=== PATIENT | female | born 1935 | race Caucasian/White ===

== ENCOUNTER → 2017-08-22 | Outpatient (CLI) | payer MEDICARE ==
--- NOTE | 2017-08-22 13:25 | BD ---
EXAMINATION TYPE: MG DEXA axial skeleton. DATE OF EXAM: 08/22/2017 COMPARISON: NONE CLINICAL HISTORY: 82-year-old female asymptomatic postmenopausal status Height: 4 FT 11 1/4 IN Weight: 109 FRAX RISK QUESTIONS: Alcohol (3 or more units per day): NO Family History (Parent hip fracture): NO Glucocorticoids (More than 3mos): NO (Ex: prednisone, prednisolone, methylprednisolone, dexamethasone, and hydrocortisone). History of Fracture in Adulthood: NO Secondary Osteoporosis: 1. Type 1 Diabetes: NO 2. Hyperthyroidism: NO 3. Menopause before 45: NO 4. Malnutrition: NO 5. Chronic liver disease: NO Rheumatoid Arthritis: NO Current Tobacco Use: YES RISK FACTORS HISTORY OF: Active: YES Postmenopausal woman: TOTAL HYST NOT SURE WHEN MEDICATIONS: Additional Medications: AMLODIPINE,ATENOLOL,ATORVASTATIN, PETOPROLOLOXYBUTYNIN Additional History: EXAM MEASUREMENTS: Bone mineral densitometry was performed using the [employer] System. Bone mineral density as measured about the Lumbar spine is: ----- L1-L4(G/cm2): 0.774 T Score Values are as follows: ----- L2: -3.2 ----- L3: -4.5 ----- L4: -3.6 ----- L1-L4: -3.4 BASELINE Bone mineral density about the R hip (g/cm2): 0.652 Bone mineral density about the L hip (g/cm2): 0.615 T Score values are as follows: -----R Neck: -2.8 -----L Neck: -3.0 -----R Total: -3.2 -----L Total: -3.2 BASELINE IMPRESSION: Osteoporosis (T Score less than -2.5) as noted by T Score values at the lumbar spine and both hips). There is increased fracture risk and therapy is usually indicated based on age. Re-Screen 1-2 years. NOTE: T-SCORE=SD OF THE YOUNG ADULT MEAN.
== END ==
LOC: RADBDWWP 08:28
PROVIDERS: ATTEND Family Medicine
DX: M81.0 Age-related osteoporosis without current pathological fracture (principal)
CPT/HCPCS: 77080

== ENCOUNTER → 2017-08-23 | Outpatient (CLI) | payer MEDICARE, BC ==
[2017-08-23 07:55] LABS: CH 26.5; CHCM 30.9; HCT 48.4 % (34.0-46.0); HGB 15.1 gm/dL (11.4-16.0); Hypochromasia Slight; MCHC 31.3 g/dL (31.0-37.0); MCV 86.3 fL (80.0-100.0); Mean Platelet Volume 7.9; RDW 14.3 % (11.5-15.5)
[2017-08-23 08:18] LABS: ALT 37 U/L (9-52); AST 30 U/L (14-36); Alkaline Phosphatase 108 U/L (38-126); Anion Gap 9 mmol/L; Blood Urea Nitrogen 23 mg/dL (7-17); Calcium 9.8 mg/dL (8.4-10.2); Carbon Dioxide 26 mmol/L (22-30); Chloride 107 mmol/L (98-107); Cholesterol 148 mg/dL (<200); Glucose 89 mg/dL (74-99); HDL Cholesterol 69 mg/dL (40-60); Non-African American GFR(MDRD) 56 (>60 ml/min/1.73 sqM); Potassium 4.4 mmol/L (3.5-5.1); Sodium 142 mmol/L (137-145); Total Bilirubin 0.2 mg/dL (0.2-1.3); Total Protein 7.2 g/dL (6.3-8.2)
== END | disposition home or self-care (01) ==
LOC: LABWHC1 07:09
PROVIDERS: ATTEND Family Medicine
DX: I25.10 Atherosclerotic heart disease of native coronary artery without angina pectoris (principal)
CPT/HCPCS: 36415; 80053; 80061; 85027

== ENCOUNTER 2023-07-19 12:22 | Inpatient (IN) | payer MEDICARE, BC ==
[2023-07-19] MEDS ORDERED: SODIUM CHLORIDE 0.9% 500 ML 500 ML IV STA (12:29)
[2023-07-19] MEDS ORDERED: IPRATROPIUM 0.5 MG/2.5 ML NEBU INHALATION STA (12:29)
[2023-07-19] MEDS ORDERED: ALBUTEROL NEBULIZED 2.5 MG/3 ML INHALATION STA (12:29)
[2023-07-19] MEDS ORDERED: methylPREDNISolone SOD SUCCI 125 MG/2 ML VIAL IV STA (12:29)
[2023-07-19] MEDS ORDERED: cefTRIAXone IN SWFI 1,000 MG/10 ML SYRINGE IVP STA ×2 (12:30→15:18)
--- NOTE | 2023-07-19 12:32 | ED ---
General Adult HPI - General Stated complaint: syncope Time Seen by Provider: 07/19/23 12:22 Source: patient, RN notes reviewed, old records reviewed - History of Present Illness Initial comments: This is an 87-year-old female with past medical history significant for COPD. Patient comes in today because she had 2 syncopal episodes this morning in the shower and hit her head. Patient also states that episode yesterday and hit her head. Patient is a poor historian and no family members with the patient. EMS stated she was 88% on room air and they put her on 3 L and gave her breathing treatment. Patient denies any chest pain or palpitations. Patient denies any recent sickness. Patient denies any fever chills or cough. Patient denies any abdominal pain patient denies nausea vomiting diarrhea. Patient denies any leg swelling or calf tenderness - Related Data Home Medications Medication Instructions Recorded Confirmed Aspirin EC [Ecotrin Low Dose] 81 mg PO DAILY 07/19/23 07/19/23 Atorvastatin Calcium [Lipitor] 80 mg PO HS 07/19/23 07/19/23 Cholecalciferol [Vitamin D3 (125 125 mcg PO HS 07/19/23 07/19/23 Mcg = 5000 Iu)] Donepezil HCl [Aricept] 10 mg PO BID 07/19/23 07/19/23 Memantine [Namenda] 10 mg PO BID 07/19/23 07/19/23 Metoprolol Succinate (ER) [Toprol 25 mg PO DAILY 07/19/23 07/19/23 Xl] Multivitamins, Thera [Multivitamin 1 tab PO DAILY 07/19/23 07/19/23 (formulary)] Turmeric Root Extract [Turmeric] 500 mg PO HS 07/19/23 07/19/23 amLODIPine [Norvasc] 5 mg PO HS 07/19/23 07/19/23 lisinopriL [Zestril] 10 mg PO DAILY 07/19/23 07/19/23 Allergies Allergy/AdvReac Type Severity Reaction Status Date / Time No Known Allergies Allergy Verified 07/19/23 13:13 Review of Systems ROS Statement: Those systems with pertinent positive or pertinent negative responses have been documented in the HPI. ROS Other: All systems not noted in ROS Statement are negative. General Exam - General Exam Comments Initial Comments: GENERAL: Patient is well-developed and well-nourished. Patient is nontoxic and well- hydrated and is in mild distress. ENT: Neck is soft and supple. No significant lymphadenopathy is noted. Oropharynx is clear. Moist mucous membranes. Neck has full range of motion without eliciting any pain. EYES: The sclera were anicteric and conjunctiva were pink and moist. Extraocular movements were intact and pupils were equal round and reactive to light. Eyelids were unremarkable. PULMONARY: Rhonchi with expiratory wheezing. CARDIOVASCULAR: There is a regular rate and rhythm without any murmurs gallops or rubs. ABDOMEN: Soft and nontender with normal bowel sounds. SKIN: Skin is clear with no lesions or rashes and otherwise unremarkable. NEUROLOGIC: Patient is alert and oriented x3. Cranial nerves II through XII are grossly intact. Motor and sensory are also intact. Normal speech, volume and content. Symmetrical smile. MUSCULOSKELETAL: Normal extremities with adequate strength and full range of motion. LYMPHATICS: No significant lymphadenopathy is noted PSYCHIATRIC: Normal psychiatric evaluation. Course Vital Signs 07/19/23 07/19/23 07/19/23 12:23 12:55 13:46 Temperature 98.3 F Pulse Rate 80 81 Pulse Rate [ Physical Therapy Instructor ] Respiratory 26 H 24 18 Rate Blood Pressure 166/83 Blood Pressure [Right Arm] O2 Sat by Pulse 96 Oximetry Fraction of Inspired Oxygen (FIO2) 07/19/23 07/19/23 07/19/23 13:56 14:47 15:32 Temperature Pulse Rate 88 141 H Pulse Rate [ 138 H Physical Therapy Instructor ] Respiratory 18 30 H 28 H Rate Blood Pressure 137/80 Blood Pressure 98/60 [Right Arm] O2 Sat by Pulse 86 L 79 L Oximetry Fraction of Inspired Oxygen (FIO2) 07/19/23 07/19/23 07/19/23 15:51 16:32 16:50 Temperature Pulse Rate 156 H 110 H Pulse Rate [ 103 H Physical Therapy Instructor ] Respiratory 22 23 Rate Blood Pressure 100/81 152/80 Blood Pressure 149/73 [Right Arm] O2 Sat by Pulse 92 L Oximetry Fraction of 100 Inspired Oxygen (FIO2) 07/19/23 07/19/23 17:22 17:52 Temperature 98.3 F Pulse Rate Pulse Rate [ 70 71 Physical Therapy Instructor ] Respiratory 23 21 Rate Blood Pressure Blood Pressure 160/79 169/79 [Right Arm] O2 Sat by Pulse 93 L 94 L Oximetry Fraction of Inspired Oxygen (FIO2) Medical Decision Making - Medical Decision Making EKG was interpreted by myself. EKG shows a sinus rhythm at 75 bpm IA interval 138 QRS is 154 QT interval is 424 QTC is 452. Patient has a left bundle branch block Patient's rhythm was so multiple EKGs were done Second EKG was interpreted by myself shows atrial fibrillation with rapid ventricular response at 196 bpm QRS is 250 QT interval 311 QTC is 410. EKG was interpreted by myself. EKG shows atrial for ablation 66 bpm QRS is 151 Q-T intervals 4:30 QTC is 444. EKG was interpreted by myself. EKG shows a atrial fibrillation at 137 bpm IA interval is 96 QRS is 162 QT interval 354 QTC is 425. Was pt. sent in by a medical professional or institution (, PA, PULL TAB DEALER, urgent care, hospital, or alf...) When possible be specific @ -No Did you speak to anyone other than the patient for history (EMS, parent, family, police, friend...)? What history was obtained from this source @ -No Did you review nursing and triage notes (agree or disagree)? Why? @ -I reviewed and agree with nursing and triage notes Were old charts reviewed (outside hosp., previous admission, EMS record, old EKG, old radiological studies, urgent care reports/EKG's, alf records)? Report findings @ -No old charts were reviewed Differential Diagnosis (chest pain, altered mental status, abdominal pain women, abdominal pain men, vaginal bleeding, weakness, fever, dyspnea, syncope, head ache, dizziness, GI bleed, back pain, seizure, CVA, palpatations, mental health, musculoskeletal)? @ -Differential Syncope: Valvular disease, hypertrophic cardiomyopathy, pulmonary embolism, tamponade, tachycardia, bradycardia, CA, hypovolemia, hemorrhage, dissection, anemia, in tracranial hemorrhage, seizure, hypoglycemia, carbon monoxide poisoning, this is not meant to be an all-inclusive list. EKG interpreted by me (3pts min.). @ -As above X-rays interpreted by me (1pt min.). @ -Chest x-ray showed no acute abnormality CT interpreted by me (1pt min.). @ -CT of the brain shows no acute abnormality. CT of the C-spine shows multiple lesions in the C-spine which could indicate meant metastatic disease U/S interpreted by me (1pt. min.). @ -None done What testing was considered but not performed or refused? (CT, X-rays, U/S, labs)? Why? @ -None What meds were considered but not given or refused? Why? @ -None Did you discuss the management of the patient with other professionals (professionals i.e. , PA, PULL TAB DEALER, lab, RT, psych nurse, social services manager, fiberglass laminator, teacher, affirmative action officer, transplant case manager)? Give summary @ -[facility] Was smoking cessation discussed for >3mins.? @ -No Was critical care preformed (if so, how long)? @ -Minutes Were there social determinants of health that impacted care today? How? (Homelessness, low income, unemployed, alcoholism, drug addiction, transportation, low edu. Level, literacy, decrease access to med. care, detention, rehab)? @ -No Was there de-escalation of care discussed even if they declined (Discuss DNR or withdrawal of care, Hospice)? DNR status @ -No What co-morbidities impacted this encounter? (DM, HTN, Smoking, COPD, CAD, Canc er, CVA, ARF, Chemo, Hep., AIDS, mental health diagnosis, sleep apnea, morbid obesity)? @ -None Was patient admitted / discharged? Hospital course, mention meds given and route, prescriptions, significant lab abnormalities, going to OR and other pertinent info. @ -Was given a Cardizem bolus 2 and then started on a Cardizem drip patient's heart rate did start to trend down and eventually went into a sinus rhythm. Patient was also started on heparin. Patient's x-ray showed a questionable pneumonia so patient was started on antibiotics. Patient will be admitted to [facility] physician's and I will consult cardiology Undiagnosed new problem with uncertain prognosis? @ -No Drug Therapy requiring intensive monitoring for toxicity (Heparin, Nitro, Insulin, Cardizem)? @ -No Were any procedures done? @ -No Diagnosis/symptom? @ -A. fib with rapid ventricular response Acute, or Chronic, or Acute on Chronic? @ -Acute Uncomplicated (without systemic symptoms) or Complicated (systemic symptoms)? @ -Complicated Side effects of treatment? @ -No Exacerbation, Progression, or Severe Exacerbation? @ -No Poses a threat to life or bodily function? How? (Chest pain, USA, CA, pneumonia, PE, COPD, DKA, ARF, appy, cholecystitis, CVA, Diverticulitis, Homicidal, Suicidal, threat to staff... and all critical care pts) @ -Yes this could lead to poor perfusion and end organ dysfunction Diagnosis/symptom? @ -Pneumonia Acute, or Chronic, or Acute on Chronic? @ -Acute Uncomplicated (without systemic symptoms) or Complicated (systemic symptoms)? @ -Complicated Side effects of treatment? @ -none Exacerbation, Progression, or Severe Exacerbation] @ -no Poses a threat to life or bodily function? @ -Yes this could lead to sepsis and end organ dysfunction Diagnosis/symptom? @ -Near syncope Acute, or Chronic, or Acute on Chronic? @ -Acute Uncomplicated (without systemic symptoms) or Complicated (systemic symptoms)? @ -Complicated Side effects of treatment? @ -none Exacerbation, Progression, or Severe Exacerbation] @ -no Poses a threat to life or bodily function? @ -no Diagnosis/symptom? @ -Multiple falls Acute, or Chronic, or Acute on Chronic? @ -Acute Uncomplicated (without systemic symptoms) or Complicated (systemic symptoms)? @ -Complicated Side effects of treatment? @ -none Exacerbation, Progression, or Severe Exacerbation] @ -no Poses a threat to life or bodily function? @ -no Diagnosis/symptom? @ -C-spine lesions Acute, or Chronic, or Acute on Chronic? @ -Acute on chronic Uncomplicated (without systemic symptoms) or Complicated (systemic symptoms)? @ -Complicated Side effects of treatment? @ -none Exacerbation, Progression, or Severe Exacerbation] @ -no Poses a threat to life or bodily function? @ -no - Lab Data Result diagrams: 07/19/23 12:48 07/19/23 17:10 Lab Results 07/19/23 07/19/23 07/19/23 Range/Units 12:48 12:48 15:46 WBC 6.6 (3.8-10.6) k/uL RBC 4.77 (3.80-5.40) m/uL Hgb 12.8 (11.4-16.0) gm/dL Hct 40.5 (34.0-46.0) % MCV 85.0 (80.0-100.0) fL MCH 26.9 (25.0-35.0) pg MCHC 31.7 (31.0-37.0) g/dL RDW 14.9 (11.5-15.5) % Plt Count 134 L (150-450) k/uL MPV 8.8 Neutrophils % 73 % Lymphocytes % 20 % Monocytes % 5 % Eosinophils % 1 % Basophils % 0 % Neutrophils # 4.9 (1.3-7.7) k/uL Lymphocytes # 1.3 (1.0-4.8) k/uL Monocytes # 0.3 (0-1.0) k/uL Eosinophils # 0.1 (0-0.7) k/uL Basophils # 0.0 (0-0.2) k/uL Hypochromasia Slight PT 10.9 (9.0-12.0) sec INR 1.0 (<1.2) APTT 23.0 (22.0-30.0) sec Sample Site r rad ABG pH 7.36 (7.35-7.45) ABG pCO2 37 (35-45) mmHg ABG pO2 47 L* (83-108) mmHg ABG HCO3 21 (21-25) mmol/L ABG Total CO2 22 (19-24) mmol/L ABG O2 Saturation 78.7 L (94-97) % ABG Base Excess -4.5 mmol/L Shiraz Test Yes FiO2 100 % Sodium (137-145) mmol/L Potassium (3.5-5.1) mmol/L Chloride (98-107) mmol/L Carbon Dioxide (22-30) mmol/L Anion Gap mmol/L BUN (7-17) mg/dL Creatinine (0.52-1.04) mg/dL Est GFR (CKD-EPI)AfAm (>60 ml/min/1.73 sqM) Est GFR (CKD-EPI)NonAf (>60 ml/min/1.73 sqM) Glucose (74-99) mg/dL Plasma Lactic Acid Melvin (0.7-2.0) mmol/L Calcium (8.4-10.2) mg/dL Magnesium (1.6-2.3) mg/dL Total Bilirubin (0.2-1.3) mg/dL AST (14-36) U/L ALT (4-34) U/L Alkaline Phosphatase (38-126) U/L Troponin I (0.000-0.034) ng/mL NT-Pro-B Natriuret Pep pg/mL Total Protein (6.3-8.2) g/dL Albumin (3.5-5.0) g/dL 07/19/23 07/19/23 07/19/23 Range/Units 16:06 17:10 17:10 WBC (3.8-10.6) k/uL RBC (3.80-5.40) m/uL Hgb (11.4-16.0) gm/dL Hct (34.0-46.0) % MCV (80.0-100.0) fL MCH (25.0-35.0) pg MCHC (31.0-37.0) g/dL RDW (11.5-15.5) % Plt Count (150-450) k/uL MPV Neutrophils % % Lymphocytes % % Monocytes % % Eosinophils % % Basophils % % Neutrophils # (1.3-7.7) k/uL Lymphocytes # (1.0-4.8) k/uL Monocytes # (0-1.0) k/uL Eosinophils # (0-0.7) k/uL Basophils # (0-0.2) k/uL Hypochromasia PT (9.0-12.0) sec INR (<1.2) APTT (22.0-30.0) sec Sample Site LBRAC ABG pH 7.36 (7.35-7.45) ABG pCO2 37 (35-45) mmHg ABG pO2 54 L* (83-108) mmHg ABG HCO3 21 (21-25) mmol/L ABG Total CO2 22 (19-24) mmol/L ABG O2 Saturation 85.0 L (94-97) % ABG Base Excess -4.7 mmol/L Shiraz Test Yes FiO2 100 % Sodium 144 (137-145) mmol/L Potassium 4.2 (3.5-5.1) mmol/L Chloride 112 H (98-107) mmol/L Carbon Dioxide 19 L (22-30) mmol/L Anion Gap 13 mmol/L BUN 45 H (7-17) mg/dL Creatinine 1.36 H (0.52-1.04) mg/dL Est GFR (CKD-EPI)AfAm 40 (>60 ml/min/1.73 sqM) Est GFR (CKD-EPI)NonAf 35 (>60 ml/min/1.73 sqM) Glucose 159 H (74-99) mg/dL Plasma Lactic Acid Melvin (0.7-2.0) mmol/L Calcium 9.8 (8.4-10.2) mg/dL Magnesium 1.8 (1.6-2.3) mg/dL Total Bilirubin 0.6 (0.2-1.3) mg/dL AST 67 H (14-36) U/L ALT 44 H (4-34) U/L Alkaline Phosphatase 103 (38-126) U/L Troponin I 0.048 H* (0.000-0.034) ng/mL NT-Pro-B Natriuret Pep 3760 pg/mL Total Protein 7.6 (6.3-8.2) g/dL Albumin 4.0 (3.5-5.0) g/dL 07/19/23 Range/Units 17:10 WBC (3.8-10.6) k/uL RBC (3.80-5.40) m/uL Hgb (11.4-16.0) gm/dL Hct (34.0-46.0) % MCV (80.0-100.0) fL MCH (25.0-35.0) pg MCHC (31.0-37.0) g/dL RDW (11.5-15.5) % Plt Count (150-450) k/uL MPV Neutrophils % % Lymphocytes % % Monocytes % % Eosinophils % % Basophils % % Neutrophils # (1.3-7.7) k/uL Lymphocytes # (1.0-4.8) k/uL Monocytes # (0-1.0) k/uL Eosinophils # (0-0.7) k/uL Basophils # (0-0.2) k/uL Hypochromasia PT (9.0-12.0) sec INR (<1.2) APTT (22.0-30.0) sec Sample Site ABG pH (7.35-7.45) ABG pCO2 (35-45) mmHg ABG pO2 (83-108) mmHg ABG HCO3 (21-25) mmol/L ABG Total CO2 (19-24) mmol/L ABG O2 Saturation (94-97) % ABG Base Excess mmol/L Shiraz Test FiO2 % Sodium (137-145) mmol/L Potassium (3.5-5.1) mmol/L Chloride (98-107) mmol/L Carbon Dioxide (22-30) mmol/L Anion Gap mmol/L BUN (7-17) mg/dL Creatinine (0.52-1.04) mg/dL Est GFR (CKD-EPI)AfAm (>60 ml/min/1.73 sqM) Est GFR (CKD-EPI)NonAf (>60 ml/min/1.73 sqM) Glucose (74-99) mg/dL Plasma Lactic Acid Melvin 1.3 (0.7-2.0) mmol/L Calcium (8.4-10.2) mg/dL Magnesium (1.6-2.3) mg/dL Total Bilirubin (0.2-1.3) mg/dL AST (14-36) U/L ALT (4-34) U/L Alkaline Phosphatase (38-126) U/L Troponin I (0.000-0.034) ng/mL NT-Pro-B Natriuret Pep pg/mL Total Protein (6.3-8.2) g/dL Albumin (3.5-5.0) g/dL Critical Care Time Critical Care Time: Yes Total Critical Care Time: 45 Disposition Clinical Impression: Atrial fibrillation with rapid ventricular response, Near syncope, Pneumonia, Multiple falls, Lesion of bone of cervical spine Disposition: ADMITTED IP TO THIS HOSP Referrals: Carloz Staples MD [Primary Care Provider] - 1-2 days Time of Disposition: 19:14
[2023-07-19 12:59] LABS: Basophils % (A) 0 %; Eosinophils # (A) 0.1 k/uL (0-0.7); Eosinophils % (A) 1 %; HCT 40.5 % (34.0-46.0); HGB 12.8 gm/dL (11.4-16.0); Hypochromasia Slight; Lymphocytes # (A) 1.3 k/uL (1.0-4.8); Lymphocytes % (A) 20 %; MCH 26.9 pg (25.0-35.0); MCHC 31.7 g/dL (31.0-37.0); Mean Platelet Volume 8.8; Monocytes # (A) 0.3 k/uL (0-1.0); Monocytes % (A) 5 %; Neutrophils # (A) 4.9 k/uL (1.3-7.7); Neutrophils % (A) 73 %; Platelet Count 134 k/uL (150-450); RBC 4.77 m/uL (3.80-5.40); RDW 14.9 % (11.5-15.5); WBC 6.6 k/uL (3.8-10.6)
[2023-07-19 13:22] LABS: Prothrombin Time 10.9 sec (9.0-12.0)
--- NOTE | 2023-07-19 13:46 | CT ---
EXAMINATION TYPE: CT brain rob wo con DATE OF EXAM: 07/19/2023 COMPARISON: None HISTORY: Fall, syncope, bruising Rt side of head. CT DLP: 1326 mGycm, Automated exposure control for dose reduction was used. CONTRAST: Patient injected with mL of . CT of the brain is performed utilizing 3 mm thick sections through the posterior fossa and 3 mm thick sections through the remaining calvarium. Study is performed within 24 hours of arrival to the hospital. No abnormal hyperdensity is present to suggest an acute intracranial hemorrhage. No mass lesion is evident. No acute infarcts are evident. Patchy periventricular white matter hypodensity is present, likely on the basis of chronic white matter ischemic changes. Ventricles and sulci are somewhat prominent for the patient age. Paranasal sinuses and mastoid air cells within the [id number] are clear. IMPRESSIONS: 1. No acute intracranial process. Follow-up MRI can be performed as clinically indicated CT cervical spine. COMPARISON: None CT of the cervical spine is performed in the axial plane at 2 mm thick sections. Reconstructed image s in the coronal, and sagittal plane are reviewed on the computer. No acute fractures are evident. There may be some diffuse lytic areas through the cervical spine. Cor relate with patient history for possible metastasis. Vertebral body alignment is normal. Disc heights are preserved. Vertebral body heights are preserved. No spinal canal stenosis is evident. No neural foraminal stenosis is evident. IMPRESSION: 1. Some diffuse pole lysis within the cervical spine may be present. Consider metastatic disease. 2. No acute osseous abnormality.
--- NOTE | 2023-07-19 14:33 | XR ---
EXAMINATION TYPE: XR chest 2V DATE OF EXAM: 07/19/2023 COMPARISON: 09/02/2012 HISTORY: 87-year-old female shortness of breath, difficulty breathing TECHNIQUE: AP and lateral views FINDINGS: Heart is mildly moderately enlarged. Atherosclerotic arch calcifications. Surgical clips right hilum. There is a focal nodular opacity in the left midlung. Mild interstitial prominence without pleural e ffusion. IMPRESSION: 1. Aquy-rg-[id number] cardiomegaly. 2. Interstitial prominence which in part may be chronic. Correlate to exclude bronchitis, asthma, or mild pulmonary vascular congestion. 3. Focal opacity left midlung could represent an underlying pulmonary nodule or early pneumonia. Foll ow-up after treatment to exclude a suspicious pulmonary nodule/neoplasm.
[2023-07-19] MEDS ORDERED: DEXTROSE 5% IN WATER 100 ML with AMIODARONE 150 MG IV ONE (14:46)
[2023-07-19] MEDS ORDERED: AMIODARONE 360 MG in DEXTROSE 5% IN WATER 200 ML IV ONE ×2 (14:46)
[2023-07-19] MEDS ORDERED: DILTIAZEM DRIP BOLUS FROM BAG 1 MG SOLN IV ONE (14:48)
[2023-07-19] MEDS ORDERED: DILTIAZEM 125 MG in SODIUM CHLORIDE 0.9% 100 ML IV SCH (15:00)
[2023-07-19] MEDS ORDERED: DILTIAZEM 5 MG/ML 5 ML VIAL IVP STA (15:25)
[2023-07-19 15:50] LABS: ABG Base Excess -4.5 mmol/L; ABG HCO3 21 mmol/L (21-25); ABG PCO2 37 mmHg (35-45); ABG PH 7.36 (7.35-7.45); ABG TCO2 22 mmol/L (19-24); Allen Test Performed? Yes
[2023-07-19 15:51] LABS: ABG PO2 47 mmHg (83-108)
[2023-07-19 15:52] LABS: ABG Oxygen Saturation 78.7 % (94-97)
[2023-07-19 16:10] LABS: ABG Base Excess -4.7 mmol/L; ABG HCO3 21 mmol/L (21-25); ABG PCO2 37 mmHg (35-45); ABG PH 7.36 (7.35-7.45); ABG TCO2 22 mmol/L (19-24); Allen Test Performed? Yes
[2023-07-19 16:14] LABS: ABG PO2 54 mmHg (83-108)
[2023-07-19 17:48] LABS: ALT 44 U/L (4-34); AST 67 U/L (14-36); African American GFR (CKD) 40 (>60 ml/min/1.73 sqM); Alkaline Phosphatase 103 U/L (38-126); Anion Gap 13 mmol/L; Blood Urea Nitrogen 45 mg/dL (7-17); Calcium 9.8 mg/dL (8.4-10.2); Carbon Dioxide 19 mmol/L (22-30); Chloride 112 mmol/L (98-107); Glucose 159 mg/dL (74-99); Magnesium 1.8 mg/dL (1.6-2.3); Non-African American GFR(CKD) 35 (>60 ml/min/1.73 sqM); Potassium 4.2 mmol/L (3.5-5.1); Sodium 144 mmol/L (137-145); Total Bilirubin 0.6 mg/dL (0.2-1.3); Total Protein 7.6 g/dL (6.3-8.2)
[2023-07-19 17:55] LABS: NT-Pro-B-Type Natriuretic Pept 3760 pg/mL
[2023-07-19] MEDS ORDERED: HEPARIN SODIUM 1,000 UN/ML (10ML VL) IV ONE (19:05)
[2023-07-19] MEDS ORDERED: SODIUM CHLORIDE 0.9% 1,000 ML IV ONE (19:14)
[2023-07-19] MEDS ORDERED: AZITHROMYCIN 500 MG in SODIUM CHLORIDE 0.9% 250 ML IVPB STA (19:16)
[2023-07-19] MEDS: HEPARIN SOD,PORK IN 0.45% NACL 25,000 UNIT in 0.45% NACL 1 250ML.BAG IV SCH (19:31)
[2023-07-19] MEDS ORDERED: AMIODARONE 450 MG in DEXTROSE 5% IN WATER 250 ML IV SCH ×2 (21:00)
[2023-07-20] MEDS ORDERED: DILTIAZEM DRIP BOLUS FROM BAG 1 MG SOLN IV ONE (02:10)
[2023-07-20] MEDS ORDERED: DILTIAZEM 125 MG in SODIUM CHLORIDE 0.9% 100 ML IV SCH (02:15)
--- NOTE | 2023-07-20 02:20 | P.HPIM ---
History of Present Illness H&P Date: 07/19/23 Chief Complaint: syncope 87-year-old female with COPD She is coming in for recurrent syncopal episodes. Patient has dementia unable to provide any meaningful history which was obtained by reviewing medical records and discussing the case with the ED doctor. No family members available at this time Like she had the a syncopal episode this morning while in the shower she hit her head. She lives with her son and his family EMS was notified, found the patient to be slightly hypoxic with oxygen saturation 88%. No report of chest pain or shortness of breath no report of fevers or chills no report of any history of blood clots No other history is available at this time Patient has converted to sinus rhythm while in the ED on Cardizem drip review of systems Patient is unreliable however she denies any symptoms when I ask her more she says I don't know on exam Constitutional: No acute distress, conversant, cooperative Eyes: Anicteric sclerae, moist conjunctiva, Pupils equal round reactive to light ENMT: NC/there is a bruise over the right forehead Oropharynx clear, no erythema, or exudates Neck: Supple, no masses, or JVD No carotid bruits No thyromegaly Lungs: Clear to auscultation Clear to percussion Normal respiratory effort, no accessory muscle use Cardiovascular: Heart regular in rate and rhythm, No murmurs, gallops, or rubs No peripheral edema Abdominal: Soft Nontender, no guarding, rebound or rigidity Abdomen moving with respiration Normoactive bowel sounds Epigastric abdominal hernia skin : Multiple bruises and ecchymosis Extremities: No digital cyanosis No clubbing Pedal pulses intact and symmetrical Radial pulses intact and symmetrical No calf tenderness Psychiatric: Alert and oriented to person, place Neuro moving all 4 extremities purposefully Past Medical History Past Medical History: Coronary Artery Disease (CAD), COPD, Dementia, Hypertension, Myocardial Infarction (MD) Additional Past Medical History / Comment(s): heart murmur Last Myocardial Infarction Date:: unknown History of Any Multi-Drug Resistant Organisms: None Reported Past Surgical History: Orthopedic Surgery Additional Past Surgical History / Comment(s): shoulder Past Anesthesia/Blood Transfusion Reactions: No Reported Reaction Past Psychological History: No Psychological Hx Reported Smoking Status: Former smoker Past Alcohol Use History: None Reported Past Drug Use History: None Reported Medications and Allergies Home Medications Medication Instructions Recorded Confirmed Type Aspirin EC [Ecotrin Low Dose] 81 mg PO DAILY 07/19/23 07/19/23 History Atorvastatin Calcium [Lipitor] 80 mg PO HS 07/19/23 07/19/23 History Cholecalciferol [Vitamin D3 (125 125 mcg PO HS 07/19/23 07/19/23 History Mcg = 5000 Iu)] Donepezil HCl [Aricept] 10 mg PO BID 07/19/23 07/19/23 History Memantine [Namenda] 10 mg PO BID 07/19/23 07/19/23 History Metoprolol Succinate (ER) [Toprol 25 mg PO DAILY 07/19/23 07/19/23 History Xl] Multivitamins, Thera [Multivitamin 1 tab PO DAILY 07/19/23 07/19/23 History (formulary)] Turmeric Root Extract [Turmeric] 500 mg PO HS 07/19/23 07/19/23 History amLODIPine [Norvasc] 5 mg PO HS 07/19/23 07/19/23 History lisinopriL [Zestril] 10 mg PO DAILY 07/19/23 07/19/23 History Allergies Allergy/AdvReac Type Severity Reaction Status Date / Time No Known Allergies Allergy Verified 07/19/23 13:13 Physical Exam Vitals: Vital Signs Temp Pulse Pulse Resp BP BP Pulse Ox 07/20/23 00:09 98.8 F 75 12 155/80 98 07/19/23 23:18 07/19/23 21:59 69 16 07/19/23 21:14 98.2 F 69 18 159/65 96 07/19/23 20:23 76 16 149/82 94 L 07/19/23 20:15 07/19/23 19:38 69 22 157/93 94 L 07/19/23 17:52 71 21 169/79 94 L 07/19/23 17:22 98.3 F 70 23 160/79 93 L 07/19/23 16:50 110 H 103 H 23 152/80 149/73 92 L 07/19/23 16:32 07/19/23 15:51 156 H 22 100/81 07/19/23 15:32 138 H 28 H 98/60 79 L 07/19/23 14:47 141 H 30 H 137/80 86 L 07/19/23 13:56 88 18 07/19/23 13:46 81 18 07/19/23 12:55 24 07/19/23 12:23 98.3 F 80 26 H 166/83 96 FiO2 07/20/23 00:09 07/19/23 23:18 100 07/19/23 21:59 07/19/23 21:14 07/19/23 20:23 07/19/23 20:15 100 07/19/23 19:38 07/19/23 17:52 07/19/23 17:22 07/19/23 16:50 07/19/23 16:32 100 07/19/23 15:51 07/19/23 15:32 07/19/23 14:47 07/19/23 13:56 07/19/23 13:46 07/19/23 12:55 07/19/23 12:23 Intake and Output 07/19/23 07/19/23 07/20/23 14:59 22:59 06:59 Intake Total 26 14.292 Balance 26 14.292 Intake: Intake, IV Titration 26 14.292 Amount Diltiazem 125 mg In 26 14.292 Sodium Chloride 0.9% 100 ml @ 5 MG/HR 5 mls/hr IV .Q24H [facility] Rx#:[id number] Other: Voiding Method Diaper Weight 65.771 kg 65.771 kg Results CBC & Chem 7: 07/19/23 12:48 07/19/23 17:10 Labs: Abnormal Lab Results - Last 24 Hours (Table) 07/19/23 07/19/23 07/19/23 Range/Units 12:48 15:46 16:06 Plt Count 134 L (150-450) k/uL ABG pO2 47 L* 54 L* (83-108) mmHg ABG O2 Saturation 78.7 L 85.0 L (94-97) % Chloride (98-107) mmol/L Carbon Dioxide (22-30) mmol/L BUN (7-17) mg/dL Creatinine (0.52-1.04) mg/dL Glucose (74-99) mg/dL AST (14-36) U/L ALT (4-34) U/L Troponin I (0.000-0.034) ng/mL 07/19/23 07/19/23 Range/Units 17:10 17:10 Plt Count (150-450) k/uL ABG pO2 (83-108) mmHg ABG O2 Saturation (94-97) % Chloride 112 H (98-107) mmol/L Carbon Dioxide 19 L (22-30) mmol/L BUN 45 H (7-17) mg/dL Creatinine 1.36 H (0.52-1.04) mg/dL Glucose 159 H (74-99) mg/dL AST 67 H (14-36) U/L ALT 44 H (4-34) U/L Troponin I 0.048 H* (0.000-0.034) ng/mL Thrombosis Risk Factor Assmnt - Choose All That Apply Any of the Below Risk Factors Present?: No Each Risk Factor Represents 3 Points: Age 75 years or older Other congenital or acquired thrombophilia - If yes, enter type in comment: No Thrombosis Risk Factor Assessment Total Risk Factor Score: 3 Thrombosis Risk Factor Assessment Level: Moderate Risk Assessment and Plan Assessment: 87-year-old female with dementia and hypertension coming in for syncopal episodes, discussed the case with the ED doctor and accepted the admission for A. fib with RVR for cardiology evaluation with anticipated length of stay more than 2 midnights Recurrent syncopal episodes A. fib with RVR Recurrent falls and head injury CT of the head and neck shows no acute pathology and the brain, cervical spine showed some chronic lesions Patient converted to normal sinus rhythm while on Cardizem drip however after discontinuing the trip she went back into A. 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 fib with RVR continue to trend troponins Acute hypoxic respiratory failure Suspected pneumonia Chest x-ray showed left mid lung focal opacity Patient initiated on azithromycin and Rocephin in the ED Continue azithromycin 500 mg by mouth daily Continue Rocephin 2 g IV piggyback daily Tylenol when necessary for fever Supplemental oxygen as needed Dementia Continue home medications Acute kidney injury Avoid nephrotoxic meds Hold lisinopril Gentle IV fluid hydration normal saline 75 mL per hour Monitor urine output Blood work showing white count 6.6 BUN 45 creatinine 1.36 Sodium 144 potassium 4.2 CODE STATUS no code DVT prophylaxis currently on heparin drip for A. fib with RVR
[2023-07-20] MEDS: DONEPEZIL 10 MG TAB PO SCH ×2 (08:42→20:13)
[2023-07-20] MEDS: MEMANTINE 10 MG TAB PO SCH ×2 (08:42→20:13)
[2023-07-20] MEDS: ASPIRIN 81 MG PO SCH (08:42)
[2023-07-20] MEDS: METOPROLOL SUCCINATE (ER) 25 MG TAB.ER.24H PO SCH (08:42)
[2023-07-20] MEDS ORDERED: lisinopriL 10 MG TAB PO SCH (09:00)
[2023-07-20] MEDS: AZITHROMYCIN 500 MG in SODIUM CHLORIDE 0.9% 250 ML IVPB SCH (10:00)
[2023-07-20] MEDS ORDERED: IPRATROPIUM-ALBUTEROL 3 ML NEB INHALATION PRN (12:13)
--- NOTE | 2023-07-20 12:13 | P.CNPUL ---
History of Present Illness Consult date: 07/20/23 Requesting physician: Carloz Staples Reason for consult: dyspnea, COPD, hypoxemia, abnormal CXR/CT Chief complaint: Weakness, falls, hypoxemia. History of present illness: Pulmonary consult dated 07/20/2023. 77-year-old female who was initially seen in the emergency department. We saw her, and room 369, July 20. She was seen in the ER, on July 19. She apparently came into the ER, having had some syncopal episodes, in the shower, where she hit her head. Apparently, there is no family members, with her, and she was a poor historian. When she was brought in by EMS, her saturations were 88% on room air. They gave her nasal O2, at 3 L, and breathing treatments. Currently, the patient is on BiPAP, with settings of 10/5, and 100%. Her saturations are 99%. She's receiving IV heparin, and a Cardizem drip at 5 mg an hour. She's also getting saline at 15 mL an hour. Based on her home medications, she has a history of hyperlipidemia, vitamin D deficiency, dementia, and hypertension. White count is 6.6, hemoglobin 12.8, hematocrit 40.5, and platelet count 134,000. She had blood gases in the emergency department, showing a pO2 of 47, pCO2 of 37, and pH is 7.36. A repeat blood gas was similar, with a pO2 of 54, pCO2 37, and pH is 7.36. Sodium was 144, potassium 4.2, chlorides 112, CO2 19, BUN 45, and creatinine 1.36. AST was 67. ALT was 44, and troponin was 0.048. N-terminal proBNP was elevated at 3760. Chest x-ray shows moderate cardiomegaly, and mild pulmonary vascular congestion, consistent with the elevated BNP. In addition, there is a focal area of scar and/or nodule, in the left midlung. Review of Systems REVIEW OF SYSTEMS: CONSTITUTIONAL: Weakness. NEUROLOGIC: Syncope. HEENT: [ Negative.] CARDIAC: Syncope. PULMONARY: Hypoxemia. GI: [Negative.] : [Negative.] RHEUMATOLOGIC: [ Negative.] IMMUNOLOGIC: [ Negative.] ENDOCRINE: [Negative. ] DERMATOLOGIC: [Negative.] Past Medical History Past Medical History: Coronary Artery Disease (CAD), COPD, Dementia, Hypert ension, Myocardial Infarction (PR) Additional Past Medical History / Comment(s): heart murmur Last Myocardial Infarction Date:: unknown History of Any Multi-Drug Resistant Organisms: None Reported Past Surgical History: Orthopedic Surgery Additional Past Surgical History / Comment(s): shoulder Past Anesthesia/Blood Transfusion Reactions: No Reported Reaction Past Psychological History: No Psychological Hx Reported Smoking Status: Former smoker Past Alcohol Use History: None Reported Past Drug Use History: None Reported Medications and Allergies Home Medications Medication Instructions Recorded Confirmed Type Aspirin EC [Ecotrin Low Dose] 81 mg PO DAILY 07/19/23 07/19/23 History Atorvastatin Calcium [Lipitor] 80 mg PO HS 07/19/23 07/19/23 History Cholecalciferol [Vitamin D3 (125 125 mcg PO HS 07/19/23 07/19/23 History Mcg = 5000 Iu)] Donepezil HCl [Aricept] 10 mg PO BID 07/19/23 07/19/23 History Memantine [Namenda] 10 mg PO BID 07/19/23 07/19/23 History Metoprolol Succinate (ER) [Toprol 25 mg PO DAILY 07/19/23 07/19/23 History Xl] Multivitamins, Thera [Multivitamin 1 tab PO DAILY 07/19/23 07/19/23 History (formulary)] Turmeric Root Extract [Turmeric] 500 mg PO HS 07/19/23 07/19/23 History amLODIPine [Norvasc] 5 mg PO HS 07/19/23 07/19/23 History lisinopriL [Zestril] 10 mg PO DAILY 07/19/23 07/19/23 History Allergies Allergy/AdvReac Type Severity Reaction Status Date / Time No Known Allergies Allergy Verified 07/19/23 13:13 Physical Exam Osteopathic Statement: *. No significant issues noted on an osteopathic structural exam other than those noted in the History and Physical/Consult. Vitals: Vital Signs Temp Pulse Pulse Pulse Resp BP BP 07/20/23 11:48 07/20/23 11:32 97.7 F 50 L 18 126/60 07/20/23 09:11 07/20/23 09:07 07/20/23 09:06 07/20/23 08:00 97.7 F 108 H 106 H 18 119/79 07/20/23 04:17 07/20/23 03:39 108 H 12 128/68 07/20/23 02:00 110 H 16 07/20/23 00:09 98.8 F 75 12 155/80 07/19/23 23:18 07/19/23 21:59 69 16 07/19/23 21:14 98.2 F 69 18 159/65 07/19/23 20:23 76 16 149/82 07/19/23 20:15 07/19/23 19:38 69 22 157/93 07/19/23 17:52 71 21 169/79 07/19/23 17:22 98.3 F 70 23 160/79 07/19/23 16:50 110 H 103 H 23 152/80 149/73 07/19/23 16:32 07/19/23 15:51 156 H 22 100/81 07/19/23 15:32 138 H 28 H 98/60 07/19/23 14:47 141 H 30 H 137/80 07/19/23 13:56 88 18 07/19/23 13:46 81 18 07/19/23 12:55 24 07/19/23 12:23 98.3 F 80 26 H 166/83 Pulse Ox FiO2 07/20/23 11:48 80 07/20/23 11:32 94 L 100 07/20/23 09:11 100 07/20/23 09:07 100 07/20/23 09:06 100 07/20/23 08:00 97 100 07/20/23 04:17 100 07/20/23 03:39 100 07/20/23 02:00 07/20/23 00:09 98 07/19/23 23:18 100 07/19/23 21:59 07/19/23 21:14 96 07/19/23 20:23 94 L 07/19/23 20:15 100 07/19/23 19:38 94 L 07/19/23 17:52 94 L 07/19/23 17:22 93 L 07/19/23 16:50 92 L 07/19/23 16:32 100 07/19/23 15:51 07/19/23 15:32 79 L 07/19/23 14:47 86 L 07/19/23 13:56 07/19/23 13:46 07/19/23 12:55 07/19/23 12:23 96 Intake and Output 07/19/23 07/20/23 07/20/23 22:59 06:59 14:59 Intake Total 26 70.990 1580 Balance 26 70.990 1580 Intake: Intake, IV Titration 26 70.990 900 Amount Azithromycin 500 mg In 250 Sodium Chloride 0.9% 250 ml @ 250 mls/hr IVPB DAILY [facility] Rx#:[id number] Diltiazem 125 mg In 26 14.292 Sodium Chloride 0.9% 100 ml @ 5 MG/HR 5 mls/hr IV .Q24H [facility] Rx#:[id number] Heparin Sod,Pork in 0.45% 56.698 NaCl 25,000 unit In 0.45 % NaCl 1 250ml.bag @ 12 UNITS/KG/HR 7.893 mls/hr IV .Q24H [facility] Rx#: [id number] Sodium Chloride 0.9% 1, 600 000 ml @ 75 mls/hr IV . [id number] [facility] Rx#:[id number] cefTRIAXone 2 gm In 50 Sodium Chloride 0.9% 50 ml @ 100 mls/hr IVPB Q24HR [facility] Rx#:[id number] Oral 680 Other: Voiding Method Diaper External Catheter External Catheter # Bowel Movements 1 Weight 65.771 kg No acute distress, lethargic, currently with BiPAP mask in place. HEENT examination is grossly unremarkable. Neck supple. Full range of motion. No adenopathy thyromegaly or neck vein distention. Cardiovascular examination reveals an irregular rhythm and rate. S1-S2 normal. No S3 or S4. Heart sounds are distant. Heart rate about 80 bpm. No discernible murmur noted. Lungs reveal minimal bibasilar crackles. No wheezes or rhonchi. Breath sounds are equal bilaterally. Saturations are 94%. Abdomen soft bowel sounds are heard. No masses or tenderness. Extremities are intact. No cyanosis clubbing or edema. Skin is without rash or lesion. Neurologic examination is brief but nonfocal. Results - Laboratory Findings CBC and BMP: 07/19/23 12:48 07/19/23 17:10 ABG ABG pH 7.36 (7.35-7.45) 07/19/23 16:06 ABG pCO2 37 mmHg (35-45) 07/19/23 16:06 ABG pO2 54 mmHg (83-108) L* 07/19/23 16:06 ABG O2 Saturation 85.0 % (94-97) L 07/19/23 16:06 PT/INR, D-dimer PT 10.9 sec (9.0-12.0) 07/19/23 12:48 INR 1.0 (<1.2) 07/19/23 12:48 Abnormal lab findings: Abnormal Labs 07/19/23 07/19/23 07/19/23 12:48 15:46 16:06 Plt Count 134 L APTT ABG pO2 47 L* 54 L* ABG O2 Saturation 78.7 L 85.0 L Chloride Carbon Dioxide BUN Creatinine Glucose AST ALT Troponin I 07/19/23 07/19/23 07/20/23 17:10 17:10 01:38 Plt Count APTT >200.0 H* ABG pO2 ABG O2 Saturation Chloride 112 H Carbon Dioxide 19 L BUN 45 H Creatinine 1.36 H Glucose 159 H AST 67 H ALT 44 H Troponin I 0.048 H* - Diagnostic Findings Chest x-ray: image reviewed Assessment and Plan Assessment: Acute hypoxemic respiratory failure, likely multifactorial, in part related to COPD exacerbation, mild fluid overload/CHF, and atrial fibrillation. History of suspected COPD from previous tobacco use. Mild thrombocytopenia. Chronic kidney disease. History of hyperlipidemia. History of hypertension. History of dementia. History of vitamin D deficiency. Plan: Plan dated 07/20/2023. The patient should be placed on albuterol sulfate and ipratropium bromide, 4 times a day and when necessary. In addition, the patient should receive Pulmicort, 1 mg, and formoterol, 20 g, twice a day. In addition, I would put the patient on a smaller dose of Solu-Medrol, 40 mg, every 8 hours. We will check a pro-calcitonin level. If normal, antibiotics can be discontinued. The patient should receive Lasix, for mild fluid overload. He is currently on Cardizem, for her atrial fibrillation, along with IV heparin. The patient is a DO NOT RESUSCITATE patient. Treatment should be more conservative. Time with Patient: Greater than 30
[2023-07-20 12:22] LABS: Partial Thromboplastin Time 148.8 sec (22.0-30.0)
--- NOTE | 2023-07-20 12:48 | P.CRDCN ---
History of Present Illness History of present illness: HISTORY OF PRESENTING ILLNESS Patient is a pleasant 87-year-old female with history of dementia, reported CAD, COPD, hypertension. She cannot provide any medical history and does not believe she has any medical problems. Apparently per chart, patient does have a history of COPD and patient had 2 syncopal episodes that occurred in the shower this morning. Patient was found by EMS hypoxic at 88% and was given breathing treatments. She has been noted to have intermittent A. fib with RVR with heart rates anywhere from the 160s up to 190s as well as sinus bradycardia heart rates in the 40s while on Cardizem. She does have significant 4/6 systolic murmur and no prior workup in the hospital. Currently is on BiPAP and has been unable to wean to nasal cannula. She denies any chest pain or pressure. Chest x-ray shows left mid lung scarring and mild pulmonary vascular congestion. CT brain does not show any acute process. REVIEW OF SYSTEMS At the time of my exam: CONSTITUTIONAL: Denies fever or chills. CARDIOVASCULAR: Denies chest pain, +chronic shortness of breath, no orthopnea, PND or palpitations. RESPIRATORY: Denies cough. GASTROINTESTINAL: Denies abdominal pain, diarrhea, constipation, nausea or vomiting. MUSCULOSKELETAL: Denies myalgias. NEUROLOGIC: Denies numbness, tingling or weakness. ENDOCRINE: Denies fatigue, weight change, polydipsia or polyurina. GENITOURINARY: Denies burning, hematuria or urgency with micturation. HEMATOLOGIC: Denies history of anemia or bleeding. PHYSICAL EXAMINATION Vital signs reviewed. CONSTITUTIONAL: No apparent distress, frail. HEENT: Head is normocephalic. Pupils are equal, round. Sclerae anicteric. Mucous membranes of the mouth are moist. No JVD. No carotid bruit. CHEST EXAMINATION: Lungs are clear to auscultation. No chest wall tenderness is noted on palpation or with deep breathing. HEART EXAMINATION: Regular rate and rhythm. S1 normal, no S2 heard. +4/6 systolic murmur, gallops or rub. ABDOMEN: Soft, nontender. Positive bowel sounds. EXTREMITIES: 2+ peripheral pulses, no lower extremity edema and no calf t enderness. NEUROLOGIC EXAMINATION: Patient is awake, alert poor historian ASSESSMENT 1. Syncope, may be related to tachybradycardia syndrome, sick sinus syndrome or aortic stenosis 2. Murmur consistent with aortic stenosis 3. Hypertension 4. Paroxysmal atrial fibrillation with RVR 5. Acute on chronic respiratory failure in part related to COPD as well as heart failure 6. Acute on chronic heart failure presumed diastolic 7. Questionable history of CAD 8. Dementia PLAN Patient poor historian and most of history is supplied by chart. Patient did however have syncopal episode with intermittent tachycardia with heart rates in the 160s to 180s, Toprol at home. She however has been having bradycardia sinus rhythm with heart rates in the 40s. Check 2-D echo to evaluate her aortic sten osis and for any structural heart disease. IV heparin for atrial fibrillation. Further recommendations to follow. Past Medical History Past Medical History: Coronary Artery Disease (CAD), COPD, Dementia, Hypertension, Myocardial Infarction (VT) Additional Past Medical History / Comment(s): heart murmur Last Myocardial Infarction Date:: unknown History of Any Multi-Drug Resistant Organisms: None Reported Past Surgical History: Orthopedic Surgery Additional Past Surgical History / Comment(s): shoulder Past Anesthesia/Blood Transfusion Reactions: No Reported Reaction Past Psychological History: No Psychological Hx Reported Smoking Status: Former smoker Past Alcohol Use History: None Reported Past Drug Use History: None Reported Medications and Allergies Home Medications Medication Instructions Recorded Confirmed Type Aspirin EC [Ecotrin Low Dose] 81 mg PO DAILY 07/19/23 07/19/23 History Atorvastatin Calcium [Lipitor] 80 mg PO HS 07/19/23 07/19/23 History Cholecalciferol [Vitamin D3 (125 125 mcg PO HS 07/19/23 07/19/23 History Mcg = 5000 Iu)] Donepezil HCl [Aricept] 10 mg PO BID 07/19/23 07/19/23 History Memantine [Namenda] 10 mg PO BID 07/19/23 07/19/23 History Metoprolol Succinate (ER) [Toprol 25 mg PO DAILY 07/19/23 07/19/23 History Xl] Multivitamins, Thera [Multivitamin 1 tab PO DAILY 07/19/23 07/19/23 History (formulary)] Turmeric Root Extract [Turmeric] 500 mg PO HS 07/19/23 07/19/23 History amLODIPine [Norvasc] 5 mg PO HS 07/19/23 07/19/23 History lisinopriL [Zestril] 10 mg PO DAILY 07/19/23 07/19/23 History Allergies Allergy/AdvReac Type Severity Reaction Status Date / Time No Known Allergies Allergy Verified 07/19/23 13:13 Physical Exam Vitals: Vital Signs Temp Pulse Pulse Pulse Resp BP BP 07/20/23 11:48 07/20/23 11:32 97.7 F 50 L 18 126/60 07/20/23 09:11 07/20/23 09:07 07/20/23 09:06 07/20/23 08:00 97.7 F 108 H 106 H 18 119/79 07/20/23 04:17 07/20/23 03:39 108 H 12 128/68 07/20/23 02:00 110 H 16 07/20/23 00:09 98.8 F 75 12 155/80 07/19/23 23:18 07/19/23 21:59 69 16 07/19/23 21:14 98.2 F 69 18 159/65 07/19/23 20:23 76 16 149/82 07/19/23 20:15 07/19/23 19:38 69 22 157/93 07/19/23 17:52 71 21 169/79 07/19/23 17:22 98.3 F 70 23 160/79 07/19/23 16:50 110 H 103 H 23 152/80 149/73 07/19/23 16:32 07/19/23 15:51 156 H 22 100/81 07/19/23 15:32 138 H 28 H 98/60 07/19/23 14:47 141 H 30 H 137/80 07/19/23 13:56 88 18 07/19/23 13:46 81 18 07/19/23 12:55 24 Pulse Ox FiO2 07/20/23 11:48 80 07/20/23 11:32 94 L 100 07/20/23 09:11 100 07/20/23 09:07 100 07/20/23 09:06 100 07/20/23 08:00 97 100 07/20/23 04:17 100 07/20/23 03:39 100 07/20/23 02:00 07/20/23 00:09 98 07/19/23 23:18 100 07/19/23 21:59 07/19/23 21:14 96 07/19/23 20:23 94 L 07/19/23 20:15 100 07/19/23 19:38 94 L 07/19/23 17:52 94 L 07/19/23 17:22 93 L 07/19/23 16:50 92 L 07/19/23 16:32 100 07/19/23 15:51 07/19/23 15:32 79 L 07/19/23 14:47 86 L 07/19/23 13:56 07/19/23 13:46 07/19/23 12:55 Intake and Output 07/19/23 07/20/23 07/20/23 22:59 06:59 14:59 Intake Total 26 70.990 1631.101 Balance 26 70.990 1631.101 Intake: Intake, IV Titration 26 70.990 951.101 Amount Azithromycin 500 mg In 250 Sodium Chloride 0.9% 250 ml @ 250 mls/hr IVPB DAILY [facility] Rx#:[id number] Diltiazem 125 mg In 26 14.292 Sodium Chloride 0.9% 100 ml @ 5 MG/HR 5 mls/hr IV .Q24H [facility] Rx#:[id number] Heparin Sod,Pork in 0.45% 56.698 51.101 NaCl 25,000 unit In 0.45 % NaCl 1 250ml.bag @ 12 UNITS/KG/HR 7.893 mls/hr IV .Q24H [facility] Rx#: [id number] Sodium Chloride 0.9% 1, 600 000 ml @ 75 mls/hr IV . [id number] [facility] Rx#:[id number] cefTRIAXone 2 gm In 50 Sodium Chloride 0.9% 50 ml @ 100 mls/hr IVPB Q24HR [facility] Rx#:[id number] Oral 680 Other: Voiding Method Diaper External Catheter External Catheter # Bowel Movements 1 Weight 65.771 kg Results 07/19/23 12:48 07/19/23 17:10 Cardiac Enzymes 07/19/23 07/19/23 Range/Units 17:10 17:10 AST 67 H (14-36) U/L Troponin I 0.048 H* (0.000-0.034) ng/mL Coagulation 07/19/23 07/20/23 07/20/23 Range/Units 12:48 01:38 11:19 PT 10.9 (9.0-12.0) sec APTT 23.0 >200.0 H* 148.8 H* (22.0-30.0) sec CBC 07/19/23 Range/Units 12:48 WBC 6.6 (3.8-10.6) k/uL RBC 4.77 (3.80-5.40) m/uL Hgb 12.8 (11.4-16.0) gm/dL Hct 40.5 (34.0-46.0) % Plt Count 134 L (150-450) k/uL Comprehensive Metabolic Panel 07/19/23 Range/Units 17:10 Sodium 144 (137-145) mmol/L Potassium 4.2 (3.5-5.1) mmol/L Chloride 112 H (98-107) mmol/L Carbon Dioxide 19 L (22-30) mmol/L BUN 45 H (7-17) mg/dL Creatinine 1.36 H (0.52-1.04) mg/dL Glucose 159 H (74-99) mg/dL Calcium 9.8 (8.4-10.2) mg/dL AST 67 H (14-36) U/L ALT 44 H (4-34) U/L Alkaline Phosphatase 103 (38-126) U/L Total Protein 7.6 (6.3-8.2) g/dL Albumin 4.0 (3.5-5.0) g/dL Current Medications Generic Name Dose Route Start Last Admin Trade Name Freq PRN Reason Stop Dose Admin Albuterol/Ipratropium 3 ml 07/20/23 16:00 Ipratropium-Albuterol 3 Ml Neb INHALATION RT-QID [facility] Albuterol/Ipratropium 3 ml 07/20/23 12:13 Ipratropium-Albuterol 3 Ml Neb INHALATION RT-Q2H PRN Shortness Of Breath Or Wheezing Aspirin 81 mg 07/20/23 09:00 07/20/23 08:42 Aspirin 81 Mg PO 81 mg DAILY [facility] Administration Atorvastatin Calcium 80 mg 07/20/23 21:00 Atorvastatin 80 Mg Tab PO HS [facility] Budesonide 1 mg 07/20/23 20:00 Budesonide 1 Mg/2 Ml Nebu INHALATION RT-BID [facility] Donepezil HCl 10 mg 07/20/23 09:00 07/20/23 08:42 Donepezil 10 Mg Tab PO 10 mg BID [facility] Administration Formoterol Fumarate 20 mcg 07/20/23 20:00 Formoterol Fumarate 20 Mcg/2 Ml Nebu INHALATION RT-BID [facility] Furosemide 40 mg 07/20/23 12:45 Furosemide 10 Mg/Ml 4 Ml Vial IV DAILY [facility] Heparin Sodium/Sodium Chloride 250 mls @ 7.893 mls/hr 07/19/23 19:15 07/20/23 12:24 25,000 unit/ Sodium Chloride IV 0 units/kg/hr .Q24H [facility] 0 mls/hr Titration Protocol 12 UNITS/KG/HR Ceftriaxone Sodium 2 gm/ 50 mls @ 100 mls/hr 07/20/23 09:00 07/20/23 08:42 Sodium Chloride IVPB 100 mls/hr Q24HR [facility] Administration Protocol Azithromycin 500 mg/ Sodium 250 mls @ 250 mls/hr 07/20/23 09:00 07/20/23 10:00 Chloride IVPB 07/22/23 09:59 250 mls/hr DAILY [facility] Administration Protocol Diltiazem HCl 125 mg/ Sodium 125 mls @ 0 mls/hr 07/20/23 02:15 Chloride IV .Q0M [facility] Protocol Per Protocol Memantine 10 mg 07/20/23 09:00 07/20/23 08:42 Memantine 10 Mg Tab PO 10 mg BID [facility] Administration Methylprednisolone Sodium Succinate 40 mg 07/20/23 16:00 Methylprednisolone Sod Succi 40 Mg/Ml 1 Ml Vial IV Q8HR [facility] Metoprolol Succinate 25 mg 07/20/23 09:00 07/20/23 08:42 Metoprolol Succinate (Er) 25 Mg Tab.Er.24h PO 25 mg DAILY [facility] Administration Intake and Output 07/19/23 07/20/23 07/20/23 22:59 06:59 14:59 Intake Total 26 70.990 1631.101 Balance 26 70.990 1631.101 Intake: Intake, IV Titration 26 70.990 951.101 Amount Azithromycin 500 mg In 250 Sodium Chloride 0.9% 250 ml @ 250 mls/hr IVPB DAILY [facility] Rx#:[id number] Diltiazem 125 mg In 26 14.292 Sodium Chloride 0.9% 100 ml @ 5 MG/HR 5 mls/hr IV .Q24H [facility] Rx#:[id number] Heparin Sod,Pork in 0.45% 56.698 51.101 NaCl 25,000 unit In 0.45 % NaCl 1 250ml.bag @ 12 UNITS/KG/HR 7.893 mls/hr IV .Q24H [facility] Rx#: [id number] Sodium Chloride 0.9% 1, 600 000 ml @ 75 mls/hr IV . [id number] [facility] Rx#:[id number] cefTRIAXone 2 gm In 50 Sodium Chloride 0.9% 50 ml @ 100 mls/hr IVPB Q24HR [facility] Rx#:[id number] Oral 680 Other: Voiding Method Diaper External Catheter External Catheter # Bowel Movements 1 Weight 65.771 kg 07/19/23 12:48 07/19/23 17:10
--- NOTE | 2023-07-20 14:01 | P.PN ---
Subjective Progress Note Date: 07/20/23 Hospital Course: 87-year-old female with history of dementia, hypertension, dyslipidemia, COPD presenting with recurrent syncopal episodes. Patient has also been hypoxic while in the ED. On initial presentation, temperature was 98.3, pulse 80, respiratory rate 26, blood pressure 166/83, saturating at 96% on [address] shows no acute process, cervical spine CT shows some diffuse pollicis within cervical spine, possible metastatic disease. Initial EKG showed sinus rhythm with left bundle branch block. Patient subsequently did go into atrial fibrillation with RVR. Initial labs showed WBC of 6.6, hemoglobin 12.8, platelet 134, sodium 144, bicarb 19, creatinine 1.36, troponin 0.048, proBNP 3700, pH 7.36, pO2 47. Chest x-ray showed interstitial prominence with left midlung opacity. Patient subsequently became more hypoxic and required BiPAP. Cardiology and pulmonology consulted. Currently on Cardizem drip and heparin drip, on ceftriaxone and azithromycin, IV steroids and bronchodilators. Admitted for acute hypoxic respiratory failure, likely multifactorial, atrial fibrillation, COPD exacerbation, possible overload. Subjective: Patient seen and examined at bedside. No acute events overnight. Currently on BiPAP Pertinent positives and negatives as discussed above, a complete review of systems was performed and all other systems are negative. Vitals Signs Reviewed. General: nontoxic, no distress, appears at stated age Derm: warm, dry Head: atraumatic, normocephalic, symmetric Eyes: EOMI, no lid lag, anicteric sclera Mouth: no lip lesion, mucus membranes moist Cardiovascular: S1S2 irregular, no murmur Lungs: Bilateral rhonchi , no accessory muscle use, on BiPAP Abdominal: soft, nontender to palpation, no guarding, no appreciable organomegaly Ext: no gross muscle atrophy, no edema, no contractures Neuro: CN II-XI grossly intact, no focal neuro deficits Psych: Alert, oriented 2, appropriate affect Data Reviewed Today: Pertinent Labs: APTT 148.8, d-dimer 2.68 Imaging: EKG and apparently interpreted from this morning, shows atrial fibril lation with RVR, left bundle branch block Assessment and Plan: Patient is critically ill, prognosis guarded Active: Acute hypoxic respiratory failure COPD exacerbation community-acquired pneumonia Recurrent syncopal episodes, possibly sick sinus syndrome versus valvular disease Paroxysmal Atrial fibrillation with RVR Type 2 NSTEMI High anion Gap metabolic acidosis Suspected Nonoliguric, Acute kidney injury Mild thrombocytopenia -Still requiring BiPAP, his elevated d-dimer, CTA pending -Respiratory viral panel pending -Blood cultures pending, sputum cultures ordered -Pulmonology note reviewed, continue IV steroids, bronchodilators, may benefit from IV Lasix -Cardiology note reviewed,, echocardiogram pending, continue IV heparin, remains on Cardizem drip -Also on oral metoprolol, home medication -Lasix 40 mg IV daily -Continue IV ceftriaxone and azithromycin -Continue aspirin and statin -Repeat CBC and BMP tomorrow Chronic: Dementia Dyslipidemia Hypertension DVT ppx: heparin gtt Code status: DNR/DNI Anticipated discharge place: pending clinical course Anticipated discharge time: Pending clinical course Objective - Vital Signs Vital signs: Vital Signs Temp 97.7 F 07/20/23 11:32 Pulse 50 L 07/20/23 11:32 Resp 18 07/20/23 11:32 BP 126/60 07/20/23 11:32 Pulse Ox 94 L 07/20/23 11:32 FiO2 80 07/20/23 11:48 Intake & Output 07/19/23 07/20/23 07/20/23 18:59 06:59 18:59 Intake Total 96.990 1631.101 Balance 96.990 1631.101 Weight 65.771 kg 65.771 kg Intake: Intake, IV Titration 96.990 951.101 Amount Azithromycin 500 mg In 250 Sodium Chloride 0.9% 250 ml @ 250 mls/hr IVPB DAILY [facility] Rx#:[id number] Diltiazem 125 mg In 40.292 Sodium Chloride 0.9% 100 ml @ 5 MG/HR 5 mls/hr IV .Q24H [facility] Rx#:[id number] Heparin Sod,Pork in 0.45% 56.698 51.101 NaCl 25,000 unit In 0.45 % NaCl 1 250ml.bag @ 12 UNITS/KG/HR 7.893 mls/hr IV .Q24H [facility] Rx#: [id number] Sodium Chloride 0.9% 1, 600 000 ml @ 75 mls/hr IV . [id number] [facility] Rx#:[id number] cefTRIAXone 2 gm In 50 Sodium Chloride 0.9% 50 ml @ 100 mls/hr IVPB Q24HR [facility] Rx#:[id number] Oral 680 Other: Voiding Method External Catheter External Catheter # Bowel Movements 1 - Labs CBC & Chem 7: 07/19/23 12:48 07/19/23 17:10 Labs: Abnormal Lab Results - Last 24 Hours (Table) 07/19/23 07/19/23 07/19/23 Range/Units 15:46 16:06 17:10 APTT (22.0-30.0) sec D-Dimer (<0.60) mg/L FEU ABG pO2 47 L* 54 L* (83-108) mmHg ABG O2 Saturation 78.7 L 85.0 L (94-97) % Chloride (98-107) mmol/L Carbon Dioxide (22-30) mmol/L BUN (7-17) mg/dL Creatinine (0.52-1.04) mg/dL Glucose (74-99) mg/dL AST (14-36) U/L ALT (4-34) U/L Troponin I 0.048 H* (0.000-0.034) ng/mL 07/19/23 07/20/23 07/20/23 Range/Units 17:10 01:38 11:19 APTT >200.0 H* 148.8 H* (22.0-30.0) sec D-Dimer 2.68 H (<0.60) mg/L FEU ABG pO2 (83-108) mmHg ABG O2 Saturation (94-97) % Chloride 112 H (98-107) mmol/L Carbon Dioxide 19 L (22-30) mmol/L BUN 45 H (7-17) mg/dL Creatinine 1.36 H (0.52-1.04) mg/dL Glucose 159 H (74-99) mg/dL AST 67 H (14-36) U/L ALT 44 H (4-34) U/L Troponin I (0.000-0.034) ng/mL
[2023-07-20] MEDS: FUROSEMIDE 10 MG/ML 4 ML VIAL IV SCH (14:04)
[2023-07-20] MEDS: IPRATROPIUM-ALBUTEROL 3 ML NEB INHALATION SCH ×2 (15:26→21:37)
--- NOTE | 2023-07-20 15:29 | CT ---
Age indeterminate but probably chronic. EXAMINATION TYPE: CT chest angio for PE DATE OF EXAM: 07/20/2023 COMPARISON: Radiograph 07/19/2023 HISTORY: 87-year-old female shortness of breath, hypoxia, R/O PE. TECHNIQUE: Contiguous axial scanning of the chest performed with IV Contrast, patient injected with 8 0 ml mL of Isovue 370. Coronal/sagittal MIP reconstructions performed. CT DLP: 214.1 mGycm Automated exposure control for dose reduction was used. FINDINGS: Heart mildly enlarged without pericardial effusion. No flattening of the interventricular septum. Sma ll amount of reflux of contrast into the hepatic veins. Dense mitral annular calcifications noted. Mo derate aortic valvular calcifications. Moderate atherosclerotic calcifications aortic arch with possible moderate to severe narrowing at the origin of the arch vessels. 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 Ectatic upper descendi ng thoracic aorta at 3.4 cm. Mild aneurysm mid and lower descending thoracic aorta 3.2 cm. There is a lipoma the left infraspinatus muscle measuring up to 9.5 cm. No suspicious internal soft t issue nodularity is identified. Clinical follow-up/surveillance is advised. Enlarged right and left main pulmonary arteries up to 2.9 cm. There is limitation due to breathing mo tion artifact but no definite pulmonary embolus seen. Scattered nonenlarged mediastinal lymph nodes measuring up to 1 cm. Right hilar node measuring 1 cm a s well. There is abnormal endobronchial opacification throughout the left lower lobe with extensive volume lo ss and consolidation. Abnormal left perihilar left mid lung nodularity measuring up to 2.8 cm along with multifocal patchy groundglass changes throughout the left upper lobe. There is background mild to moderate emphysema. 4 mm pulmonary nodule periphery of the right midlung . 6 month follow-up to reassess. No pleural effusion. Visualized upper abdomen shows possible right-sided hydronephrosis versus extrarenal pelvis. 2.5 cm c yst lateral left kidney. Cholelithiasis with partially visualized stones measuring up to at least 1.5 cm. Abdominal aortic graft noted. Spleen shows some artifact along the peripheral margin. Bones: Osteopenia. Inferior endplate deformity T6, favored chronic. IMPRESSION: 0. NO DEFINITE PULMONARY EMBOLUS. 1. 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 2. EXTENSIVE ENDOBRONCHIAL OPACIFICATION THROUGHOUT THE LEFT LOWER LOBE. THIS COULD REPRESENT NEOPLAS M OR EXTENSIVE ASPIRATION. THERE IS PROMINENT VOLUME LOSS AND AIRSPACE DISEASE THROUGHOUT THE LEFT LO WER LOBE SUGGESTING POST OBSTRUCTIVE VS ASPIRATION PNEUMONITIS. 3. LEFT PERIHILAR AND LEFT MID LUNG NODULARITY MEASURING UP TO 2.8 CM. UNCLEAR IF THIS REPRESENTS A N EOPLASTIC ETIOLOGY OR ATYPICAL INFECTIONS INCLUDING THE POSSIBILITY OF ABPA WITH A FINGER IN GLOVE PA TTERN. RECOMMEND ENDOBRONCHIAL EVALUATION. 4. ADDITIONAL PATCHY GROUNDGLASS CHANGES THROUGHOUT THE LEFT UPPER LOBE. CONSIDER PNEUMONIA. 5. MILD CARDIOMEGALY. EXTENSIVE ATHEROSCLEROTIC CALCIFICATIONS. ABERRANT RIGHT SUBCLAVIAN ARTERY. POS SIBLE MODERATE TO SEVERE STENOSIS AT THE ARCH VESSEL ORIGINS. 6. POSSIBLE HYDRONEPHROSIS RIGHT KIDNEY PARTIALLY VISUALIZED. WE NOTE THAT A RENAL ULTRASOUND HAS BEE N ORDERED. ATTENTION ON THAT EXAM.
--- NOTE | 2023-07-20 16:12 | US ---
EXAMINATION TYPE: US renals and bladder DATE OF EXAM: 07/20/2023 COMPARISON: NONE CLINICAL INDICATION: Female, 87 years old with history of jesus; jesus EXAM MEASUREMENTS: Right Kidney: 7.0 x 5.2 x 5.1 cm Left Kidney: not seen Right Kidney: small in size, multiple cysts, largest = 1.9 x 1.6 x 1.7cm Left Kidney: peristalsing bowel obscures view Bladder: wnl Increased renal cortex echogenicity noted. Urinary bladder is grossly unremarkable. IMPRESSION: 1. No evidence for obstructive uropathy. 2. Increase echotexture to the renal cortices correlate for medical renal disease. 3. Right simple appearing renal cysts.
[2023-07-20] MEDS: methylPREDNISolone SOD SUCCI 40 MG/ML 1 ML VIAL IV SCH (16:42)
--- NOTE | 2023-07-20 18:08 | CA ---
Transthoracic Echo Report Name: Gela Roach Age: 87 Gender: F : 1935 Exam Date: 07/20/2023 10:59 Exam Location: [facility] Ht (in): 63 Wt (lb): 145 Ordering Physician: Pola Stallings MD Attending/Referring Phys: [place] Leadperson Yee Pradhan RDCS Procedure CPT: Indications: Hypoxia Cardiac Hx: Technical Quality: Fair Contrast 1: Total Dose (mL): Contrast 2: Total Dose (mL): MEASUREMENTS (Male / Female) Normal Values 2D ECHO LV Diastolic Diameter PLAX 4.7 cm 4.2 - 5.9 / 3.9 - 5.3 cm LV Systolic Diameter PLAX 3.6 cm IVS Diastolic Thickness 1.1 cm 0.6 - 1.0 / 0.6 - 0.9 cm LVPW Diastolic Thickness 1.2 cm 0.6 - 1.0 / 0.6 - 0.9 cm LV Relative Wall Thickness 0.5 RV Internal Dim ED PLAX 3.7 cm LVOT Diameter 1.7 cm LA Volume 58.0 cm??? 18 - 58 / 22 - 52 cm??? M-MODE Aortic Root Diameter MM 2.8 cm LA Systolic Diameter MM 3.8 cm LA Ao Ratio MM 1.3 AV Cusp Separation MM 0.8 cm DOPPLER AV Peak Velocity 192.9 cm/s AV Peak Gradient 14.9 mmHg AV Mean Velocity 148.8 cm/s AV Mean Gradient 10.0 mmHg AV Velocity Time Integral 36.2 cm LVOT Peak Velocity 77.3 cm/s LVOT Peak Gradient 2.4 mmHg LVOT Velocity Time Integral 13.1 cm LVOT Stroke Volume 29.0 cm??? LVOT Stroke Volume Index 17.2 ml/m??? LVOT Cardiac Index 1481.3 cm???/min???m??? AV Area Cont Eq vti 0.8 cm??? AV Area Cont Eq pk 0.9 cm??? MV Peak Velocity 156.6 cm/s MV Peak Gradient 9.8 mmHg MV Mean Velocity 69.6 cm/s MV Mean Gradient 2.6 mmHg MV Velocity Time Integral 29.7 cm MV Area PHT 4.4 cm??? Mitral E Point Velocity 131.9 cm/s Mitral A Point Velocity 0.3 cm/s Mitral E to A Ratio 476.0 MV Deceleration Time 171.6 ms TR Peak Velocity 285.8 cm/s TR Peak Gradient 32.7 mmHg Right Ventricular Systolic Press 43.1 mmHg FINDINGS Left Ventricle Moderately increased left ventricular wall thickness. Left ventricular cavity size normal. Reduced global left ventricular systolic function. Left ventricular ejection fraction is estimated at 35-40 %. Hypokinetic inferoseptal and inferior wall Right Ventricle Moderate right ventricular dilatation. Mild pulmonary hypertension. Right Atrium Normal right atrial size. Left Atrium Mildly increased left atrial volume. Aneurysmal interatrial septum with suspicion of PFO Mitral Valve Mitral valve thickened. Severe mitral annular calcification. Moderate mitral regurgitation. Aortic Valve Diffuse thickening of the aortic valve cusps with reduced excursion. Tricuspid Valve Structurally normal tricuspid valve. Moderate tricuspid regurgitation. Pulmonic Valve Trace pulmonic regurgitation. Pericardium No pericardial effusion. Aorta Normal size aortic root and proximal ascending aorta. CONCLUSIONS Reduced global left ventricular systolic function. Left ventricular ejection fraction is estimated at 35-40 %. Moderately increased left ventricular wall thickness. Hypokinetic inferoseptal and inferior wall. Moderate right ventricular dilatation. Aneurysmal interatrial septum with suspicion of PFO. Moderate mitral regurgitation. Moderate tricuspid regurgitation. Previewed by: Dr Maurice Carey (Electronically Signed) Final Date: 20 July 2023 18:07
[2023-07-20] MEDS: HEPARIN SOD,PORK IN 0.45% NACL 25,000 UNIT in 0.45% NACL 1 250ML.BAG IV SCH (20:10)
[2023-07-20] MEDS: ATORVASTATIN 80 MG TAB PO SCH (20:13)
[2023-07-20] MEDS ORDERED: amLODIPine 5 MG TAB PO SCH (21:00)
[2023-07-20] MEDS: BUDESONIDE 1 MG/2 ML NEBU INHALATION SCH (21:37)
[2023-07-20] MEDS: FORMOTEROL FUMARATE 20 MCG/2 ML NEBU INHALATION SCH (21:37)
[2023-07-21] MEDS: methylPREDNISolone SOD SUCCI 40 MG/ML 1 ML VIAL IV SCH ×3 (00:34→17:11)
[2023-07-21 04:48] LABS: Basophils % (A) 0 %; Eosinophils % (A) 0 %; HGB 11.2 gm/dL (11.4-16.0); Lymphocytes # (A) 0.6 k/uL (1.0-4.8); Lymphocytes % (A) 7 %; MCH 26.4 pg (25.0-35.0); MCHC 31.1 g/dL (31.0-37.0); Mean Platelet Volume 8.7; Monocytes # (A) 0.1 k/uL (0-1.0); Monocytes % (A) 2 %; Neutrophils # (A) 8.3 k/uL (1.3-7.7); Neutrophils % (A) 90 %; Platelet Count 153 k/uL (150-450); RBC 4.24 m/uL (3.80-5.40); RDW 14.6 % (11.5-15.5); WBC 9.2 k/uL (3.8-10.6)
[2023-07-21 04:58] LABS: African American GFR (CKD) 51 (>60 ml/min/1.73 sqM); Anion Gap 10 mmol/L; Blood Urea Nitrogen 40 mg/dL (7-17); Calcium 8.9 mg/dL (8.4-10.2); Carbon Dioxide 21 mmol/L (22-30); Chloride 104 mmol/L (98-107); Glucose 138 mg/dL (74-99); Non-African American GFR(CKD) 44 (>60 ml/min/1.73 sqM); Potassium 4.2 mmol/L (3.5-5.1); Sodium 135 mmol/L (137-145)
[2023-07-21] MEDS: MEMANTINE 10 MG TAB PO SCH ×2 (08:47→20:36)
[2023-07-21] MEDS: METOPROLOL SUCCINATE (ER) 25 MG TAB.ER.24H PO SCH (08:47)
[2023-07-21] MEDS: ASPIRIN 81 MG PO SCH (08:47)
[2023-07-21] MEDS: FUROSEMIDE 10 MG/ML 4 ML VIAL IV SCH (08:47)
[2023-07-21] MEDS: DONEPEZIL 10 MG TAB PO SCH ×2 (08:47→20:36)
[2023-07-21] MEDS: IPRATROPIUM-ALBUTEROL 3 ML NEB INHALATION SCH ×4 (09:06→20:45)
[2023-07-21] MEDS: FORMOTEROL FUMARATE 20 MCG/2 ML NEBU INHALATION SCH ×2 (09:06→20:45)
[2023-07-21] MEDS: BUDESONIDE 1 MG/2 ML NEBU INHALATION SCH ×2 (09:06→20:45)
[2023-07-21] MEDS: AZITHROMYCIN 500 MG in SODIUM CHLORIDE 0.9% 250 ML IVPB SCH (10:04)
--- NOTE | 2023-07-21 11:36 | P.PN ---
Subjective Progress Note Date: 07/21/23 Principal diagnosis: Shortness of breath. Pulmonary consult dated 07/20/2023. 77-year-old female who was initially seen in the emergency department. We saw her, and room 369, July 20. She was seen in the ER, on July 19. She apparently came into the ER, having had some syncopal episodes, in the shower, where she hit her head. Apparently, there is no family members, with her, and she was a poor historian. When she was brought in by EMS, her saturations were 88% on room air. They gave her nasal O2, at 3 L, and breathing treatments. Currently, the patient is on BiPAP, with settings of 10/5, and 100%. Her saturations are 99%. She's receiving IV heparin, and a Cardizem drip at 5 mg an hour. She's also getting saline at 15 mL an hour. Based on her home med ications, she has a history of hyperlipidemia, vitamin D deficiency, dementia, and hypertension. White count is 6.6, hemoglobin 12.8, hematocrit 40.5, and platelet count 134,000. She had blood gases in the emergency department, showing a pO2 of 47, pCO2 of 37, and pH is 7.36. A repeat blood gas was similar, with a pO2 of 54, pCO2 37, and pH is 7.36. Sodium was 144, potassium 4.2, chlorides 112, CO2 19, BUN 45, and creatinine 1.36. AST was 67. ALT was 44, and troponin was 0.048. N-terminal proBNP was elevated at 3760. Chest x- ray shows moderate cardiomegaly, and mild pulmonary vascular congestion, consistent with the elevated BNP. In addition, there is a focal area of scar and/or nodule, in the left midlung. Progress note dated 07/21/2023. The patient is seen in room 369. She continues on BiPAP, with settings of 10/5 and 80%. I've asked the respiratory therapist, to convert her to nasal cannula, even if it's high flow. She is receiving Cardizem drip at 2.5 mg an hour, and IV heparin via protocol. Clinically, the patient feels like she is better. She gives a thumbs up when asked. White count 9.2, hemoglobin 11.2, hematocrit 36, and platelet count 153,000. Sodium 135, potassium 4.2, chlorides 104, CO2 21, anion gap 10, BUN 40, creatinine 1.13. Blood cultures are negative. A CT angiogram was ordered by the hospitalist service, and showed no evidence of pulmonary changes of COPD and pulmonary arterial hypertension, and possible pneumonitis, in the left lower lobe, and left upper lobe. The patient is on azithromycin, and Rocephin at the current time. And also receiving Solu-Medrol 40 mg every 8 hours. Objective - Vital Signs Vital signs: Vital Signs Temp 97.8 F 07/21/23 04:00 Pulse 58 L 07/21/23 09:29 Resp 20 07/21/23 08:00 BP 139/65 07/21/23 08:00 Pulse Ox 96 07/21/23 08:00 FiO2 80 07/21/23 08:00 Intake & Output 07/20/23 07/21/23 07/21/23 18:59 06:59 18:59 Intake Total 1631.101 42.222 240 Output Total 600 200 Balance 1631.101 -557.778 40 Weight 49 kg Intake: Intake, IV Titration 951.101 42.222 Amount Azithromycin 500 mg In 250 Sodium Chloride 0.9% 250 ml @ 250 mls/hr IVPB DAILY [facility] Rx#:[id number] Heparin Sod,Pork in 0.45% 51.101 42.222 NaCl 25,000 unit In 0.45 % NaCl 1 250ml.bag @ 12 UNITS/KG/HR 7.893 mls/hr IV .Q24H [facility] Rx#: [id number] Sodium Chloride 0.9% 1, 600 000 ml @ 75 mls/hr IV . [id number] ONE Rx#:[id number] cefTRIAXone 2 gm In 50 Sodium Chloride 0.9% 50 ml @ 100 mls/hr IVPB Q24HR [facility] Rx#:[id number] Oral 680 240 Output: Urine 600 200 Other: Voiding Method External Catheter External Catheter - Exam No acute distress, lethargic, currently with BiPAP mask in place. HEENT examination is grossly unremarkable. Neck supple. Full range of motion. No adenopathy thyromegaly or neck vein distention. Cardiovascular examination reveals an irregular rhythm and rate. S1-S2 normal. No S3 or S4. Heart sounds are distant. Heart rate about 58 bpm. No discernible murmur noted. Lungs reveal minimal bibasilar crackles. No wheezes or rhonchi. Breath sounds are equal bilaterally. Saturations are 96 %. Abdomen soft bowel sounds are heard. No masses or tenderness. Extremities are intact. No cyanosis clubbing or edema. Skin is without rash or lesion. Neurologic examination is brief but nonfocal. - Labs CBC & Chem 7: 07/21/23 04:33 07/21/23 04:33 Labs: Abnormal Lab Results - Last 24 Hours (Table) 07/20/23 07/20/23 07/20/23 Range/Units 11:19 11:19 15:25 Hgb (11.4-16.0) gm/dL Neutrophils # (1.3-7.7) k/uL Lymphocytes # (1.0-4.8) k/uL APTT 148.8 H* (22.0-30.0) sec D-Dimer 2.68 H (<0.60) mg/L FEU Sodium (137-145) mmol/L Carbon Dioxide (22-30) mmol/L BUN (7-17) mg/dL Creatinine (0.52-1.04) mg/dL Glucose (74-99) mg/dL Procalcitonin 0.16 H (0.02-0.09) ng/mL Stool Occult Blood Positive H (Negative) 07/20/23 07/21/23 07/21/23 Range/Units 19:40 04:33 04:33 Hgb 11.2 L (11.4-16.0) gm/dL Neutrophils # 8.3 H (1.3-7.7) k/uL Lymphocytes # 0.6 L (1.0-4.8) k/uL APTT 96.9 H (22.0-30.0) sec D-Dimer (<0.60) mg/L FEU Sodium 135 L (137-145) mmol/L Carbon Dioxide 21 L (22-30) mmol/L BUN 40 H (7-17) mg/dL Creatinine 1.13 H (0.52-1.04) mg/dL Glucose 138 H (74-99) mg/dL Procalcitonin (0.02-0.09) ng/mL Stool Occult Blood (Negative) 07/21/23 Range/Units 04:33 Hgb (11.4-16.0) gm/dL Neutrophils # (1.3-7.7) k/uL Lymphocytes # (1.0-4.8) k/uL APTT 36.9 H (22.0-30.0) sec D-Dimer (<0.60) mg/L FEU Sodium (137-145) mmol/L Carbon Dioxide (22-30) mmol/L BUN (7-17) mg/dL Creatinine (0.52-1.04) mg/dL Glucose (74-99) mg/dL Procalcitonin (0.02-0.09) ng/mL Stool Occult Blood (Negative) Microbiology - Last 24 Hours (Table) 07/19/23 12:55 Blood Culture - Preliminary Blood 07/19/23 12:40 Blood Culture - Preliminary Blood Assessment and Plan Assessment: Acute hypoxemic respiratory failure, likely multifactorial, in part related to COPD exacerbation, pneumonia/pneumonitis, mild fluid overload/CHF, and atrial fibrillation. History of suspected COPD from previous tobacco use. Mild thrombocytopenia. Chronic kidney disease. History of hyperlipidemia. History of hypertension. History of dementia. History of vitamin D deficiency. Plan: Plan dated 07/20/2023. The patient should be placed on albuterol sulfate and ipratropium bromide, 4 times a day and when necessary. In addition, the patient should receive Pulmicort, 1 mg, and formoterol, 20 g, twice a day. In addition, I would put the patient on a smaller dose of Solu-Medrol, 40 mg, every 8 hours. We will check a pro-calcitonin level. If normal, antibiotics can be discontinued. The patient should receive Lasix, for mild fluid overload. He is currently on Cardizem, for her atrial fibrillation, along with IV heparin. The patient is a DO NOT RESUSCITATE patient. Treatment should be more conservative. Plan dated 07/21/2023. The patient seemed significantly 69. She continues on BiPAP. CAT scan reveals no evidence of pulmonary embolism. There may be some changes of pneu monitis/pneumonia, noted, and for that reason, the patient continues on breathing treatments, steroids, and antibiotics. In addition, the patient continues on Cardizem, and IV heparin, per cardiology. Clinically, the patient appears to be a bit better. We will attempt to get her off the BiPAP, and on high flow nasal cannula. The patient is a DO NOT RESUSCITATE patient. Prognosis is certainly guarded. We will continue to follow the patient, and make recommendations along the way. Time with Patient: Less than 30
--- NOTE | 2023-07-21 12:48 | P.PN ---
Subjective Progress Note Date: 07/21/23 Hospital Course: 87-year-old female with history of dementia, hypertension, dyslipidemia, COPD presenting with recurrent syncopal episodes. Patient has also been hypoxic while in the ED. On initial presentation, temperature was 98.3, pulse 80, respiratory rate 26, blood pressure 166/83, saturating at 96% on [address] shows no acute process, cervical spine CT shows some diffuse pollicis within cervical spine, possible metastatic disease. Initial EKG showed sinus rhythm with left bundle branch block. Patient subsequently did go into atrial fibrillation with RVR. Initial labs showed WBC of 6.6, hemoglobin 12.8, platelet 134, sodium 144, bicarb 19, creatinine 1.36, troponin 0.048, proBNP 3700, pH 7.36, pO2 47. Chest x-ray showed interstitial prominence with left midlung opacity. Patient subsequently became more hypoxic and required BiPAP. Cardiology and pulmonology consulted. Currently on Cardizem drip and heparin drip, on ceftriaxone and azithromycin, IV steroids and bronchodilators. Admitted for acute hypoxic respiratory failure, likely multifactorial, atrial fibrillation, COPD exacerbation, possible overload. Subjective: Patient seen and examined at bedside. No acute events overnight. Remains on BiPAP. Claims that her respiratory function is improving Pertinent positives and negatives as discussed above, a complete review of systems was performed and all other systems are negative. Vitals Signs Reviewed. General: nontoxic, no distress, appears at stated age Derm: warm, dry Head: atraumatic, normocephalic, symmetric Eyes: EOMI, no lid lag, anicteric sclera Mouth: no lip lesion, mucus membranes moist Cardiovascular: S1S2 irregular, no murmur Lungs: Bilateral rhonchi , no accessory muscle use, on BiPAP Abdominal: soft, nontender to palpation, no guarding, no appreciable organomegaly Ext: no gross muscle atrophy, no edema, no contractures Neuro: CN II-XI grossly intact, no focal neuro deficits Psych: Alert, oriented 2, appropriate affect Data Reviewed Today: Pertinent Labs: WBC 9.2, hemoglobin 11.2, sodium 135, creatinine 1.13, pro- calcitonin 0.16 Imaging: CT negative for PE, does have left perihilar and left midlung nodul arity concerning for neoplastic or atypical infection, extensive endobronchial opacification throughout the left lower lung, possible neoplasm versus extensive aspiration, patchy groundglass opacities in left upper lobe, possible moderate to severe stenosis at the arch vessel origin. Assessment and Plan: Patient is critically ill, prognosis guarded Active: Acute hypoxic respiratory failure COPD exacerbation community-acquired pneumonia versus aspiration pneumonia Recurrent syncopal episodes, possibly sick sinus syndrome versus valvular disease Paroxysmal Atrial fibrillation with RVR, now rate controlled Type 2 NSTEMI High anion Gap metabolic acidosis, improving Suspected Nonoliguric, Acute kidney injury, improving Mild thrombocytopenia -Pulmonology note reviewed, continue bronchodilators, IV steroids, IV antibiotics, wean off of BiPAP to possibly high flow nasal cannula -Respiratory viral panel pending -Blood cultures no growth to date, sputum cultures pending -Cardiology following, continue IV heparin, remains on Cardizem drip -Echocardiogram shows LVEF 35-40%, reduced global left ventricular systolic function, does have regional wall motion abnormalities, there is a concern for PFO -Also on oral metoprolol, home medication -Lasix 40 mg IV daily -Continue IV ceftriaxone and azithromycin -Continue aspirin and statin -Repeat CBC and BMP tomorrow Chronic: Dementia Dyslipidemia Hypertension DVT ppx: heparin gtt Code status: DNR/DNI Anticipated discharge place: pending clinical course Anticipated discharge time: Pending clinical course Objective - Vital Signs Vital signs: Vital Signs Temp 97.6 F 07/21/23 11:41 Pulse 50 L 07/21/23 11:41 Resp 20 07/21/23 11:41 BP 151/67 07/21/23 11:41 Pulse Ox 90 L 07/21/23 11:41 FiO2 80 07/21/23 11:41 Intake & Output 07/20/23 07/21/23 07/21/23 18:59 06:59 18:59 Intake Total 1631.101 42.222 240 Output Total 600 200 Balance 1631.101 -557.778 40 Weight 49 kg Intake: Intake, IV Titration 951.101 42.222 Amount Azithromycin 500 mg In 250 Sodium Chloride 0.9% 250 ml @ 250 mls/hr IVPB DAILY [facility] Rx#:[id number] Heparin Sod,Pork in 0.45% 51.101 42.222 NaCl 25,000 unit In 0.45 % NaCl 1 250ml.bag @ 12 UNITS/KG/HR 7.893 mls/hr IV .Q24H [facility] Rx#: [id number] Sodium Chloride 0.9% 1, 600 000 ml @ 75 mls/hr IV . [id number] ONE Rx#:[id number] cefTRIAXone 2 gm In 50 Sodium Chloride 0.9% 50 ml @ 100 mls/hr IVPB Q24HR [facility] Rx#:[id number] Oral 680 240 Output: Urine 600 200 Other: Voiding Method External Catheter External Catheter - Labs CBC & Chem 7: 07/21/23 04:33 07/21/23 04:33 Labs: Abnormal Lab Results - Last 24 Hours (Table) 07/20/23 07/20/23 07/20/23 Range/Units 11:19 15:25 19:40 Hgb (11.4-16.0) gm/dL Neutrophils # (1.3-7.7) k/uL Lymphocytes # (1.0-4.8) k/uL APTT 96.9 H (22.0-30.0) sec Sodium (137-145) mmol/L Carbon Dioxide (22-30) mmol/L BUN (7-17) mg/dL Creatinine (0.52-1.04) mg/dL Glucose (74-99) mg/dL Procalcitonin 0.16 H (0.02-0.09) ng/mL Stool Occult Blood Positive H (Negative) 07/21/23 07/21/23 07/21/23 Range/Units 04:33 04:33 04:33 Hgb 11.2 L (11.4-16.0) gm/dL Neutrophils # 8.3 H (1.3-7.7) k/uL Lymphocytes # 0.6 L (1.0-4.8) k/uL APTT 36.9 H (22.0-30.0) sec Sodium 135 L (137-145) mmol/L Carbon Dioxide 21 L (22-30) mmol/L BUN 40 H (7-17) mg/dL Creatinine 1.13 H (0.52-1.04) mg/dL Glucose 138 H (74-99) mg/dL Procalcitonin (0.02-0.09) ng/mL Stool Occult Blood (Negative) Microbiology - Last 24 Hours (Table) 07/19/23 12:55 Blood Culture - Preliminary Blood 07/19/23 12:40 Blood Culture - Preliminary Blood
[2023-07-21] MEDS: HEPARIN SODIUM 1,000 UN/ML (10ML VL) IV PRN (14:08)
--- NOTE | 2023-07-21 17:13 | P.PN ---
Subjective HISTORY OF PRESENTING ILLNESS Patient is a pleasant 87-year-old female with history of dementia, reported CAD, COPD, hypertension. She cannot provide any medical history and does not believe she has any medical problems. Apparently per chart, patient does have a history of COPD and patient had 2 syncopal episodes that occurred in the shower this morning. Patient was found by EMS hypoxic at 88% and was given breathing treatments. She has been noted to have intermittent A. fib with RVR with heart rates anywhere from the 160s up to 190s as well as sinus bradycardia heart rates in the 40s while on Cardizem. She does have significant 4/6 systolic murmur and no prior workup in the hospital. Currently is on BiPAP and has been unable to wean to nasal cannula. She denies any chest pain or pressure. Chest x-ray shows left mid lung scarring and mild pulmonary vascular congestion. CT brain does not show any acute process. 07/21 Patient seen and examined. Patient still somewhat confused and on BiPAP. Denies any pain however. She has been receiving IV Lasix 40 mg daily. Creatinine remained stable mildly improved to 1.1. Echo performed with EF 35- 40% with mention of only decreased excursion of aortic valve however clinically concern of severe aortic stenosis. Possible low flow low gradient. PHYSICAL EXAMINATION Vital signs reviewed. CONSTITUTIONAL: No apparent distress, frail. HEENT: Head is normocephalic. Pupils are equal, round. Sclerae anicteric. Mucous membranes of the mouth are moist. No JVD. No carotid bruit. CHEST EXAMINATION: Lungs are clear to auscultation. No chest wall tenderness is noted on palpation or with deep breathing. HEART EXAMINATION: Regular rate and rhythm. S1 normal, no S2 heard. +4/6 syst olic murmur, gallops or rub. ABDOMEN: Soft, nontender. Positive bowel sounds. EXTREMITIES: 2+ peripheral pulses, no lower extremity edema and no calf tenderness. NEUROLOGIC EXAMINATION: Patient is awake, alert poor historian ASSESSMENT 1. Syncope, may be related to tachybradycardia syndrome, sick sinus syndrome or aortic stenosis 2. Aortic stenosis, no significant gradients per echo however concern of severe aortic stenosis with no S2 clinically. Possible low flow low gradient 3. Hypertension 4. Paroxysmal atrial fibrillation with RVR 5. Acute on chronic respiratory failure in part related to COPD as well as heart failure 6. Acute on chronic systolic heart failure presumed diastolic 7. Questionable history of CAD 8. Dementia 9. CONRADO 10. CT chest finidings concerning for infiltrate vs rule out cancer 11. Cardiomyopathy EF 35-40% with inferior hypokinesis PLAN Continue with Toprol and Cardizem drip as needed however concern of possible tachybradycardia syndrome. Additional concern of possible low flow low gradient severe aortic stenosis clinically. Majority of symptoms appear related to pulmonary source with infiltrate on CAT scan. Echo showing decreased EF and continue with diuretics. Monitor creatinine closely. Prognosis guarded. Objective - Vital Signs Vital signs: Vital Signs Temp 97.6 F 07/21/23 11:41 Pulse 52 L 07/21/23 16:27 Resp 20 07/21/23 11:41 BP 151/67 07/21/23 11:41 Pulse Ox 90 L 07/21/23 11:41 FiO2 80 07/21/23 16:17 Intake & Output 07/20/23 07/21/23 07/21/23 18:59 06:59 18:59 Intake Total 1631.101 42.222 269.108 Output Total 600 200 Balance 1631.101 -557.778 69.108 Weight 49 kg Intake: Intake, IV Titration 951.101 42.222 29.108 Amount Azithromycin 500 mg In 250 Sodium Chloride 0.9% 250 ml @ 250 mls/hr IVPB DAILY [facility] Rx#:[id number] Heparin Sod,Pork in 0.45% 51.101 42.222 29.108 NaCl 25,000 unit In 0.45 % NaCl 1 250ml.bag @ 12 UNITS/KG/HR 7.893 mls/hr IV .Q24H [facility] Rx#: [id number] Sodium Chloride 0.9% 1, 600 000 ml @ 75 mls/hr IV . [id number] [facility] Rx#:[id number] cefTRIAXone 2 gm In 50 Sodium Chloride 0.9% 50 ml @ 100 mls/hr IVPB Q24HR [facility] Rx#:[id number] Oral 680 240 Output: Urine 600 200 Other: Voiding Method External Catheter External Catheter - Labs CBC & Chem 7: 07/21/23 04:33 07/21/23 04:33 Labs: Abnormal Lab Results - Last 24 Hours (Table) 07/20/23 07/20/23 07/20/23 Range/Units 11:19 15:25 19:40 Hgb (11.4-16.0) gm/dL Neutrophils # (1.3-7.7) k/uL Lymphocytes # (1.0-4.8) k/uL APTT 96.9 H (22.0-30.0) sec Sodium (137-145) mmol/L Carbon Dioxide (22-30) mmol/L BUN (7-17) mg/dL Creatinine (0.52-1.04) mg/dL Glucose (74-99) mg/dL Procalcitonin 0.16 H (0.02-0.09) ng/mL Stool Occult Blood Positive H (Negative) 07/21/23 07/21/23 07/21/23 Range/Units 04:33 04:33 04:33 Hgb 11.2 L (11.4-16.0) gm/dL Neutrophils # 8.3 H (1.3-7.7) k/uL Lymphocytes # 0.6 L (1.0-4.8) k/uL APTT 36.9 H (22.0-30.0) sec Sodium 135 L (137-145) mmol/L Carbon Dioxide 21 L (22-30) mmol/L BUN 40 H (7-17) mg/dL Creatinine 1.13 H (0.52-1.04) mg/dL Glucose 138 H (74-99) mg/dL Procalcitonin (0.02-0.09) ng/mL Stool Occult Blood (Negative) 07/21/23 Range/Units 12:13 Hgb (11.4-16.0) gm/dL Neutrophils # (1.3-7.7) k/uL Lymphocytes # (1.0-4.8) k/uL APTT 38.9 H (22.0-30.0) sec Sodium (137-145) mmol/L Carbon Dioxide (22-30) mmol/L BUN (7-17) mg/dL Creatinine (0.52-1.04) mg/dL Glucose (74-99) mg/dL Procalcitonin (0.02-0.09) ng/mL Stool Occult Blood (Negative) Microbiology - Last 24 Hours (Table) 07/19/23 12:55 Blood Culture - Preliminary Blood 07/19/23 12:40 Blood Culture - Preliminary Blood
[2023-07-21] MEDS: ATORVASTATIN 80 MG TAB PO SCH (20:36)
[2023-07-21] MEDS: HEPARIN SOD,PORK IN 0.45% NACL 25,000 UNIT in 0.45% NACL 1 250ML.BAG IV SCH (20:40)
[2023-07-22] MEDS: methylPREDNISolone SOD SUCCI 40 MG/ML 1 ML VIAL IV SCH ×3 (00:07→17:00)
[2023-07-22] MEDS ORDERED: FLUTICASONE 220 MCG INHALER INHALATION SCH (08:00)
[2023-07-22] MEDS: DONEPEZIL 10 MG TAB PO SCH ×2 (08:44→20:00)
[2023-07-22] MEDS: ASPIRIN 81 MG PO SCH (08:44)
[2023-07-22] MEDS: METOPROLOL SUCCINATE (ER) 25 MG TAB.ER.24H PO SCH (08:44)
[2023-07-22] MEDS: MEMANTINE 10 MG TAB PO SCH ×2 (08:44→20:00)
[2023-07-22] MEDS: FUROSEMIDE 10 MG/ML 4 ML VIAL IV SCH (08:45)
[2023-07-22] MEDS: ALBUTEROL HFA INHALER INHALATION SCH ×4 (09:34→21:21)
[2023-07-22] MEDS: FORMOTEROL FUMARATE 20 MCG/2 ML NEBU INHALATION SCH (09:34)
[2023-07-22] MEDS: AZITHROMYCIN 500 MG in SODIUM CHLORIDE 0.9% 250 ML IVPB SCH (09:45)
[2023-07-22] MEDS ORDERED: Salmeterol 50 mcg INHALER INHALATION SCH (10:00)
--- NOTE | 2023-07-22 11:21 | P.PN ---
Subjective Progress Note Date: 07/22/23 Principal diagnosis: Shortness of breath. Pulmonary consult dated 07/20/2023. 77-year-old female who was initially seen in the emergency department. We saw her, and room 369, July 20. She was seen in the ER, on July 19. She apparently came into the ER, having had some syncopal episodes, in the shower, where she hit her head. Apparently, there is no family members, with her, and she was a poor historian. When she was brought in by EMS, her saturations were 88% on room air. They gave her nasal O2, at 3 L, and breathing treatments. Currently, the patient is on BiPAP, with settings of 10/5, and 100%. Her saturations are 99%. She's receiving IV heparin, and a Cardizem drip at 5 mg an hour. She's also getting saline at 15 mL an hour. Based on her home med ications, she has a history of hyperlipidemia, vitamin D deficiency, dementia, and hypertension. White count is 6.6, hemoglobin 12.8, hematocrit 40.5, and platelet count 134,000. She had blood gases in the emergency department, showing a pO2 of 47, pCO2 of 37, and pH is 7.36. A repeat blood gas was similar, with a pO2 of 54, pCO2 37, and pH is 7.36. Sodium was 144, potassium 4.2, chlorides 112, CO2 19, BUN 45, and creatinine 1.36. AST was 67. ALT was 44, and troponin was 0.048. N-terminal proBNP was elevated at 3760. Chest x- ray shows moderate cardiomegaly, and mild pulmonary vascular congestion, consistent with the elevated BNP. In addition, there is a focal area of scar and/or nodule, in the left midlung. Progress note dated 07/21/2023. The patient is seen in room 369. She continues on BiPAP, with settings of 10/5 and 80%. I've asked the respiratory therapist, to convert her to nasal cannula, even if it's high flow. She is receiving Cardizem drip at 2.5 mg an hour, and IV heparin via protocol. Clinically, the patient feels like she is better. She gives a thumbs up when asked. White count 9.2, hemoglobin 11.2, hematocrit 36, and platelet count 153,000. Sodium 135, potassium 4.2, chlorides 104, CO2 21, anion gap 10, BUN 40, creatinine 1.13. Blood cultures are negative. A CT angiogram was ordered by the hospitalist service, and showed no evidence of pulmonary changes of COPD and pulmonary arterial hypertension, and possible pneumonitis, in the left lower lobe, and left upper lobe. The patient is on azithromycin, and Rocephin at the current time. And also receiving Solu-Medrol 40 mg every 8 hours. Progress note dated July 2023. 87-year-old female seen today in room 369. The patient is currently on 10 L high flow oxygen, and alternating, with BiPAP, with settings of 10/5, and 80%. The patient's is also getting saline at 15 mL an hour. Unfortunately, the patient did test positive for coronavirus. No new labs today as yet, other than the positive test for coronavirus. The patient is currently in albuterol inhaler, and also on Symbicort, 160/4.5, 2 puffs twice a day. Also, the patient's on Solu-Medrol, 40 mg every 8 hours, and Rocephin. Objective - Vital Signs Vital signs: Vital Signs Temp 97.6 F 07/22/23 08:00 Pulse 62 07/22/23 08:00 Resp 20 07/22/23 08:42 BP 197/81 07/22/23 08:00 Pulse Ox 93 L 07/22/23 08:42 FiO2 80 07/22/23 09:47 Intake & Output 07/21/23 07/22/23 07/22/23 18:59 06:59 18:59 Intake Total 886.388 30.463 240 Output Total 200 600 Balance 686.388 30.463 -360 Weight 47.5 kg Intake: IV 47.28 Heparin Sod,Pork in 0.45% 47.28 NaCl 25,000 unit In 0.45 % NaCl 1 250ml.bag @ 12 UNITS/KG/HR 7.893 mls/hr IV .Q24H [facility] Rx#: [id number] Intake, IV Titration 359.108 30.463 Amount Azithromycin 500 mg In 250 Sodium Chloride 0.9% 250 ml @ 250 mls/hr IVPB DAILY [facility] Rx#:[id number] Diltiazem 125 mg In 30 Sodium Chloride 0.9% 100 ml @ Per Protocol IV .Q0M [facility] Rx#:[id number] Heparin Sod,Pork in 0.45% 29.108 30.463 NaCl 25,000 unit In 0.45 % NaCl 1 250ml.bag @ 12 UNITS/KG/HR 7.893 mls/hr IV .Q24H [facility] Rx#: [id number] cefTRIAXone 2 gm In 50 Sodium Chloride 0.9% 50 ml @ 100 mls/hr IVPB Q24HR [facility] Rx#:[id number] Oral 480 240 Output: Urine 200 600 Other: Voiding Method External Catheter External Catheter # Bowel Movements 1 1 - Exam No acute distress, lethargic, currently with high flow nasal cannula in place. HEENT examination is grossly unremarkable. Neck supple. Full range of motion. No adenopathy thyromegaly or neck vein distention. Cardiovascular examination reveals an irregular rhythm and rate. S1-S2 normal. No S3 or S4. Heart sounds are distant. Heart rate about 62 bpm. No discernible murmur noted. Lungs reveal minimal bibasilar crackles. Scattered rhonchi are noted. No wheezes. Breath sounds are equal bilaterally. Saturations are 94 %. Abdomen soft bowel sounds are heard. No masses or tenderness. Extremities are intact. No cyanosis clubbing or edema. Skin is without rash or lesion. Neurologic examination is brief but nonfocal. - Labs CBC & Chem 7: 07/21/23 04:33 07/21/23 04:33 Labs: Abnormal Lab Results - Last 24 Hours (Table) 07/21/23 07/21/23 07/22/23 Range/Units 12:13 21:44 03:00 APTT 38.9 H 56.6 H (22.0-30.0) sec SARS-CoV-2 (PCR) Detected A (Not Detectd) Microbiology - Last 24 Hours (Table) 07/19/23 12:55 Blood Culture - Preliminary Blood 07/19/23 12:40 Blood Culture - Preliminary Blood Assessment and Plan Assessment: Acute hypoxemic respiratory failure, likely multifactorial, in part related to COPD exacerbation, mild fluid overload/CHF, coronavirus associated pneumonia and atrial fibrillation. Patient tested positive for coronavirus infection, 07/22/2023. History of suspected COPD from previous tobacco use. Mild thrombocytopenia. Chronic kidney disease. History of hyperlipidemia. History of hypertension. History of dementia. History of vitamin D deficiency. Plan: Plan dated 07/20/2023. The patient should be placed on albuterol sulfate and ipratropium bromide, 4 times a day and when necessary. In addition, the patient should receive Pulmicort, 1 mg, and formoterol, 20 g, twice a day. In addition, I would put the patient on a smaller dose of Solu-Medrol, 40 mg, every 8 hours. We will check a pro-calcitonin level. If normal, antibiotics can be discontinued. The patient should receive Lasix, for mild fluid overload. He is currently on Cardizem, for her atrial fibrillation, along with IV heparin. The patient is a DO NOT RESUSCITATE patient. Treatment should be more conservative. Plan dated 07/21/2023. The patient seemed significantly 69. She continues on BiPAP. CAT scan reveals no evidence of pulmonary embolism. There may be some changes of pneumonitis/pneumonia, noted, and for that reason, the patient continues on breathing treatments, steroids, and antibiotics. In addition, the patient continues on Cardizem, and IV heparin, per cardiology. Clinically, the patient appears to be a bit better. We will attempt to get her off the BiPAP, and on high flow nasal cannula. The patient is a DO NOT RESUSCITATE patient. Prognosis is certainly guarded. We will continue to follow the patient, and ruben amaya recommendations along the way. Plan dated 07/22/2023. The patient is seen today in room 369. The patient is alternating between high flow nasal cannula at 10 L, and BiPAP. The patient did test positive for coronavirus infection. She may have coronavirus associated pneumonia. The patient is a DO NOT RESUSCITATE patient. Breathing treatments were converted to inhalers. The patient continues on Solu-Medrol. Additional recommendations and suggestions are forthcoming. Prognosis is certainly guarded. We will continue to follow make recommendations along the way. The patient also continues on saline at 15 mL an hour. Time with Patient: Less than 30
--- NOTE | 2023-07-22 11:43 | P.PN ---
Subjective HISTORY OF PRESENTING ILLNESS Patient is a pleasant 87-year-old female with history of dementia, reported CAD, COPD, hypertension. She cannot provide any medical history and does not believe she has any medical problems. Apparently per chart, patient does have a history of COPD and patient had 2 syncopal episodes that occurred in the shower this morning. Patient was found by EMS hypoxic at 88% and was given breathing treatments. She has been noted to have intermittent A. fib with RVR with heart rates anywhere from the 160s up to 190s as well as sinus bradycardia heart rates in the 40s while on Cardizem. She does have significant 4/6 systolic murmur and no prior workup in the hospital. Currently is on BiPAP and has been unable to wean to nasal cannula. She denies any chest pain or pressure. Chest x-ray shows left mid lung scarring and mild pulmonary vascular congestion. CT brain does not show any acute process. 07/21 Patient seen and examined. Patient still somewhat confused and on BiPAP. Denies any pain however. She has been receiving IV Lasix 40 mg daily. Creatinine remained stable mildly improved to 1.1. Echo performed with EF 35- 40% with mention of only decreased excursion of aortic valve however clinically concern of severe aortic stenosis. Possible low flow low gradient. 07/22 Patient seen and examined. Patient was found to be positive for Covid. Admits she feels somewhat better. Mainly on the BiPAP and able to be weaned for approximately an hour to nasal cannula or high flow however we will need to go back on after about an hour. Denies any chest pain or pressure. PHYSICAL EXAMINATION Vital signs reviewed. CONSTITUTIONAL: No apparent distress, frail. HEENT: Head is normocephalic. Pupils are equal, round. Sclerae anicteric. Mucous membranes of the mouth are moist. No JVD. No carotid bruit. CHEST EXAMINATION: Lungs are clear to auscultation. No chest wall tenderness is noted on palpation or with deep breathing. HEART EXAMINATION: Regular rate and rhythm. S1 normal, no S2 heard. +4/6 systolic murmur, gallops or rub. ABDOMEN: Soft, nontender. Positive bowel sounds. EXTREMITIES: 2+ peripheral pulses, no lower extremity edema and no calf tenderness. NEUROLOGIC EXAMINATION: Patient is awake, alert poor historian ASSESSMENT 1. Syncope, may be related to tachybradycardia syndrome, sick sinus syndrome or aortic stenosis 2. Aortic stenosis, no significant gradients per echo however concern of severe aortic stenosis with no S2 clinically. Possible low flow low gradient 3. Hypertension 4. Paroxysmal atrial fibrillation with RVR 5. Acute on chronic respiratory failure related to COVID, COPD as well as heart failure 6. Acute on chronic systolic heart failure presumed diastolic 7. Questionable history of CAD 8. Dementia 9. CONRADO 10. CT chest finidings concerning for infiltrate vs rule out cancer 11. Cardiomyopathy EF 35-40% with inferior hypokinesis 12. COVID 19 infection PLAN Continue with Toprol and Cardizem drip as needed however concern of possible tachybradycardia syndrome with additional bradycardia. Additional concern of possible low flow low gradient severe aortic stenosis clinically with no S2 on exam. Majority of symptoms appear related to pulmonary source, exacerbated by COVID. Echo showing decreased EF and continue with Lasix 40mg IV daily. Monitor creatinine closely. Prognosis guarded. Objective - Vital Signs Vital signs: Vital Signs Temp 97.6 F 07/22/23 08:00 Pulse 62 07/22/23 08:00 Resp 20 07/22/23 08:42 BP 197/81 07/22/23 08:00 Pulse Ox 93 L 07/22/23 08:42 FiO2 80 07/22/23 09:47 Intake & Output 07/21/23 07/22/23 07/22/23 18:59 06:59 18:59 Intake Total 886.388 30.463 240 Output Total 200 600 Balance 686.388 30.463 -360 Weight 47.5 kg Intake: IV 47.28 Heparin Sod,Pork in 0.45% 47.28 NaCl 25,000 unit In 0.45 % NaCl 1 250ml.bag @ 12 UNITS/KG/HR 7.893 mls/hr IV .Q24H [facility] Rx#: [id number] Intake, IV Titration 359.108 30.463 Amount Azithromycin 500 mg In 250 Sodium Chloride 0.9% 250 ml @ 250 mls/hr IVPB DAILY [facility] Rx#:[id number] Diltiazem 125 mg In 30 Sodium Chloride 0.9% 100 ml @ Per Protocol IV .Q0M [facility] Rx#:[id number] Heparin Sod,Pork in 0.45% 29.108 30.463 NaCl 25,000 unit In 0.45 % NaCl 1 250ml.bag @ 12 UNITS/KG/HR 7.893 mls/hr IV .Q24H [facility] Rx#: [id number] cefTRIAXone 2 gm In 50 Sodium Chloride 0.9% 50 ml @ 100 mls/hr IVPB Q24HR [facility] Rx#:[id number] Oral 480 240 Output: Urine 200 600 Other: Voiding Method External Catheter External Catheter # Bowel Movements 1 1 - Labs CBC & Chem 7: 07/21/23 04:33 07/21/23 04:33 Labs: Abnormal Lab Results - Last 24 Hours (Table) 07/21/23 07/21/23 07/22/23 Range/Units 12:13 21:44 03:00 APTT 38.9 H 56.6 H (22.0-30.0) sec SARS-CoV-2 (PCR) Detected A (Not Detectd) Microbiology - Last 24 Hours (Table) 07/19/23 12:55 Blood Culture - Preliminary Blood 07/19/23 12:40 Blood Culture - Preliminary Blood
--- NOTE | 2023-07-22 12:31 | P.PN ---
Subjective Progress Note Date: 07/22/23 Hospital Course: 87-year-old female with history of dementia, hypertension, dyslipidemia, COPD presenting with recurrent syncopal episodes. Patient has also been hypoxic while in the ED. On initial presentation, temperature was 98.3, pulse 80, respiratory rate 26, blood pressure 166/83, saturating at 96% on [address] shows no acute process, cervical spine CT shows some diffuse pollicis within cervical spine, possible metastatic disease. Initial EKG showed sinus rhythm with left bundle branch block. Patient subsequently did go into atrial fibrillation with RVR. Initial labs showed WBC of 6.6, hemoglobin 12.8, platelet 134, sodium 144, bicarb 19, creatinine 1.36, troponin 0.048, proBNP 3700, pH 7.36, pO2 47. Chest x-ray showed interstitial prominence with left midlung opacity. Patient subsequently became more hypoxic and required BiPAP. Cardiology and pulmonology consulted. Currently on Cardizem drip and heparin drip, on ceftriaxone and azithromycin, IV steroids and bronchodilators. Admitted for acute hypoxic respiratory failure, likely multifactorial, atrial fibrillation, COPD exacerbation, possible overload. Patient found to be COVID- [address] negative for PE, does have left perihilar and left midlung nodularity concerning for neoplastic or atypical infection, extensive endobronchial opacification throughout the left lower lung, possible neoplasm versus extensive aspiration, patchy groundglass opacities in left upper lobe, possible moderate to severe stenosis at the arch vessel origin. Echocardiogram shows LVEF 35-40%, reduced global left ventricular systolic function, does have regional wall motion abnormalities, there is a concern for PFO. Subjective: Patient seen and examined at bedside. No acute events overnight. Remains on BiPAP. Pertinent positives and negatives as discussed above, a complete review of systems was performed and all other systems are negative. Vitals Signs Reviewed. General: nontoxic, no distress, appears at stated age Derm: warm, dry Head: atraumatic, normocephalic, symmetric Eyes: EOMI, no lid lag, anicteric sclera Mouth: no lip lesion, mucus membranes moist Cardiovascular: S1S2 irregular, no murmur Lungs: Bilateral rhonchi , no accessory muscle use, on BiPAP Abdominal: soft, nontender to palpation, no guarding, no appreciable organomegaly Ext: no gross muscle atrophy, no edema, no contractures Neuro: CN II-XI grossly intact, no focal neuro deficits Psych: Alert, oriented 2, appropriate affect Data Reviewed Today: Pertinent Labs: WBC 9.2, hemoglobin 11.2, creatinine 1.13, COVID-19 positive Imaging: Assessment and Plan: Patient is critically ill, prognosis guarded Active: Acute COVID-19 syndrome Acute hypoxic respiratory failure COPD exacerbation Suspected superimposed bacterial pneumonia Recurrent syncopal episodes, possibly sick sinus syndrome versus valvular disease Paroxysmal Atrial fibrillation with RVR, now rate controlled Type 2 NSTEMI High anion Gap metabolic acidosis, improving Suspected Nonoliguric, Acute kidney injury, improving Mild thrombocytopenia -Discussed plan of care with pulmonology, continue Solu-Medrol, IV ceftriaxone, and supportive care with BiPAP -Blood cultures no growth to date, sputum cultures pending -Discussed plan of care with cardiology, patient will likely need further workup however due to her critical illness secondary to COVID-19 infection, continue supportive care with heparin drip and Cardizem drip if tachycardic -Also on oral metoprolol, home medication -Lasix 40 mg IV daily -Continue aspirin and statin -Repeat CBC and BMP tomorrow Chronic: Dementia Dyslipidemia Hypertension DVT ppx: heparin gtt Code status: DNR/DNI Anticipated discharge place: pending clinical course Anticipated discharge time: Pending clinical course Objective - Vital Signs Vital signs: Vital Signs Temp 97.9 F 07/22/23 11:46 Pulse 103 H 07/22/23 11:46 Resp 27 H 07/22/23 11:46 BP 145/68 07/22/23 11:46 Pulse Ox 99 07/22/23 11:46 FiO2 80 07/22/23 11:46 Intake & Output 07/21/23 07/22/23 07/22/23 18:59 06:59 18:59 Intake Total 886.388 30.463 240 Output Total 200 600 Balance 686.388 30.463 -360 Weight 47.5 kg Intake: IV 47.28 Heparin Sod,Pork in 0.45% 47.28 NaCl 25,000 unit In 0.45 % NaCl 1 250ml.bag @ 12 UNITS/KG/HR 7.893 mls/hr IV .Q24H [facility] Rx#: [id number] Intake, IV Titration 359.108 30.463 Amount Azithromycin 500 mg In 250 Sodium Chloride 0.9% 250 ml @ 250 mls/hr IVPB DAILY [facility] Rx#:[id number] Diltiazem 125 mg In 30 Sodium Chloride 0.9% 100 ml @ Per Protocol IV .Q0M [facility] Rx#:[id number] Heparin Sod,Pork in 0.45% 29.108 30.463 NaCl 25,000 unit In 0.45 % NaCl 1 250ml.bag @ 12 UNITS/KG/HR 7.893 mls/hr IV .Q24H [facility] Rx#: [id number] cefTRIAXone 2 gm In 50 Sodium Chloride 0.9% 50 ml @ 100 mls/hr IVPB Q24HR [facility] Rx#:[id number] Oral 480 240 Output: Urine 200 600 Other: Voiding Method External Catheter External Catheter # Bowel Movements 1 1 - Labs CBC & Chem 7: 07/21/23 04:33 07/21/23 04:33 Labs: Abnormal Lab Results - Last 24 Hours (Table) 07/21/23 07/21/23 07/22/23 Range/Units 12:13 21:44 03:00 APTT 38.9 H 56.6 H (22.0-30.0) sec SARS-CoV-2 (PCR) Detected A (Not Detectd) Microbiology - Last 24 Hours (Table) 07/19/23 12:55 Blood Culture - Preliminary Blood 07/19/23 12:40 Blood Culture - Preliminary Blood
[2023-07-22 13:06] LABS: African American GFR (CKD) 53 (>60 ml/min/1.73 sqM); Anion Gap 11 mmol/L; Blood Urea Nitrogen 38 mg/dL (7-17); Calcium 9.1 mg/dL (8.4-10.2); Carbon Dioxide 21 mmol/L (22-30); Chloride 101 mmol/L (98-107); Glucose 197 mg/dL (74-99); Non-African American GFR(CKD) 46 (>60 ml/min/1.73 sqM); Potassium 3.1 mmol/L (3.5-5.1); Sodium 133 mmol/L (137-145)
[2023-07-22] MEDS: HEPARIN SODIUM 1,000 UN/ML (10ML VL) IV PRN (13:26)
[2023-07-22] MEDS: POTASSIUM CHLORIDE ER 20 MEQ TAB.ER PO SCH ×2 (17:00→18:32)
[2023-07-22] MEDS: ATORVASTATIN 80 MG TAB PO SCH (20:00)
[2023-07-22] MEDS: SYMBICORT 160-4.5 MCG INHALER INHALATION SCH (21:21)
[2023-07-23] MEDS: methylPREDNISolone SOD SUCCI 40 MG/ML 1 ML VIAL IV SCH ×4 (00:20→23:19)
[2023-07-23] MEDS: HEPARIN SOD,PORK IN 0.45% NACL 25,000 UNIT in 0.45% NACL 1 250ML.BAG IV SCH (06:09)
[2023-07-23] MEDS: SYMBICORT 160-4.5 MCG INHALER INHALATION SCH ×2 (08:18→21:24)
[2023-07-23] MEDS: ALBUTEROL HFA INHALER INHALATION SCH ×4 (08:18→21:23)
[2023-07-23 08:37] LABS: Basophils % (A) 0 %; Eosinophils % (A) 0 %; HCT 37.1 % (34.0-46.0); HGB 11.6 gm/dL (11.4-16.0); Hypochromasia Slight; Lymphocytes # (A) 0.5 k/uL (1.0-4.8); Lymphocytes % (A) 3 %; MCH 26.6 pg (25.0-35.0); MCHC 31.3 g/dL (31.0-37.0); MCV 84.8 fL (80.0-100.0); Monocytes # (A) 0.5 k/uL (0-1.0); Monocytes % (A) 3 %; Neutrophils # (A) 16.9 k/uL (1.3-7.7); Neutrophils % (A) 94 %; Platelet Count 284 k/uL (150-450); RBC 4.37 m/uL (3.80-5.40); RDW 14.6 % (11.5-15.5); WBC 17.9 k/uL (3.8-10.6)
[2023-07-23] MEDS: MEMANTINE 10 MG TAB PO SCH ×2 (08:41→20:28)
[2023-07-23] MEDS: DONEPEZIL 10 MG TAB PO SCH ×2 (08:41→20:28)
[2023-07-23] MEDS: METOPROLOL SUCCINATE (ER) 25 MG TAB.ER.24H PO SCH (08:42)
[2023-07-23] MEDS: FUROSEMIDE 10 MG/ML 4 ML VIAL IV SCH (08:42)
[2023-07-23] MEDS: ASPIRIN 81 MG PO SCH (08:42)
[2023-07-23 08:58] LABS: African American GFR (CKD) 51 (>60 ml/min/1.73 sqM); Anion Gap 10 mmol/L; Blood Urea Nitrogen 31 mg/dL (7-17); Calcium 9.5 mg/dL (8.4-10.2); Carbon Dioxide 21 mmol/L (22-30); Chloride 106 mmol/L (98-107); Glucose 203 mg/dL (74-99); Non-African American GFR(CKD) 44 (>60 ml/min/1.73 sqM); Potassium 4.1 mmol/L (3.5-5.1); Sodium 137 mmol/L (137-145)
[2023-07-23] MEDS: APIXABAN 2.5 MG TABLET PO SCH ×2 (12:22→20:28)
--- NOTE | 2023-07-23 13:29 | P.PN ---
Subjective Progress Note Date: 07/23/23 77-year-old female who was initially seen in the emergency department. We saw her, and room 369, July 20. She was seen in the ER, on July 19. She apparently came into the ER, having had some syncopal episodes, in the shower, where she hit her head. Apparently, there is no family members, with her, and she was a poor historian. When she was brought in by EMS, her saturations were 88% on room air. They gave her nasal O2, at 3 L, and breathing treatments. Currently, the patient is on BiPAP, with settings of 10/5, and 100%. Her saturations are 99%. She's receiving IV heparin, and a Cardizem drip at 5 mg an hour. She's also getting saline at 15 mL an hour. Based on her home medicati ons, she has a history of hyperlipidemia, vitamin D deficiency, dementia, and hypertension. White count is 6.6, hemoglobin 12.8, hematocrit 40.5, and platelet count 134,000. She had blood gases in the emergency department, showing a pO2 of 47, pCO2 of 37, and pH is 7.36. A repeat blood gas was si milar, with a pO2 of 54, pCO2 37, and pH is 7.36. Sodium was 144, potassium 4.2, chlorides 112, CO2 19, BUN 45, and creatinine 1.36. AST was 67. ALT was 44, and troponin was 0.048. N-terminal proBNP was elevated at 3760. Chest x- ray shows moderate cardiomegaly, and mild pulmonary vascular congestion, consistent with the elevated BNP. In addition, there is a focal area of scar and/or nodule, in the left midlung. Progress note dated 07/21/2023. The patient is seen in room 369. She continues on BiPAP, with settings of 10/5 and 80%. I've asked the respiratory therapist, to convert her to nasal cannula, even if it's high flow. She is receiving Cardizem drip at 2.5 mg an hour, and IV heparin via protocol. Clinically, the patient feels like she is better. She gives a thumbs up when asked. White count 9.2, hemoglobin 11.2, hematocrit 36, and platelet count 153,000. Sodium 135, potassium 4.2, chlorides 104, CO2 21, anion gap 10, BUN 40, creatinine 1.13. Blood cultures are negative. A CT angiogram was ordered by the hospitalist service, and showed no evidence of pulmonary changes of COPD and pulmonary arterial hypertension, and possible pneumonitis, in the left lower lobe, and left upper lobe. The patient is on azithromycin, and Rocephin at the current time. And also receiving Solu-Medrol 40 mg every 8 hours. Progress note dated July 2023. 87-year-old female seen today in room 369. The patient is currently on 10 L high flow oxygen, and alternating, with BiPAP, with settings of 10/5, and 80%. The patient's is also getting saline at 15 mL an hour. Unfortunately, the patient did test positive for coronavirus. No new labs today as yet, other than the positive test for coronavirus. The patient is currently in albuterol inhaler, and also on Symbicort, 160/4.5, 2 puffs twice a day. Also, the patient's on Solu-Medrol, 40 mg every 8 hours, and Rocephin. On today's evaluation of 07/23/2023, the patient is being seen for a follow-up. The patient was taken off the BiPAP and the patient is currently on high flow oxygen 10 L/m nasal cannula with a pulse ox of 93%. The patient is a 77-year-old female who was hospitalized for shortness of breath and hypoxic respiratory failure. During the course of this hospitalization, the patient was diagnosed having Covid 19 infection on 07/22/2023. The patient however has significant abnormalities and the CAT scan of the chest which is showing left hilar lymphadenopathy, obstruction of the left lower lobe bronchus and the patient possibly has either a mass or a mucous plug occluding the left lower lobe bronchus. I do favor malignancy. There is also mild to moderate back on emphysema in addition to left lower lobe atelectasis. As mentioned, there is left perihilar and left midlung nodularity measuring up to 2.8 cm in size which could be potentially malignancy. She does have also some myocardial megaly. Meanwhile, the patient remains on Ventolin HFA [id number], IV Rocephin, and IV Solu-Medrol 40 mg every 6 hours. The blood culture has been negative. The rest of the blood work from today shows an obese count of 17.9, hemoglobin is at 11.6 and a platelet count is at 284. BUN is at 31 with a creatinine of 1.1 and his sodium level is at 137. She did have a component of acute kidney injury which is improved at this point in time. Objective - Vital Signs Vital signs: Vital Signs Temp 97.1 F L 07/23/23 07:57 Pulse 130 H 07/23/23 07:57 Resp 16 07/23/23 08:30 BP 139/86 07/23/23 07:57 Pulse Ox 91 L 07/23/23 08:18 FiO2 80 07/22/23 12:44 Intake & Output 07/22/23 07/23/23 07/23/23 18:59 06:59 18:59 Intake Total 676.81 42.124 177.32 Output Total 1300 900 Balance -623.19 -857.876 177.32 Intake: Intake, IV Titration 76.81 42.124 57.32 Amount Heparin Sod,Pork in 0.45% 76.81 42.124 57.32 NaCl 25,000 unit In 0.45 % NaCl 1 250ml.bag @ 12 UNITS/KG/HR 7.893 mls/hr IV .Q24H [facility] Rx#: [id number] Oral 600 120 Output: Urine 1300 900 Other: Voiding Method External Catheter External Catheter - Exam No acute distress, lethargic, currently with high flow nasal cannula in place. The patient is currently on 10 L of oxygen by nasal cannula HEENT examination is grossly unremarkable. Neck supple. Full range of motion. No adenopathy thyromegaly or neck vein d istention. Cardiovascular examination reveals an irregular rhythm and rate. S1-S2 normal. No S3 or S4. Heart sounds are distant. No discernible murmur noted. Lungs reveal minimal bibasilar crackles. Scattered rhonchi are noted. No wheezes. Breath sounds are equal bilaterally. Abdomen soft bowel sounds are heard. No masses or tenderness. Extremities are intact. No cyanosis clubbing or edema. Skin is without rash or lesion. Neurologic examination is brief but nonfocal. - Labs CBC & Chem 7: 07/23/23 08:03 07/23/23 08:03 Labs: Abnormal Lab Results - Last 24 Hours (Table) 07/22/23 07/22/23 07/22/23 Range/Units 12:04 12:04 19:15 WBC (3.8-10.6) k/uL Neutrophils # (1.3-7.7) k/uL Lymphocytes # (1.0-4.8) k/uL APTT 41.5 H 71.1 H (22.0-30.0) sec Sodium 133 L (137-145) mmol/L Potassium 3.1 L (3.5-5.1) mmol/L Carbon Dioxide 21 L (22-30) mmol/L BUN 38 H (7-17) mg/dL Creatinine 1.08 H (0.52-1.04) mg/dL Glucose 197 H (74-99) mg/dL 07/23/23 07/23/23 07/23/23 Range/Units 08:03 08:03 08:03 WBC 17.9 H (3.8-10.6) k/uL Neutrophils # 16.9 H (1.3-7.7) k/uL Lymphocytes # 0.5 L (1.0-4.8) k/uL APTT 49.6 H (22.0-30.0) sec Sodium (137-145) mmol/L Potassium (3.5-5.1) mmol/L Carbon Dioxide 21 L (22-30) mmol/L BUN 31 H (7-17) mg/dL Creatinine 1.13 H (0.52-1.04) mg/dL Glucose 203 H (74-99) mg/dL Microbiology - Last 24 Hours (Table) 07/19/23 12:55 Blood Culture - Preliminary Blood 07/19/23 12:40 Blood Culture - Preliminary Blood Assessment and Plan Plan: Acute hypoxemic respiratory failure, likely multifactorial, in part related to COPD exacerbation, left lower lobe pneumonia/atelectasis, complete opacification left lower lobe bronchus, and Covid 19 infection with areas of groundglass changes bilaterally. The patient is currently on 10 L of oxygen by nasal cannula. Bilateral pulmonary infiltrates with areas of groundglass changes, could be related to Covid 19 infection. In addition, there is a left perihilar nodularity measuring up to 2.8 cm which obviously raises the concern for malignancy. Left lower lobe atelectasis, with a suspicious opacity in left lower lobe bronchus and lymphadenopathy. I reviewed the CAT scan of the chest and there is extensive and the bronchial opacification of the left lower lobe bronchus which could be either a neoplasm or aspiration. There is however volume loss in the left lung base along with left basilar atelectasis. Patient tested positive for coronavirus infection, 07/22/2023. COPD/. History of smoking History of hyperlipidemia. History of hypertension. History of dementia. History of vitamin D deficiency. CHF with normal LV systolic dysfunction with an ejection fraction of 35-40% and moderate mitral regurgitation Atrial fibrillation with RVR, current rhythm is sinus and the patient is an anticoagulation. Questionable tachybradycardia syndrome/sick sinus syndrome along with paroxysmal A. fib Plan: Continue current treatment and attempt to wean down FiO2 as tolerated to maintain a pulse ox above 90% IV the patient will need bronchoscopy and evaluation of the left lower lobe bronchus. Based on age and underlying possible Covid 19 condition, and based on her high oxygen requirements, I think is reasonable to wait another 24-48 hours hoping for some partial recovery Continue antibiotic coverage Continue steroids Aggressive pulmonary toileting and deep breathing and provide the patient incentive spirometer Monitor the white count Continue anticoagulation We'll continue to follow make further recommendations based on her progress. DNR/DNI CODE STATUS, we'll continue to follow.
--- NOTE | 2023-07-23 14:01 | P.PN ---
Subjective Progress Note Date: 07/23/23 Hospital Course: 87-year-old female with history of dementia, hypertension, dyslipidemia, COPD presenting with recurrent syncopal episodes. Patient has also been hypoxic while in the ED. On initial presentation, temperature was 98.3, pulse 80, respiratory rate 26, blood pressure 166/83, saturating at 96% on [address] shows no acute process, cervical spine CT shows some diffuse pollicis within cervical spine, possible metastatic disease. Initial EKG showed sinus rhythm with left bundle branch block. Patient subsequently did go into atrial fibrillation with RVR. Initial labs showed WBC of 6.6, hemoglobin 12.8, platelet 134, sodium 144, bicarb 19, creatinine 1.36, troponin 0.048, proBNP 3700, pH 7.36, pO2 47. Chest x-ray showed interstitial prominence with left midlung opacity. Patient subsequently became more hypoxic and required BiPAP. Cardiology and pulmonology consulted. Currently on Cardizem drip and heparin drip, on ceftriaxone and azithromycin, IV steroids and bronchodilators. Admitted for acute hypoxic respiratory failure, likely multifactorial, atrial fibrillation, COPD exacerbation, possible overload. Patient found to be COVID- [address] negative for PE, does have left perihilar and left midlung nodularity concerning for neoplastic or atypical infection, extensive endobronchial opacification throughout the left lower lung, possible neoplasm versus extensive aspiration, patchy groundglass opacities in left upper lobe, possible moderate to severe stenosis at the arch vessel origin. Echocardiogram shows LVEF 35-40%, reduced global left ventricular systolic function, does have regional wall motion abnormalities, there is a concern for PFO. Respiratory function slowly improving Subjective: Patient seen and examined at bedside. No acute events overnight. Currently on nasal cannula Pertinent positives and negatives as discussed above, a complete review of systems was performed and all other systems are negative. Vitals Signs Reviewed. General: nontoxic, no distress, appears at stated age Derm: warm, dry Head: atraumatic, normocephalic, symmetric Eyes: EOMI, no lid lag, anicteric sclera Mouth: no lip lesion, mucus membranes moist Cardiovascular: S1S2 irregular, no murmur Lungs: Bilateral rhonchi , no accessory muscle use, on nasal cannula Abdominal: soft, nontender to palpation, no guarding, no appreciable organomeg therese Ext: no gross muscle atrophy, no edema, no contractures Neuro: CN II-XI grossly intact, no focal neuro deficits Psych: Alert, oriented 2, appropriate affect Data Reviewed Today: Pertinent Labs: WBC 17.9, bicarb 21, BUN 31, creatinine 1.18 Imaging: No new imaging Assessment and Plan: Patient is critically ill, prognosis guarded Active: Acute COVID-19 syndrome Acute hypoxic respiratory failure COPD exacerbation Suspected superimposed bacterial pneumonia Recurrent syncopal episodes, possibly sick sinus syndrome versus valvular disease Paroxysmal Atrial fibrillation with RVR, now rate controlled Type 2 NSTEMI High anion Gap metabolic acidosis, improving Suspected Nonoliguric, Acute kidney injury, improving Mild thrombocytopenia, resolved Leukocytosis, steroid-induced -Discussed plan of care with pulmonology, continue Solu-Medrol, IV ceftriaxone, and supportive care, may need bronchoscopy to evaluate left lower lobe bronchus, possible malignancy -Blood cultures no growth to date, sputum cultures pending -Cardiology following, patient started on oral Eliquis, and oral Lasix -Also on oral metoprolol, home medication -Continue aspirin and statin -Repeat CBC and BMP tomorrow Chronic: Dementia Dyslipidemia Hypertension DVT ppx: Eliquis Code status: DNR/DNI Anticipated discharge place: pending clinical course Anticipated discharge time: Pending clinical course Objective - Vital Signs Vital signs: Vital Signs Temp 97.7 F 07/23/23 12:15 Pulse 104 H 07/23/23 12:15 Resp 18 07/23/23 12:15 BP 155/82 07/23/23 12:15 Pulse Ox 93 L 07/23/23 12:15 FiO2 80 07/22/23 12:44 Intake & Output 07/22/23 07/23/23 07/23/23 18:59 06:59 18:59 Intake Total 676.81 42.124 177.32 Output Total 1300 900 Balance -623.19 -857.876 177.32 Intake: Intake, IV Titration 76.81 42.124 57.32 Amount Heparin Sod,Pork in 0.45% 76.81 42.124 57.32 NaCl 25,000 unit In 0.45 % NaCl 1 250ml.bag @ 12 UNITS/KG/HR 7.893 mls/hr IV .Q24H [facility] Rx#: [id number] Oral 600 120 Output: Urine 1300 900 Other: Voiding Method External Catheter External Catheter - Labs CBC & Chem 7: 09/11/23 08:03 07/23/23 08:03 Labs: Abnormal Lab Results - Last 24 Hours (Table) 07/22/23 07/23/23 07/23/23 Range/Units 19:15 08:03 08:03 WBC 17.9 H (3.8-10.6) k/uL Neutrophils # 16.9 H (1.3-7.7) k/uL Lymphocytes # 0.5 L (1.0-4.8) k/uL APTT 71.1 H (22.0-30.0) sec Carbon Dioxide 21 L (22-30) mmol/L BUN 31 H (7-17) mg/dL Creatinine 1.13 H (0.52-1.04) mg/dL Glucose 203 H (74-99) mg/dL 07/23/23 Range/Units 08:03 WBC (3.8-10.6) k/uL Neutrophils # (1.3-7.7) k/uL Lymphocytes # (1.0-4.8) k/uL APTT 49.6 H (22.0-30.0) sec Carbon Dioxide (22-30) mmol/L BUN (7-17) mg/dL Creatinine (0.52-1.04) mg/dL Glucose (74-99) mg/dL Microbiology - Last 24 Hours (Table) 07/19/23 12:55 Blood Culture - Preliminary Blood 07/19/23 12:40 Blood Culture - Preliminary Blood
[2023-07-23] MEDS: FUROSEMIDE 40 MG TAB PO SCH (16:13)
[2023-07-23] MEDS: ATORVASTATIN 80 MG TAB PO SCH (20:28)
[2023-07-23 20:40] LABS: Glucose,Whole Blood 256 mg/dL (70-110)
--- NOTE | 2023-07-24 06:02 | PN ---
PROGRESS NOTE This lady is now in sinus rhythm. I reviewed on her rhythm strip she goes in and out of atrial fibrillation and has some tachy-saravanan type phenomenon. However, her rate is in the 60s. She is in sinus. I am going to start her on Eliquis 2.5 mg b.i.d., and continue Lasix which will now be oral instead of IV and it will be 40 mg b.i.d. I discussed my thoughts in detail with the patient. She also has a COVID infection, but we will continue the above plan and see how she does. Physical exam, there were no other new significant findings. MMODL / IJN: [id number] /
[2023-07-24 06:08] LABS: Glucose,Whole Blood 170 mg/dL (70-110)
[2023-07-24 07:48] LABS: Basophils % (A) 0 %; Eosinophils # (A) 0.1 k/uL (0-0.7); Eosinophils % (A) 1 %; HCT 35.3 % (34.0-46.0); HGB 11.4 gm/dL (11.4-16.0); Lymphocytes # (A) 0.6 k/uL (1.0-4.8); Lymphocytes % (A) 4 %; MCH 26.7 pg (25.0-35.0); MCHC 32.3 g/dL (31.0-37.0); MCV 82.6 fL (80.0-100.0); Mean Platelet Volume 8.5; Monocytes # (A) 0.3 k/uL (0-1.0); Monocytes % (A) 3 %; Neutrophils # (A) 12.3 k/uL (1.3-7.7); Neutrophils % (A) 92 %; Platelet Count 248 k/uL (150-450); RBC 4.27 m/uL (3.80-5.40); RDW 14.7 % (11.5-15.5); WBC 13.4 k/uL (3.8-10.6)
[2023-07-24] MEDS: MEMANTINE 10 MG TAB PO SCH ×2 (08:05→21:14)
[2023-07-24] MEDS: methylPREDNISolone SOD SUCCI 40 MG/ML 1 ML VIAL IV SCH ×2 (08:05→15:44)
[2023-07-24] MEDS: FUROSEMIDE 40 MG TAB PO SCH ×2 (08:05→15:44)
[2023-07-24] MEDS: METOPROLOL SUCCINATE (ER) 25 MG TAB.ER.24H PO SCH (08:05)
[2023-07-24] MEDS: ASPIRIN 81 MG PO SCH (08:05)
[2023-07-24] MEDS: DONEPEZIL 10 MG TAB PO SCH ×2 (08:05→21:14)
[2023-07-24] MEDS: APIXABAN 2.5 MG TABLET PO SCH ×2 (08:05→21:14)
[2023-07-24 08:15] LABS: African American GFR (CKD) 53 (>60 ml/min/1.73 sqM); Anion Gap 10 mmol/L; Blood Urea Nitrogen 39 mg/dL (7-17); Calcium 9.5 mg/dL (8.4-10.2); Carbon Dioxide 24 mmol/L (22-30); Chloride 104 mmol/L (98-107); Glucose 158 mg/dL (74-99); Non-African American GFR(CKD) 46 (>60 ml/min/1.73 sqM); Potassium 3.8 mmol/L (3.5-5.1); Sodium 138 mmol/L (137-145)
[2023-07-24] MEDS: ALBUTEROL HFA INHALER INHALATION SCH ×4 (09:24→21:48)
[2023-07-24] MEDS: SYMBICORT 160-4.5 MCG INHALER INHALATION SCH ×2 (09:24→21:48)
--- NOTE | 2023-07-24 11:04 | P.PN ---
Subjective Progress Note Date: 07/24/23 Hospital Course: 87-year-old female with history of dementia, hypertension, dyslipidemia, COPD presenting with recurrent syncopal episodes. Patient has also been hypoxic while in the ED. On initial presentation, temperature was 98.3, pulse 80, respiratory rate 26, blood pressure 166/83, saturating at 96% on [address] shows no acute process, cervical spine CT shows some diffuse pollicis within cervical spine, possible metastatic disease. Initial EKG showed sinus rhythm with left bundle branch block. Patient subsequently did go into atrial fibrillation with RVR. Initial labs showed WBC of 6.6, hemoglobin 12.8, platelet 134, sodium 144, bicarb 19, creatinine 1.36, troponin 0.048, proBNP 3700, pH 7.36, pO2 47. Chest x-ray showed interstitial prominence with left midlung opacity. Patient subsequently became more hypoxic and required BiPAP. Cardiology and pulmonology consulted. Currently on Cardizem drip and heparin drip, on ceftriaxone and azithromycin, IV steroids and bronchodilators. Admitted for acute hypoxic respiratory failure, likely multifactorial, atrial fibrillation, COPD exacerbation, possible overload. Patient found to be COVID- [address] negative for PE, does have left perihilar and left midlung nodularity concerning for neoplastic or atypical infection, extensive endobronchial opacification throughout the left lower lung, possible neoplasm versus extensive aspiration, patchy groundglass opacities in left upper lobe, possible moderate to severe stenosis at the arch vessel origin. Echocardiogram shows LVEF 35-40%, reduced global left ventricular systolic function, does have regional wall motion abnormalities, there is a concern for PFO. Respiratory function slowly improving. Subjective: Patient seen and examined at bedside. No acute events overnight. Currently on nasal cannula. Pertinent positives and negatives as discussed above, a complete review of systems was performed and all other systems are negative. Vitals Signs Reviewed. General: nontoxic, no distress, appears at stated age Derm: warm, dry Head: atraumatic, normocephalic, symmetric Eyes: EOMI, no lid lag, anicteric sclera Mouth: no lip lesion, mucus membranes moist Cardiovascular: S1S2 irregular, tachycardic, no murmur Lungs: Bilateral rhonchi , no accessory muscle use, on nasal cannula Abdominal: soft, nontender to palpation, no guarding, no appreciable o rganomegaly Ext: no gross muscle atrophy, no edema, no contractures Neuro: CN II-XI grossly intact, no focal neuro deficits Psych: Alert, oriented 2, appropriate affect Data Reviewed Today: Pertinent Labs: WBC 13.4, creatinine 1.09, blood sugars range between 158-170 Imaging: No new imaging Assessment and Plan: Patient is critically ill, prognosis guarded Active: Acute COVID-19 pneumonia Acute hypoxic respiratory failure COPD exacerbation Suspected superimposed bacterial pneumonia Recurrent syncopal episodes, possibly sick sinus syndrome versus valvular disease Paroxysmal Atrial fibrillation with RVR Type 2 NSTEMI High anion Gap metabolic acidosis, improving Suspected Nonoliguric, Acute kidney injury, improving Mild thrombocytopenia, resolved Leukocytosis, steroid-induced -Pulmonology following, continue Solu-Medrol, IV ceftriaxone, and supportive care, may need bronchoscopy to evaluate left lower lobe bronchus, possible malignancy -Blood cultures no growth to date, sputum cultures pending -Cardiology following, patient on oral Eliquis, and oral Lasix -Metoprolol increased, patient was started on amiodarone -Continue aspirin and statin -Repeat CBC and BMP tomorrow Chronic: Dementia Dyslipidemia Hypertension DVT ppx: Eliquis Code status: DNR/DNI Anticipated discharge place: Will likely need rehab Anticipated discharge time: Pending clinical course Objective - Vital Signs Vital signs: Vital Signs Temp 97.4 F L 07/24/23 08:00 Pulse 117 H 07/24/23 08:00 Resp 20 07/24/23 08:00 BP 138/98 07/24/23 08:00 Pulse Ox 94 L 07/24/23 08:00 FiO2 80 07/22/23 12:44 Intake & Output 07/23/23 07/24/23 07/24/23 18:59 06:59 18:59 Intake Total 177.32 110 Output Total 1200 Balance 177.32 -1200 110 Weight 47.5 kg Intake: Intake, IV Titration 57.32 Amount Heparin Sod,Pork in 0.45% 57.32 NaCl 25,000 unit In 0.45 % NaCl 1 250ml.bag @ 12 UNITS/KG/HR 7.893 mls/hr IV .Q24H [facility] Rx#: [id number] Oral 120 110 Output: Urine 1200 Other: Voiding Method External Catheter External Catheter External Catheter # Voids 1 # Bowel Movements 1 - Labs CBC & Chem 7: 07/24/23 07:27 07/24/23 07:27 Labs: Abnormal Lab Results - Last 24 Hours (Table) 07/23/23 07/24/23 07/24/23 Range/Units 20:39 06:06 07:27 WBC 13.4 H (3.8-10.6) k/uL Neutrophils # 12.3 H (1.3-7.7) k/uL Lymphocytes # 0.6 L (1.0-4.8) k/uL BUN (7-17) mg/dL Creatinine (0.52-1.04) mg/dL Glucose (74-99) mg/dL POC Glucose (mg/dL) 256 H 170 H (70-110) mg/dL 07/24/23 Range/Units 07:27 WBC (3.8-10.6) k/uL Neutrophils # (1.3-7.7) k/uL Lymphocytes # (1.0-4.8) k/uL BUN 39 H (7-17) mg/dL Creatinine 1.09 H (0.52-1.04) mg/dL Glucose 158 H (74-99) mg/dL POC Glucose (mg/dL) (70-110) mg/dL
[2023-07-24 11:25] LABS: Glucose,Whole Blood 172 mg/dL (70-110)
--- NOTE | 2023-07-24 11:42 | P.PN ---
Subjective Progress Note Date: 07/24/23 77-year-old female who was initially seen in the emergency department. We saw her, and room 369, July 20. She was seen in the ER, on July 19. She apparently came into the ER, having had some syncopal episodes, in the shower, where she hit her head. Apparently, there is no family members, with her, and she was a poor historian. When she was brought in by EMS, her saturations were 88% on room air. They gave her nasal O2, at 3 L, and breathing treatments. Currently, the patient is on BiPAP, with settings of 10/5, and 100%. Her saturations are 99%. She's receiving IV heparin, and a Cardizem drip at 5 mg an hour. She's also getting saline at 15 mL an hour. Based on her home medicati ons, she has a history of hyperlipidemia, vitamin D deficiency, dementia, and hypertension. White count is 6.6, hemoglobin 12.8, hematocrit 40.5, and platelet count 134,000. She had blood gases in the emergency department, showing a pO2 of 47, pCO2 of 37, and pH is 7.36. A repeat blood gas was si milar, with a pO2 of 54, pCO2 37, and pH is 7.36. Sodium was 144, potassium 4.2, chlorides 112, CO2 19, BUN 45, and creatinine 1.36. AST was 67. ALT was 44, and troponin was 0.048. N-terminal proBNP was elevated at 3760. Chest x- ray shows moderate cardiomegaly, and mild pulmonary vascular congestion, consistent with the elevated BNP. In addition, there is a focal area of scar and/or nodule, in the left midlung. Progress note dated 07/21/2023. The patient is seen in room 369. She continues on BiPAP, with settings of 10/5 and 80%. I've asked the respiratory therapist, to convert her to nasal cannula, even if it's high flow. She is receiving Cardizem drip at 2.5 mg an hour, and IV heparin via protocol. Clinically, the patient feels like she is better. She gives a thumbs up when asked. White count 9.2, hemoglobin 11.2, hematocrit 36, and platelet count 153,000. Sodium 135, potassium 4.2, chlorides 104, CO2 21, anion gap 10, BUN 40, creatinine 1.13. Blood cultures are negative. A CT angiogram was ordered by the hospitalist service, and showed no evidence of pulmonary changes of COPD and pulmonary arterial hypertension, and possible pneumonitis, in the left lower lobe, and left upper lobe. The patient is on azithromycin, and Rocephin at the current time. And also receiving Solu-Medrol 40 mg every 8 hours. Progress note dated July 2023. 87-year-old female seen today in room 369. The patient is currently on 10 L high flow oxygen, and alternating, with BiPAP, with settings of 10/5, and 80%. The patient's is also getting saline at 15 mL an hour. Unfortunately, the patient did test positive for coronavirus. No new labs today as yet, other than the positive test for coronavirus. The patient is currently in albuterol inhaler, and also on Symbicort, 160/4.5, 2 puffs twice a day. Also, the patient's on Solu-Medrol, 40 mg every 8 hours, and Rocephin. On today's evaluation of 07/23/2023, the patient is being seen for a follow-up. The patient was taken off the BiPAP and the patient is currently on high flow oxygen 10 L/m nasal cannula with a pulse ox of 93%. The patient is a 77-year-old female who was hospitalized for shortness of breath and hypoxic respiratory failure. During the course of this hospitalization, the patient was diagnosed having Covid 19 infection on 07/22/2023. The patient however has significant abnormalities and the CAT scan of the chest which is showing left hilar lymphadenopathy, obstruction of the left lower lobe bronchus and the patient possibly has either a mass or a mucous plug occluding the left lower lobe bronchus. I do favor malignancy. There is also mild to moderate back on emphysema in addition to left lower lobe atelectasis. As mentioned, there is left perihilar and left midlung nodularity measuring up to 2.8 cm in size which could be potentially malignancy. She does have also some myocardial megaly. Meanwhile, the patient remains on Ventolin HFA [id number], IV Rocephin, and IV Solu-Medrol 40 mg every 6 hours. The blood culture has been negative. The rest of the blood work from today shows an obese count of 17.9, hemoglobin is at 11.6 and a platelet count is at 284. BUN is at 31 with a creatinine of 1.1 and his sodium level is at 137. She did have a component of acute kidney injury which is improved at this point in time. On 07/24/2023 the patient is awake and alert and she is communicating. She is currently on 6 L of oxygen by nasal cannula and there has been ongoing slow improvement in the patient's oxygenation. She has some limited congestive cough. No significant sputum production. No fever. No chills. As discussed earlier, the CAT scan of the chest that was done during this current hospitalization showed left hilar lymphadenopathy, obstruction of the left lower lobe bronchus and possibility of malignancy is obviously entertained. There is another opacity in the left perihilar area in addition. White cell count of 15.4, hemoglobin 11.4, platelet count is 248, BUN is at 39 with a creatinine of 1.09 and a sodium level is at 138. Blood sugars at 172. The patient is on anticoagulations with Eliquis 2.5 mg twice a day. The patient IV Rocephin. The patient is on Lasix 40 mg by mouth twice a day. The patient remains on IV Solu- Medrol 40 mg every 8 hours. Objective - Vital Signs Vital signs: Vital Signs Temp 97.4 F L 07/24/23 08:00 Pulse 117 H 07/24/23 08:00 Resp 20 07/24/23 08:00 BP 138/98 07/24/23 08:00 Pulse Ox 94 L 07/24/23 08:00 FiO2 80 07/22/23 12:44 Intake & Output 07/23/23 07/24/23 07/24/23 18:59 06:59 18:59 Intake Total 177.32 110 Output Total 1200 Balance 177.32 -1200 110 Weight 47.5 kg Intake: Intake, IV Titration 57.32 Amount Heparin Sod,Pork in 0.45% 57.32 NaCl 25,000 unit In 0.45 % NaCl 1 250ml.bag @ 12 UNITS/KG/HR 7.893 mls/hr IV .Q24H [facility] Rx#: [id number] Oral 120 110 Output: Urine 1200 Other: Voiding Method External Catheter External Catheter External Catheter # Voids 1 # Bowel Movements 1 - Exam No acute distress, lethargic, currently with high flow nasal cannula in place. The patient is currently on 6 L of oxygen by nasal cannula HEENT examination is grossly unremarkable. Neck supple. Full range of motion. No adenopathy thyromegaly or neck vein distention. Cardiovascular examination reveals an irregular rhythm and rate. S1-S2 normal. No S3 or S4. Heart sounds are distant. No discernible murmur noted. Lungs reveal minimal bibasilar crackles. Scattered rhonchi are noted. No wheezes. Breath sounds are equal bilaterally. Abdomen soft bowel sounds are heard. No masses or tenderness. Extremities are intact. No cyanosis clubbing or edema. Skin is without rash or lesion. Neurologic examination is brief but nonfocal. - Labs CBC & Chem 7: 07/24/23 07:27 07/24/23 07:27 Labs: Abnormal Lab Results - Last 24 Hours (Table) 07/23/23 07/24/23 07/24/23 Range/Units 20:39 06:06 07:27 WBC 13.4 H (3.8-10.6) k/uL Neutrophils # 12.3 H (1.3-7.7) k/uL Lymphocytes # 0.6 L (1.0-4.8) k/uL BUN (7-17) mg/dL Creatinine (0.52-1.04) mg/dL Glucose (74-99) mg/dL POC Glucose (mg/dL) 256 H 170 H (70-110) mg/dL 07/24/23 Range/Units 07:27 WBC (3.8-10.6) k/uL Neutrophils # (1.3-7.7) k/uL Lymphocytes # (1.0-4.8) k/uL BUN 39 H (7-17) mg/dL Creatinine 1.09 H (0.52-1.04) mg/dL Glucose 158 H (74-99) mg/dL POC Glucose (mg/dL) (70-110) mg/dL Assessment and Plan Plan: Acute hypoxemic respiratory failure, likely multifactorial, in part related to COPD exacerbation, left lower lobe pneumonia/atelectasis, complete opacificatio n left lower lobe bronchus, and Covid 19 infection with areas of groundglass changes bilaterally. The patient has shown improvement in oxygenation and the patient is currently down to 6 L of O2 nasal cannula Bilateral pulmonary infiltrates with areas of groundglass changes, could be related to Covid 19 infection. In addition, there is a left perihilar nodularity measuring up to 2.8 cm which obviously raises the concern for malignancy. Left lower lobe atelectasis, with a suspicious opacity in left lower lobe bronchus and lymphadenopathy. I reviewed the CAT scan of the chest and there is extensive and the bronchial opacification of the left lower lobe bronchus which could be either a neoplasm or aspiration. There is however volume loss in the left lung base along with left basilar atelectasis. Patient tested positive for coronavirus infection, 07/22/2023. COPD/. History of smoking History of hyperlipidemia. History of hypertension. History of dementia. History of vitamin D deficiency. CHF with normal LV systolic dysfunction with an ejection fraction of 35-40% and moderate mitral regurgitation Atrial fibrillation with RVR, current rhythm is sinus and the patient is an a nticoagulation. Questionable tachybradycardia syndrome/sick sinus syndrome along with paroxysmal A. fib Plan: Continue current treatment and attempt to wean down FiO2 as tolerated to m aintain a pulse ox above 90%, currently on 6 L of O2 nasal cannula IV the patient will need bronchoscopy and evaluation of the left lower lobe bronchus. Based on age and underlying possible Covid 19 condition, and based on her high oxygen requirements, I think is reasonable to wait another 24-48 hours hoping for some partial recovery Continue antibiotic coverage, the patient is on IV Rocephin Continue steroids, the patient on IV Solu-Medrol Aggressive pulmonary toileting and deep breathing and provide the patient incentive spirometer Monitor the white count Continue anticoagulation and the patient is currently on Eliquis We'll continue to follow make further recommendations based on her progress. DNR/DNI CODE STATUS, we'll continue to follow.
--- NOTE | 2023-07-24 12:11 | P.PN ---
Subjective Progress Note Date: 07/24/23 History of present illness: This is an 87-year-old female that we are following for atrial fibrillation was some tachybradycardia-type phenomenon. Yesterday she was in a sinus rhythm in the 60s and she was started on eliquis 2.5 mg twice daily and IV Lasix was changed to oral at 40 mg twice daily. This morning she is found to be in atrial fibrillation which started last evening. She remains in isolation for Covid infection. Physical examination deferred due to Covid infection. Echocardiogram revealed EF 35-40%, moderate right ventricular dilation, aneurysmal interatrial septum was suspicion of PFO, moderate mitral regurgitation, moderate tricuspid regurgitation Assessment: New onset paroxysmal atrial fibrillation Covid infection COPD exacerbation Plan: Start patient on amiodarone 200 mg twice daily and change Toprol-XL to metoprolol tartrate 50 mg twice daily Continue patient on eliquis 2.5 mg twice daily, oral Lasix and Lipitor Further recommendations to follow based upon clinical course Thank you kindly for this consultation. Nurse practitioner note has been reviewed, I agree with documented findings and plan of care. Patient was seen and examined. Objective - Vital Signs Vital signs: Vital Signs Temp 97.4 F L 07/24/23 08:00 Pulse 117 H 07/24/23 08:00 Resp 20 07/24/23 08:00 BP 138/98 07/24/23 08:00 Pulse Ox 94 L 07/24/23 08:00 FiO2 80 07/22/23 12:44 Intake & Output 07/23/23 07/24/23 07/24/23 18:59 06:59 18:59 Intake Total 177.32 110 Output Total 1200 Balance 177.32 -1200 110 Weight 47.5 kg Intake: Intake, IV Titration 57.32 Amount Heparin Sod,Pork in 0.45% 57.32 NaCl 25,000 unit In 0.45 % NaCl 1 250ml.bag @ 12 UNITS/KG/HR 7.893 mls/hr IV .Q24H [facility] Rx#: [id number] Oral 120 110 Output: Urine 1200 Other: Voiding Method External Catheter External Catheter External Catheter # Voids 1 # Bowel Movements 1 - Labs CBC & Chem 7: 07/24/23 07:27 07/24/23 07:27 Labs: Abnormal Lab Results - Last 24 Hours (Table) 07/23/23 07/24/23 07/24/23 Range/Units 20:39 06:06 07:27 WBC 13.4 H (3.8-10.6) k/uL Neutrophils # 12.3 H (1.3-7.7) k/uL Lymphocytes # 0.6 L (1.0-4.8) k/uL BUN (7-17) mg/dL Creatinine (0.52-1.04) mg/dL Glucose (74-99) mg/dL POC Glucose (mg/dL) 256 H 170 H (70-110) mg/dL 07/24/23 Range/Units 07:27 WBC (3.8-10.6) k/uL Neutrophils # (1.3-7.7) k/uL Lymphocytes # (1.0-4.8) k/uL BUN 39 H (7-17) mg/dL Creatinine 1.09 H (0.52-1.04) mg/dL Glucose 158 H (74-99) mg/dL POC Glucose (mg/dL) (70-110) mg/dL
[2023-07-24] MEDS ORDERED: DEXTROSE 50% SYRINGE 50 ML IVP PRN ×2 (12:18)
[2023-07-24] MEDS: METOPROLOL TARTRATE 50 MG TAB PO SCH ×2 (12:29→21:14)
[2023-07-24] MEDS: AMIODARONE 200 MG TAB PO SCH ×2 (12:30→21:14)
[2023-07-24] MEDS: INSULIN ASPART (NovoLOG) 100 UNIT/ML VIAL SQ SCH ×3 (12:30→21:14)
[2023-07-24 16:28] LABS: Glucose,Whole Blood 211 mg/dL (70-110)
[2023-07-24 20:08] LABS: Glucose,Whole Blood 178 mg/dL (70-110)
[2023-07-24] MEDS: ATORVASTATIN 80 MG TAB PO SCH (21:14)
[2023-07-25] MEDS: methylPREDNISolone SOD SUCCI 40 MG/ML 1 ML VIAL IV SCH ×3 (00:28→15:47)
[2023-07-25] MEDS: guaiFENesin 600 MG TABLET.ER PO PRN (05:08)
[2023-07-25 06:13] LABS: Glucose,Whole Blood 249 mg/dL (70-110)
[2023-07-25] MEDS: INSULIN ASPART (NovoLOG) 100 UNIT/ML VIAL SQ SCH ×4 (06:17→21:30)
[2023-07-25] MEDS: METOPROLOL TARTRATE 50 MG TAB PO SCH ×2 (07:43→21:30)
[2023-07-25] MEDS: APIXABAN 2.5 MG TABLET PO SCH ×2 (07:43→21:30)
[2023-07-25] MEDS: AMIODARONE 200 MG TAB PO SCH ×2 (07:43→21:30)
[2023-07-25] MEDS: FUROSEMIDE 40 MG TAB PO SCH ×2 (07:43→15:47)
[2023-07-25] MEDS: MEMANTINE 10 MG TAB PO SCH ×2 (07:43→21:30)
[2023-07-25] MEDS: DONEPEZIL 10 MG TAB PO SCH ×2 (07:43→21:30)
[2023-07-25] MEDS: ALBUTEROL HFA INHALER INHALATION SCH ×4 (08:33→20:31)
[2023-07-25] MEDS: SYMBICORT 160-4.5 MCG INHALER INHALATION SCH ×2 (08:33→20:31)
[2023-07-25 09:33] LABS: African American GFR (CKD) 53 (>60 ml/min/1.73 sqM); Anion Gap 13 mmol/L; Blood Urea Nitrogen 48 mg/dL (7-17); Calcium 9.3 mg/dL (8.4-10.2); Carbon Dioxide 24 mmol/L (22-30); Chloride 97 mmol/L (98-107); Glucose 207 mg/dL (74-99); Non-African American GFR(CKD) 46 (>60 ml/min/1.73 sqM); Potassium 3.5 mmol/L (3.5-5.1); Sodium 134 mmol/L (137-145)
[2023-07-25 09:37] LABS: Basophils % (A) 0 %; Eosinophils % (A) 0 %; HGB 12.2 gm/dL (11.4-16.0); Hypochromasia Slight; Lymphocytes # (A) 0.8 k/uL (1.0-4.8); Lymphocytes % (A) 4 %; MCH 27.1 pg (25.0-35.0); MCHC 32.1 g/dL (31.0-37.0); MCV 84.5 fL (80.0-100.0); Mean Platelet Volume 10.1; Monocytes # (A) 0.7 k/uL (0-1.0); Monocytes % (A) 4 %; Neutrophils # (A) 18.1 k/uL (1.3-7.7); Neutrophils % (A) 92 %; Platelet Count 277 k/uL (150-450); RDW 14.6 % (11.5-15.5); WBC 19.7 k/uL (3.8-10.6)
--- NOTE | 2023-07-25 11:18 | P.PN ---
Subjective Progress Note Date: 07/25/23 Hospital Course: 87-year-old female with history of dementia, hypertension, dyslipidemia, COPD presenting with recurrent syncopal episodes. Patient has also been hypoxic while in the ED. On initial presentation, temperature was 98.3, pulse 80, respiratory rate 26, blood pressure 166/83, saturating at 96% on [address] shows no acute process, cervical spine CT shows some diffuse pollicis within cervical spine, possible metastatic disease. Initial EKG showed sinus rhythm with left bundle branch block. Patient subsequently did go into atrial fibrillation with RVR. Initial labs showed WBC of 6.6, hemoglobin 12.8, platelet 134, sodium 144, bicarb 19, creatinine 1.36, troponin 0.048, proBNP 3700, pH 7.36, pO2 47. Chest x-ray showed interstitial prominence with left midlung opacity. Patient subsequently became more hypoxic and required BiPAP. Cardiology and pulmonology consulted. Currently on Cardizem drip and heparin drip, on ceftriaxone and azithromycin, IV steroids and bronchodilators. Admitted for acute hypoxic respiratory failure, likely multifactorial, atrial fibrillation, COPD exacerbation, possible overload. Patient found to be COVID- [address] negative for PE, does have left perihilar and left midlung nodularity concerning for neoplastic or atypical infection, extensive endobronchial opacification throughout the left lower lung, possible neoplasm versus extensive aspiration, patchy groundglass opacities in left upper lobe, possible moderate to severe stenosis at the arch vessel origin. Echocardiogram shows LVEF 35-40%, reduced global left ventricular systolic function, does have regional wall motion abnormalities, there is a concern for PFO. Respiratory function slowly improving. Subjective: Patient seen and examined at bedside. No acute events overnight. Currently on nasal cannula. Pertinent positives and negatives as discussed above, a complete review of systems was performed and all other systems are negative. Vitals Signs Reviewed. General: nontoxic, no distress, appears at stated age Derm: warm, dry Head: atraumatic, normocephalic, symmetric Eyes: EOMI, no lid lag, anicteric sclera Mouth: no lip lesion, mucus membranes moist Cardiovascular: S1S2 irregular, tachycardic, no murmur Lungs: Bilateral rhonchi , no accessory muscle use, on nasal cannula Abdominal: soft, nontender to palpation, no guarding, no appreciable o rganomegaly Ext: no gross muscle atrophy, no edema, no contractures Neuro: CN II-XI grossly intact, no focal neuro deficits Psych: Alert, oriented 2, appropriate affect Data Reviewed Today: Pertinent Labs: WBC 19.7, sodium 134, creatinine 1.08, blood sugar ranged between 178-49 Imaging: No new imaging Assessment and Plan: Patient is critically ill, prognosis guarded Active: Acute COVID-19 pneumonia Acute hypoxic respiratory failure COPD exacerbation Suspected superimposed bacterial pneumonia Recurrent syncopal episodes, possibly sick sinus syndrome versus valvular disease Paroxysmal Atrial fibrillation with RVR, rate controlled Type 2 NSTEMI High anion Gap metabolic acidosis, improving Suspected Nonoliguric, Acute kidney injury, improving Mild thrombocytopenia, resolved Leukocytosis, steroid-induced Hyperglycemia, steroid-induced -Pulmonology following, continue Solu-Medrol, IV ceftriaxone, and supportive care, may need bronchoscopy to evaluate left lower lobe bronchus, possible malignancy -Blood cultures no growth to date, sputum cultures now completed -Cardiology following, patient on oral Eliquis, and oral Lasix -Metoprolol increased, patient was started on amiodarone yesterday -Continue aspirin and statin -Repeat CBC and BMP tomorrow -Sliding scale insulin -Still requiring prolonged oxygen, currently on 6 L Chronic: Dementia Dyslipidemia Hypertension DVT ppx: Eliquis Code status: DNR/DNI Anticipated discharge place: Will likely need rehab Anticipated discharge time: Pending clinical course Objective - Vital Signs Vital signs: Vital Signs Temp 97.6 F 07/25/23 07:36 Pulse 86 07/25/23 07:37 Resp 20 07/25/23 07:37 BP 137/79 07/25/23 07:36 Pulse Ox 95 07/25/23 07:36 FiO2 80 07/22/23 12:44 Intake & Output 07/24/23 07/25/23 07/25/23 18:59 06:59 18:59 Intake Total 330 118 Output Total 500 325 Balance -170 -325 118 Weight 47.5 kg Intake: Oral 330 118 Output: Urine 500 325 Other: Voiding Method External Catheter External Catheter External Catheter # Bowel Movements 1 1 - Labs CBC & Chem 7: 07/25/23 08:11 07/25/23 08:11 Labs: Abnormal Lab Results - Last 24 Hours (Table) 07/24/23 07/24/23 07/24/23 Range/Units 11:23 16:25 20:05 WBC (3.8-10.6) k/uL Neutrophils # (1.3-7.7) k/uL Lymphocytes # (1.0-4.8) k/uL Sodium (137-145) mmol/L Chloride (98-107) mmol/L BUN (7-17) mg/dL Creatinine (0.52-1.04) mg/dL Glucose (74-99) mg/dL POC Glucose (mg/dL) 172 H 211 H 178 H (70-110) mg/dL 07/25/23 07/25/23 07/25/23 Range/Units 06:11 08:11 08:11 WBC 19.7 H (3.8-10.6) k/uL Neutrophils # 18.1 H (1.3-7.7) k/uL Lymphocytes # 0.8 L (1.0-4.8) k/uL Sodium 134 L (137-145) mmol/L Chloride 97 L (98-107) mmol/L BUN 48 H (7-17) mg/dL Creatinine 1.08 H (0.52-1.04) mg/dL Glucose 207 H (74-99) mg/dL POC Glucose (mg/dL) 249 H (70-110) mg/dL Microbiology - Last 24 Hours (Table) 07/19/23 12:55 Blood Culture - Final Blood 07/19/23 12:40 Blood Culture - Final Blood
[2023-07-25 11:49] LABS: Glucose,Whole Blood 334 mg/dL (70-110)
--- NOTE | 2023-07-25 12:13 | P.PN ---
Subjective Progress Note Date: 07/25/23 History of present illness: This is an 87-year-old female that we are following for atrial fibrillation was some tachybradycardia-type phenomenon. Yesterday she was in a sinus rhythm in the 60s and she was started on eliquis 2.5 mg twice daily and IV Lasix was changed to oral at 40 mg twice daily. This morning she is found to be in atrial fibrillation which started last evening. She remains in isolation for Covid infection. Physical examination deferred due to Covid infection. 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 Patient remains in atrial fibrillation but heart rate is controlled in the 70s. She remains on 6 L high flow nasal cannula with pulse ox 95%. Blood pressure 137/79. No repeat blood work available at the time of this dictation. Assessment: New onset paroxysmal atrial fibrillation Covid infection COPD exacerbation Plan: Continue patient on amiodarone 200 mg twice daily and metoprolol tartrate 50 mg twice daily Continue patient on eliquis 2.5 mg twice daily, oral Lasix and Lipitor Patient is cleared for discharge from cardiology, no further work up is necessary at this time. At time of discharge, patient may follow-up with Dr. Leung in 2 weeks. Nurse practitioner note has been reviewed, I agree with documented findings and plan of care. Patient was seen and examined. Objective - Vital Signs Vital signs: Vital Signs Temp 97.6 F 07/25/23 07:36 Pulse 86 07/25/23 07:37 Resp 20 07/25/23 07:37 BP 137/79 07/25/23 07:36 Pulse Ox 95 07/25/23 07:36 FiO2 80 07/22/23 12:44 Intake & Output 07/24/23 07/25/23 07/25/23 18:59 06:59 18:59 Intake Total 330 118 Output Total 500 325 Balance -170 -325 118 Weight 47.5 kg Intake: Oral 330 118 Output: Urine 500 325 Other: Voiding Method External Catheter External Catheter External Catheter # Bowel Movements 1 1 - Labs CBC & Chem 7: 07/25/23 08:11 07/25/23 08:11 Labs: Abnormal Lab Results - Last 24 Hours (Table) 07/24/23 07/24/23 07/24/23 Range/Units 11: 16:25 20:05 POC Glucose (mg/dL) 172 H 211 H 178 H (70-110) mg/dL 07/25/23 Range/Units 06:11 POC Glucose (mg/dL) 249 H (70-110) mg/dL Microbiology - Last 24 Hours (Table) 07/19/23 12:55 Blood Culture - Final Blood 07/19/23 12:40 Blood Culture - Final Blood
--- NOTE | 2023-07-25 12:27 | P.PN ---
Subjective Progress Note Date: 07/25/23 77-year-old female who was initially seen in the emergency department. We saw her, and room 369, July 20. She was seen in the ER, on July 19. She apparently came into the ER, having had some syncopal episodes, in the shower, where she hit her head. Apparently, there is no family members, with her, and she was a poor historian. When she was brought in by EMS, her saturations were 88% on room air. They gave her nasal O2, at 3 L, and breathing treatments. Currently, the patient is on BiPAP, with settings of 10/5, and 100%. Her saturations are 99%. She's receiving IV heparin, and a Cardizem drip at 5 mg an hour. She's also getting saline at 15 mL an hour. Based on her home medicati ons, she has a history of hyperlipidemia, vitamin D deficiency, dementia, and hypertension. White count is 6.6, hemoglobin 12.8, hematocrit 40.5, and platelet count 134,000. She had blood gases in the emergency department, showing a pO2 of 47, pCO2 of 37, and pH is 7.36. A repeat blood gas was si milar, with a pO2 of 54, pCO2 37, and pH is 7.36. Sodium was 144, potassium 4.2, chlorides 112, CO2 19, BUN 45, and creatinine 1.36. AST was 67. ALT was 44, and troponin was 0.048. N-terminal proBNP was elevated at 3760. Chest x- ray shows moderate cardiomegaly, and mild pulmonary vascular congestion, consistent with the elevated BNP. In addition, there is a focal area of scar and/or nodule, in the left midlung. Progress note dated 07/21/2023. The patient is seen in room 369. She continues on BiPAP, with settings of 10/5 and 80%. I've asked the respiratory therapist, to convert her to nasal cannula, even if it's high flow. She is receiving Cardizem drip at 2.5 mg an hour, and IV heparin via protocol. Clinically, the patient feels like she is better. She gives a thumbs up when asked. White count 9.2, hemoglobin 11.2, hematocrit 36, and platelet count 153,000. Sodium 135, potassium 4.2, chlorides 104, CO2 21, anion gap 10, BUN 40, creatinine 1.13. Blood cultures are negative. A CT angiogram was ordered by the hospitalist service, and showed no evidence of pulmonary changes of COPD and pulmonary arterial hypertension, and possible pneumonitis, in the left lower lobe, and left upper lobe. The patient is on azithromycin, and Rocephin at the current time. And also receiving Solu-Medrol 40 mg every 8 hours. Progress note dated July 2023. 87-year-old female seen today in room 369. The patient is currently on 10 L high flow oxygen, and alternating, with BiPAP, with settings of 10/5, and 80%. The patient's is also getting saline at 15 mL an hour. Unfortunately, the patient did test positive for coronavirus. No new labs today as yet, other than the positive test for coronavirus. The patient is currently in albuterol inhaler, and also on Symbicort, 160/4.5, 2 puffs twice a day. Also, the patient's on Solu-Medrol, 40 mg every 8 hours, and Rocephin. On today's evaluation of 07/23/2023, the patient is being seen for a follow-up. The patient was taken off the BiPAP and the patient is currently on high flow oxygen 10 L/m nasal cannula with a pulse ox of 93%. The patient is a 77-year-old female who was hospitalized for shortness of breath and hypoxic respiratory failure. During the course of this hospitalization, the patient was diagnosed having Covid 19 infection on 07/22/2023. The patient however has significant abnormalities and the CAT scan of the chest which is showing left hilar lymphadenopathy, obstruction of the left lower lobe bronchus and the patient possibly has either a mass or a mucous plug occluding the left lower lobe bronchus. I do favor malignancy. There is also mild to moderate back on emphysema in addition to left lower lobe atelectasis. As mentioned, there is left perihilar and left midlung nodularity measuring up to 2.8 cm in size which could be potentially malignancy. She does have also some myocardial megaly. Meanwhile, the patient remains on Ventolin HFA [id number], IV Rocephin, and IV Solu-Medrol 40 mg every 6 hours. The blood culture has been negative. The rest of the blood work from today shows an obese count of 17.9, hemoglobin is at 11.6 and a platelet count is at 284. BUN is at 31 with a creatinine of 1.1 and his sodium level is at 137. She did have a component of acute kidney injury which is improved at this point in time. On 07/24/2023 the patient is awake and alert and she is communicating. She is currently on 6 L of oxygen by nasal cannula and there has been ongoing slow improvement in the patient's oxygenation. She has some limited congestive cough. No significant sputum production. No fever. No chills. As discussed earlier, the CAT scan of the chest that was done during this current hospitalization showed left hilar lymphadenopathy, obstruction of the left lower lobe bronchus and possibility of malignancy is obviously entertained. There is another opacity in the left perihilar area in addition. White cell count of 15.4, hemoglobin 11.4, platelet count is 248, BUN is at 39 with a creatinine of 1.09 and a sodium level is at 138. Blood sugars at 172. The patient is on anticoagulations with Eliquis 2.5 mg twice a day. The patient IV Rocephin. The patient is on Lasix 40 mg by mouth twice a day. The patient remains on IV Solu- Medrol 40 mg every 8 hours. On 07/25/2023, the patient remains on 6 L with a pulse ox of 96%. No new complaints. As mentioned earlier, the patient has positive Covid 19 infection. At the same time, the patient has left lower lobe atelectasis and possibility of a malignancy in the left hilar area an obstructive lesion in the left lower lobe bronchus. Based on age and comorbidities, bronchoscopy was not done. She remains on IV Rocephin. She is resting comfortably in bed. She remains on IV Solu-Medrol. Labs from today showing a white cell count 19.7, hemoglobin is 12.2, BUN is 48 with a creatinine of 1.08 and a sodium level is at 134. Objective - Vital Signs Vital signs: Vital Signs Temp 97.6 F 07/25/23 07:36 Pulse 86 07/25/23 07:37 Resp 20 07/25/23 07:37 BP 137/79 07/25/23 07:36 Pulse Ox 95 07/25/23 07:36 FiO2 80 07/22/23 12:44 Intake & Output 07/24/23 07/25/23 07/25/23 18:59 06:59 18:59 Intake Total 330 118 Output Total 500 325 Balance -170 -325 118 Weight 47.5 kg Intake: Oral 330 118 Output: Urine 500 325 Other: Voiding Method External Catheter External Catheter External Catheter # Bowel Movements 1 1 - Exam No acute distress, awake and alert and communicating, currently with high flow nasal cannula in place. The patient is currently on 6 L of oxygen by nasal cannula HEENT examination is grossly unremarkable. Neck supple. Full range of motion. No adenopathy thyromegaly or neck vein distention. Cardiovascular examination reveals an irregular rhythm and rate. S1-S2 normal. No S3 or S4. Heart sounds are distant. No discernible murmur noted. Lungs reveal minimal bibasilar crackles. Scattered rhonchi are noted. No wheezes. Breath sounds are equal bilaterally. Abdomen soft bowel sounds are heard. No masses or tenderness. Extremities are intact. No cyanosis clubbing or edema. Skin is without rash or lesion. Neurologic examination is brief but nonfocal. - Labs CBC & Chem 7: 07/25/23 08:11 07/25/23 08:11 Labs: Abnormal Lab Results - Last 24 Hours (Table) 07/24/23 07/24/23 07/24/23 Range/Units 11: 16:25 20:05 WBC (3.8-10.6) k/uL Neutrophils # (1.3-7.7) k/uL Lymphocytes # (1.0-4.8) k/uL Sodium (137-145) mmol/L Chloride (98-107) mmol/L BUN (7-17) mg/dL Creatinine (0.52-1.04) mg/dL Glucose (74-99) mg/dL POC Glucose (mg/dL) 172 H 211 H 178 H (70-110) mg/dL 07/25/23 07/25/23 07/25/23 Range/Units 06:11 08:11 08:11 WBC 19.7 H (3.8-10.6) k/uL Neutrophils # 18.1 H (1.3-7.7) k/uL Lymphocytes # 0.8 L (1.0-4.8) k/uL Sodium 134 L (137-145) mmol/L Chloride 97 L (98-107) mmol/L BUN 48 H (7-17) mg/dL Creatinine 1.08 H (0.52-1.04) mg/dL Glucose 207 H (74-99) mg/dL POC Glucose (mg/dL) 249 H (70-110) mg/dL Microbiology - Last 24 Hours (Table) 07/19/23 12:55 Blood Culture - Final Blood 07/19/23 12:40 Blood Culture - Final Blood Assessment and Plan Plan: Acute hypoxemic respiratory failure, likely multifactorial, in part related to COPD exacerbation, left lower lobe pneumonia/atelectasis, complete opacification left lower lobe bronchus, and Covid 19 infection with areas of groundglass changes bilaterally. The patient has shown improvement in oxygenation and the patient is currently down to 6 L of O2 nasal cannula. We should be able to gradually wean down FiO2 as the patient has adequate oxygenation on 6 L O2 nasal cannula. Bilateral pulmonary infiltrates with areas of groundglass changes, could be related to Covid 19 infection. In addition, there is a left perihilar nodularity measuring up to 2.8 cm which obviously raises the concern for kristofer gnancy. Left lower lobe atelectasis, with a suspicious opacity in left lower lobe bronchus and lymphadenopathy. I reviewed the CAT scan of the chest and there is extensive and the bronchial opacification of the left lower lobe bronchus which could be either a neoplasm or aspiration. There is however volume loss in the left lung base along with left basilar atelectasis. Patient tested positive for coronavirus infection, 07/22/2023. COPD/. History of smoking History of hyperlipidemia. History of hypertension. History of dementia. History of vitamin D deficiency. CHF with normal LV systolic dysfunction with an ejection fraction of 35-40% and moderate mitral regurgitation Atrial fibrillation with RVR, current rhythm is sinus and the patient is an anticoagulation. Questionable tachybradycardia syndrome/sick sinus syndrome along with paroxysmal A. fib Plan: Continue current treatment and attempt to wean down FiO2 as tolerated to maintain a pulse ox above 90%, currently on 6 L of O2 nasal cannula Ideally the patient will need bronchoscopy and evaluation of the left lower lobe bronchus. Based on age and underlying possible Covid 19 condition, and based on her high oxygen requirements, May consider bronchoscopy at the later stage if no improvement in oxygenation. I think should be potentially weaned off as the patient is actually taking well on 6 L Continue antibiotic coverage, the patient is on IV Rocephin Continue steroids, the patient on IV Solu-Medrol Aggressive pulmonary toileting and deep breathing and provide the patient incentive spirometer Monitor the white count Continue anticoagulation and the patient is currently on Eliquis We'll continue to follow make further recommendations based on her progress. DNR/DNI CODE STATUS, we'll continue to follow.
[2023-07-25 16:36] LABS: Glucose,Whole Blood 180 mg/dL (70-110)
[2023-07-25 20:19] LABS: Glucose,Whole Blood 176 mg/dL (70-110)
[2023-07-25] MEDS: ATORVASTATIN 80 MG TAB PO SCH (21:30)
[2023-07-26] MEDS: methylPREDNISolone SOD SUCCI 40 MG/ML 1 ML VIAL IV SCH ×4 (01:11→23:41)
[2023-07-26 06:07] LABS: Glucose,Whole Blood 161 mg/dL (70-110)
[2023-07-26] MEDS: INSULIN ASPART (NovoLOG) 100 UNIT/ML VIAL SQ SCH ×4 (06:28→20:37)
[2023-07-26] MEDS: AMIODARONE 200 MG TAB PO SCH ×2 (08:16→20:37)
[2023-07-26] MEDS: FUROSEMIDE 40 MG TAB PO SCH ×2 (08:17→16:00)
[2023-07-26] MEDS: METOPROLOL TARTRATE 50 MG TAB PO SCH ×2 (08:17→20:37)
[2023-07-26] MEDS: DONEPEZIL 10 MG TAB PO SCH ×2 (08:17→20:37)
[2023-07-26] MEDS: APIXABAN 2.5 MG TABLET PO SCH ×2 (08:17→20:37)
[2023-07-26] MEDS: MEMANTINE 10 MG TAB PO SCH ×2 (08:17→20:37)
[2023-07-26] MEDS: SYMBICORT 160-4.5 MCG INHALER INHALATION SCH ×2 (08:32→21:07)
[2023-07-26] MEDS: ALBUTEROL HFA INHALER INHALATION SCH ×4 (08:32→21:07)
[2023-07-26 11:41] LABS: Glucose,Whole Blood 146 mg/dL (70-110)
--- NOTE | 2023-07-26 12:17 | P.PN ---
Subjective Progress Note Date: 07/26/23 77-year-old female who was initially seen in the emergency department. We saw her, and room 369, July 20. She was seen in the ER, on July 19. She apparently came into the ER, having had some syncopal episodes, in the shower, where she hit her head. Apparently, there is no family members, with her, and she was a poor historian. When she was brought in by EMS, her saturations were 88% on room air. They gave her nasal O2, at 3 L, and breathing treatments. Currently, the patient is on BiPAP, with settings of 10/5, and 100%. Her saturations are 99%. She's receiving IV heparin, and a Cardizem drip at 5 mg an hour. She's also getting saline at 15 mL an hour. Based on her home medicati ons, she has a history of hyperlipidemia, vitamin D deficiency, dementia, and hypertension. White count is 6.6, hemoglobin 12.8, hematocrit 40.5, and platelet count 134,000. She had blood gases in the emergency department, showing a pO2 of 47, pCO2 of 37, and pH is 7.36. A repeat blood gas was si milar, with a pO2 of 54, pCO2 37, and pH is 7.36. Sodium was 144, potassium 4.2, chlorides 112, CO2 19, BUN 45, and creatinine 1.36. AST was 67. ALT was 44, and troponin was 0.048. N-terminal proBNP was elevated at 3760. Chest x- ray shows moderate cardiomegaly, and mild pulmonary vascular congestion, consistent with the elevated BNP. In addition, there is a focal area of scar and/or nodule, in the left midlung. Progress note dated 07/21/2023. The patient is seen in room 369. She continues on BiPAP, with settings of 10/5 and 80%. I've asked the respiratory therapist, to convert her to nasal cannula, even if it's high flow. She is receiving Cardizem drip at 2.5 mg an hour, and IV heparin via protocol. Clinically, the patient feels like she is better. She gives a thumbs up when asked. White count 9.2, hemoglobin 11.2, hematocrit 36, and platelet count 153,000. Sodium 135, potassium 4.2, chlorides 104, CO2 21, anion gap 10, BUN 40, creatinine 1.13. Blood cultures are negative. A CT angiogram was ordered by the hospitalist service, and showed no evidence of pulmonary changes of COPD and pulmonary arterial hypertension, and possible pneumonitis, in the left lower lobe, and left upper lobe. The patient is on azithromycin, and Rocephin at the current time. And also receiving Solu-Medrol 40 mg every 8 hours. Progress note dated July 2023. 87-year-old female seen today in room 369. The patient is currently on 10 L high flow oxygen, and alternating, with BiPAP, with settings of 10/5, and 80%. The patient's is also getting saline at 15 mL an hour. Unfortunately, the patient did test positive for coronavirus. No new labs today as yet, other than the positive test for coronavirus. The patient is currently in albuterol inhaler, and also on Symbicort, 160/4.5, 2 puffs twice a day. Also, the patient's on Solu-Medrol, 40 mg every 8 hours, and Rocephin. On today's evaluation of 07/23/2023, the patient is being seen for a follow-up. The patient was taken off the BiPAP and the patient is currently on high flow oxygen 10 L/m nasal cannula with a pulse ox of 93%. The patient is a 77-year-old female who was hospitalized for shortness of breath and hypoxic respiratory failure. During the course of this hospitalization, the patient was diagnosed having Covid 19 infection on 07/22/2023. The patient however has significant abnormalities and the CAT scan of the chest which is showing left hilar lymphadenopathy, obstruction of the left lower lobe bronchus and the patient possibly has either a mass or a mucous plug occluding the left lower lobe bronchus. I do favor malignancy. There is also mild to moderate back on emphysema in addition to left lower lobe atelectasis. As mentioned, there is left perihilar and left midlung nodularity measuring up to 2.8 cm in size which could be potentially malignancy. She does have also some myocardial megaly. Meanwhile, the patient remains on Ventolin HFA [id number], IV Rocephin, and IV Solu-Medrol 40 mg every 6 hours. The blood culture has been negative. The rest of the blood work from today shows an obese count of 17.9, hemoglobin is at 11.6 and a platelet count is at 284. BUN is at 31 with a creatinine of 1.1 and his sodium level is at 137. She did have a component of acute kidney injury which is improved at this point in time. On 07/24/2023 the patient is awake and alert and she is communicating. She is currently on 6 L of oxygen by nasal cannula and there has been ongoing slow improvement in the patient's oxygenation. She has some limited congestive cough. No significant sputum production. No fever. No chills. As discussed earlier, the CAT scan of the chest that was done during this current hospitalization showed left hilar lymphadenopathy, obstruction of the left lower lobe bronchus and possibility of malignancy is obviously entertained. There is another opacity in the left perihilar area in addition. White cell count of 15.4, hemoglobin 11.4, platelet count is 248, BUN is at 39 with a creatinine of 1.09 and a sodium level is at 138. Blood sugars at 172. The patient is on anticoagulations with Eliquis 2.5 mg twice a day. The patient IV Rocephin. The patient is on Lasix 40 mg by mouth twice a day. The patient remains on IV Solu- Medrol 40 mg every 8 hours. On 07/25/2023, the patient remains on 6 L with a pulse ox of 96%. No new complaints. As mentioned earlier, the patient has positive Covid 19 infection. At the same time, the patient has left lower lobe atelectasis and possibility of a malignancy in the left hilar area an obstructive lesion in the left lower lobe bronchus. Based on age and comorbidities, bronchoscopy was not done. She remains on IV Rocephin. She is resting comfortably in bed. She remains on IV Solu-Medrol. Labs from today showing a white cell count 19.7, hemoglobin is 12.2, BUN is 48 with a creatinine of 1.08 and a sodium level is at 134. On 07/26/2023, the patient has been weaned down to 5 L of oxygen by nasal cannula pH is resting comfortably in bed. No new complaints. No shortness of breath or chest pain at rest. She remains on IV Rocephin. She remains on Symbicort as maintenance and albuterol HFA [id number]. She remains on IV Solu-Medrol. She remains on oral Lasix 40 mg twice a day and anticoagulation with Eliquis 2.5 mg twice a day. No significant interval change in her overall condition. Objective - Vital Signs Vital signs: Vital Signs Temp 97.8 F 07/26/23 08:20 Pulse 92 07/26/23 08:20 Resp 21 07/26/23 08:32 BP 138/81 07/26/23 08:20 Pulse Ox 95 07/26/23 08:32 FiO2 80 07/22/23 12:44 Intake & Output 07/25/23 07/26/23 07/26/23 18:59 06:59 18:59 Intake Total 698 240 Output Total 350 Balance 348 240 Intake: Oral 698 240 Output: Urine 350 Other: Voiding Method External Catheter Incontinent # Voids 1 1 # Bowel Movements 1 1 - Exam No acute distress, awake and alert and communicating, currently with high flow nasal cannula in place. The patient is currently on 6 L of oxygen by nasal cannula HEENT examination is grossly unremarkable. Neck supple. Full range of motion. No adenopathy thyromegaly or neck vein distention. Cardiovascular examination reveals an irregular rhythm and rate. S1-S2 normal. No S3 or S4. Heart sounds are distant. No discernible murmur noted. Lungs reveal minimal bibasilar crackles. Scattered rhonchi are noted. No wheezes. Breath sounds are equal bilaterally. Abdomen soft bowel sounds are heard. No masses or tenderness. Extremities are intact. No cyanosis clubbing or edema. Skin is without rash or lesion. Neurologic examination is brief but nonfocal. - Labs CBC & Chem 7: 07/25/23 08:11 07/25/23 08:11 Labs: Abnormal Lab Results - Last 24 Hours (Table) 07/25/23 07/25/23 07/25/23 Range/Units 08:11 11:46 16:35 WBC 19.7 H (3.8-10.6) k/uL Neutrophils # 18.1 H (1.3-7.7) k/uL Lymphocytes # 0.8 L (1.0-4.8) k/uL POC Glucose (mg/dL) 334 H 180 H (70-110) mg/dL 07/25/23 07/26/23 Range/Units 20:17 06:06 WBC (3.8-10.6) k/uL Neutrophils # (1.3-7.7) k/uL Lymphocytes # (1.0-4.8) k/uL POC Glucose (mg/dL) 176 H 161 H (70-110) mg/dL Assessment and Plan Plan: Acute hypoxemic respiratory failure, likely multifactorial, in part related to C OPD exacerbation, left lower lobe pneumonia/atelectasis, complete opacification left lower lobe bronchus, and Covid 19 infection with areas of groundglass changes bilaterally. The patient has shown improvement in oxygenation and the patient is currently down to 5 L of O2 nasal cannula. We should be able to gradually wean down FiO2 as the patient has adequate oxygenation on 5 L O2 nasal cannula. Bilateral pulmonary infiltrates with areas of groundglass changes, could be related to Covid 19 infection. In addition, there is a left perihilar nodularity measuring up to 2.8 cm which obviously raises the concern for malignancy. Left lower lobe atelectasis, with a suspicious opacity in left lower lobe bronchus and lymphadenopathy. I reviewed the CAT scan of the chest and there is extensive and the bronchial opacification of the left lower lobe bronchus which could be either a neoplasm or aspiration. There is however volume loss in the left lung base along with left basilar atelectasis. Patient tested positive for coronavirus infection, 07/22/2023. COPD/. History of smoking History of hyperlipidemia. History of hypertension. History of dementia. History of vitamin D deficiency. CHF with normal LV systolic dysfunction with an ejection fraction of 35-40% and moderate mitral regurgitation Atrial fibrillation with RVR, current rhythm is sinus and the patient is an anticoagulation. Questionable tachybradycardia syndrome/sick sinus syndrome along with paroxysmal A. fib Plan: The patient has been weaned down to 5 L We'll attempt to wean down FiO2 further down to 4 L if possible as well as a saturation remains above 90% Obtain a follow-up chest x-ray tomorrow Otherwise she will be Unchanged Ideally the patient will need bronchoscopy and evaluation of the left lower lobe bronchus. Based on age and underlying possible Covid 19 condition, and based on her high oxygen requirements, May consider bronchoscopy at the later stage if no improvement in oxygenation. I think should be potentially weaned off as the patient is actually taking well on 6 L Continue antibiotic coverage, the patient is on IV Rocephin Continue steroids, the patient on IV Solu-Medrol Aggressive pulmonary toileting and deep breathing and provide the patient incentive spirometer Monitor the white count Continue anticoagulation and the patient is currently on Eliquis We'll continue to follow make further recommendations based on her progress. DNR/DNI CODE STATUS, we'll continue to follow.
--- NOTE | 2023-07-26 13:18 | P.PN ---
Subjective Progress Note Date: 07/26/23 Hospital Course: 87-year-old female with history of dementia, hypertension, dyslipidemia, COPD presenting with recurrent syncopal episodes. Patient has also been hypoxic while in the ED. On initial presentation, temperature was 98.3, pulse 80, respiratory rate 26, blood pressure 166/83, saturating at 96% on [address] shows no acute process, cervical spine CT shows some diffuse pollicis within cervical spine, possible metastatic disease. Initial EKG showed sinus rhythm with left bundle branch block. Patient subsequently did go into atrial fibrillation with RVR. Initial labs showed WBC of 6.6, hemoglobin 12.8, platelet 134, sodium 144, bicarb 19, creatinine 1.36, troponin 0.048, proBNP 3700, pH 7.36, pO2 47. Chest x-ray showed interstitial prominence with left midlung opacity. Patient subsequently became more hypoxic and required BiPAP. Cardiology and pulmonology consulted. Currently on Cardizem drip and heparin drip, on ceftriaxone and azithromycin, IV steroids and bronchodilators. Admitted for acute hypoxic respiratory failure, likely multifactorial, atrial fibrillation, COPD exacerbation, possible overload. Patient found to be COVID- [address] negative for PE, does have left perihilar and left midlung nodularity concerning for neoplastic or atypical infection, extensive endobronchial opacification throughout the left lower lung, possible neoplasm versus extensive aspiration, patchy groundglass opacities in left upper lobe, possible moderate to severe stenosis at the arch vessel origin. Echocardiogram shows LVEF 35-40%, reduced global left ventricular systolic function, does have regional wall motion abnormalities, there is a concern for PFO. Respiratory function slowly improving. Subjective: Patient seen and examined at bedside. No acute events overnight. Currently on nasal cannula. Pertinent positives and negatives as discussed above, a complete review of systems was performed and all other systems are negative. Vitals Signs Reviewed. General: nontoxic, no distress, appears at stated age Derm: warm, dry Head: atraumatic, normocephalic, symmetric Eyes: EOMI, no lid lag, anicteric sclera Mouth: no lip lesion, mucus membranes moist Cardiovascular: S1S2 irregular, tachycardic, no murmur Lungs: Bilateral rhonchi , no accessory muscle use, on nasal cannula Abdominal: soft, nontender to palpation, no guarding, no appreciable organomegaly Ext: no gross muscle atrophy, no edema, no contractures Neuro: CN II-XI grossly intact, no focal neuro deficits Psych: Alert, oriented 2, appropriate affect Data Reviewed Today: Pertinent Labs: Blood sugars range between 146-176 Imaging: No new imaging Assessment and Plan: Active: Acute COVID-19 pneumonia Acute hypoxic respiratory failure COPD exacerbation Suspected superimposed bacterial pneumonia Recurrent syncopal episodes, possibly sick sinus syndrome versus valvular disease Paroxysmal Atrial fibrillation with RVR, rate controlled Type 2 NSTEMI High anion Gap metabolic acidosis, improving Suspected Nonoliguric, Acute kidney injury, improving Mild thrombocytopenia, resolved Leukocytosis, steroid-induced Hyperglycemia, steroid-induced -Pulmonology following, continue Solu-Medrol, IV ceftriaxone, and supportive care, may need bronchoscopy to evaluate left lower lobe bronchus if no improvement, possible malignancy -Repeat chest x-ray tomorrow -Blood cultures no growth to date, sputum cultures not completed -Cardiology following, patient on oral Eliquis, and oral Lasix 40 mg twice a day -On metoprolol and amiodarone -Continue aspirin and statin -Repeat CBC and BMP tomorrow -Sliding scale insulin -Still requiring prolonged oxygen, currently on 5 L -Discharge planning in the meantime Chronic: Dementia Dyslipidemia Hypertension DVT ppx: Eliquis Code status: DNR/DNI Anticipated discharge place: Will likely need rehab Anticipated discharge time: Pending clinical course Objective - Vital Signs Vital signs: Vital Signs Temp 97.8 F 07/26/23 08:20 Pulse 81 07/26/23 11:38 Resp 18 07/26/23 11:38 BP 127/79 07/26/23 11:38 Pulse Ox 95 07/26/23 11:38 FiO2 80 07/22/23 12:44 Intake & Output 07/25/23 07/26/23 07/26/23 18:59 06:59 18:59 Intake Total 698 590 Output Total 350 Balance 348 590 Intake: Oral 698 590 Output: Urine 350 Other: Voiding Method External Catheter Incontinent # Voids 1 1 # Bowel Movements 1 1 - Labs CBC & Chem 7: 07/25/23 08:11 07/25/23 08:11 Labs: Abnormal Lab Results - Last 24 Hours (Table) 07/25/23 07/25/23 07/26/23 Range/Units 16:35 20:17 06:06 POC Glucose (mg/dL) 180 H 176 H 161 H (70-110) mg/dL 07/26/23 Range/Units 11:39 POC Glucose (mg/dL) 146 H (70-110) mg/dL
[2023-07-26 16:18] LABS: Glucose,Whole Blood 237 mg/dL (70-110)
[2023-07-26 19:57] LABS: Glucose,Whole Blood 159 mg/dL (70-110)
[2023-07-26] MEDS: ATORVASTATIN 80 MG TAB PO SCH (20:37)
[2023-07-27 05:56] LABS: Glucose,Whole Blood 190 mg/dL (70-110)
[2023-07-27] MEDS: INSULIN ASPART (NovoLOG) 100 UNIT/ML VIAL SQ SCH ×4 (06:20→21:32)
--- NOTE | 2023-07-27 07:30 | XR ---
EXAMINATION TYPE: XR chest 1V DATE OF EXAM: 07/27/2023 HISTORY: Shortness of breath. COMPARISON: 07/19/2023 TECHNIQUE: Single view of the chest is submitted. FINDINGS: Demonstrated are scattered senescent parenchymal change. Development of diffuse infiltrate throughout the left lung which may reflect pneumonia or aspiration pneumonia. The right lung appears relatively clear. Skin fold is noted. The heart is stable. Hilar and mediastinal structures are within normal limits. Degenerative changes are seen of the dorsal spine. IMPRESSION: 1. Development of diffuse infiltrate throughout the left lung which may reflect pneumonia or aspirat ion pneumonia.
[2023-07-27 07:37] LABS: Basophils % (A) 0 %; Eosinophils % (A) 0 %; HGB 11.1 gm/dL (11.4-16.0); Hypochromasia Slight; Lymphocytes # (A) 0.5 k/uL (1.0-4.8); Lymphocytes % (A) 2 %; MCH 26.7 pg (25.0-35.0); MCHC 31.7 g/dL (31.0-37.0); MCV 84.4 fL (80.0-100.0); Mean Platelet Volume 9.2; Monocytes # (A) 0.6 k/uL (0-1.0); Monocytes % (A) 3 %; Neutrophils # (A) 18.8 k/uL (1.3-7.7); Neutrophils % (A) 94 %; Platelet Count 245 k/uL (150-450); RBC 4.15 m/uL (3.80-5.40); RDW 14.9 % (11.5-15.5)
[2023-07-27 07:59] LABS: African American GFR (CKD) 37 (>60 ml/min/1.73 sqM); Anion Gap 8 mmol/L; Blood Urea Nitrogen 64 mg/dL (7-17); Calcium 8.9 mg/dL (8.4-10.2); Carbon Dioxide 29 mmol/L (22-30); Chloride 96 mmol/L (98-107); Glucose 258 mg/dL (74-99); Non-African American GFR(CKD) 32 (>60 ml/min/1.73 sqM); Potassium 3.7 mmol/L (3.5-5.1); Sodium 133 mmol/L (137-145)
[2023-07-27] MEDS: APIXABAN 2.5 MG TABLET PO SCH ×2 (08:21→21:32)
[2023-07-27] MEDS: AMIODARONE 200 MG TAB PO SCH ×2 (08:21→21:32)
[2023-07-27] MEDS: METOPROLOL TARTRATE 50 MG TAB PO SCH ×2 (08:21→21:32)
[2023-07-27] MEDS: DONEPEZIL 10 MG TAB PO SCH ×2 (08:21→21:31)
[2023-07-27] MEDS: FUROSEMIDE 40 MG TAB PO SCH ×2 (08:21→15:39)
[2023-07-27] MEDS: methylPREDNISolone SOD SUCCI 40 MG/ML 1 ML VIAL IV SCH ×2 (08:21→15:39)
[2023-07-27] MEDS: MEMANTINE 10 MG TAB PO SCH ×2 (08:21→21:31)
[2023-07-27] MEDS: SYMBICORT 160-4.5 MCG INHALER INHALATION SCH ×2 (08:25→21:08)
[2023-07-27] MEDS: ALBUTEROL HFA INHALER INHALATION SCH ×4 (08:25→21:08)
--- NOTE | 2023-07-27 10:23 | P.PN ---
Subjective Progress Note Date: 07/27/23 Hospital Course: 87-year-old female with history of dementia, hypertension, dyslipidemia, COPD presenting with recurrent syncopal episodes. Patient has also been hypoxic while in the ED. On initial presentation, temperature was 98.3, pulse 80, respiratory rate 26, blood pressure 166/83, saturating at 96% on [address] shows no acute process, cervical spine CT shows some diffuse pollicis within cervical spine, possible metastatic disease. Initial EKG showed sinus rhythm with left bundle branch block. Patient subsequently did go into atrial fibrillation with RVR. Initial labs showed WBC of 6.6, hemoglobin 12.8, platelet 134, sodium 144, bicarb 19, creatinine 1.36, troponin 0.048, proBNP 3700, pH 7.36, pO2 47. Chest x-ray showed interstitial prominence with left midlung opacity. Patient subsequently became more hypoxic and required BiPAP. Cardiology and pulmonology consulted. Currently on Cardizem drip and heparin drip, on ceftriaxone and azithromycin, IV steroids and bronchodilators. Admitted for acute hypoxic respiratory failure, likely multifactorial, atrial fibrillation, COPD exacerbation, possible overload. Patient found to be COVID- [address] negative for PE, does have left perihilar and left midlung nodularity concerning for neoplastic or atypical infection, extensive endobronchial opacification throughout the left lower lung, possible neoplasm versus extensive aspiration, patchy groundglass opacities in left upper lobe, possible moderate to severe stenosis at the arch vessel origin. Echocardiogram shows LVEF 35-40%, reduced global left ventricular systolic function, does have regional wall motion abnormalities, there is a concern for PFO. Respiratory function slowly improving. Subjective: Patient seen and examined at bedside. No acute events overnight. Currently on nasal cannula. Pertinent positives and negatives as discussed above, a complete review of systems was performed and all other systems are negative. Vitals Signs Reviewed. General: nontoxic, no distress, appears at stated age Derm: warm, dry Head: atraumatic, normocephalic, symmetric Eyes: EOMI, no lid lag, anicteric sclera Mouth: no lip lesion, mucus membranes moist Cardiovascular: S1S2 irregular, tachycardic, no murmur Lungs: Bilateral rhonchi , no accessory muscle use, on nasal cannula Abdominal: soft, nontender to palpation, no guarding, no appreciable o rganomegaly Ext: no gross muscle atrophy, no edema, no contractures Neuro: CN II-XI grossly intact, no focal neuro deficits Psych: Alert, oriented 2, appropriate affect Data Reviewed Today: Pertinent Labs: WBC 20, hemoglobin 11.1, sodium 133, creatinine 1.47, blood sugars range between 146-190 Imaging: Chest x-ray independently interpreted, worsening opacity on the left side Assessment and Plan: Active: Acute COVID-19 pneumonia Acute hypoxic respiratory failure COPD exacerbation Suspected superimposed bacterial pneumonia Recurrent syncopal episodes, possibly sick sinus syndrome versus valvular disease Paroxysmal Atrial fibrillation with RVR, rate controlled Type 2 NSTEMI High anion Gap metabolic acidosis, improving Acute kidney injury Mild normocytic anemia, likely secondary to acute illness Mild thrombocytopenia, resolved Leukocytosis, steroid-induced Hyperglycemia, steroid-induced -Pulmonology following, continue Solu-Medrol and supportive care, may need bronchoscopy to evaluate left lower lobe bronchus if no improvement, possible malignancy -Antibiotics broadened to IV Zosyn -Blood cultures no growth to date, sputum cultures not completed -Cardiology following, patient on oral Eliquis, and oral Lasix 40 mg twice a day -May need to cut down on Lasix renal function continues to worsen -On metoprolol and amiodarone -Continue aspirin and statin -Repeat CBC and BMP tomorrow -Sliding scale insulin -Still requiring prolonged oxygen, currently on 4 L -Attempted to speak with [id number], no response Chronic: Dementia Dyslipidemia Hypertension DVT ppx: Eliquis Code status: DNR/DNI Anticipated discharge place: Will likely need rehab Anticipated discharge time: Pending clinical course Objective - Vital Signs Vital signs: Vital Signs Temp 97.7 F 07/27/23 08:19 Pulse 84 07/27/23 08:19 Resp 18 07/27/23 08:19 BP 144/88 07/27/23 08:19 Pulse Ox 94 L 07/27/23 08:26 FiO2 80 07/22/23 12:44 Intake & Output 07/26/23 07/27/23 07/27/23 18:59 06:59 18:59 Intake Total 700 40 250 Balance 700 40 250 Intake: IV 40 10 Invasive Line 1 10 Invasive Line 3 20 Invasive Line 4 10 10 Oral 700 240 Other: Voiding Method Diaper Diaper External Catheter External Catheter # Voids 1 3 # Bowel Movements 1 - Labs CBC & Chem 7: 07/27/23 07:03 07/27/23 07:03 Labs: Abnormal Lab Results - Last 24 Hours (Table) 07/26/23 07/26/23 07/26/23 Range/Units 11:39 16:14 19:56 WBC (3.8-10.6) k/uL Hgb (11.4-16.0) gm/dL Neutrophils # (1.3-7.7) k/uL Lymphocytes # (1.0-4.8) k/uL Sodium (137-145) mmol/L Chloride (98-107) mmol/L BUN (7-17) mg/dL Creatinine (0.52-1.04) mg/dL Glucose (74-99) mg/dL POC Glucose (mg/dL) 146 H 237 H 159 H (70-110) mg/dL 07/27/23 07/27/23 07/27/23 Range/Units 05:55 07:03 07:03 WBC 20.0 H (3.8-10.6) k/uL Hgb 11.1 L (11.4-16.0) gm/dL Neutrophils # 18.8 H (1.3-7.7) k/uL Lymphocytes # 0.5 L (1.0-4.8) k/uL Sodium 133 L (137-145) mmol/L Chloride 96 L (98-107) mmol/L BUN 64 H (7-17) mg/dL Creatinine 1.47 H (0.52-1.04) mg/dL Glucose 258 H (74-99) mg/dL POC Glucose (mg/dL) 190 H (70-110) mg/dL
[2023-07-27] MEDS: PIPERACILLIN-TAZOBACTAM 3.375 GM in SODIUM CHLORIDE 0.9% 100 ML IVPB SCH ×2 (10:59→15:40)
[2023-07-27 11:40] LABS: Glucose,Whole Blood 270 mg/dL (70-110)
--- NOTE | 2023-07-27 12:38 | P.PN ---
Subjective Progress Note Date: 07/27/23 77-year-old female who was initially seen in the emergency department. We saw her, and room 369, July 20. She was seen in the ER, on July 19. She apparently came into the ER, having had some syncopal episodes, in the shower, where she hit her head. Apparently, there is no family members, with her, and she was a poor historian. When she was brought in by EMS, her saturations were 88% on room air. They gave her nasal O2, at 3 L, and breathing treatments. Currently, the patient is on BiPAP, with settings of 10/5, and 100%. Her saturations are 99%. She's receiving IV heparin, and a Cardizem drip at 5 mg an hour. She's also getting saline at 15 mL an hour. Based on her home medicati ons, she has a history of hyperlipidemia, vitamin D deficiency, dementia, and hypertension. White count is 6.6, hemoglobin 12.8, hematocrit 40.5, and platelet count 134,000. She had blood gases in the emergency department, showing a pO2 of 47, pCO2 of 37, and pH is 7.36. A repeat blood gas was si milar, with a pO2 of 54, pCO2 37, and pH is 7.36. Sodium was 144, potassium 4.2, chlorides 112, CO2 19, BUN 45, and creatinine 1.36. AST was 67. ALT was 44, and troponin was 0.048. N-terminal proBNP was elevated at 3760. Chest x- ray shows moderate cardiomegaly, and mild pulmonary vascular congestion, consistent with the elevated BNP. In addition, there is a focal area of scar and/or nodule, in the left midlung. Progress note dated 07/21/2023. The patient is seen in room 369. She continues on BiPAP, with settings of 10/5 and 80%. I've asked the respiratory therapist, to convert her to nasal cannula, even if it's high flow. She is receiving Cardizem drip at 2.5 mg an hour, and IV heparin via protocol. Clinically, the patient feels like she is better. She gives a thumbs up when asked. White count 9.2, hemoglobin 11.2, hematocrit 36, and platelet count 153,000. Sodium 135, potassium 4.2, chlorides 104, CO2 21, anion gap 10, BUN 40, creatinine 1.13. Blood cultures are negative. A CT angiogram was ordered by the hospitalist service, and showed no evidence of pulmonary changes of COPD and pulmonary arterial hypertension, and possible pneumonitis, in the left lower lobe, and left upper lobe. The patient is on azithromycin, and Rocephin at the current time. And also receiving Solu-Medrol 40 mg every 8 hours. Progress note dated July 2023. 87-year-old female seen today in room 369. The patient is currently on 10 L high flow oxygen, and alternating, with BiPAP, with settings of 10/5, and 80%. The patient's is also getting saline at 15 mL an hour. Unfortunately, the patient did test positive for coronavirus. No new labs today as yet, other than the positive test for coronavirus. The patient is currently in albuterol inhaler, and also on Symbicort, 160/4.5, 2 puffs twice a day. Also, the patient's on Solu-Medrol, 40 mg every 8 hours, and Rocephin. On today's evaluation of 07/23/2023, the patient is being seen for a follow-up. The patient was taken off the BiPAP and the patient is currently on high flow oxygen 10 L/m nasal cannula with a pulse ox of 93%. The patient is a 77-year-old female who was hospitalized for shortness of breath and hypoxic respiratory failure. During the course of this hospitalization, the patient was diagnosed having Covid 19 infection on 07/22/2023. The patient however has significant abnormalities and the CAT scan of the chest which is showing left hilar lymphadenopathy, obstruction of the left lower lobe bronchus and the patient possibly has either a mass or a mucous plug occluding the left lower lobe bronchus. I do favor malignancy. There is also mild to moderate back on emphysema in addition to left lower lobe atelectasis. As mentioned, there is left perihilar and left midlung nodularity measuring up to 2.8 cm in size which could be potentially malignancy. She does have also some myocardial megaly. Meanwhile, the patient remains on Ventolin HFA [id number], IV Rocephin, and IV Solu-Medrol 40 mg every 6 hours. The blood culture has been negative. The rest of the blood work from today shows an obese count of 17.9, hemoglobin is at 11.6 and a platelet count is at 284. BUN is at 31 with a creatinine of 1.1 and his sodium level is at 137. She did have a component of acute kidney injury which is improved at this point in time. On 07/24/2023 the patient is awake and alert and she is communicating. She is currently on 6 L of oxygen by nasal cannula and there has been ongoing slow improvement in the patient's oxygenation. She has some limited congestive cough. No significant sputum production. No fever. No chills. As discussed earlier, the CAT scan of the chest that was done during this current hospitalization showed left hilar lymphadenopathy, obstruction of the left lower lobe bronchus and possibility of malignancy is obviously entertained. There is another opacity in the left perihilar area in addition. White cell count of 15.4, hemoglobin 11.4, platelet count is 248, BUN is at 39 with a creatinine of 1.09 and a sodium level is at 138. Blood sugars at 172. The patient is on anticoagulations with Eliquis 2.5 mg twice a day. The patient IV Rocephin. The patient is on Lasix 40 mg by mouth twice a day. The patient remains on IV Solu- Medrol 40 mg every 8 hours. On 07/25/2023, the patient remains on 6 L with a pulse ox of 96%. No new complaints. As mentioned earlier, the patient has positive Covid 19 infection. At the same time, the patient has left lower lobe atelectasis and possibility of a malignancy in the left hilar area an obstructive lesion in the left lower lobe bronchus. Based on age and comorbidities, bronchoscopy was not done. She remains on IV Rocephin. She is resting comfortably in bed. She remains on IV Solu-Medrol. Labs from today showing a white cell count 19.7, hemoglobin is 12.2, BUN is 48 with a creatinine of 1.08 and a sodium level is at 134. On 07/26/2023, the patient has been weaned down to 5 L of oxygen by nasal cannula pH is resting comfortably in bed. No new complaints. No shortness of breath or chest pain at rest. She remains on IV Rocephin. She remains on Symbicort as maintenance and albuterol HFA [id number]. She remains on IV Solu-Medrol. She remains on oral Lasix 40 mg twice a day and anticoagulation with Eliquis 2.5 mg twice a day. No significant interval change in her overall condition. On today's evaluation of 07/27/2023, the patient is cough and copious amounts of thick purulent sputum. Despite this, and oxygen is improved and she is currently down to 4 L of oxygen by nasal cannula. A repeat chest x-ray was done and shows an area of consolidation of the left upper lobe which is a new finding compared to the earlier chest x-ray and CAT scan of the chest. As such, it seems that the patient's pneumonias progress. Based on all this, I started the patient on IV Zosyn. The patient remains on IV Solu-Medrol and bronchodilators. He is awake and alert and communicating at this point in time. The white cell count today's of 20 with a hemoglobin 11.1 and a BUN 64 with a creatinine of 1.47 and a sodium level is at 133. She continues to have persistent leukocytos is. She is afebrile for now. We'll attempt to collect another sputum sample for Gram stain and culture. Objective - Vital Signs Vital signs: Vital Signs Temp 97.7 F 07/27/23 08:19 Pulse 84 07/27/23 08:19 Resp 18 07/27/23 08:19 BP 144/88 07/27/23 08:19 Pulse Ox 94 L 07/27/23 08:26 FiO2 80 07/22/23 12:44 Intake & Output 07/26/23 07/27/23 07/27/23 18:59 06:59 18:59 Intake Total 700 40 250 Balance 700 40 250 Intake: IV 40 10 Invasive Line 1 10 Invasive Line 3 20 Invasive Line 4 10 10 Oral 700 240 Other: Voiding Method Diaper Diaper External Catheter External Catheter # Voids 1 3 # Bowel Movements 1 - Exam No acute distress, awake and alert and communicating, currently with high flow nasal cannula in place. The patient is currently on 4 L of oxygen by nasal cannula HEENT examination is grossly unremarkable. Neck supple. Full range of motion. No adenopathy thyromegaly or neck vein distention. Cardiovascular examination reveals an irregular rhythm and rate. S1-S2 normal. No S3 or S4. Heart sounds are distant. No discernible murmur noted. Lungs reveal minimal bibasilar crackles. Scattered rhonchi are noted. No wheezes. Breath sounds are equal bilaterally. Abdomen soft bowel sounds are heard. No masses or tenderness. Extremities are intact. No cyanosis clubbing or edema. Skin is without rash or lesion. Neurologic examination is brief but nonfocal. - Labs CBC & Chem 7: 07/27/23 07:03 07/27/23 07:03 Labs: Abnormal Lab Results - Last 24 Hours (Table) 07/26/23 07/26/23 07/26/23 Range/Units 11:39 16:14 19:56 WBC (3.8-10.6) k/uL Hgb (11.4-16.0) gm/dL Neutrophils # (1.3-7.7) k/uL Lymphocytes # (1.0-4.8) k/uL Sodium (137-145) mmol/L Chloride (98-107) mmol/L BUN (7-17) mg/dL Creatinine (0.52-1.04) mg/dL Glucose (74-99) mg/dL POC Glucose (mg/dL) 146 H 237 H 159 H (70-110) mg/dL 07/27/23 07/27/23 07/27/23 Range/Units 05:55 07:03 07:03 WBC 20.0 H (3.8-10.6) k/uL Hgb 11.1 L (11.4-16.0) gm/dL Neutrophils # 18.8 H (1.3-7.7) k/uL Lymphocytes # 0.5 L (1.0-4.8) k/uL Sodium 133 L (137-145) mmol/L Chloride 96 L (98-107) mmol/L BUN 64 H (7-17) mg/dL Creatinine 1.47 H (0.52-1.04) mg/dL Glucose 258 H (74-99) mg/dL POC Glucose (mg/dL) 190 H (70-110) mg/dL Assessment and Plan Plan: Acute hypoxemic respiratory failure, likely multifactorial, in part related to COPD exacerbation, left lower lobe pneumonia/atelectasis, complete opacification left lower lobe bronchus, and Covid 19 infection with areas of groundglass changes bilaterally. The patient has shown improvement in oxygenation and the patient is currently down to 4 L of O2 nasal cannula. Repeat chest x-ray today shows worsening consolidation of the left upper lobe suggestive of pneumonia progression Bilateral pulmonary infiltrates with areas of groundglass changes, could be related to Covid 19 infection. In addition, there is a left perihilar nodularity measuring up to 2.8 cm which obviously raises the concern for malignancy. Left lower lobe atelectasis, with a suspicious opacity in left lower lobe br onchus and lymphadenopathy. I reviewed the CAT scan of the chest and there is extensive and the bronchial opacification of the left lower lobe bronchus which could be either a neoplasm or aspiration. There is however volume loss in the left lung base along with left basilar atelectasis. Left upper lobe consolidation suggestive of pneumonia progression Persistent leukocytosis Patient tested positive for coronavirus infection, 07/22/2023. COPD/. History of smoking History of hyperlipidemia. History of hypertension. History of dementia. History of vitamin D deficiency. CHF with normal LV systolic dysfunction with an ejection fraction of 35-40% and moderate mitral regurgitation Atrial fibrillation with RVR, current rhythm is sinus and the patient is an anticoagulation. Questionable tachybradycardia syndrome/sick sinus syndrome along with paroxysmal A. fib Plan: The patient has been weaned down to 4 L. Despite some improvement in oxygenation, the x-ray findings are worse and the patient has developed worsening consolidation of left upper lobe. We saw the patient IV Silvian Obtain a follow-up chest x-ray tomorrow Ideally the patient will need bronchoscopy and evaluation of the left lower lobe bronchus. Based on age and underlying possible Covid 19 condition, and based on her high oxygen requirements, May consider bronchoscopy at the later stage if no improvement in oxygenation. Continue IV Solu-Medrol Aggressive pulmonary toileting and deep breathing and provide the patient incentive spirometer Monitor the white count Continue anticoagulation and the patient is currently on Eliquis We'll continue to follow make further recommendations based on her progress. I'm going to recheck to the family and discussed with them the findings. DNR/DNI CODE STATUS, we'll continue to follow.
[2023-07-27 16:22] LABS: Glucose,Whole Blood 262 mg/dL (70-110)
[2023-07-27 20:17] LABS: Glucose,Whole Blood 189 mg/dL (70-110)
[2023-07-27] MEDS: ATORVASTATIN 80 MG TAB PO SCH (21:31)
[2023-07-28] MEDS: methylPREDNISolone SOD SUCCI 40 MG/ML 1 ML VIAL IV SCH ×4 (00:26→23:55)
[2023-07-28] MEDS: PIPERACILLIN-TAZOBACTAM 3.375 GM in SODIUM CHLORIDE 0.9% 100 ML IVPB SCH ×3 (00:27→20:31)
[2023-07-28 06:20] LABS: Glucose,Whole Blood 181 mg/dL (70-110)
[2023-07-28] MEDS: INSULIN ASPART (NovoLOG) 100 UNIT/ML VIAL SQ SCH ×4 (07:03→20:32)
[2023-07-28] MEDS: SYMBICORT 160-4.5 MCG INHALER INHALATION SCH ×2 (07:34→21:30)
[2023-07-28] MEDS: ALBUTEROL HFA INHALER INHALATION SCH ×4 (07:34→21:30)
[2023-07-28 08:09] LABS: Basophils % (A) 0 %; Eosinophils % (A) 0 %; HCT 36.3 % (34.0-46.0); HGB 11.8 gm/dL (11.4-16.0); Lymphocytes # (A) 0.6 k/uL (1.0-4.8); Lymphocytes % (A) 3 %; MCH 27.1 pg (25.0-35.0); MCHC 32.4 g/dL (31.0-37.0); MCV 83.7 fL (80.0-100.0); Mean Platelet Volume 8.5; Monocytes # (A) 0.5 k/uL (0-1.0); Monocytes % (A) 3 %; Neutrophils # (A) 18.1 k/uL (1.3-7.7); Neutrophils % (A) 94 %; Platelet Count 258 k/uL (150-450); RBC 4.34 m/uL (3.80-5.40); WBC 19.4 k/uL (3.8-10.6)
--- NOTE | 2023-07-28 08:18 | XR ---
EXAMINATION TYPE: XR chest 1V DATE OF EXAM: 07/28/2023 HISTORY: Shortness of breath. COMPARISON: 07/27/2023 TECHNIQUE: Single view of the chest is submitted. FINDINGS: Demonstrated are scattered senescent parenchymal change. Persistent but improving left perihilar and left upper lobe pneumonia. Reticulonodular prominence see n bilaterally persists. More focal component right lower lobe. The heart is stable. Hilar and mediastinal structures are within normal limits. Degenerative changes are seen of the dorsal spine. IMPRESSION: 1. Persistent but improving left perihilar and left upper lobe pneumonia. Reticulonodular prominence seen bilaterally persists. More focal component right lower lobe.
[2023-07-28 08:22] LABS: African American GFR (CKD) 34 (>60 ml/min/1.73 sqM); Anion Gap 6 mmol/L; Blood Urea Nitrogen 63 mg/dL (7-17); Calcium 9.1 mg/dL (8.4-10.2); Carbon Dioxide 34 mmol/L (22-30); Chloride 96 mmol/L (98-107); Glucose 139 mg/dL (74-99); Non-African American GFR(CKD) 30 (>60 ml/min/1.73 sqM); Potassium 4.2 mmol/L (3.5-5.1); Sodium 136 mmol/L (137-145)
[2023-07-28] MEDS: AMIODARONE 200 MG TAB PO SCH ×2 (09:42→20:31)
[2023-07-28] MEDS: METOPROLOL TARTRATE 50 MG TAB PO SCH ×2 (09:42→20:31)
[2023-07-28] MEDS: APIXABAN 2.5 MG TABLET PO SCH ×2 (09:42→20:31)
[2023-07-28] MEDS: MEMANTINE 10 MG TAB PO SCH (09:42)
[2023-07-28] MEDS: DONEPEZIL 10 MG TAB PO SCH ×2 (09:42→20:34)
[2023-07-28] MEDS: FUROSEMIDE 40 MG TAB PO SCH (09:42)
[2023-07-28 11:59] LABS: Glucose,Whole Blood 351 mg/dL (70-110)
--- NOTE | 2023-07-28 12:20 | P.PN ---
Subjective Progress Note Date: 07/28/23 77-year-old female who was initially seen in the emergency department. We saw her, and room 369, July 20. She was seen in the ER, on July 19. She apparently came into the ER, having had some syncopal episodes, in the shower, where she hit her head. Apparently, there is no family members, with her, and she was a poor historian. When she was brought in by EMS, her saturations were 88% on room air. They gave her nasal O2, at 3 L, and breathing treatments. Currently, the patient is on BiPAP, with settings of 10/5, and 100%. Her saturations are 99%. She's receiving IV heparin, and a Cardizem drip at 5 mg an hour. She's also getting saline at 15 mL an hour. Based on her home medicati ons, she has a history of hyperlipidemia, vitamin D deficiency, dementia, and hypertension. White count is 6.6, hemoglobin 12.8, hematocrit 40.5, and platelet count 134,000. She had blood gases in the emergency department, showing a pO2 of 47, pCO2 of 37, and pH is 7.36. A repeat blood gas was si milar, with a pO2 of 54, pCO2 37, and pH is 7.36. Sodium was 144, potassium 4.2, chlorides 112, CO2 19, BUN 45, and creatinine 1.36. AST was 67. ALT was 44, and troponin was 0.048. N-terminal proBNP was elevated at 3760. Chest x- ray shows moderate cardiomegaly, and mild pulmonary vascular congestion, consistent with the elevated BNP. In addition, there is a focal area of scar and/or nodule, in the left midlung. Progress note dated 07/21/2023. The patient is seen in room 369. She continues on BiPAP, with settings of 10/5 and 80%. I've asked the respiratory therapist, to convert her to nasal cannula, even if it's high flow. She is receiving Cardizem drip at 2.5 mg an hour, and IV heparin via protocol. Clinically, the patient feels like she is better. She gives a thumbs up when asked. White count 9.2, hemoglobin 11.2, hematocrit 36, and platelet count 153,000. Sodium 135, potassium 4.2, chlorides 104, CO2 21, anion gap 10, BUN 40, creatinine 1.13. Blood cultures are negative. A CT angiogram was ordered by the hospitalist service, and showed no evidence of pulmonary changes of COPD and pulmonary arterial hypertension, and possible pneumonitis, in the left lower lobe, and left upper lobe. The patient is on azithromycin, and Rocephin at the current time. And also receiving Solu-Medrol 40 mg every 8 hours. Progress note dated July 2023. 87-year-old female seen today in room 369. The patient is currently on 10 L high flow oxygen, and alternating, with BiPAP, with settings of 10/5, and 80%. The patient's is also getting saline at 15 mL an hour. Unfortunately, the patient did test positive for coronavirus. No new labs today as yet, other than the positive test for coronavirus. The patient is currently in albuterol inhaler, and also on Symbicort, 160/4.5, 2 puffs twice a day. Also, the patient's on Solu-Medrol, 40 mg every 8 hours, and Rocephin. On today's evaluation of 07/23/2023, the patient is being seen for a follow-up. The patient was taken off the BiPAP and the patient is currently on high flow oxygen 10 L/m nasal cannula with a pulse ox of 93%. The patient is a 77-year-old female who was hospitalized for shortness of breath and hypoxic respiratory failure. During the course of this hospitalization, the patient was diagnosed having Covid 19 infection on 07/22/2023. The patient however has significant abnormalities and the CAT scan of the chest which is showing left hilar lymphadenopathy, obstruction of the left lower lobe bronchus and the patient possibly has either a mass or a mucous plug occluding the left lower lobe bronchus. I do favor malignancy. There is also mild to moderate back on emphysema in addition to left lower lobe atelectasis. As mentioned, there is left perihilar and left midlung nodularity measuring up to 2.8 cm in size which could be potentially malignancy. She does have also some myocardial megaly. Meanwhile, the patient remains on Ventolin HFA [id number], IV Rocephin, and IV Solu-Medrol 40 mg every 6 hours. The blood culture has been negative. The rest of the blood work from today shows an obese count of 17.9, hemoglobin is at 11.6 and a platelet count is at 284. BUN is at 31 with a creatinine of 1.1 and his sodium level is at 137. She did have a component of acute kidney injury which is improved at this point in time. On 07/24/2023 the patient is awake and alert and she is communicating. She is currently on 6 L of oxygen by nasal cannula and there has been ongoing slow improvement in the patient's oxygenation. She has some limited congestive cough. No significant sputum production. No fever. No chills. As discussed earlier, the CAT scan of the chest that was done during this current hospitalization showed left hilar lymphadenopathy, obstruction of the left lower lobe bronchus and possibility of malignancy is obviously entertained. There is another opacity in the left perihilar area in addition. White cell count of 15.4, hemoglobin 11.4, platelet count is 248, BUN is at 39 with a creatinine of 1.09 and a sodium level is at 138. Blood sugars at 172. The patient is on anticoagulations with Eliquis 2.5 mg twice a day. The patient IV Rocephin. The patient is on Lasix 40 mg by mouth twice a day. The patient remains on IV Solu- Medrol 40 mg every 8 hours. On 07/25/2023, the patient remains on 6 L with a pulse ox of 96%. No new complaints. As mentioned earlier, the patient has positive Covid 19 infection. At the same time, the patient has left lower lobe atelectasis and possibility of a malignancy in the left hilar area an obstructive lesion in the left lower lobe bronchus. Based on age and comorbidities, bronchoscopy was not done. She remains on IV Rocephin. She is resting comfortably in bed. She remains on IV Solu-Medrol. Labs from today showing a white cell count 19.7, hemoglobin is 12.2, BUN is 48 with a creatinine of 1.08 and a sodium level is at 134. On 07/26/2023, the patient has been weaned down to 5 L of oxygen by nasal cannula pH is resting comfortably in bed. No new complaints. No shortness of breath or chest pain at rest. She remains on IV Rocephin. She remains on Symbicort as maintenance and albuterol HFA [id number]. She remains on IV Solu-Medrol. She remains on oral Lasix 40 mg twice a day and anticoagulation with Eliquis 2.5 mg twice a day. No significant interval change in her overall condition. On today's evaluation of 07/27/2023, the patient is cough and copious amounts of thick purulent sputum. Despite this, and oxygen is improved and she is currently down to 4 L of oxygen by nasal cannula. A repeat chest x-ray was done and shows an area of consolidation of the left upper lobe which is a new finding compared to the earlier chest x-ray and CAT scan of the chest. As such, it seems that the patient's pneumonias progress. Based on all this, I started the patient on IV Zosyn. The patient remains on IV Solu-Medrol and bronchodilators. He is awake and alert and communicating at this point in time. The white cell count today's of 20 with a hemoglobin 11.1 and a BUN 64 with a creatinine of 1.47 and a sodium level is at 133. She continues to have persistent leukocytos is. She is afebrile for now. We'll attempt to collect another sputum sample for Gram stain and culture. On 07/28/2023, the patient is sitting up on a chair and she is calm and comfortable. No significant complaints. Cough is present and the patient is bringing significant amount of sputum. She remains on 4 L. A repeat chest x- ray was done and shows improvement in the left upper lobe consolidation. Her breathing is nonlabored. Her renal function is being monitored. Creatinine 1.5 with a BUN of 63. The white suppositive elevated at 19.4, hemoglobin is 11.8. No other significant complaints. She is profoundly aggressive pulmonary toileting. Objective - Vital Signs Vital signs: Vital Signs Temp 98 F 07/28/23 08:00 Pulse 71 07/28/23 08:00 Resp 22 07/28/23 08:00 BP 123/72 07/28/23 08:00 Pulse Ox 95 07/28/23 08:00 FiO2 80 07/22/23 12:44 Intake & Output 07/27/23 07/28/23 07/28/23 18:59 06:59 18:59 Intake Total 740 640 120 Output Total 400 Balance 340 640 120 Intake: IV 20 Invasive Line 4 20 Intake, IV Titration 100 Amount Piperacillin-Tazobactam 3 100 .375 gm In Sodium Chloride 0.9% 100 ml @ 25 mls/hr IVPB Q8HR [facility] Rx# :[id number] Oral 720 540 120 Output: Urine 400 Other: Voiding Method Diaper Diaper Diaper # Voids 1 # Bowel Movements 1 1 - Exam No acute distress, awake and alert and communicating, currently with high flow nasal cannula in place. The patient is currently on 4 L of oxygen by nasal cannula HEENT examination is grossly unremarkable. Neck supple. Full range of motion. No adenopathy thyromegaly or neck vein distention. Cardiovascular examination reveals an irregular rhythm and rate. S1-S2 normal. No S3 or S4. Heart sounds are distant. No discernible murmur noted. Lungs reveal minimal bibasilar crackles. Scattered rhonchi are noted. No wheezes. Breath sounds are equal bilaterally. Abdomen soft bowel sounds are heard. No masses or tenderness. Extremities are intact. No cyanosis clubbing or edema. Skin is without rash or lesion. Neurologic examination is brief but nonfocal. - Labs CBC & Chem 7: 07/28/23 07:39 07/28/23 07:39 Labs: Abnormal Lab Results - Last 24 Hours (Table) 07/27/23 07/27/23 07/28/23 Range/Units 16:21 20:15 06:19 WBC (3.8-10.6) k/uL Neutrophils # (1.3-7.7) k/uL Lymphocytes # (1.0-4.8) k/uL Sodium (137-145) mmol/L Chloride (98-107) mmol/L Carbon Dioxide (22-30) mmol/L BUN (7-17) mg/dL Creatinine (0.52-1.04) mg/dL Glucose (74-99) mg/dL POC Glucose (mg/dL) 262 H 189 H 181 H (70-110) mg/dL 07/28/23 07/28/23 07/28/23 Range/Units 07:39 07:39 11:55 WBC 19.4 H (3.8-10.6) k/uL Neutrophils # 18.1 H (1.3-7.7) k/uL Lymphocytes # 0.6 L (1.0-4.8) k/uL Sodium 136 L (137-145) mmol/L Chloride 96 L (98-107) mmol/L Carbon Dioxide 34 H (22-30) mmol/L BUN 63 H (7-17) mg/dL Creatinine 1.56 H (0.52-1.04) mg/dL Glucose 139 H (74-99) mg/dL POC Glucose (mg/dL) 351 H (70-110) mg/dL Assessment and Plan Plan: Acute hypoxemic respiratory failure, likely multifactorial, in part related to COPD exacerbation, left lower lobe pneumonia/atelectasis, complete opacification left lower lobe bronchus, and Covid 19 infection with areas of groundglass changes bilaterally. The patient has shown improvement in oxygenation and the patient is currently down to 4 L of O2 nasal cannula. Rep eat chest x-ray today shows worsening consolidation of the left upper lobe suggestive of pneumonia progression, and is based on the chest x-ray that was done on 07/27/2023. The patient was started on antibiotics with IV Zosyn. There is improvement today's chest x-ray from 07/28/2023. Awaiting sputum samples. Bilateral pulmonary infiltrates with areas of groundglass changes, could be related to Covid 19 infection. In addition, there is a left perihilar nodularity measuring up to 2.8 cm which obviously raises the concern for malignancy. Left lower lobe atelectasis, with a suspicious opacity in left lower lobe bronchus and lymphadenopathy. I reviewed the CAT scan of the chest and there is extensive and the bronchial opacification of the left lower lobe bronchus which could be either a neoplasm or aspiration. There is however volume loss in the left lung base along with left basilar atelectasis. Left upper lobe consolidation suggestive of pneumonia progression Persistent leukocytosis Patient tested positive for coronavirus infection, 07/22/2023. COPD/. History of smoking History of hyperlipidemia. History of hypertension. History of dementia. History of vitamin D deficiency. CHF with normal LV systolic dysfunction with an ejection fraction of 35-40% and moderate mitral regurgitation Atrial fibrillation with RVR, current rhythm is sinus and the patient is an anticoagulation. Questionable tachybradycardia syndrome/sick sinus syndrome along with paroxysmal A. fib Plan: The patient has been weaned down to 4 L. Despite some improvement in oxygenat ion, the x-ray findings are worse and the patient has developed worsening consolidation of left upper lobe. Continue IV Zosyn and a chest x-ray is improving Ideally the patient will need bronchoscopy and evaluation of the left lower lobe bronchus. Based on age and underlying possible Covid 19 condition, and based on her high oxygen requirements, May consider bronchoscopy at the later stage if no improvement in oxygenation. Continue IV Solu-Medrol Aggressive pulmonary toileting and deep breathing and provide the patient incentive spirometer Monitor the white count Continue anticoagulation and the patient is currently on Eliquis We'll continue to follow make further recommendations based on her progress. I'm going to recheck to the family and discussed with them the findings. DNR/DNI CODE STATUS, we'll continue to follow.
--- NOTE | 2023-07-28 16:05 | P.PN ---
Subjective Progress Note Date: 07/28/23 Hospital course: Patient is a very pleasant 87-year-old female with history of dementia, hypertension, dyslipidemia, COPD presenting with recurrent syncopal episodes. She presented to the emergency department on 07/19/23 with a chief complaint of syncopal episode and shortness of breath. On initial presentation, temperature was 98.3, pulse 80, respiratory rate 26, blood pressure 166/83, saturating at 96% on [address] shows no acute process, cervical spine CT shows some diffuse pole lysis within cervical spine, possible metastatic disease. Initial EKG showed sinus rhythm with left bundle branch block at 75 bpm. Patient subsequently did go into atrial fibrillation with RVR. Initial labs showed WBC of 6.6, hemoglobin 12.8, platelet 134, sodium 144, bicarb 19, creatinine 1.36, troponin 0.048, proBNP 3700, pH 7.36, pO2 47. Chest x-ray showed interstitial prominence with left midlung opacity. Patient subsequently became more hypoxic and required BiPAP. She was adminitted under our services for hypoxic respiratory failure, new onset atrial fibrillation with RVR, COPD with acute exacerbation, and concerns for fluid volume overload. Consults were placed to pulmonology and cardiology. Patient found to be COVID-[address] negative for PE, does have left perihilar and left midlung nodularity concerning for neoplastic or atypical infection, extensive endobronchial opacification throughout the left lower lung, possible neoplasm versus extensive aspiration, p atchy groundglass opacities in left upper lobe, possible moderate to severe stenosis at the arch vessel origin. Echocardiogram completed showing a reduced EF of 35-40% with hypokinetic inferioseptal and inferior wall with moderate right ventricular dilation and aneurysmal interatrial septum with suspicion of PFO and moderate mitral and tricuspid regurgitation.. Physical exam: Patient seen and fully evaluated at bedside this morning. Patient sitting up in chair she is on 4 L O2 via nasal cannula with SpO2 of 94%. Patient with productive cough and bringing up sharp colored sputum production. She continues to have noted conversational dyspnea at approximately 4 words. She denies having any pain or complaints at this time. Vitals Signs Reviewed. General: non toxic, no distress, appears at stated age Derm: warm, dry Head: atraumatic, normocephalic, symmetric Eyes: EOMI, no lid lag, anicteric sclera Mouth: no lip lesion, mucus membranes moist Cardiovascular: S1S2 reg, systolic murmur, positive posterior tibial pulse bilateral, Lungs: Lungs coarse rhonchi with bilateral expiratory wheezes on 4 L O2 via nasal cannula. No accessory muscle usage. Patient does have conversational dys pnea noted after approximately 4 words.. Abdominal: soft, nontender to palpation, no guarding, no appreciable organomegaly Ext: no gross muscle atrophy, no edema, no contractures Neuro: CN II-XI grossly intact, no focal neuro deficits Psych: Alert, oriented x2-3, appropriate and pleasant affect Assessment and Plan: Acute COVID-19 pneumonia Acute hypoxic respiratory failure COPD exacerbation Suspected superimposed bacterial pneumonia Recurrent syncopal episodes, possibly sick sinus syndrome versus valvular disease Paroxysmal Atrial fibrillation with RVR, rate controlled Type 2 NSTEMI High anion Gap metabolic acidosis, improving Acute kidney injury Mild normocytic anemia, likely secondary to acute illness Mild thrombocytopenia, resolved Leukocytosis, steroid-induced Hyperglycemia, steroid-induced Chronic systolic heart failure with reduced EF of 35-40% -Pulmonology following, continue Solu-Medrol and supportive care, may need bronchoscopy to evaluate left lower lobe bronchus if no improvement, possible malignancy -Antibiotics broadened to IV Zosyn 3.375 g every 12 hours -Blood cultures no growth to date, sputum cultures not completed -Cardiology following, reviewed documentation on chart -Lasix was discontinued secondary to worsening renal function -Continue amiodarone 200 mg twice daily, Eliquis 2.5 mg twice daily, and metoprolol 50 mg twice daily. -Repeat CBC and BMP tomorrow -Continue glycemic protocol with NovoLog Sliding scale insulin -Still requiring prolonged oxygen, currently on 4 L with SpO2 of 94% -Order placed for flutter valve, to assist with removal of excess sputum/mucus production. Dementia Dyslipidemia Hypertension -Patient to continue daily medication regimen with atorvastatin 80 mg nightly Aricept 10 mg twice daily, and Namenda 5 mg twice daily Data reviewed: Morning labs reviewed. CBC showing persistent leukocytosis with WBC count of 19.4 and neutrophils of 18.1. BMP showing hypercarbia with bicarb of 34. Imaging reviewed: -Repeat x-ray completed this morning and radiology report reviewed stating persistent but improving left perihilar and left upper lobe pneumonia with persistent reticulonodular prominence seen bilaterally DVT ppx: Eliquis Code status: DNR/DNI Anticipated discharge place: Will likely need rehab Anticipated discharge time: Pending clinical course Patient was seen independently by Nurse Pracitioner. This document was prepared using [employer] dictation software. Please allow for errors in [employer], while rare they do occur. Objective - Vital Signs Vital signs: Vital Signs Temp 98.1 F 07/28/23 04:00 Pulse 78 07/28/23 04:00 Resp 22 07/28/23 04:00 BP 153/84 07/28/23 04:00 Pulse Ox 94 L 07/28/23 07:36 FiO2 80 07/22/23 12:44 Intake & Output 07/27/23 07/28/23 07/28/23 18:59 06:59 18:59 Intake Total 740 640 Output Total 400 Balance 340 640 Intake: IV 20 Invasive Line 4 20 Intake, IV Titration 100 Amount Piperacillin-Tazobactam 3 100 .375 gm In Sodium Chloride 0.9% 100 ml @ 25 mls/hr IVPB Q8HR [facility] Rx# :[id number] Oral 720 540 Output: Urine 400 Other: Voiding Method Diaper Diaper # Bowel Movements 1 - Labs CBC & Chem 7: 07/28/23 07:39 07/28/23 07:39 Labs: Abnormal Lab Results - Last 24 Hours (Table) 07/27/23 07/27/23 07/27/23 Range/Units 11:39 16:21 20:15 WBC (3.8-10.6) k/uL Neutrophils # (1.3-7.7) k/uL Lymphocytes # (1.0-4.8) k/uL Sodium (137-145) mmol/L Chloride (98-107) mmol/L Carbon Dioxide (22-30) mmol/L BUN (7-17) mg/dL Creatinine (0.52-1.04) mg/dL Glucose (74-99) mg/dL POC Glucose (mg/dL) 270 H 262 H 189 H (70-110) mg/dL 07/28/23 07/28/23 07/28/23 Range/Units 06:19 07:39 07:39 WBC 19.4 H (3.8-10.6) k/uL Neutrophils # 18.1 H (1.3-7.7) k/uL Lymphocytes # 0.6 L (1.0-4.8) k/uL Sodium 136 L (137-145) mmol/L Chloride 96 L (98-107) mmol/L Carbon Dioxide 34 H (22-30) mmol/L BUN 63 H (7-17) mg/dL Creatinine 1.56 H (0.52-1.04) mg/dL Glucose 139 H (74-99) mg/dL POC Glucose (mg/dL) 181 H (70-110) mg/dL
[2023-07-28 16:52] LABS: Glucose,Whole Blood 211 mg/dL (70-110)
[2023-07-28 20:26] LABS: Glucose,Whole Blood 126 mg/dL (70-110)
[2023-07-28] MEDS: ATORVASTATIN 80 MG TAB PO SCH (20:31)
[2023-07-28] MEDS: MEMANTINE 5 MG TAB PO SCH (20:31)
[2023-07-29] MEDS: guaiFENesin 600 MG TABLET.ER PO PRN ×2 (05:08→20:13)
[2023-07-29] MEDS: ALBUTEROL HFA INHALER INHALATION PRN (05:37)
[2023-07-29 06:11] LABS: Glucose,Whole Blood 180 mg/dL (70-110)
[2023-07-29] MEDS: INSULIN ASPART (NovoLOG) 100 UNIT/ML VIAL SQ SCH ×4 (06:21→20:13)
[2023-07-29] MEDS: ALBUTEROL HFA INHALER INHALATION SCH ×4 (08:13→21:25)
[2023-07-29] MEDS: SYMBICORT 160-4.5 MCG INHALER INHALATION SCH ×2 (08:14→21:25)
[2023-07-29] MEDS: PIPERACILLIN-TAZOBACTAM 3.375 GM in SODIUM CHLORIDE 0.9% 100 ML IVPB SCH ×2 (08:17→20:12)
[2023-07-29] MEDS: DONEPEZIL 10 MG TAB PO SCH ×2 (08:18→20:13)
[2023-07-29] MEDS: methylPREDNISolone SOD SUCCI 40 MG/ML 1 ML VIAL IV SCH ×3 (08:18→23:50)
[2023-07-29] MEDS: MEMANTINE 5 MG TAB PO SCH ×2 (08:18→20:13)
[2023-07-29] MEDS: APIXABAN 2.5 MG TABLET PO SCH ×2 (08:18→20:12)
[2023-07-29] MEDS: AMIODARONE 200 MG TAB PO SCH ×2 (08:18→20:13)
[2023-07-29] MEDS: METOPROLOL TARTRATE 50 MG TAB PO SCH ×2 (08:18→23:05)
[2023-07-29 09:07] LABS: HCT 34.5 % (34.0-46.0); HGB 11.1 gm/dL (11.4-16.0); MCH 27.1 pg (25.0-35.0); MCHC 32.1 g/dL (31.0-37.0); MCV 84.6 fL (80.0-100.0); Mean Platelet Volume 8.6; Platelet Count 273 k/uL (150-450); RBC 4.08 m/uL (3.80-5.40); RDW 15.1 % (11.5-15.5); WBC 29.2 k/uL (3.8-10.6)
[2023-07-29 09:10] LABS: ALT 52 U/L (4-34); AST 47 U/L (14-36); African American GFR (CKD) 36 (>60 ml/min/1.73 sqM); Albumin 3.1 g/dL (3.5-5.0); Alkaline Phosphatase 80 U/L (38-126); Anion Gap 9 mmol/L; Blood Urea Nitrogen 64 mg/dL (7-17); Calcium 8.8 mg/dL (8.4-10.2); Carbon Dioxide 32 mmol/L (22-30); Chloride 93 mmol/L (98-107); Glucose 225 mg/dL (74-99); Magnesium 1.9 mg/dL (1.6-2.3); Non-African American GFR(CKD) 31 (>60 ml/min/1.73 sqM); Potassium 3.4 mmol/L (3.5-5.1); Sodium 134 mmol/L (137-145); Total Bilirubin 0.8 mg/dL (0.2-1.3); Total Protein 6.1 g/dL (6.3-8.2)
[2023-07-29 11:57] LABS: Glucose,Whole Blood 182 mg/dL (70-110)
--- NOTE | 2023-07-29 12:01 | P.PN ---
Subjective Progress Note Date: 07/29/23 77-year-old female who was initially seen in the emergency department. We saw her, and room 369, July 20. She was seen in the ER, on July 19. She apparently came into the ER, having had some syncopal episodes, in the shower, where she hit her head. Apparently, there is no family members, with her, and she was a poor historian. When she was brought in by EMS, her saturations were 88% on room air. They gave her nasal O2, at 3 L, and breathing treatments. Currently, the patient is on BiPAP, with settings of 10/5, and 100%. Her saturations are 99%. She's receiving IV heparin, and a Cardizem drip at 5 mg an hour. She's also getting saline at 15 mL an hour. Based on her home medicati ons, she has a history of hyperlipidemia, vitamin D deficiency, dementia, and hypertension. White count is 6.6, hemoglobin 12.8, hematocrit 40.5, and platelet count 134,000. She had blood gases in the emergency department, showing a pO2 of 47, pCO2 of 37, and pH is 7.36. A repeat blood gas was si milar, with a pO2 of 54, pCO2 37, and pH is 7.36. Sodium was 144, potassium 4.2, chlorides 112, CO2 19, BUN 45, and creatinine 1.36. AST was 67. ALT was 44, and troponin was 0.048. N-terminal proBNP was elevated at 3760. Chest x- ray shows moderate cardiomegaly, and mild pulmonary vascular congestion, consistent with the elevated BNP. In addition, there is a focal area of scar and/or nodule, in the left midlung. Progress note dated 07/21/2023. The patient is seen in room 369. She continues on BiPAP, with settings of 10/5 and 80%. I've asked the respiratory therapist, to convert her to nasal cannula, even if it's high flow. She is receiving Cardizem drip at 2.5 mg an hour, and IV heparin via protocol. Clinically, the patient feels like she is better. She gives a thumbs up when asked. White count 9.2, hemoglobin 11.2, hematocrit 36, and platelet count 153,000. Sodium 135, potassium 4.2, chlorides 104, CO2 21, anion gap 10, BUN 40, creatinine 1.13. Blood cultures are negative. A CT angiogram was ordered by the hospitalist service, and showed no evidence of pulmonary changes of COPD and pulmonary arterial hypertension, and possible pneumonitis, in the left lower lobe, and left upper lobe. The patient is on azithromycin, and Rocephin at the current time. And also receiving Solu-Medrol 40 mg every 8 hours. Progress note dated July 2023. 87-year-old female seen today in room 369. The patient is currently on 10 L high flow oxygen, and alternating, with BiPAP, with settings of 10/5, and 80%. The patient's is also getting saline at 15 mL an hour. Unfortunately, the patient did test positive for coronavirus. No new labs today as yet, other than the positive test for coronavirus. The patient is currently in albuterol inhaler, and also on Symbicort, 160/4.5, 2 puffs twice a day. Also, the patient's on Solu-Medrol, 40 mg every 8 hours, and Rocephin. On today's evaluation of 07/23/2023, the patient is being seen for a follow-up. The patient was taken off the BiPAP and the patient is currently on high flow oxygen 10 L/m nasal cannula with a pulse ox of 93%. The patient is a 77-year-old female who was hospitalized for shortness of breath and hypoxic respiratory failure. During the course of this hospitalization, the patient was diagnosed having Covid 19 infection on 07/22/2023. The patient however has significant abnormalities and the CAT scan of the chest which is showing left hilar lymphadenopathy, obstruction of the left lower lobe bronchus and the patient possibly has either a mass or a mucous plug occluding the left lower lobe bronchus. I do favor malignancy. There is also mild to moderate back on emphysema in addition to left lower lobe atelectasis. As mentioned, there is left perihilar and left midlung nodularity measuring up to 2.8 cm in size which could be potentially malignancy. She does have also some myocardial megaly. Meanwhile, the patient remains on Ventolin HFA [id number], IV Rocephin, and IV Solu-Medrol 40 mg every 6 hours. The blood culture has been negative. The rest of the blood work from today shows an obese count of 17.9, hemoglobin is at 11.6 and a platelet count is at 284. BUN is at 31 with a creatinine of 1.1 and his sodium level is at 137. She did have a component of acute kidney injury which is improved at this point in time. On 07/24/2023 the patient is awake and alert and she is communicating. She is currently on 6 L of oxygen by nasal cannula and there has been ongoing slow improvement in the patient's oxygenation. She has some limited congestive cough. No significant sputum production. No fever. No chills. As discussed earlier, the CAT scan of the chest that was done during this current hospitalization showed left hilar lymphadenopathy, obstruction of the left lower lobe bronchus and possibility of malignancy is obviously entertained. There is another opacity in the left perihilar area in addition. White cell count of 15.4, hemoglobin 11.4, platelet count is 248, BUN is at 39 with a creatinine of 1.09 and a sodium level is at 138. Blood sugars at 172. The patient is on anticoagulations with Eliquis 2.5 mg twice a day. The patient IV Rocephin. The patient is on Lasix 40 mg by mouth twice a day. The patient remains on IV Solu- Medrol 40 mg every 8 hours. On 07/25/2023, the patient remains on 6 L with a pulse ox of 96%. No new complaints. As mentioned earlier, the patient has positive Covid 19 infection. At the same time, the patient has left lower lobe atelectasis and possibility of a malignancy in the left hilar area an obstructive lesion in the left lower lobe bronchus. Based on age and comorbidities, bronchoscopy was not done. She remains on IV Rocephin. She is resting comfortably in bed. She remains on IV Solu-Medrol. Labs from today showing a white cell count 19.7, hemoglobin is 12.2, BUN is 48 with a creatinine of 1.08 and a sodium level is at 134. On 07/26/2023, the patient has been weaned down to 5 L of oxygen by nasal cannula pH is resting comfortably in bed. No new complaints. No shortness of breath or chest pain at rest. She remains on IV Rocephin. She remains on Symbicort as maintenance and albuterol HFA [id number]. She remains on IV Solu-Medrol. She remains on oral Lasix 40 mg twice a day and anticoagulation with Eliquis 2.5 mg twice a day. No significant interval change in her overall condition. On today's evaluation of 07/27/2023, the patient is cough and copious amounts of thick purulent sputum. Despite this, and oxygen is improved and she is currently down to 4 L of oxygen by nasal cannula. A repeat chest x-ray was done and shows an area of consolidation of the left upper lobe which is a new finding compared to the earlier chest x-ray and CAT scan of the chest. As such, it seems that the patient's pneumonias progress. Based on all this, I started the patient on IV Zosyn. The patient remains on IV Solu-Medrol and bronchodilators. He is awake and alert and communicating at this point in time. The white cell count today's of 20 with a hemoglobin 11.1 and a BUN 64 with a creatinine of 1.47 and a sodium level is at 133. She continues to have persistent leukocytos is. She is afebrile for now. We'll attempt to collect another sputum sample for Gram stain and culture. On 07/28/2023, the patient is sitting up on a chair and she is calm and comfortable. No significant complaints. Cough is present and the patient is bringing significant amount of sputum. She remains on 4 L. A repeat chest x- ray was done and shows improvement in the left upper lobe consolidation. Her breathing is nonlabored. Her renal function is being monitored. Creatinine 1.5 with a BUN of 63. The white suppositive elevated at 19.4, hemoglobin is 11.8. No other significant complaints. She is profoundly aggressive pulmonary toileting. On 07/29/2023, the patient remains on IV Zosyn. The patient remains on IV Solu- Medrol 40 mg every 8 hours. No new complaints. Oxygenation is being monitored very closely and the patient was brought back to up to 6 L of O2 nasal cannula. The chest x-ray from yesterday was showing improvement left upper lobe consolidation. The white blood count remains elevated at 29, hemoglobin 11.1, BUN is at 64 with a creatinine of 1.49 and his sodium levels of 134 and the potassium levels at 3.4. Objective - Vital Signs Vital signs: Vital Signs Temp 98.2 F 07/29/23 08:24 Pulse 47 L 07/29/23 08:24 Resp 18 07/29/23 08:24 BP 153/69 07/29/23 08:24 Pulse Ox 94 L 07/29/23 08:24 FiO2 80 07/22/23 12:44 Intake & Output 07/28/23 07/29/23 07/29/23 18:59 06:59 18:59 Intake Total 360 0 Output Total 401 400 1 Balance -41 -400 -1 Intake: Oral 360 0 Output: Urine 400 400 Stool 1 1 Other: Voiding Method Diaper External Catheter External Catheter # Voids 1 1 # Bowel Movements 1 1 - Exam No acute distress, awake and alert and communicating, currently with high flow nasal cannula in place. The patient is currently on 4 L of oxygen by nasal cannula HEENT examination is grossly unremarkable. Neck supple. Full range of motion. No adenopathy thyromegaly or neck vein distention. Cardiovascular examination reveals an irregular rhythm and rate. S1-S2 normal. No S3 or S4. Heart sounds are distant. No discernible murmur noted. Lungs reveal minimal bibasilar crackles. Scattered rhonchi are noted. No wheezes. Breath sounds are equal bilaterally. Abdomen soft bowel sounds are heard. No masses or tenderness. Extremities are intact. No cyanosis clubbing or edema. Skin is without rash or lesion. Neurologic examination is brief but nonfocal. - Labs CBC & Chem 7: 07/29/23 08:33 07/29/23 08:33 Labs: Abnormal Lab Results - Last 24 Hours (Table) 07/28/23 07/28/23 07/28/23 Range/Units 11:55 16:49 20:24 WBC (3.8-10.6) k/uL Hgb (11.4-16.0) gm/dL Sodium (137-145) mmol/L Potassium (3.5-5.1) mmol/L Chloride (98-107) mmol/L Carbon Dioxide (22-30) mmol/L BUN (7-17) mg/dL Creatinine (0.52-1.04) mg/dL Glucose (74-99) mg/dL POC Glucose (mg/dL) 351 H 211 H 126 H (70-110) mg/dL AST (14-36) U/L ALT (4-34) U/L Total Protein (6.3-8.2) g/dL Albumin (3.5-5.0) g/dL 07/29/23 07/29/23 07/29/23 Range/Units 06:09 08:33 08:33 WBC 29.2 H (3.8-10.6) k/uL Hgb 11.1 L (11.4-16.0) gm/dL Sodium 134 L (137-145) mmol/L Potassium 3.4 L (3.5-5.1) mmol/L Chloride 93 L (98-107) mmol/L Carbon Dioxide 32 H (22-30) mmol/L BUN 64 H (7-17) mg/dL Creatinine 1.49 H (0.52-1.04) mg/dL Glucose 225 H (74-99) mg/dL POC Glucose (mg/dL) 180 H (70-110) mg/dL AST 47 H (14-36) U/L ALT 52 H (4-34) U/L Total Protein 6.1 L (6.3-8.2) g/dL Albumin 3.1 L (3.5-5.0) g/dL Microbiology - Last 24 Hours (Table) 07/28/23 03:51 Gram Stain - Preliminary Sputum Assessment and Plan Plan: Acute hypoxemic respiratory failure, likely multifactorial, in part related to COPD exacerbation, left lower lobe pneumonia/atelectasis, complete opacification left lower lobe bronchus, and Covid 19 infection with areas of groundglass changes bilaterally. The patient has shown improvement in oxygenation and the patient is currently down to 4 L of O2 nasal cannula. Repeat chest x-ray today shows worsening consolidation of the left upper lobe suggestive of pneumonia progression, and is based on the chest x-ray that was done on 07/27/2023. The patient was started on antibiotics with IV Zosyn. There is improvement on chest x-ray from 07/28/2023. The patient is currently on 6 L O2 nasal cannula Bilateral pulmonary infiltrates with areas of groundglass changes, could be related to Covid 19 infection. In addition, there is a left perihilar nodularity measuring up to 2.8 cm which obviously raises the concern for mal ignancy. Left lower lobe atelectasis, with a suspicious opacity in left lower lobe bronchus and lymphadenopathy. I reviewed the CAT scan of the chest and there is extensive and the bronchial opacification of the left lower lobe bronchus which could be either a neoplasm or aspiration. There is however volume loss in the left lung base along with left basilar atelectasis. Left upper lobe consolidation/pneumonia, currently on Zosyn Persistent leukocytosis, white cell count remains elevated at 29 Patient tested positive for coronavirus infection, 07/22/2023. COPD/. History of smoking History of hyperlipidemia. History of hypertension. History of dementia. History of vitamin D deficiency. CHF with normal LV systolic dysfunction with an ejection fraction of 35-40% and moderate mitral regurgitation Atrial fibrillation with RVR, current rhythm is sinus and the patient is an anticoagulation. Questionable tachybradycardia syndrome/sick sinus syndrome along with paroxysmal A. fib Plan: Repeat chest x-ray in the morning The patient has been weaned down to 4 L and subsequently was brought back up to 6 L.. Her chest x-ray from yesterday was showing some limited from the left upper lobe consolidation Continue IV Zosyn Ideally the patient will need bronchoscopy and evaluation of the left lower lobe bronchus. Based on age and underlying possible Covid 19 condition, and based on her high oxygen requirements, May consider bronchoscopy at the later stage if no improvement in oxygenation. Continue IV Solu-Medrol Aggressive pulmonary toileting and deep breathing and provide the patient incentive spirometer Monitor the white count Continue anticoagulation and the patient is currently on Eliquis We'll continue to follow make further recommendations based on her progress. I'm repeating chest x-ray in the morning DNR/DNI CODE STATUS, we'll continue to follow.
[2023-07-29] MEDS ORDERED: POTASSIUM BICARBONATE/CIT AC 20 MEQ TABLET.EFF PO ONE (14:30)
--- NOTE | 2023-07-29 14:47 | P.PN ---
Subjective Progress Note Date: 07/29/23 Hospital course: Patient is a very pleasant 87-year-old female with history of dementia, hypertension, dyslipidemia, COPD presenting with recurrent syncopal episodes. She presented to the emergency department on 07/19/23 with a chief complaint of syncopal episode and shortness of breath. On initial presentation, temperature was 98.3, pulse 80, respiratory rate 26, blood pressure 166/83, saturating at 96% on [address] shows no acute process, cervical spine CT shows some diffuse pole lysis within cervical spine, possible metastatic disease. Initial EKG showed sinus rhythm with left bundle branch block at 75 bpm. Patient subsequently did go into atrial fibrillation with RVR. Initial labs showed WBC of 6.6, hemoglobin 12.8, platelet 134, sodium 144, bicarb 19, creatinine 1.36, troponin 0.048, proBNP 3700, pH 7.36, pO2 47. Chest x-ray showed interstitial prominence with left midlung opacity. Patient subsequently became more hypoxic and required BiPAP. She was adminitted under our services for hypoxic respiratory failure, new onset atrial fibrillation with RVR, COPD with acute exacerbation, and concerns for fluid volume overload. Consults were placed to pulmonology and cardiology. Patient found to be COVID-[address] negative for PE, does have left perihilar and left midlung nodularity concerning for neoplastic or atypical infection, extensive endobronchial opacification throughout the left lower lung, possible neoplasm versus extensive aspiration, p atchy groundglass opacities in left upper lobe, possible moderate to severe stenosis at the arch vessel origin. Echocardiogram completed showing a reduced EF of 35-40% with hypokinetic inferioseptal and inferior wall with moderate right ventricular dilation and aneurysmal interatrial septum with suspicion of PFO and moderate mitral and tricuspid regurgitation.. Physical exam: Patient seen and fully evaluated at bedside this morning. She has had increased oxygenation needs overnight and is currently on 6 L O2 via nasal cannula with SpO2 of 94%. Patient currently reports improvement in shortness of breath but continues to have coarse cough. WBC count worsening from 19.4 up to 29.2 this morning. She continues to have productive sputum, sharp colored. Discussed with RT, the report they did work with patient using flutter valve yesterday evening and will try again this afternoon. Vitals Signs Reviewed. General: non toxic, no distress, appears at stated age Derm: warm, dry Head: atraumatic, normocephalic, symmetric Eyes: EOMI, no lid lag, anicteric sclera Mouth: no lip lesion, mucus membranes moist Cardiovascular: S1S2 reg, systolic murmur, positive posterior tibial pulse bilateral, Lungs: Lungs diffuse coarse rhonchi with bilateral expiratory wheezes on 6 L O2 via nasal cannula. No accessory muscle usage. Patient does have conversational dyspnea noted after approximately 4-5 words.. Abdominal: soft, nontender to palpation, no guarding, no appreciable organomegaly Ext: no gross muscle atrophy, no edema, no contractures Neuro: CN II-XI grossly intact, no focal neuro deficits Psych: Alert, oriented x2-3, appropriate and pleasant affect Assessment and Plan: Acute COVID-19 pneumonia Acute hypoxic respiratory failure COPD exacerbation Suspected superimposed bacterial pneumonia Leukocytosis, worsening Recurrent syncopal episodes, possibly sick sinus syndrome versus valvular disease Paroxysmal Atrial fibrillation with RVR, rate controlled Type 2 NSTEMI High anion Gap metabolic acidosis, improving Acute kidney injury Mild normocytic anemia, likely secondary to acute illness Mild thrombocytopenia, resolved Hyperglycemia, steroid-induced Chronic systolic heart failure with reduced EF of 35-40% -Pulmonology following, discussed plan of care with Dr. Viramontes, stated continue Solu-Medrol and supportive care, and that pt will likely need bronchoscopy to evaluate left lower lobe bronchus if no improvement, possible malignancy -Continue IV Antibiotics: Zosyn 3.375 g every 12 hours -Blood cultures no growth to date, sputum cultures collected 07/28/23 and pending -Cardiology evaluated and cleared patient from cardiac perspective, recommending outpatient follow-up in their office in 2 weeks post discharge. -Lasix was discontinued secondary to worsening renal function -Continue amiodarone 200 mg twice daily, Eliquis 2.5 mg twice daily, and metoprolol 50 mg twice daily. -Repeat CBC and BMP tomorrow -Continue glycemic protocol with NovoLog Sliding scale insulin -Patient with increased oxygenation needs, currently on 6 L O2 with SpO2 93%-94% -Recommend encouragement and continuation of flutter valve, to assist with removal of excess sputum/mucus production. Dementia Dyslipidemia Hypertension -Patient to continue daily medication regimen with atorvastatin 80 mg nightly Aricept 10 mg twice daily, and Namenda 5 mg twice daily Data reviewed: Morning labs reviewed. CBC showing worsening leukocytosis with WBC count of 29.2 and normocytic anemia with hemoglobin of 11.1. BMP showing hyponatremia with sodium 134, hypokalemia with potassium of 3.4, chloride 93, bicarb 32, and anion gap of 9 with persistently elevated renal function with BUN of 64, cr eatinine of 1.49, GFR of 31. Liver profile showing slightly elevated AST of 47 and ALT of 52. Vital signs reviewed. Blood pressure 153/69, heart rate 81, respiratory rate 18, temp 98.2F, and SpO2 of 94% on 6 L O2 via nasal cannula. Imaging reviewed: -No new imaging for review at this time, discussed with food stand manager ordering repeat chest x-ray for tomorrow morning. DVT ppx: Eliquis Code status: DNR/DNI Anticipated discharge place: Will likely need rehab Anticipated discharge time: Pending clinical course Patient was seen independently by Nurse Pracitioner. This document was prepared using OpenDrive dictation software. Please allow for errors in decontamination worker, while rare they do occur. Objective - Vital Signs Vital signs: Vital Signs Temp 98.2 F 07/29/23 08:24 Pulse 47 L 07/29/23 08:24 Resp 18 07/29/23 08:24 BP 153/69 07/29/23 08:24 Pulse Ox 94 L 07/29/23 08:24 FiO2 80 07/22/23 12:44 Intake & Output 07/28/23 07/29/23 07/29/23 18:59 06:59 18:59 Intake Total 360 0 Output Total 401 400 1 Balance -41 -400 -1 Intake: Oral 360 0 Output: Urine 400 400 Stool 1 1 Other: Voiding Method Diaper External Catheter External Catheter # Voids 1 1 # Bowel Movements 1 1 - Labs CBC & Chem 7: 07/29/23 08:33 07/29/23 08:33 Labs: Abnormal Lab Results - Last 24 Hours (Table) 07/28/23 07/28/23 07/28/23 Range/Units 11:55 16:49 20:24 POC Glucose (mg/dL) 351 H 211 H 126 H (70-110) mg/dL 07/29/23 Range/Units 06:09 POC Glucose (mg/dL) 180 H (70-110) mg/dL
[2023-07-29 16:25] LABS: Glucose,Whole Blood 152 mg/dL (70-110)
[2023-07-29 19:57] LABS: Glucose,Whole Blood 197 mg/dL (70-110)
[2023-07-29] MEDS ORDERED: hydrALAZINE HCL 50 MG TAB PO STA (19:57)
[2023-07-29] MEDS: ATORVASTATIN 80 MG TAB PO SCH (20:13)
[2023-07-30 05:51] LABS: Glucose,Whole Blood 199 mg/dL (70-110)
[2023-07-30] MEDS: INSULIN ASPART (NovoLOG) 100 UNIT/ML VIAL SQ SCH ×4 (06:19→21:03)
[2023-07-30] MEDS: SYMBICORT 160-4.5 MCG INHALER INHALATION SCH ×2 (08:38→21:12)
[2023-07-30] MEDS: ALBUTEROL HFA INHALER INHALATION SCH ×4 (08:38→21:12)
--- NOTE | 2023-07-30 09:00 | XR ---
EXAMINATION TYPE: XR chest 1V DATE OF EXAM: 07/30/2023 7:00 AM CLINICAL INDICATION:Female, 88 years old with history of Follow-up pneumonia; COMPARISON: 07/28/2023 TECHNIQUE: XR chest 1V Frontal view of the chest. FINDINGS: Lungs/Pleura: New opacification of the majority of the left thorax with aeration of the lung apex. Th ere is no evidence of right pleural effusion, focal consolidation, or pneumothorax. There is lucency throughout the right lung. Pulmonary vascularity: Unremarkable. Heart/mediastinum: Cardiomediastinal silhouette is unremarkable. Atherosclerosis of the arterial vasc ulature. Musculoskeletal: No acute osseous pathology. Upper abdominal surgical clips. IMPRESSION: 1. New near complete obscuration of the left hemithorax with aeration of the lung apex. Correlate fo r atelectasis and/or large pleural effusion. 2. Emphysema changes.
[2023-07-30] MEDS: METOPROLOL TARTRATE 50 MG TAB PO SCH (09:39)
[2023-07-30] MEDS: methylPREDNISolone SOD SUCCI 40 MG/ML 1 ML VIAL IV SCH ×2 (09:39→17:50)
[2023-07-30] MEDS: APIXABAN 2.5 MG TABLET PO SCH (09:39)
[2023-07-30] MEDS: MEMANTINE 5 MG TAB PO SCH ×2 (09:39→20:35)
[2023-07-30] MEDS: AMIODARONE 200 MG TAB PO SCH ×2 (09:39→20:35)
[2023-07-30] MEDS: DONEPEZIL 10 MG TAB PO SCH ×2 (09:39→20:35)
[2023-07-30] MEDS: PIPERACILLIN-TAZOBACTAM 3.375 GM in SODIUM CHLORIDE 0.9% 100 ML IVPB SCH ×2 (09:40→17:51)
[2023-07-30 11:54] LABS: Glucose,Whole Blood 177 mg/dL (70-110)
--- NOTE | 2023-07-30 13:04 | P.PN ---
Subjective Progress Note Date: 07/30/23 77-year-old female who was initially seen in the emergency department. We saw her, and room 369, July 20. She was seen in the ER, on July 19. She apparently came into the ER, having had some syncopal episodes, in the shower, where she hit her head. Apparently, there is no family members, with her, and she was a poor historian. When she was brought in by EMS, her saturations were 88% on room air. They gave her nasal O2, at 3 L, and breathing treatments. Currently, the patient is on BiPAP, with settings of 10/5, and 100%. Her saturations are 99%. She's receiving IV heparin, and a Cardizem drip at 5 mg an hour. She's also getting saline at 15 mL an hour. Based on her home medicatio ns, she has a history of hyperlipidemia, vitamin D deficiency, dementia, and hypertension. White count is 6.6, hemoglobin 12.8, hematocrit 40.5, and platelet count 134,000. She had blood gases in the emergency department, showing a pO2 of 47, pCO2 of 37, and pH is 7.36. A repeat blood gas was sim ilar, with a pO2 of 54, pCO2 37, and pH is 7.36. Sodium was 144, potassium 4.2, chlorides 112, CO2 19, BUN 45, and creatinine 1.36. AST was 67. ALT was 44, and troponin was 0.048. N-terminal proBNP was elevated at 3760. Chest x-ray shows moderate cardiomegaly, and mild pulmonary vascular congestion, consistent with the elevated BNP. In addition, there is a focal area of scar and/or nodule, in the left midlung. Progress note dated 07/21/2023. The patient is seen in room 369. She continues on BiPAP, with settings of 10/5 and 80%. I've asked the respiratory therapist, to convert her to nasal cannula, even if it's high flow. She is receiving Cardizem drip at 2.5 mg an hour, and IV heparin via protocol. Clinically, the patient feels like she is better. She gives a thumbs up when asked. White count 9.2, hemoglobin 11.2, hematocrit 36, and platelet count 153,000. Sodium 135, potassium 4.2, chlorides 104, CO2 21, anion gap 10, BUN 40, creatinine 1.13. Blood cultures are negative. A CT angiogram was ordered by the hospitalist service, and showed no evidence of pulmonary changes of COPD and pulmonary arterial hypertension, and possible pneumonitis, in the left lower lobe, and left upper lobe. The patient is on azithromycin, and Rocephin at the current time. And also receiving Solu-Medrol 40 mg every 8 hours. Progress note dated July 2023. 87-year-old female seen today in room 369. The patient is currently on 10 L high flow oxygen, and alternating, with BiPAP, with settings of 10/5, and 80%. The patient's is also getting saline at 15 mL an hour. Unfortunately, the patient did test positive for coronavirus. No new labs today as yet, other than the positive test for coronavirus. The patient is currently in albuterol inhaler, and also on Symbicort, 160/4.5, 2 puffs twice a day. Also, the patient's on Solu-Medrol, 40 mg every 8 hours, and Rocephin. On today's evaluation of 07/23/2023, the patient is being seen for a follow-up. The patient was taken off the BiPAP and the patient is currently on high flow oxygen 10 L/m nasal cannula with a pulse ox of 93%. The patient is a 77-year-old female who was hospitalized for shortness of breath and hypoxic respiratory failure. During the course of this hospitalization, the patient was diagnosed having Covid 19 infection on 07/22/2023. The patient however has significant abnormalities and the CAT scan of the chest which is showing left hilar lymphadenopathy, obstruction of the left lower lobe bronchus and the patient possibly has either a mass or a mucous plug occluding the left lower lobe bronchus. I do favor malignancy. There is also mild to moderate back on emphysema in addition to left lower lobe atelectasis. As mentioned, there is left perihilar and left midlung nodularity measuring up to 2.8 cm in size which could be potentially malignancy. She does have also some myocardial megaly. Meanwhile, the patient remains on Ventolin HFA [id number], IV Rocephin, and IV Solu-Medrol 40 mg every 6 hours. The blood culture has been negative. The rest of the blood work from today shows an obese count of 17.9, hemoglobin is at 11.6 and a platelet count is at 284. BUN is at 31 with a creatinine of 1.1 and his sodium level is at 137. She did have a component of acute kidney injury which is improved at this point in time. On 07/24/2023 the patient is awake and alert and she is communicating. She is currently on 6 L of oxygen by nasal cannula and there has been ongoing slow improvement in the patient's oxygenation. She has some limited congestive cough. No significant sputum production. No fever. No chills. As discussed earlier, the CAT scan of the chest that was done during this current hospitalization showed left hilar lymphadenopathy, obstruction of the left lower lobe bronchus and possibility of malignancy is obviously entertained. There is another opacity in the left perihilar area in addition. White cell count of 15.4, hemoglobin 11.4, platelet count is 248, BUN is at 39 with a creatinine of 1.09 and a sodium level is at 138. Blood sugars at 172. The patient is on anticoagulations with Eliquis 2.5 mg twice a day. The patient IV Rocephin. The patient is on Lasix 40 mg by mouth twice a day. The patient remains on IV Solu- Medrol 40 mg every 8 hours. On 07/25/2023, the patient remains on 6 L with a pulse ox of 96%. No new complaints. As mentioned earlier, the patient has positive Covid 19 infection. At the same time, the patient has left lower lobe atelectasis and possibility of a malignancy in the left hilar area an obstructive lesion in the left lower lobe bronchus. Based on age and comorbidities, bronchoscopy was not done. She remains on IV Rocephin. She is resting comfortably in bed. She remains on IV Solu-Medrol. Labs from today showing a white cell count 19.7, hemoglobin is 12.2, BUN is 48 with a creatinine of 1.08 and a sodium level is at 134. On 07/26/2023, the patient has been weaned down to 5 L of oxygen by nasal cannula pH is resting comfortably in bed. No new complaints. No shortness of breath or chest pain at rest. She remains on IV Rocephin. She remains on Symbicort as maintenance and albuterol HFA [id number]. She remains on IV Solu-Medrol. She remains on oral Lasix 40 mg twice a day and anticoagulation with Eliquis 2.5 mg twice a day. No significant interval change in her overall condition. On today's evaluation of 07/27/2023, the patient is cough and copious amounts of thick purulent sputum. Despite this, and oxygen is improved and she is currently down to 4 L of oxygen by nasal cannula. A repeat chest x-ray was done and shows an area of consolidation of the left upper lobe which is a new finding compared to the earlier chest x-ray and CAT scan of the chest. As such, it seems that the patient's pneumonias progress. Based on all this, I started the patient on IV Zosyn. The patient remains on IV Solu-Medrol and bronchodilators. He is awake and alert and communicating at this point in time. The white cell count today's of 20 with a hemoglobin 11.1 and a BUN 64 with a creatinine of 1.47 and a sodium level is at 133. She continues to have persistent leukocytosi s. She is afebrile for now. We'll attempt to collect another sputum sample for Gram stain and culture. On 07/28/2023, the patient is sitting up on a chair and she is calm and comfortable. No significant complaints. Cough is present and the patient is bringing significant amount of sputum. She remains on 4 L. A repeat chest x- ray was done and shows improvement in the left upper lobe consolidation. Her breathing is nonlabored. Her renal function is being monitored. Creatinine 1.5 with a BUN of 63. The white suppositive elevated at 19.4, hemoglobin is 11.8. No other significant complaints. She is profoundly aggressive pulmonary toileting. On 07/29/2023, the patient remains on IV Zosyn. The patient remains on IV Solu- Medrol 40 mg every 8 hours. No new complaints. Oxygenation is being monitored very closely and the patient was brought back to up to 6 L of O2 nasal cannula. The chest x-ray from yesterday was showing improvement left upper lobe consolidation. The white blood count remains elevated at 29, hemoglobin 11.1, BUN is at 64 with a creatinine of 1.49 and his sodium levels of 134 and the potassium levels at 3.4. The patient is seen today 07/30/2023 in follow-up on the selective care unit. She is currently sitting up in bed. Awake and alert in no acute distress. She is still requiring 6 L high flow nasal cannula. Chest x-ray shows near complete opacification of the left lung. She's been Covid positive since 07/22/2023. Sputum culture revealed no growth. Blood cultures reveal no growth. She remains on Symbicort, Ventolin HFA, IV Solu-Medrol. Antibiotics in the form of Zosyn. The patient has been slow to progress. No significant improvement in her chest x-ray. We'll plan for bronchoscopy with BAL tomorrow. Objective - Vital Signs Vital signs: Vital Signs Temp 98.2 F 07/30/23 08:00 Pulse 56 L 07/30/23 08:00 Resp 20 07/30/23 08:00 BP 176/74 07/30/23 08:00 Pulse Ox 96 07/30/23 08:39 FiO2 80 07/22/23 12:44 Intake & Output 07/29/23 07/30/23 07/30/23 18:59 06:59 18:59 Intake Total 480 Output Total 202 500 Balance 278 -500 Intake: Oral 480 Output: Urine 200 500 Stool 2 Other: Voiding Method External Catheter External Catheter External Catheter # Voids 1 - Exam GENERAL EXAM: Alert, pleasant 88-year-old female, on 6 L high flow nasal cannula, comfortable in no apparent distress. HEAD: Normocephalic. EYES: Normal reaction of pupils, equal size. NOSE: Clear with pink turbinates. THROAT: No erythema or exudates. NECK: No masses, no JVD. CHEST: No chest wall deformity. LUNGS: Equal air entry with crackles, diminished throughout the left lung. CVS: S1 and S2 normal with no audible murmur, regular rhythm. ABDOMEN: No hepatosplenomegaly, normal bowel sounds, no guarding or rigidity. SPINE: No scoliosis or deformity SKIN: No rashes CENTRAL NERVOUS SYSTEM: No focal deficits, tone is normal in all 4 extremities. EXTREMITIES: There is no peripheral edema. No clubbing, no cyanosis. Peripheral pulses are intact. - Labs CBC & Chem 7: 07/29/23 08:33 07/29/23 08:33 Labs: Abnormal Lab Results - Last 24 Hours (Table) 07/29/23 07/29/23 07/30/23 Range/Units 16:23 19:55 05:49 POC Glucose (mg/dL) 152 H 197 H 199 H (70-110) mg/dL 07/30/23 Range/Units 11:53 POC Glucose (mg/dL) 177 H (70-110) mg/dL Microbiology - Last 24 Hours (Table) 07/28/23 03:51 Gram Stain - Final Sputum Sputum Culture - Final Assessment and Plan Assessment: Acute hypoxemic respiratory failure, likely multifactorial, in part related to COPD exacerbation, left lower lobe pneumonia/atelectasis, complete opacification left lower lobe bronchus, and Covid 19 infection with areas of groundglass changes bilaterally. Repeat chest x-ray today shows worsening consolidation of the left upper lobe suggestive of pneumonia progression. The patient remains on Zosyn. The patient is currently on 6 L O2 nasal cannula Bilateral pulmonary infiltrates with areas of groundglass changes, could be related to Covid 19 infection. In addition, there is a left perihilar nodularity measuring up to 2.8 cm which obviously raises the concern for malignancy. Left lower lobe atelectasis, with a suspicious opacity in left lower lobe bronchus and lymphadenopathy. We reviewed the CAT scan of the chest and there is extensive and the bronchial opacification of the left lower lobe bronchus which could be either a neoplasm or aspiration. There is however volume loss in the left lung base along with left basilar atelectasis. Left upper lobe consolidation/pneumonia, currently on Zosyn Persistent leukocytosis, white cell count remains elevated at 29 Patient tested positive for coronavirus infection, 07/22/2023. COPD History of smoking History of hyperlipidemia History of hypertension History of dementia History of vitamin D deficiency CHF with LV systolic dysfunction with an ejection fraction of 35-40% and moderate mitral regurgitation Atrial fibrillation with RVR, current rhythm is sinus and the patient is an anticoagulation. Questionable tachybradycardia syndrome/sick sinus syndrome along with paroxysmal A. fib Plan: The patient was seen and evaluated Chest x-ray labs and medications reviewed Continues with complete opacification of the left lung We'll plan for bronchoscopy with BAL and possible biopsies tomorrow Hold Eliquis Continue Zosyn, bronchodilators, Solu-Medrol Titrate the FiO2 as tolerated We will continue to follow I have personally seen and examined the patient, performed the documentation and the assessment and plan as written. Number of minutes spent on the visit: 10.
[2023-07-30 13:13] LABS: HCT 31.9 % (34.0-46.0); HGB 10.6 gm/dL (11.4-16.0); MCH 27.5 pg (25.0-35.0); MCHC 33.3 g/dL (31.0-37.0); MCV 82.5 fL (80.0-100.0); Mean Platelet Volume 8.5; Platelet Count 235 k/uL (150-450); RBC 3.86 m/uL (3.80-5.40); RDW 15.7 % (11.5-15.5); WBC 26.8 k/uL (3.8-10.6)
[2023-07-30 14:01] LABS: ALT 41 U/L (4-34); AST 42 U/L (14-36); African American GFR (CKD) 48 (>60 ml/min/1.73 sqM); Albumin 2.9 g/dL (3.5-5.0); Alkaline Phosphatase 76 U/L (38-126); Anion Gap 5 mmol/L; Blood Urea Nitrogen 72 mg/dL (7-17); Calcium 8.8 mg/dL (8.4-10.2); Carbon Dioxide 29 mmol/L (22-30); Chloride 98 mmol/L (98-107); Glucose 149 mg/dL (74-99); LDH 393 U/L (120-246); Magnesium 2.2 mg/dL (1.6-2.3); Non-African American GFR(CKD) 41 (>60 ml/min/1.73 sqM); Potassium 3.8 mmol/L (3.5-5.1); Sodium 132 mmol/L (137-145); Total Protein 5.9 g/dL (6.3-8.2)
[2023-07-30 14:17] LABS: C Reactive Protein 3.2 mg/dL (<1.0)
--- NOTE | 2023-07-30 14:28 | P.PN ---
Subjective Progress Note Date: 07/30/23 Hospital course: Patient is a very pleasant 87-year-old female with history of dementia, hypertension, dyslipidemia, COPD presenting with recurrent syncopal episodes. She presented to the emergency department on 07/19/23 with a chief complaint of syncopal episode and shortness of breath. On initial presentation, temperature was 98.3, pulse 80, respiratory rate 26, blood pressure 166/83, saturating at 96% on [address] shows no acute process, cervical spine CT shows some diffuse pole lysis within cervical spine, possible metastatic disease. Initial EKG showed sinus rhythm with left bundle branch block at 75 bpm. Patient subsequently did go into atrial fibrillation with RVR. Initial labs showed WBC of 6.6, hemoglobin 12.8, platelet 134, sodium 144, bicarb 19, creatinine 1.36, troponin 0.048, proBNP 3700, pH 7.36, pO2 47. Chest x-ray showed interstitial prominence with left midlung opacity. Patient subsequently became more hypoxic and required BiPAP. She was adminitted under our services for hypoxic respiratory failure, new onset atrial fibrillation with RVR, COPD with acute exacerbation, and concerns for fluid volume overload. Consults were placed to pulmonology and cardiology. Patient found to be COVID-[address] negative for PE, does have left perihilar and left midlung nodularity concerning for neoplastic or atypical infection, extensive endobronchial opacification throughout the left lower lung, possible neoplasm versus extensive aspiration, patchy groundglass opacities in left upper lobe, possible moderate to severe st enosis at the arch vessel origin. Echocardiogram completed showing a reduced EF of 35-40% with hypokinetic inferioseptal and inferior wall with moderate right ventricular dilation and aneurysmal interatrial septum with suspicion of PFO and moderate mitral and tricuspid regurgitation..Cardiology evaluated and cleared patient from cardiac perspective on 07/25/23, recommending outpatient follow-up in their office in 2 weeks post discharge. Lasix was discontinued secondary to worsening renal functionRepeat chest x-ray 07/30/23 showing worsening with new near complete opacification of the left hemithorax with the aeration of the lung apex concerning for large pleural effusion along with emphysematous changes. Patient continues to have high oxygen needs and remains on 6 L O2 via nasal cannula with SpO2 of 94%.. Pulmonology following stating they will take patient for bronchoscopy with BAL tomorrow. Physical exam: Patient seen and fully evaluated at bedside this morning. She continues to have high oxygen needs and is on 6 L O2 via nasal cannula. Patient reports she feels she is breathing slightly better and continues to have productive cough with shapr-colored sputum. Vitals Signs Reviewed. General: non toxic, no distress, appears at stated age Derm: warm, dry Head: atraumatic, normocephalic, symmetric Eyes: EOMI, no lid lag, anicteric sclera Mouth: no lip lesion, mucus membranes moist Cardiovascular: S1S2 reg, stage IV systolic murmur, positive posterior tibial pulse bilateral, Lungs: Lungs diffuse coarse rhonchi with bilateral expiratory wheezes on 6 L O2 via nasal cannula. No accessory muscle usage. Patient does have conversational dyspnea noted after approximately 4 words.. Abdominal: soft, nontender to palpation, no guarding, no appreciable organomegaly Ext: no gross muscle atrophy, no edema, no contractures Neuro: CN II-XI grossly intact, no focal neuro deficits Psych: Alert, oriented x2-3, appropriate and pleasant affect Assessment and Plan: Acute COVID-19 pneumonia Acute hypoxic respiratory failure COPD exacerbation Suspected superimposed bacterial pneumonia Leukocytosis, worsening Recurrent syncopal episodes, possibly sick sinus syndrome versus valvular disease Paroxysmal Atrial fibrillation with RVR, rate controlled Type 2 NSTEMI High anion Gap metabolic acidosis, improving Acute kidney injury Mild normocytic anemia, likely secondary to acute illness Mild thrombocytopenia, resolved Hyperglycemia, steroid-induced Chronic systolic heart failure with reduced EF of 35-40% -Repeat chest x-ray 07/30/23 showing worsening with new near complete o pacification of the left hemithorax with the aeration of the lung apex concerning for large pleural effusion along with emphysematous changes. -Patient continues to have high oxygen needs and remains on 6 L O2 via nasal cannula with SpO2 of 94%.. -Pulmonology following stating they will take patient for bronchoscopy with BAL tomorrow -Continue IV Antibiotics: Zosyn 3.375 g every 12 hours, Solu-Medrol 40 mg every 8 hours, Symbicort 2 puffs twice daily, and scheduled Ventolin inhaler 4 times daily and every 2 hours as needed for wheezing/shortness of breath. -Blood cultures no growth to date, sputum cultures collected 07/28/23 also showing no growth to date. -Continue amiodarone 200 mg twice daily, Eliquis 2.5 mg twice daily, and metoprolol 50 mg twice daily. -Repeat CBC and BMP tomorrow -Continue glycemic protocol with NovoLog Sliding scale insulin -Recommend encouragement and continuation of flutter valve, to assist with removal of excess sputum/mucus production. Dementia Dyslipidemia Hypertension -Patient to continue daily medication regimen with atorvastatin 80 mg nightly Aricept 10 mg twice daily, and Namenda 5 mg twice daily Data reviewed: Morning labs reviewed. CBC showing persistent leukocytosis with WBC count of 26.8 and normocytic anemia with hemoglobin stable at 10.6. BMP showing mild hyponatremia with sodium 132 and elevated renal function with BUN of 72, creatinine 1.18, and GFR 41. Liver profile showing elevated AST of 42 and ALT of 41. LDH elevated at 393 and CRP of 3.2. Vital signs reviewed. Blood pressure 176/74, heart rate 62, respiratory rate 20, temp 98.2F, and SpO2 of 93% on 6 L. Imaging reviewed: -Repeat chest x-ray this morning is worsening with new near complete opacification of the left hemithorax with the aeration of the lung apex concerning for large pleural effusion along with emphysematous changes. DVT ppx: Eliquis Code status: DNR/DNI Anticipated discharge place: Will likely need rehab Anticipated discharge time: Pending clinical course Patient was seen independently by Nurse Pracitioner. This document was prepared using [id number] dictation software. Please allow for errors in owner spa director, while rare they do occur. Objective - Vital Signs Vital signs: Vital Signs Temp 97.7 F 07/30/23 04:00 Pulse 56 L 07/30/23 04:00 Resp 20 07/30/23 04:00 BP 154/108 07/30/23 04:00 Pulse Ox 94 L 07/30/23 04:00 FiO2 80 07/22/23 12:44 Intake & Output 07/29/23 07/30/23 07/30/23 18:59 06:59 18:59 Intake Total 480 Output Total 202 500 Balance 278 -500 Intake: Oral 480 Output: Urine 200 500 Stool 2 Other: Voiding Method External Catheter External Catheter # Voids 1 - Labs CBC & Chem 7: 07/30/23 12:51 07/30/23 12:51 Labs: Abnormal Lab Results - Last 24 Hours (Table) 07/29/23 07/29/23 07/29/23 Range/Units 08:33 08:33 11:44 WBC 29.2 H (3.8-10.6) k/uL Hgb 11.1 L (11.4-16.0) gm/dL Sodium 134 L (137-145) mmol/L Potassium 3.4 L (3.5-5.1) mmol/L Chloride 93 L (98-107) mmol/L Carbon Dioxide 32 H (22-30) mmol/L BUN 64 H (7-17) mg/dL Creatinine 1.49 H (0.52-1.04) mg/dL Glucose 225 H (74-99) mg/dL POC Glucose (mg/dL) 182 H (70-110) mg/dL AST 47 H (14-36) U/L ALT 52 H (4-34) U/L Total Protein 6.1 L (6.3-8.2) g/dL Albumin 3.1 L (3.5-5.0) g/dL 07/29/23 07/29/23 07/30/23 Range/Units :23 19:55 05:49 WBC (3.8-10.6) k/uL Hgb (11.4-16.0) gm/dL Sodium (137-145) mmol/L Potassium (3.5-5.1) mmol/L Chloride (98-107) mmol/L Carbon Dioxide (22-30) mmol/L BUN (7-17) mg/dL Creatinine (0.52-1.04) mg/dL Glucose (74-99) mg/dL POC Glucose (mg/dL) 152 H 197 H 199 H (70-110) mg/dL AST (14-36) U/L ALT (4-34) U/L Total Protein (6.3-8.2) g/dL Albumin (3.5-5.0) g/dL Microbiology - Last 24 Hours (Table) 07/28/23 03:51 Gram Stain - Preliminary Sputum Sputum Culture - Preliminary
[2023-07-30 16:45] LABS: Glucose,Whole Blood 210 mg/dL (70-110)
[2023-07-30] MEDS ORDERED: hydrALAZINE HCL 25 MG TAB PO STA (20:11)
[2023-07-30] MEDS: guaiFENesin 600 MG TABLET.ER PO PRN (20:34)
[2023-07-30] MEDS: ATORVASTATIN 80 MG TAB PO SCH (20:35)
[2023-07-30 20:43] LABS: Glucose,Whole Blood 153 mg/dL (70-110)
[2023-07-31] MEDS: methylPREDNISolone SOD SUCCI 40 MG/ML 1 ML VIAL IV SCH ×3 (00:06→17:45)
[2023-07-31] MEDS: METOPROLOL TARTRATE 50 MG TAB PO SCH ×3 (00:06→20:23)
[2023-07-31] MEDS: PIPERACILLIN-TAZOBACTAM 3.375 GM in SODIUM CHLORIDE 0.9% 100 ML IVPB SCH ×3 (00:06→17:45)
[2023-07-31 06:01] LABS: Glucose,Whole Blood 157 mg/dL (70-110)
[2023-07-31] MEDS: INSULIN ASPART (NovoLOG) 100 UNIT/ML VIAL SQ SCH ×3 (06:08→18:10)
[2023-07-31] MEDS: ALBUTEROL HFA INHALER INHALATION SCH ×4 (07:34→20:39)
[2023-07-31] MEDS: SYMBICORT 160-4.5 MCG INHALER INHALATION SCH ×2 (07:34→20:39)
[2023-07-31] MEDS: MEMANTINE 5 MG TAB PO SCH ×2 (08:55→20:48)
[2023-07-31] MEDS: DONEPEZIL 10 MG TAB PO SCH ×2 (08:55→20:48)
[2023-07-31] MEDS: AMIODARONE 200 MG TAB PO SCH ×2 (08:55→20:48)
[2023-07-31 09:54] LABS: HCT 32.8 % (34.0-46.0); HGB 10.7 gm/dL (11.4-16.0); MCH 27.7 pg (25.0-35.0); MCHC 32.7 g/dL (31.0-37.0); MCV 84.5 fL (80.0-100.0); Mean Platelet Volume 8.5; Platelet Count 222 k/uL (150-450); RBC 3.88 m/uL (3.80-5.40); RDW 15.7 % (11.5-15.5)
[2023-07-31 11:14] LABS: Erythrocyte Sedimentation Rate 31 mm/hr (0-20)
[2023-07-31 11:34] LABS: ALT 38 U/L (4-34); AST 40 U/L (14-36); African American GFR (CKD) 46 (>60 ml/min/1.73 sqM); Albumin 2.8 g/dL (3.5-5.0); Alkaline Phosphatase 83 U/L (38-126); Anion Gap 7 mmol/L; Blood Urea Nitrogen 64 mg/dL (7-17); C Reactive Protein 6.4 mg/dL (<1.0); Calcium 8.9 mg/dL (8.4-10.2); Carbon Dioxide 31 mmol/L (22-30); Chloride 97 mmol/L (98-107); Glucose 171 mg/dL (74-99); LDH 360 U/L (120-246); Magnesium 2.3 mg/dL (1.6-2.3); Non-African American GFR(CKD) 40 (>60 ml/min/1.73 sqM); Potassium 3.4 mmol/L (3.5-5.1); Sodium 135 mmol/L (137-145); Total Bilirubin 1.1 mg/dL (0.2-1.3); Total Protein 5.8 g/dL (6.3-8.2)
[2023-07-31 11:42] LABS: Glucose,Whole Blood 186 mg/dL (70-110)
[2023-07-31] MEDS ORDERED: ePHEDrine 50 MG/ML 1 ML VIAL ONE (12:57)
[2023-07-31] MEDS ORDERED: SUCCINYLCHOLINE CHLORIDE 200 MG/10 ML VIAL IV ONE (12:57)
[2023-07-31] MEDS ORDERED: LIDOCAINE 2% INJ 20 MG/ML (2 ML VIAL) ONE (12:57)
[2023-07-31] MEDS ORDERED: PHENYLEPHRINE-0.9% NACL SYG 1,000 MCG/10 ML SYRINGE ONE (12:57)
[2023-07-31] MEDS ORDERED: ETOMIDATE 2 MG/ML 10 ML VIAL ONE (12:57)
[2023-07-31] MEDS ORDERED: ROCURONIUM 10 MG/ML (5 ML VIAL) IV ONE (12:57)
[2023-07-31] MEDS ORDERED: LACTATED RINGERS 1,000 ML IV ONE (13:07)
--- NOTE | 2023-07-31 14:07 | P.PN ---
Subjective Progress Note Date: 07/31/23 77-year-old female who was initially seen in the emergency department. We saw her, and room 369, July 20. She was seen in the ER, on July 19. She apparently came into the ER, having had some syncopal episodes, in the shower, where she hit her head. Apparently, there is no family members, with her, and she was a poor historian. When she was brought in by EMS, her saturations were 88% on room air. They gave her nasal O2, at 3 L, and breathing treatments. Currently, the patient is on BiPAP, with settings of 10/5, and 100%. Her saturations are 99%. She's receiving IV heparin, and a Cardizem drip at 5 mg an hour. She's also getting saline at 15 mL an hour. Based on her home medicatio ns, she has a history of hyperlipidemia, vitamin D deficiency, dementia, and hypertension. White count is 6.6, hemoglobin 12.8, hematocrit 40.5, and platelet count 134,000. She had blood gases in the emergency department, showing a pO2 of 47, pCO2 of 37, and pH is 7.36. A repeat blood gas was sim ilar, with a pO2 of 54, pCO2 37, and pH is 7.36. Sodium was 144, potassium 4.2, chlorides 112, CO2 19, BUN 45, and creatinine 1.36. AST was 67. ALT was 44, and troponin was 0.048. N-terminal proBNP was elevated at 3760. Chest x-ray shows moderate cardiomegaly, and mild pulmonary vascular congestion, consistent with the elevated BNP. In addition, there is a focal area of scar and/or nodule, in the left midlung. Progress note dated 07/21/2023. The patient is seen in room 369. She continues on BiPAP, with settings of 10/5 and 80%. I've asked the respiratory therapist, to convert her to nasal cannula, even if it's high flow. She is receiving Cardizem drip at 2.5 mg an hour, and IV heparin via protocol. Clinically, the patient feels like she is better. She gives a thumbs up when asked. White count 9.2, hemoglobin 11.2, hematocrit 36, and platelet count 153,000. Sodium 135, potassium 4.2, chlorides 104, CO2 21, anion gap 10, BUN 40, creatinine 1.13. Blood cultures are negative. A CT angiogram was ordered by the hospitalist service, and showed no evidence of pulmonary changes of COPD and pulmonary arterial hypertension, and possible pneumonitis, in the left lower lobe, and left upper lobe. The patient is on azithromycin, and Rocephin at the current time. And also receiving Solu-Medrol 40 mg every 8 hours. Progress note dated July 2023. 87-year-old female seen today in room 369. The patient is currently on 10 L high flow oxygen, and alternating, with BiPAP, with settings of 10/5, and 80%. The patient's is also getting saline at 15 mL an hour. Unfortunately, the patient did test positive for coronavirus. No new labs today as yet, other than the positive test for coronavirus. The patient is currently in albuterol inhaler, and also on Symbicort, 160/4.5, 2 puffs twice a day. Also, the patient's on Solu-Medrol, 40 mg every 8 hours, and Rocephin. On today's evaluation of 07/23/2023, the patient is being seen for a follow-up. The patient was taken off the BiPAP and the patient is currently on high flow oxygen 10 L/m nasal cannula with a pulse ox of 93%. The patient is a 77-year-old female who was hospitalized for shortness of breath and hypoxic respiratory failure. During the course of this hospitalization, the patient was diagnosed having Covid 19 infection on 07/22/2023. The patient however has significant abnormalities and the CAT scan of the chest which is showing left hilar lymphadenopathy, obstruction of the left lower lobe bronchus and the patient possibly has either a mass or a mucous plug occluding the left lower lobe bronchus. I do favor malignancy. There is also mild to moderate back on emphysema in addition to left lower lobe atelectasis. As mentioned, there is left perihilar and left midlung nodularity measuring up to 2.8 cm in size which could be potentially malignancy. She does have also some myocardial megaly. Meanwhile, the patient remains on Ventolin HFA [id number], IV Rocephin, and IV Solu-Medrol 40 mg every 6 hours. The blood culture has been negative. The rest of the blood work from today shows an obese count of 17.9, hemoglobin is at 11.6 and a platelet count is at 284. BUN is at 31 with a creatinine of 1.1 and his sodium level is at 137. She did have a component of acute kidney injury which is improved at this point in time. On 07/24/2023 the patient is awake and alert and she is communicating. She is currently on 6 L of oxygen by nasal cannula and there has been ongoing slow improvement in the patient's oxygenation. She has some limited congestive cough. No significant sputum production. No fever. No chills. As discussed earlier, the CAT scan of the chest that was done during this current hospitalization showed left hilar lymphadenopathy, obstruction of the left lower lobe bronchus and possibility of malignancy is obviously entertained. There is another opacity in the left perihilar area in addition. White cell count of 15.4, hemoglobin 11.4, platelet count is 248, BUN is at 39 with a creatinine of 1.09 and a sodium level is at 138. Blood sugars at 172. The patient is on anticoagulations with Eliquis 2.5 mg twice a day. The patient IV Rocephin. The patient is on Lasix 40 mg by mouth twice a day. The patient remains on IV Solu- Medrol 40 mg every 8 hours. On 07/25/2023, the patient remains on 6 L with a pulse ox of 96%. No new complaints. As mentioned earlier, the patient has positive Covid 19 infection. At the same time, the patient has left lower lobe atelectasis and possibility of a malignancy in the left hilar area an obstructive lesion in the left lower lobe bronchus. Based on age and comorbidities, bronchoscopy was not done. She remains on IV Rocephin. She is resting comfortably in bed. She remains on IV Solu-Medrol. Labs from today showing a white cell count 19.7, hemoglobin is 12.2, BUN is 48 with a creatinine of 1.08 and a sodium level is at 134. On 07/26/2023, the patient has been weaned down to 5 L of oxygen by nasal cannula pH is resting comfortably in bed. No new complaints. No shortness of breath or chest pain at rest. She remains on IV Rocephin. She remains on Symbicort as maintenance and albuterol HFA [id number]. She remains on IV Solu-Medrol. She remains on oral Lasix 40 mg twice a day and anticoagulation with Eliquis 2.5 mg twice a day. No significant interval change in her overall condition. On today's evaluation of 07/27/2023, the patient is cough and copious amounts of thick purulent sputum. Despite this, and oxygen is improved and she is currently down to 4 L of oxygen by nasal cannula. A repeat chest x-ray was done and shows an area of consolidation of the left upper lobe which is a new finding compared to the earlier chest x-ray and CAT scan of the chest. As such, it seems that the patient's pneumonias progress. Based on all this, I started the patient on IV Zosyn. The patient remains on IV Solu-Medrol and bronchodilators. He is awake and alert and communicating at this point in time. The white cell count today's of 20 with a hemoglobin 11.1 and a BUN 64 with a creatinine of 1.47 and a sodium level is at 133. She continues to have persistent leukocytosi s. She is afebrile for now. We'll attempt to collect another sputum sample for Gram stain and culture. On 07/28/2023, the patient is sitting up on a chair and she is calm and comfortable. No significant complaints. Cough is present and the patient is bringing significant amount of sputum. She remains on 4 L. A repeat chest x- ray was done and shows improvement in the left upper lobe consolidation. Her breathing is nonlabored. Her renal function is being monitored. Creatinine 1.5 with a BUN of 63. The white suppositive elevated at 19.4, hemoglobin is 11.8. No other significant complaints. She is profoundly aggressive pulmonary toileting. On 07/29/2023, the patient remains on IV Zosyn. The patient remains on IV Solu- Medrol 40 mg every 8 hours. No new complaints. Oxygenation is being monitored very closely and the patient was brought back to up to 6 L of O2 nasal cannula. The chest x-ray from yesterday was showing improvement left upper lobe consolidation. The white blood count remains elevated at 29, hemoglobin 11.1, BUN is at 64 with a creatinine of 1.49 and his sodium levels of 134 and the potassium levels at 3.4. The patient is seen today 07/30/2023 in follow-up on the selective care unit. She is currently sitting up in bed. Awake and alert in no acute distress. She is still requiring 6 L high flow nasal cannula. Chest x-ray shows near complete opacification of the left lung. She's been Covid positive since 07/22/2023. Sputum culture revealed no growth. Blood cultures reveal no growth. She remains on Symbicort, Ventolin HFA, IV Solu-Medrol. Antibiotics in the form of Zosyn. The patient has been slow to progress. No significant improvement in her chest x-ray. We'll plan for bronchoscopy with BAL tomorrow. The patient is seen today 04/30/2023 in follow-up on the selective care unit. She is resting comfortably in bed. He is requiring 8 L high flow nasal cannula to maintain O2 saturation low 90s. She's been afebrile. Slightly hypertensive. Sputum culture revealed no growth. Blood cultures revealed no growth. White count 25.0. Hemoglobin 10.7. Sodium 135. Potassium 3.4. Bicarb 31. BUN 64. Creatinine 1.22. Glucose 171. AST 40. ALT 38. C-reactive protein 6.4. She remains on Symbicort, Ventolin HFA, IV Solu-Medrol. Antibiotics in the form of Zosyn. Plan is for bronchoscopy with BAL today. Objective - Vital Signs Vital signs: Vital Signs Temp 97.7 F 07/31/23 12:00 Pulse 52 L 07/31/23 12:00 Resp 20 07/31/23 12:00 BP 185/77 07/31/23 12:00 Pulse Ox 97 07/31/23 12:00 FiO2 80 07/22/23 12:44 Intake & Output 07/30/23 07/31/23 07/31/23 18:59 06:59 18:59 Intake Total 180 0 Output Total 1 350 400 Balance 179 -350 -400 Weight 47.5 kg Intake: IV 0 Oral 180 Output: Urine 150 400 Stool 1 Urine/Stool Mix 200 Other: Voiding Method External Catheter External Catheter External Catheter # Bowel Movements 1 - Exam GENERAL EXAM: Alert, pleasant, frail 88-year-old female, on 8 L high flow nasal cannula, comfortable in no apparent distress. HEAD: Normocephalic. EYES: Normal reaction of pupils, equal size. NOSE: Clear with pink turbinates. THROAT: No erythema or exudates. NECK: No masses, no JVD. CHEST: No chest wall deformity. LUNGS: Equal air entry with crackles, diminished throughout the left lung. CVS: S1 and S2 normal with no audible murmur, regular rhythm. ABDOMEN: No hepatosplenomegaly, normal bowel sounds, no guarding or rigidity. SPINE: No scoliosis or deformity SKIN: No rashes CENTRAL NERVOUS SYSTEM: No focal deficits, tone is normal in all 4 extremities. EXTREMITIES: There is no peripheral edema. No clubbing, no cyanosis. Peripheral pulses are intact. - Labs CBC & Chem 7: 07/31/23 09:12 07/31/23 09:12 Labs: Abnormal Lab Results - Last 24 Hours (Table) 07/30/23 07/30/23 07/30/23 Range/Units 12:51 12:51 16:44 WBC (3.8-10.6) k/uL Hgb (11.4-16.0) gm/dL Hct (34.0-46.0) % RDW (11.5-15.5) % ESR (0-20) mm/hr Sodium (137-145) mmol/L Potassium (3.5-5.1) mmol/L Chloride (98-107) mmol/L Carbon Dioxide (22-30) mmol/L BUN (7-17) mg/dL Creatinine (0.52-1.04) mg/dL Glucose (74-99) mg/dL POC Glucose (mg/dL) 210 H (70-110) mg/dL AST (14-36) U/L ALT (4-34) U/L Lactate Dehydrogenase (120-246) U/L C-Reactive Protein 3.2 H (<1.0) mg/dL Total Protein (6.3-8.2) g/dL Albumin (3.5-5.0) g/dL Procalcitonin 0.59 H (0.02-0.09) ng/mL 07/30/23 07/31/23 07/31/23 Range/Units 20:42 06:00 09:12 WBC 25.0 H (3.8-10.6) k/uL Hgb 10.7 L (11.4-16.0) gm/dL Hct 32.8 L (34.0-46.0) % RDW 15.7 H (11.5-15.5) % ESR 31 H (0-20) mm/hr Sodium (137-145) mmol/L Potassium (3.5-5.1) mmol/L Chloride (98-107) mmol/L Carbon Dioxide (22-30) mmol/L BUN (7-17) mg/dL Creatinine (0.52-1.04) mg/dL Glucose (74-99) mg/dL POC Glucose (mg/dL) 153 H 157 H (70-110) mg/dL AST (14-36) U/L ALT (4-34) U/L Lactate Dehydrogenase (120-246) U/L C-Reactive Protein (<1.0) mg/dL Total Protein (6.3-8.2) g/dL Albumin (3.5-5.0) g/dL Procalcitonin (0.02-0.09) ng/mL 07/31/23 07/31/23 Range/Units 09:12 11:41 WBC (3.8-10.6) k/uL Hgb (11.4-16.0) gm/dL Hct (34.0-46.0) % RDW (11.5-15.5) % ESR (0-20) mm/hr Sodium 135 L (137-145) mmol/L Potassium 3.4 L (3.5-5.1) mmol/L Chloride 97 L (98-107) mmol/L Carbon Dioxide 31 H (22-30) mmol/L BUN 64 H (7-17) mg/dL Creatinine 1.22 H (0.52-1.04) mg/dL Glucose 171 H (74-99) mg/dL POC Glucose (mg/dL) 186 H (70-110) mg/dL AST 40 H (14-36) U/L ALT 38 H (4-34) U/L Lactate Dehydrogenase 360 H (120-246) U/L C-Reactive Protein 6.4 H (<1.0) mg/dL Total Protein 5.8 L (6.3-8.2) g/dL Albumin 2.8 L (3.5-5.0) g/dL Procalcitonin (0.02-0.09) ng/mL Assessment and Plan Assessment: Acute hypoxemic respiratory failure, likely multifactorial, in part related to COPD exacerbation, left lower lobe pneumonia/atelectasis, complete opacification left lower lobe bronchus, and Covid 19 infection with areas of groundglass changes bilaterally. Repeat chest x-ray shows worsening consolidation of the left upper lobe suggestive of pneumonia progression. The patient remains on Zosyn. The patient is currently on 8 L O2 nasal cannula Bilateral pulmonary infiltrates with areas of groundglass changes, could be related to Covid 19 infection. In addition, there is a left perihilar nodularity measuring up to 2.8 cm which obviously raises the concern for malignancy. Left lower lobe atelectasis, with a suspicious opacity in left lower lobe bronchus and lymphadenopathy. We reviewed the CAT scan of the chest and there is extensive and the bronchial opacification of the left lower lobe bronchus which could be either a neoplasm or aspiration. There is however volume loss in the left lung base along with left basilar atelectasis. Left upper lobe consolidation/pneumonia, currently on Zosyn Persistent leukocytosis, white cell count remains elevated at 29 Patient tested positive for coronavirus infection, 07/22/2023. COPD History of smoking History of hyperlipidemia History of hypertension History of dementia History of vitamin D deficiency CHF with LV systolic dysfunction with an ejection fraction of 35-40% and moderate mitral regurgitation Atrial fibrillation with RVR, current rhythm is sinus and the patient is an anticoagulation. Questionable tachybradycardia syndrome/sick sinus syndrome along with paroxysmal A. fib Plan: The patient was seen and evaluated Labs and medications reviewed Currently on 8 L high flow nasal cannula We'll plan for bronchoscopy with BAL and possible biopsies today Continue Zosyn, bronchodilators, Solu-Medrol Titrate the FiO2 as tolerated We will continue to follow I have personally seen and examined the patient, performed the documentation and the assessment and plan as written. Number of minutes spent on the visit: 10.
[2023-07-31] MEDS ORDERED: AMIODARONE 360 MG in DEXTROSE 5% IN WATER 200 ML IV ONE ×2 (15:00)
[2023-07-31 15:18] LABS: Glucose,Whole Blood 201 mg/dL (70-110)
[2023-07-31] MEDS: propofoL 100 ML IV ONE ×2 (15:20→15:41)
--- NOTE | 2023-07-31 15:32 | XR ---
EXAMINATION TYPE: XR chest 1V portable DATE OF EXAM: 07/31/2023 COMPARISON: 07/30/2023 INDICATION: Post bronchoscopy TECHNIQUE: Single frontal view of the chest is obtained. FINDINGS: The heart size is enlarged. The pulmonary vasculature is prominent. There is an infiltrate at the left base. This has significantly improved from the prior exam. Endotracheal tube is present with the tip near the origin of the right main bronchus. This is approxi mately 4 mm from the amaya. Recommend pulling the endotracheal tube back 2 cm. IMPRESSION: 1. Left lower lobe infiltrate remains present. Continued follow-up is recommended. 2. Endotracheal tube tip below near the right main bronchus. This should be pulled back 2 cm.
--- NOTE | 2023-07-31 16:14 | P.PN ---
Subjective Progress Note Date: 07/31/23 Hospital course: Patient is a very pleasant 87-year-old female with history of dementia, hypertension, dyslipidemia, COPD presenting with recurrent syncopal episodes. She presented to the emergency department on 07/19/23 with a chief complaint of syncopal episode and shortness of breath. On initial presentation, temperature was 98.3, pulse 80, respiratory rate 26, blood pressure 166/83, saturating at 96% on [address] shows no acute process, cervical spine CT shows some diffuse pole lysis within cervical spine, possible metastatic disease. Initial EKG showed sinus rhythm with left bundle branch block at 75 bpm. Patient subsequently did go into atrial fibrillation with RVR. Initial labs showed WBC of 6.6, hemoglobin 12.8, platelet 134, sodium 144, bicarb 19, creatinine 1.36, troponin 0.048, proBNP 3700, pH 7.36, pO2 47. Chest x-ray showed interstitial prominence with left midlung opacity. Patient subsequently became more hypoxic and required BiPAP. She was adminitted under our services for hypoxic respiratory failure, new onset atrial fibrillation with RVR, COPD with acute exacerbation, and concerns for fluid volume overload. Consults were placed to pulmonology and cardiology. Patient found to be COVID-[address] negative for PE, does have left perihilar and left midlung nodularity concerning for neoplastic or atypical infection, extensive endobronchial opacification throughout the left lower lung, possible neoplasm versus extensive aspiration, patchy groundglass opacities in left upper lobe, possible moderate to severe st enosis at the arch vessel origin. Echocardiogram completed showing a reduced EF of 35-40% with hypokinetic inferioseptal and inferior wall with moderate right ventricular dilation and aneurysmal interatrial septum with suspicion of PFO and moderate mitral and tricuspid regurgitation..Cardiology evaluated and cleared patient from cardiac perspective on 07/25/23, recommending outpatient follow-up in their office in 2 weeks post discharge. Lasix was discontinued secondary to worsening renal functionRepeat chest x-ray 07/30/23 showing worsening with new near complete opacification of the left hemithorax with the aeration of the lung apex concerning for large pleural effusion along with emphysematous changes. Patient continues to have high oxygen needs and is now on 8 L O2 via high flow nasal cannula with SpO2 of 93%.. Pulmonology following and taking patient for bronchoscopy with BAL later today. Physical exam: Patient seen and fully evaluated at bedside this morning. She is having increased oxygenation needs and is now up to 8 L O2 via high flow nasal cannula with SpO2 of 93%. Discussed with lumber tripper and pulmonary BRAKE LINING DRILLER, plan is for patient to be taken down for bronchoscopy with BAL later today. Vitals Signs Reviewed. General: non toxic, no distress, appears at stated age Derm: warm, dry Head: atraumatic, normocephalic, symmetric Eyes: EOMI, no lid lag, anicteric sclera Mouth: no lip lesion, mucus membranes moist Cardiovascular: S1S2 reg, stage IV systolic murmur, positive posterior tibial pulse bilateral, Lungs: Lungs diffuse coarse rhonchi with expiratory wheezes and significantly diminished throughout left lung on 8 L O2 via nasal cannula. No accessory muscle usage. Continues with conversational dyspnea at 4 words. Abdominal: soft, nontender to palpation, no guarding, no appreciable organomegaly Ext: no gross muscle atrophy, no edema, no contractures Neuro: CN II-XI grossly intact, no focal neuro deficits Psych: Alert, oriented x3, appropriate and pleasant affect Assessment and Plan: Acute COVID-19 pneumonia Acute hypoxic respiratory failure COPD exacerbation Suspected superimposed bacterial pneumonia Leukocytosis, worsening Recurrent syncopal episodes, possibly sick sinus syndrome versus valvular disease Paroxysmal Atrial fibrillation with RVR, rate controlled Type 2 NSTEMI High anion Gap metabolic acidosis, improving Acute kidney injury Mild normocytic anemia, likely secondary to acute illness Mild thrombocytopenia, resolved Hyperglycemia, steroid-induced Chronic systolic heart failure with reduced EF of 35-40% -Repeat chest x-ray 07/30/23 revealed worsening with new near complete opacification of the left hemithorax with the aeration of the lung apex concerning for large pleural effusion along with emphysematous changes. -Patient continues to have high oxygen needs and is now on 8 L O2 via nasal cannula with SpO2 of 93%.. -Pulmonology following stating they will take patient for repeat bronchoscopy with BAL tomorrow -Continue IV Antibiotics: Zosyn 3.375 g every 12 hours, Solu-Medrol 40 mg every 8 hours, Symbicort 2 puffs twice daily, and scheduled Ventolin inhaler 4 times daily and every 2 hours as needed for wheezing/shortness of breath. -Blood cultures showed no growth, sputum cultures collected 07/28/23 also showing no growth to date. -Continue amiodarone 200 mg twice daily, Eliquis 2.5 mg twice daily, and metopro lol 50 mg twice daily. -Repeat CBC and BMP tomorrow -Continue glycemic protocol with NovoLog Sliding scale insulin -Recommend encouragement and continuation of flutter valve, to assist with removal of excess sputum/mucus production. Dementia Dyslipidemia Hypertension -Patient to continue daily medication regimen with atorvastatin 80 mg nightly Aricept 10 mg twice daily, and Namenda 5 mg twice daily Data reviewed: Morning labs reviewed. CBC showing leukocytosis with WBC count of 25.0 and stable normocytic anemia with hemoglobin of 10.7. ESR is 31. BMP revealing mild hyponatremia with sodium of 135, hypokalemia with potassium of 3.4, hypochloremia with chloride of 97, hypercarbia with bicarb of 31, and p ersistently elevated renal function with BUN of 64, creatinine 1.22, GFR 40. Liver enzymes remain elevated with AST of 40, ALT of 38, and normal alkaline phosphatase of 83. LDH 360 and CRP of 6.4. Vital signs reviewed. Blood pressure 183/75, heart rate 63, respiratory rate 20, temp 97.6F, SpO2 of 93% on 8 L. Imaging reviewed: -No new imaging for review this morning. Dinesh Macias, BRAKE LINING DRILLER rendered care for this patient independently, reviewed the findings and plan as documented in the note above. I did not physically speak with or examine the patient on this date. During the bronchus BAL the patient started having a wide complex ventricular tachycardia. She was given a bolus of IV amiodarone and was subsequently transferred to the ICU. DVT ppx: Eliquis Code status: DNR/DNI Anticipated discharge place: Will likely need rehab Anticipated discharge time: Pending clinical course Patient was seen independently by Nurse Pracitioner. This document was prepared using [employer] dictation software. Please allow for errors in net architect, while rare they do occur. Objective - Vital Signs Vital signs: Vital Signs Temp 97.8 F 07/31/23 04:00 Pulse 54 L 07/31/23 04:00 Resp 22 07/31/23 04:00 BP 173/72 07/31/23 04:00 Pulse Ox 96 07/31/23 07:35 FiO2 80 07/22/23 12:44 Intake & Output 09/07/31/23 07/31/23 18:59 06:59 18:59 Intake Total 180 Output Total 1 350 Balance 179 -350 Intake: Oral 180 Output: Urine 150 Stool 1 Urine/Stool Mix 200 Other: Voiding Method External Catheter External Catheter # Bowel Movements 1 - Labs CBC & Chem 7: 07/31/23 09:12 07/31/23 09:12 Labs: Abnormal Lab Results - Last 24 Hours (Table) 07/30/23 07/30/23 07/30/23 Range/Units 11:53 12:51 12:51 WBC 26.8 H (3.8-10.6) k/uL Hgb 10.6 L (11.4-16.0) gm/dL Hct 31.9 L (34.0-46.0) % RDW 15.7 H (11.5-15.5) % Sodium 132 L (137-145) mmol/L BUN 72 H (7-17) mg/dL Creatinine 1.18 H (0.52-1.04) mg/dL Glucose 149 H (74-99) mg/dL POC Glucose (mg/dL) 177 H (70-110) mg/dL AST 42 H (14-36) U/L ALT 41 H (4-34) U/L Lactate Dehydrogenase 393 H (120-246) U/L C-Reactive Protein 3.2 H (<1.0) mg/dL Total Protein 5.9 L (6.3-8.2) g/dL Albumin 2.9 L (3.5-5.0) g/dL Procalcitonin (0.02-0.09) ng/mL 07/30/23 07/30/23 07/30/23 Range/Units 12:51 16:44 20:42 WBC (3.8-10.6) k/uL Hgb (11.4-16.0) gm/dL Hct (34.0-46.0) % RDW (11.5-15.5) % Sodium (137-145) mmol/L BUN (7-17) mg/dL Creatinine (0.52-1.04) mg/dL Glucose (74-99) mg/dL POC Glucose (mg/dL) 210 H 153 H (70-110) mg/dL AST (14-36) U/L ALT (4-34) U/L Lactate Dehydrogenase (120-246) U/L C-Reactive Protein (<1.0) mg/dL Total Protein (6.3-8.2) g/dL Albumin (3.5-5.0) g/dL Procalcitonin 0.59 H (0.02-0.09) ng/mL 07/31/23 Range/Units 06:00 WBC (3.8-10.6) k/uL Hgb (11.4-16.0) gm/dL Hct (34.0-46.0) % RDW (11.5-15.5) % Sodium (137-145) mmol/L BUN (7-17) mg/dL Creatinine (0.52-1.04) mg/dL Glucose (74-99) mg/dL POC Glucose (mg/dL) 157 H (70-110) mg/dL AST (14-36) U/L ALT (4-34) U/L Lactate Dehydrogenase (120-246) U/L C-Reactive Protein (<1.0) mg/dL Total Protein (6.3-8.2) g/dL Albumin (3.5-5.0) g/dL Procalcitonin (0.02-0.09) ng/mL Microbiology - Last 24 Hours (Table) 07/28/23 03:51 Gram Stain - Final Sputum Sputum Culture - Final
[2023-07-31] MEDS: POTASSIUM CHLORIDE 10 MEQ in WATER FOR INJECTION 1 100ML.BAG IVPB SCH ×4 (17:41→20:47)
[2023-07-31] MEDS: AMIODARONE 450 MG in DEXTROSE 5% IN WATER 250 ML IV SCH ×2 (20:21)
[2023-07-31] MEDS: ATORVASTATIN 80 MG TAB PO SCH (20:47)
--- NOTE | 2023-07-31 21:22 | OP ---
OPERATIVE REPORT DATE OF SERVICE : PROCEDURES PERFORMED: Bronchoscopy and extraction of mucus plugs from left mainstem bronchus and from carinal area. PREOPERATIVE DIAGNOSIS: Complete opacification of the left lung secondary to mucous plugging, endobronchial tumor is not entirely ruled out. POSTOPERATIVE DIAGNOSIS: Complete opacification of the left lung secondary to mucous plugging, endobronchial tumor is not entirely ruled out, in addition to this intraoperative ventricular tachycardia requiring aborting the procedure. DESCRIPTION OF PROCEDURE: The patient was brought in to the bronchoscopy suite, she had general anesthetic given to the patient by GLASS FINISHER and by anesthesia staff. The patient was intubated uneventfully. She was connected to mechanical ventilation and a size 8.0 endotracheal tube was used. Then, as the patient was intubated, a bronchoscope was used and advanced through the adapter of the endotracheal tube down to the distal end of the endotracheal tube. As the distal end was visualized, there was significant amount of thick purulent mucus plugs noted at the distal end of the endotracheal tube and in the carinal area. Mucous plugs were suctioned, and as I went into the left mainstem bronchus, more mucus plugging was noted, suctioning of the proximal portion of the left main stem bronchus was done. As I was going down further to the distal portion of the left mainstem bronchus and left lower lobe, I could clearly see mucus plugs in the airways, however, as I was going down, the patient developed ventricular tachycardia/wide-complex rhythm/tachycardia rate as high as 160. Attempted pressure in the left neck area, no relief, patient maintained a pulse. Then, amiodarone 150 mg bolus was given, and cardiac arrhythmia resolved. Nonetheless, the patient continued to have intermittent episodes of sinus bradycardia and atrial fibrillation episodes. No further episodes of wide-complex tachycardia/ventricular fibrillation. No more attempts were made to suction further mucus plug from the airways. Then I discussed her condition with the daughter who is supposedly her legal guardian and discuss code status. The patient remains DNR code status as she was all along, but the daughter is agreeable to keep the patient on mechanical ventilation tonight and address possible repeat bronchoscopy in the morning. In the meantime, the patient will go on amiodarone drip, and we will consult Cardiology to evaluate and possibly clear for repeat bronchoscopy in the morning. Code status again remains DNR according to the daughter- in-law. MMODL / IJN: [id number] /
[2023-07-31 23:26] LABS: ABG Base Excess 6.1 mmol/L; ABG HCO3 30 mmol/L (21-25); ABG Oxygen Saturation 97.2 % (94-97); ABG PCO2 40 mmHg (35-45); ABG PH 7.48 (7.35-7.45); ABG PO2 95 mmHg (83-108); ABG TCO2 31 mmol/L (19-24); Allen Test Performed? Yes
[2023-07-31 23:55] LABS: Glucose,Whole Blood 164 mg/dL (70-110)
[2023-08-01] MEDS ORDERED: SODIUM CHLORIDE 0.9% 500 ML 500 ML IV ONE (00:23)
[2023-08-01] MEDS: methylPREDNISolone SOD SUCCI 40 MG/ML 1 ML VIAL IV SCH ×3 (00:49→16:54)
[2023-08-01] MEDS: INSULIN ASPART (NovoLOG) 100 UNIT/ML VIAL SQ SCH ×4 (00:49→18:37)
[2023-08-01] MEDS: PIPERACILLIN-TAZOBACTAM 3.375 GM in SODIUM CHLORIDE 0.9% 100 ML IVPB SCH ×3 (00:49→16:54)
[2023-08-01] MEDS ORDERED: FUROSEMIDE 10 MG/ML 2 ML VIAL IV STA (03:26)
[2023-08-01 05:07] LABS: Glucose,Whole Blood 182 mg/dL (70-110)
[2023-08-01 06:08] LABS: Basophils % (A) 0 %; Eosinophils % (A) 0 %; HCT 30.3 % (34.0-46.0); HGB 9.6 gm/dL (11.4-16.0); Hypochromasia Slight; Lymphocytes # (A) 0.2 k/uL (1.0-4.8); Lymphocytes % (A) 1 %; MCH 27.1 pg (25.0-35.0); MCHC 31.8 g/dL (31.0-37.0); MCV 85.2 fL (80.0-100.0); Mean Platelet Volume 8.6; Monocytes # (A) 0.3 k/uL (0-1.0); Monocytes % (A) 1 %; Neutrophils # (A) 20.9 k/uL (1.3-7.7); Neutrophils % (A) 97 %; Platelet Count 205 k/uL (150-450); RBC 3.56 m/uL (3.80-5.40); WBC 21.5 k/uL (3.8-10.6)
[2023-08-01 06:15] LABS: ALT 68 U/L (4-34); AST 59 U/L (14-36); African American GFR (CKD) 41 (>60 ml/min/1.73 sqM); Albumin 2.5 g/dL (3.5-5.0); Alkaline Phosphatase 102 U/L (38-126); Anion Gap 6 mmol/L; Blood Urea Nitrogen 70 mg/dL (7-17); Calcium 8.6 mg/dL (8.4-10.2); Carbon Dioxide 26 mmol/L (22-30); Chloride 103 mmol/L (98-107); Glucose 166 mg/dL (74-99); Non-African American GFR(CKD) 35 (>60 ml/min/1.73 sqM); Potassium 3.9 mmol/L (3.5-5.1); Sodium 135 mmol/L (137-145); Total Bilirubin 0.9 mg/dL (0.2-1.3); Total Protein 5.1 g/dL (6.3-8.2)
[2023-08-01] MEDS: ALBUTEROL HFA INHALER INHALATION SCH ×4 (08:36→21:07)
[2023-08-01] MEDS: SYMBICORT 160-4.5 MCG INHALER INHALATION SCH ×2 (08:36→21:08)
[2023-08-01] MEDS: METOPROLOL TARTRATE 50 MG TAB PO SCH ×2 (08:55→20:27)
[2023-08-01] MEDS: APIXABAN 2.5 MG TABLET PO SCH ×2 (08:57→20:19)
[2023-08-01] MEDS: AMIODARONE 200 MG TAB PO SCH ×2 (08:57→20:27)
[2023-08-01] MEDS: DONEPEZIL 10 MG TAB PO SCH ×2 (08:59→20:27)
[2023-08-01] MEDS: MEMANTINE 5 MG TAB PO SCH ×2 (09:00→20:27)
--- NOTE | 2023-08-01 09:03 | XR ---
EXAMINATION TYPE: XR chest 1V portable DATE OF EXAM: 08/01/2023 COMPARISON: 07/31/2023 INDICATION: Lung volume loss mucous plugs TECHNIQUE: Single frontal view of the chest is obtained. FINDINGS: The heart size is normal. The pulmonary vasculature is normal. There is mild infiltrate in the left lower lobe. This has improved over the interval. Endotracheal tube has been adjusted and the tip is 1.9 cm above the amaya.. Nasogastric tube transve rses the thorax tip in the left upper quadrant of the abdomen IMPRESSION: 1. Improving left lower lobe infiltrate. 2. Lines and catheters discussed above.
--- NOTE | 2023-08-01 09:46 | PN ---
PROGRESS NOTE Gela is an 88-year-old lady with history of hypertension and paroxysmal atrial fibrillation who has been in the hospital since 07/19/2023, and Cardiology has already done a consult on 07/20 for an episode of atrial fibrillation with rapid ventricular rate. We have been reconsulted because of cardiac arrhythmia. The patient apparently was undergoing bronchoscopy yesterday and during that time went into wide-complex tachycardia, was started on IV amiodarone following which she converted to sinus rhythm with sinus bradycardia. 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 At the time of my evaluation this morning, the patient is in the ICU, intubated on vent, and unresponsive but stable hemodynamically. Her heart rate is in the 40s. She is in sinus rhythm. Amiodarone drip is about to run out, and she is going to be on oral amiodarone. The patient had electrolytes done, and her potassium is 3.9, has renal insufficiency with a BUN of 70 and creatinine of 1.3. Magnesium was normal at 2.3. The patient has had atrial fibrillation with wide-complex tachycardia and aberrant conduction in the past and very likely that is the event that the patient had more recently during bronchoscopy. An echocardiogram at the time of her initial admission revealed an ejection fraction of 35% to 40% with evidence of wall motion abnormalities. I am going to repeat an echo on her to reassess her LV function. On exam, the patient is intubated, sedated, and vented. Heart rate is 43 beats per minute, blood pressure is 130/52, respiratory rate is 18, O2 saturation is 97%. There is jugular venous distention. Carotid upstroke is diminished, there is no bruit. Chest exam reveals good air entry bilaterally. There are no crackles or rhonchi. Heart exam reveals first and second heart sounds and a systolic murmur at the apex. Abdomen is soft. Exam of extremities did not reveal any edema. Peripheral pulses are felt. Labs show that there is significant prerenal azotemia. Current medications include Eliquis 2.5 b.i.d., amiodarone 200 b.i.d., Aricept, insulin, Namenda, Lopressor 50 b.i.d. which is currently on hold. On exam, vital signs are stable other than the bradycardia. Chest exam reveals diminished air entry bilaterally with occasional rhonchi. Heart exam reveals first and second heart sounds and a systolic murmur at the apex. Abdomen is soft. Exam of extremities did not reveal any edema. ASSESSMENT: 1. Paroxysmal atrial fibrillation. 2. Wide-complex tachycardia, either due to an episode of ventricular tachycardia or more likely atrial fibrillation with underlying left bundle branch block. PLAN: I will repeat a 2D echo to reassess her LV function. Continue the amiodarone. Continue the Eliquis. Hold the metoprolol for heart rate of 70 or below. MMODL / IJN: [id number] /
[2023-08-01] MEDS: AMIODARONE 450 MG in DEXTROSE 5% IN WATER 250 ML IV SCH ×2 (12:48)
[2023-08-01 13:02] LABS: Glucose,Whole Blood 176 mg/dL (70-110)
--- NOTE | 2023-08-01 13:02 | P.PN ---
Subjective Progress Note Date: 08/01/23 Principal diagnosis: Acute hypoxic respiratory failure, multifactorial secondary to underlying COPD with acute COPD exacerbation and left sided pneumonia with complete collapse of the left lung. Requiring bronchoscopy which was complicated by wide-complex arrhythmia, possible atrial fibrillation with left bundle branch block, or possible ventricular tachycardia.required keeping the patient intubated and mechanically ventilated after her bronchoscopy On 07/29/2023, the patient remains on IV Zosyn. The patient remains on IV Solu- Medrol 40 mg every 8 hours. No new complaints. Oxygenation is being monitored very closely and the patient was brought back to up to 6 L of O2 nasal cannula. The chest x-ray from yesterday was showing improvement left upper lobe consolidation. The white blood count remains elevated at 29, hemoglobin 11.1, BUN is at 64 with a creatinine of 1.49 and his sodium levels of 134 and the potassium levels at 3.4. The patient is seen today 07/30/2023 in follow-up on the selective care unit. She is currently sitting up in bed. Awake and alert in no acute distress. She is still requiring 6 L high flow nasal cannula. Chest x-ray shows near complete opacification of the left lung. She's been Covid positive since 07/22/2023. Sputum culture revealed no growth. Blood cultures reveal no growth. She remains on Symbicort, Ventolin HFA, IV Solu-Medrol. Antibiotics in the form of Zosyn. The patient has been slow to progress. No significant improvement in her chest x-ray. We'll plan for bronchoscopy with BAL tomorrow. The patient is seen today 07/31/2023 in follow-up on the selective care unit. She is resting comfortably in bed. He is requiring 8 L high flow nasal cannula to maintain O2 saturation low 90s. She's been afebrile. Slightly hypertensive. Sputum culture revealed no growth. Blood cultures revealed no growth. White count 25.0. Hemoglobin 10.7. Sodium 135. Potassium 3.4. Bicarb 31. BUN 64. Creatinine 1.22. Glucose 171. AST 40. ALT 38. C-reactive protein 6.4. She remains on Symbicort, Ventolin HFA, IV Solu-Medrol. Antibiotics in the form of Zosyn. Plan is for bronchoscopy with BAL today. Patient was reevaluated today on 08/01/2023, patient remains in the ICU today, mostly because the patient remains intubated and mechanically ventilated, during the early part of the bronchoscopy yesterday, patient developed wide-complex tachycardia, and felt to be either ventricular tachycardia or atrial f ibrillation with RVR and left bundle branch block pattern. Patient received amiodarone, converted to a sinus rhythm eventually, and the bronchoscopy was not completed fully. Patient was transferred to the ICU intubated and mechanically ventilated, and her condition was discussed with her family, and the plan was to keep her intubated and mechanically ventilated overnight and decide on possibly extubating the patient today. Indeed the patient is on mechanical ventilation today, she is on assist control rate of 14 tidal volume 350 FiO2 50% and PEEP of 5. Patient is still receiving propofol at 30 mcg/kg/m she is also on amiodarone 0.5 mg/m her IV fluid to KVO. Patient was awakened, she seems to be drowsy but she follows simple instructions in spite of being on propofol, her chest x-ray i s showing significant improvement in her left sided opacification, apparently her aeration of the left lung significantly improved after her bronchoscopy yesterday and after 1 day of mechanical ventilation. Hence I plan to consider weaning and extubating this patient today. I plan to discontinue propofol, and I plan to check weaning parameters and if tolerated may proceed to extubating the patient. And considering the improvement noted on the chest x-ray, I have no plans to repeat bronchoscopy anytime soon. Considering her episode yesterday WBC count today is 21.5 hemoglobin is 9.6. Basic metabolic profile is normal BUN is 70 creatinine 1.35. Patient was already seen by cardiology on co nsultation, and the plan is to continue amiodarone. Objective - Vital Signs Vital signs: Vital Signs Temp 96.4 F L 08/01/23 12:00 Pulse 49 L 08/01/23 12:00 Resp 17 08/01/23 12:00 BP 153/58 08/01/23 12:00 Pulse Ox 93 L 08/01/23 12:00 FiO2 40 08/01/23 12:00 Intake & Output 07/31/23 08/01/23 08/01/23 18:59 06:59 18:59 Intake Total 894.049 4179.466 237.619 Output Total 640 340 265 Balance -450.068 5033.466 -27.381 Weight 47.5 kg 58 kg Intake: IV 400 1269 190 0.8% @20mL/hr 220 90 Amiodarone 360 mg In 200 Dextrose 5% in Water 200 ml @ 1 MG/MIN 33.333 mls/ hr IV .Q6H [facility] Rx#: [id number] Amiodarone 450 mg In 250 Dextrose 5% in Water 250 ml @ 0.5 MG/MIN 16.667 mls/hr IV .Q15H [facility] Rx#: [id number] Piperacillin-Tazobactam 3 100 100 100 .375 gm In Sodium Chloride 0.9% 100 ml @ 25 mls/hr IVPB Q8HR [facility] Rx# :[id number] Potassium Chloride 10 meq 100 200 In Water For Injection 1 100ml.bag @ 100 mls/hr IVPB Q1H [facility] Rx#: [id number] Sodium Chloride 0.9% 500 499 ml 500 ml @ 999 mls/hr IV .Q31M [facility] Rx#:[id number] Intake, IV Titration 5.226 99.466 47.619 Amount propofoL 1,000 mg In 5.226 99.466 47.619 Empty Bag 1 bag @ 15 MCG/ KG/MIN 4.275 mls/hr IV . [id number] [facility] Rx#:[id number] Output: Urine 640 340 265 Other: Voiding Method External Catheter Indwelling Catheter Indwelling Catheter - Exam Physical Exam: Revealed an 88-year-old female intubated mechanically ventilated in no distress Head: Atraumatic normocephalic endotracheal tube and orogastric tube are intact HEENT:[Neck is supple.] [No neck masses.] [No thyromegaly.] [No JVD.] Chest: [Diminished breath sounds at the bases, no rhonchi and no wheezes. Cardiac Exam: Irregular irregular rhythm. [Normal S1 and S2, no S3 gallop, 2/6 systolic murmur thought the precordium. Abdomen: [Soft, nontender, no megaly, no rebound, no guarding, normal bowel cherri nds.] Extremities: [No clubbing, no edema, no cyanosis.] Neurological Exam: Patient is arousable, follows simple instructions, she is on propofol and this will be discontinued Psychiatric: Normal mood, affect and normal mental status examination. Skin: No rashes however the patient has multiple areas of bruises on both upper and lower extremities - Labs CBC & Chem 7: 08/01/23 05:19 08/01/23 05:19 Labs: Abnormal Lab Results - Last 24 Hours (Table) 07/31/23 07/31/23 07/31/23 Range/Units 15:16 23:16 23:53 WBC (3.8-10.6) k/uL RBC (3.80-5.40) m/uL Hgb (11.4-16.0) gm/dL Hct (34.0-46.0) % RDW (11.5-15.5) % Neutrophils # (1.3-7.7) k/uL Lymphocytes # (1.0-4.8) k/uL ABG pH 7.48 H (7.35-7.45) ABG HCO3 30 H (21-25) mmol/L ABG Total CO2 31 H (19-24) mmol/L ABG O2 Saturation 97.2 H (94-97) % Sodium (137-145) mmol/L BUN (7-17) mg/dL Creatinine (0.52-1.04) mg/dL Glucose (74-99) mg/dL POC Glucose (mg/dL) 201 H 164 H (70-110) mg/dL AST (14-36) U/L ALT (4-34) U/L Troponin I (0.000-0.034) ng/mL Total Protein (6.3-8.2) g/dL Albumin (3.5-5.0) g/dL 08/01/23 08/01/23 08/01/23 Range/Units 05:05 05:19 05:19 WBC 21.5 H (3.8-10.6) k/uL RBC 3.56 L (3.80-5.40) m/uL Hgb 9.6 L (11.4-16.0) gm/dL Hct 30.3 L (34.0-46.0) % RDW 16.0 H (11.5-15.5) % Neutrophils # 20.9 H (1.3-7.7) k/uL Lymphocytes # 0.2 L (1.0-4.8) k/uL ABG pH (7.35-7.45) ABG HCO3 (21-25) mmol/L ABG Total CO2 (19-24) mmol/L ABG O2 Saturation (94-97) % Sodium 135 L (137-145) mmol/L BUN 70 H (7-17) mg/dL Creatinine 1.35 H (0.52-1.04) mg/dL Glucose 166 H (74-99) mg/dL POC Glucose (mg/dL) 182 H (70-110) mg/dL AST 59 H (14-36) U/L ALT 68 H (4-34) U/L Troponin I (0.000-0.034) ng/mL Total Protein 5.1 L (6.3-8.2) g/dL Albumin 2.5 L (3.5-5.0) g/dL 08/01/23 Range/Units 05:19 WBC (3.8-10.6) k/uL RBC (3.80-5.40) m/uL Hgb (11.4-16.0) gm/dL Hct (34.0-46.0) % RDW (11.5-15.5) % Neutrophils # (1.3-7.7) k/uL Lymphocytes # (1.0-4.8) k/uL ABG pH (7.35-7.45) ABG HCO3 (21-25) mmol/L ABG Total CO2 (19-24) mmol/L ABG O2 Saturation (94-97) % Sodium (137-145) mmol/L BUN (7-17) mg/dL Creatinine (0.52-1.04) mg/dL Glucose (74-99) mg/dL POC Glucose (mg/dL) (70-110) mg/dL AST (14-36) U/L ALT (4-34) U/L Troponin I 0.102 H* (0.000-0.034) ng/mL Total Protein (6.3-8.2) g/dL Albumin (3.5-5.0) g/dL Assessment and Plan Assessment: Impression: Acute hypoxemic respiratory failure, likely multifactorial, in part related to C OPD exacerbation, left lower lobe pneumonia/atelectasis, complete opacification left lung, requiring bronchoscopy while the patient was intubated, however the patient went on to develop wide-complex tachycardia requiring amiodarone IV push, and required keeping the patient intubated and mechanically ventilated overnight.. Follow-up chest x-ray showed no need for repeat bronchoscopy has we'll proceed with weaning and extubating the patient today. Acute COVID-19 infection/pneumonia and suspect superimposed bacterial pneumonia Left lower lobe atelectasis, with a suspicious opacity in left lower lobe bronchus and lymphadenopathy. Unfortunately the left lower lobe could not be fully evaluated yesterday during her bronchoscopy and no plans to do so in the near future. Extensive left sided pneumonia, patient remains on Zosyn, could be superimposed bacterial gram-negative pneumonia or aspiration pneumonia. 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 fib Recommendation: Continue ventilatory support for now Discontinue propofol and start sedation interruption and possibly weaning parameters if patient continues to do well may extubate. In the meantime continue amiodarone as per cardiology on the case. Continue Zosyn Continue COVID-19 cocktail. No plans to repeat bronchoscopy at this point considering the improvement noted on the chest x-ray between yesterday and today Overall prognosis remains extremely poor and guarded. I did have a long discussion with her family yesterday, and the patient will remain DO NOT RESUSCITATE and not to be reintubated. Consider placement. Critical care time is over 30 minutes. Time with Patient: Greater than 30
--- NOTE | 2023-08-01 13:50 | P.PN ---
Subjective Progress Note Date: 08/01/23 Patient is an 88-year-old female with dementia, hypertension, dyslipidemia, and COPD who presented with recurrent syncopal episodes and shortness of breath. In the emergency department he underwent an extensive evaluation. On initial presentation vitals were remarkable for saturating at 96% on [address] showed no acute process, cervical spine CT shows some diffuse lytic areas within cervical spine, possible metastatic disease. Initial EKG showed sinus rhythm with left bundle branch block at 75 bpm. Patient subsequently did go into atrial fibrillation with RVR. Initial labs showed were remarkable for platelet 134, bicarb 19, creatinine 1.36, troponin 0.048, proBNP 3700, pO2 47. Chest x- ray showed interstitial prominence with left midlung opacity. Patient subsequently became more hypoxic and required BiPAP. She was admitted under our services for hypoxic respiratory failure, new onset atrial fibrillation with RVR, COPD with acute exacerbation, and concerns for fluid volume overload. Consults were placed to pulmonology and cardiology. Patient found to be COVID-1 9 positive. CTA chest negative for PE, does have left perihilar and left midlung nodularity concerning for neoplastic or atypical infection, extensive endobronchial opacification throughout the left lower lung, possible neoplasm versus extensive aspiration, patchy groundglass opacities in left upper lobe, possible moderate to severe stenosis at the arch vessel origin. Echocardiogram completed showing a reduced EF of 35-40% with hypokinetic inferioseptal and inferior wall with moderate right ventricular dilation and aneurysmal interatrial septum with suspicion of PFO and moderate mitral and tricuspid regurgitation.Cardiology evaluated and cleared patient from cardiac perspective on 07/25/23, recommending outpatient follow-up in their office in 2 weeks post discharge. Lasix was discontinued secondary to worsening renal functionRepeat chest x-ray 07/30/23 showing worsening with new near complete opacification of the left hemithorax with the aeration of the lung apex concerning for large ple ural effusion along with emphysematous changes. Patient continues to have high oxygen needs and is now on 8 L O2 via high flow nasal cannula with SpO2 of 93%.. Pulmonology following and the patient for bronchitis on 07/31 which was complicated by ventricular tachycardia requiring IV amio. She was intubated and admitted ot the ICU. She did not have any additional bouts of v-tach Patient seen and examined at bedside. She is sedated on the vent but is following commands. She stated she had known to pain. She is able to show me a thumbs up. No additional episodes of ventricular tachycardia overnight per nursing. Vital signs reviewed General: Ill appearing, mild distress, appears at stated age Cardiovascular: S1S2 reg, no murmur, positive posterior tibial pulse bilateral, Lungs: Coarse breath sounds bilateral bilateral, no rhonchi, no rales , no accessory muscle use Abdominal: soft, nontender to palpation, no guarding, no appreciable organomegaly Ext: no gross muscle atrophy, no edema b/l lower extremities, no contractures Neuro: CN II-XI grossly intact, no focal neuro deficits Psych: Awake and following commands, does not appear anxious Assessment/Plan: Acute COVID-19 pneumonia, possible endobronchial lesions per CT, lytic lesion in spine on CT cervical spine Acute hypoxic respiratory failure COPD exacerbation Suspected superimposed bacterial pneumonia Acute kidney injury, Cr stable suspect CKD Mild normocytic anemia, likely secondary to acute illness Mild thrombocytopenia, resolved Hyperglycemia, steroid-induced - pulm note reviewed: poor prognosis, do not reintubate -Zosyn 3.375 g every 12 hours -Solu-Medrol 40 mg every 8 hours -Symbicort 2 puffs twice daily, and scheduled Ventolin inhaler 4 times daily and every 2 hours as needed for wheezing/shortness of breath. -sputum and blood cultures negative -Continue glycemic protocol with NovoLog Sliding scale insulin -Repeat CBC and BMP tomorrow Recurrent syncopal episodes, possibly sick sinus syndrome versus valvular disease Paroxysmal Atrial fibrillation with RVR, rate controlled Type 2 NSTEMI Chronic systolic heart failure with reduced EF of 35-40% Ventricular tachycardia vs A fib with abbarency Hypertension - cardio note reviewed: Repeat echo, hold metoprolol for hr <70, conitnue amio - Resume Eliquis 2.5 mg twice daily - Metoprolol 50 mg twice daily, hold for hr <70 Chronic: Dementia: Aricept 10 mg twice daily, and Namenda 5 mg twice daily Dyslipidemia: Atorvastatin 80 mg nightly High anion Gap metabolic acidosis, improving, resolved Thrombocytopenia, resolved Imaging: Chest x-ray is reviewed by myself reveals improvement in aeration of the left hemithorax Data Review: Labs reviewed by myself include CBC, basic metabolic profile, troponin, and DVT prophylaxis: Eliquis Anticipated discharge date: Pending Clinical Course Anticipated discharge place: Pending Clinical Course This dictation was prepared using [employer] voice recognition software. Though every attempt is made to correct errors during dictation some may still exist. Objective - Vital Signs Vital signs: Vital Signs Temp 96.4 F L 08/01/23 12:00 Pulse 52 L 08/01/23 13:00 Resp 23 08/01/23 13:00 BP 159/57 08/01/23 13:00 Pulse Ox 98 08/01/23 13:00 FiO2 40 08/01/23 12:00 Intake & Output 07/31/23 08/01/23 08/01/23 18:59 06:59 18:59 Intake Total 258.579 0880.466 237.619 Output Total 640 340 265 Balance -755.683 1267.466 -27.381 Weight 47.5 kg 58 kg Intake: IV 400 1269 190 0.8% @20mL/hr 220 90 Amiodarone 360 mg In 200 Dextrose 5% in Water 200 ml @ 1 MG/MIN 33.333 mls/ hr IV .Q6H [facility] Rx#: [id number] Amiodarone 450 mg In 250 Dextrose 5% in Water 250 ml @ 0.5 MG/MIN 16.667 mls/hr IV .Q15H [facility] Rx#: [id number] Piperacillin-Tazobactam 3 100 100 100 .375 gm In Sodium Chloride 0.9% 100 ml @ 25 mls/hr IVPB Q8HR [facility] Rx# :[id number] Potassium Chloride 10 meq 100 200 In Water For Injection 1 100ml.bag @ 100 mls/hr IVPB Q1H [facility] Rx#: [id number] Sodium Chloride 0.9% 500 499 ml 500 ml @ 999 mls/hr IV .Q31M [facility] Rx#:[id number] Intake, IV Titration 5.226 99.466 47.619 Amount propofoL 1,000 mg In 5.226 99.466 47.619 Empty Bag 1 bag @ 15 MCG/ KG/MIN 4.275 mls/hr IV . [id number] [facility] Rx#:[id number] Output: Urine 640 340 265 Other: Voiding Method External Catheter Indwelling Catheter Indwelling Catheter - Labs CBC & Chem 7: 08/01/23 05:19 08/01/23 05:19 Labs: Abnormal Lab Results - Last 24 Hours (Table) 07/31/23 07/31/23 07/31/23 Range/Units 15:16 23:16 23:53 WBC (3.8-10.6) k/uL RBC (3.80-5.40) m/uL Hgb (11.4-16.0) gm/dL Hct (34.0-46.0) % RDW (11.5-15.5) % Neutrophils # (1.3-7.7) k/uL Lymphocytes # (1.0-4.8) k/uL ABG pH 7.48 H (7.35-7.45) ABG HCO3 30 H (21-25) mmol/L ABG Total CO2 31 H (19-24) mmol/L ABG O2 Saturation 97.2 H (94-97) % Sodium (137-145) mmol/L BUN (7-17) mg/dL Creatinine (0.52-1.04) mg/dL Glucose (74-99) mg/dL POC Glucose (mg/dL) 201 H 164 H (70-110) mg/dL AST (14-36) U/L ALT (4-34) U/L Troponin I (0.000-0.034) ng/mL Total Protein (6.3-8.2) g/dL Albumin (3.5-5.0) g/dL 08/01/23 08/01/23 08/01/23 Range/Units 05:05 05:19 05:19 WBC 21.5 H (3.8-10.6) k/uL RBC 3.56 L (3.80-5.40) m/uL Hgb 9.6 L (11.4-16.0) gm/dL Hct 30.3 L (34.0-46.0) % RDW 16.0 H (11.5-15.5) % Neutrophils # 20.9 H (1.3-7.7) k/uL Lymphocytes # 0.2 L (1.0-4.8) k/uL ABG pH (7.35-7.45) ABG HCO3 (21-25) mmol/L ABG Total CO2 (19-24) mmol/L ABG O2 Saturation (94-97) % Sodium 135 L (137-145) mmol/L BUN 70 H (7-17) mg/dL Creatinine 1.35 H (0.52-1.04) mg/dL Glucose 166 H (74-99) mg/dL POC Glucose (mg/dL) 182 H (70-110) mg/dL AST 59 H (14-36) U/L ALT 68 H (4-34) U/L Troponin I (0.000-0.034) ng/mL Total Protein 5.1 L (6.3-8.2) g/dL Albumin 2.5 L (3.5-5.0) g/dL 08/01/23 08/01/23 Range/Units 05:19 13:00 WBC (3.8-10.6) k/uL RBC (3.80-5.40) m/uL Hgb (11.4-16.0) gm/dL Hct (34.0-46.0) % RDW (11.5-15.5) % Neutrophils # (1.3-7.7) k/uL Lymphocytes # (1.0-4.8) k/uL ABG pH (7.35-7.45) ABG HCO3 (21-25) mmol/L ABG Total CO2 (19-24) mmol/L ABG O2 Saturation (94-97) % Sodium (137-145) mmol/L BUN (7-17) mg/dL Creatinine (0.52-1.04) mg/dL Glucose (74-99) mg/dL POC Glucose (mg/dL) 176 H (70-110) mg/dL AST (14-36) U/L ALT (4-34) U/L Troponin I 0.102 H* (0.000-0.034) ng/mL Total Protein (6.3-8.2) g/dL Albumin (3.5-5.0) g/dL
[2023-08-01 18:17] LABS: Glucose,Whole Blood 238 mg/dL (70-110)
[2023-08-01] MEDS: ATORVASTATIN 80 MG TAB PO SCH (20:27)
[2023-08-02 00:05] LABS: Glucose,Whole Blood 256 mg/dL (70-110)
[2023-08-02] MEDS: methylPREDNISolone SOD SUCCI 40 MG/ML 1 ML VIAL IV SCH ×2 (00:40→09:10)
[2023-08-02] MEDS: PIPERACILLIN-TAZOBACTAM 3.375 GM in SODIUM CHLORIDE 0.9% 100 ML IVPB SCH ×4 (00:40→23:51)
[2023-08-02] MEDS: INSULIN ASPART (NovoLOG) 100 UNIT/ML VIAL SQ SCH ×5 (00:41→23:51)
[2023-08-02 05:10] LABS: Glucose,Whole Blood 202 mg/dL (70-110)
[2023-08-02] MEDS: guaiFENesin 600 MG TABLET.ER PO PRN (05:24)
[2023-08-02 06:58] LABS: Anisocytosis Slight; HCT 26.2 % (34.0-46.0); HGB 8.3 gm/dL (11.4-16.0); Hypochromasia Slight; MCH 27.2 pg (25.0-35.0); MCHC 31.8 g/dL (31.0-37.0); MCV 85.7 fL (80.0-100.0); Platelet Count 171 k/uL (150-450); RBC 3.06 m/uL (3.80-5.40); WBC 18.6 k/uL (3.8-10.6)
[2023-08-02 07:17] LABS: African American GFR (CKD) 39 (>60 ml/min/1.73 sqM); Anion Gap 8 mmol/L; Blood Urea Nitrogen 66 mg/dL (7-17); Calcium 8.4 mg/dL (8.4-10.2); Carbon Dioxide 23 mmol/L (22-30); Chloride 101 mmol/L (98-107); Glucose 171 mg/dL (74-99); Magnesium 2.1 mg/dL (1.6-2.3); Non-African American GFR(CKD) 34 (>60 ml/min/1.73 sqM); Phosphorus 3.6 mg/dL (2.5-4.5); Potassium 3.1 mmol/L (3.5-5.1); Sodium 132 mmol/L (137-145)
--- NOTE | 2023-08-02 07:36 | XR ---
EXAMINATION TYPE: XR chest 1V portable DATE OF EXAM: 08/02/2023 HISTORY: Shortness of breath. COMPARISON: 08/01/2023 TECHNIQUE: Single view of the chest is submitted. FINDINGS: Demonstrated are scattered senescent parenchymal change. Endotracheal tube and NG tube have been rem shaun. No evidence for pneumothorax. Left perihilar increased density is unchanged. Pleural thickening versu s small effusions. The heart is stable. Hilar and mediastinal structures are within normal limits. Degenerative changes are seen of the dorsal spine. IMPRESSION: 1. No evidence for pneumothorax. Left perihilar increased density is unchanged. Pleural thickening v ersus small effusions.
[2023-08-02] MEDS: ALBUTEROL HFA INHALER INHALATION SCH ×4 (08:30→21:18)
[2023-08-02] MEDS: SYMBICORT 160-4.5 MCG INHALER INHALATION SCH ×2 (08:31→21:19)
[2023-08-02] MEDS: APIXABAN 2.5 MG TABLET PO SCH ×2 (09:12→20:41)
[2023-08-02] MEDS: AMIODARONE 200 MG TAB PO SCH ×2 (09:12→20:41)
[2023-08-02] MEDS: METOPROLOL TARTRATE 50 MG TAB PO SCH ×2 (09:13→20:01)
[2023-08-02] MEDS: MEMANTINE 5 MG TAB PO SCH ×2 (09:15→20:41)
[2023-08-02] MEDS: DONEPEZIL 10 MG TAB PO SCH ×2 (09:15→20:41)
[2023-08-02] MEDS ORDERED: Potassium Replacement Protocol 1 EACH MISC MISCELLANE PRN (09:24)
[2023-08-02] MEDS: POTASSIUM CHLORIDE ER 20 MEQ TAB.ER PO SCH ×2 (09:41→11:14)
--- NOTE | 2023-08-02 11:25 | CA ---
Transthoracic Echo Report Name: Gela Roach Age: 88 Gender: F : 1935 Exam Date: 08/01/2023 11:00 Exam Location: [facility] Ht (in): 63 Wt (lb): 127 Ordering Physician: Xu Saucedo MD ([id number]) Attending/Referring Phys: Lewis GAO Chief Of Party Hugo Fleming Procedure CPT: Indications: Assess LV Function Cardiac Hx: Technical Quality: Fair Contrast 1: Total Dose (mL): Contrast 2: Total Dose (mL): MEASUREMENTS (Male / Female) Normal Values 2D ECHO LV Diastolic Diameter PLAX 4.7 cm 4.2 - 5.9 / 3.9 - 5.3 cm LV Systolic Diameter PLAX 3.4 cm IVS Diastolic Thickness 1.0 cm 0.6 - 1.0 / 0.6 - 0.9 cm LVPW Diastolic Thickness 1.1 cm 0.6 - 1.0 / 0.6 - 0.9 cm LV Relative Wall Thickness 0.5 RV Internal Dim ED PLAX 2.4 cm LVOT Diameter 1.7 cm Aortic Root Diameter 2.6 cm LA Systolic Diameter LX 3.1 cm 3.0 - 4.0 / 2.7 - 3.8 cm LV Diastolic Volume MOD BP 54.8 cm??? 67 - 155 / 56 - 104 cm??? LV Systolic Volume MOD BP 27.0 cm??? 22 - 58 / 19 - 49 cm??? LV Ejection Fraction MOD BP 50.8 % >= 55 % LV Cardiac Index MOD BP 815.2 cm???/min???m??? LV Diastolic Volume MOD 4C 60.6 cm??? LV Systolic Volume MOD 4C 36.5 cm??? LV Ejection Fraction MOD 4C 39.8 % LV Cardiac Index MOD 4C 706.4 cm???/min???m??? LV Diastolic Length 4C 6.4 cm LV Systolic Length 4C 5.4 cm LV Diastolic Volume MOD 2C 48.7 cm??? LV Systolic Volume MOD 2C 19.4 cm??? LV Ejection Fraction MOD 2C 60.2 % LV Cardiac Index MOD 2C 858.6 cm???/min???m??? LV Diastolic Length 2C 6.6 cm LV Systolic Length 2C 5.6 cm LA Volume 62.2 cm??? 18 - 58 / 22 - 52 cm??? Ascending Aorta Diameter 2.7 cm DOPPLER AV Peak Velocity 230.1 cm/s AV Peak Gradient 21.2 mmHg AV Mean Velocity 163.6 cm/s AV Mean Gradient 12.1 mmHg AV Velocity Time Integral 63.1 cm LVOT Peak Velocity 64.1 cm/s LVOT Peak Gradient 1.6 mmHg LVOT Velocity Time Integral 17.0 cm LVOT Stroke Volume 39.9 cm??? LVOT Stroke Volume Index 25.0 ml/m??? LVOT Cardiac Index 1168.7 cm???/min???m??? AV Area Cont Eq vti 0.6 cm??? AV Area Cont Eq pk 0.7 cm??? MV Peak Velocity 138.5 cm/s MV Peak Gradient 7.7 mmHg MV Mean Velocity 55.2 cm/s MV Mean Gradient 1.7 mmHg MV Velocity Time Integral 45.3 cm MR Peak Velocity 591.7 cm/s MR Peak Gradient 140.0 mmHg Mitral E Point Velocity 120.4 cm/s Mitral A Point Velocity 72.4 cm/s Mitral E to A Ratio 1.7 MV Deceleration Time 439.3 ms TR Peak Velocity 325.5 cm/s TR Peak Gradient 42.4 mmHg Right Ventricular Systolic Press 47.4 mmHg PV Peak Velocity 136.8 cm/s PV Peak Gradient 7.5 mmHg FINDINGS Left Ventricle Moderate to severe increased septal wall thickness. Moderate to severe increased posterior wall thickness. Mildly decreased left ventricular ejection fraction. Normal LV size. Left ventricular ejection fraction is estimated at 45-50 %. Right Ventricle Normal right ventricular size. RVSP=47.4mmHg. Right Atrium Mild to Moderate right atrial dilatation. RA area= 20.3cm2 Left Atrium Mildly increased left atrial volume. Mildly increased left atrial area. LA Volume index= 38.9ml/m2 Mitral Valve Moderate to severe mitral annular calcification. Mild MR. Aortic Valve Aortic valve not well visualized. AV appeares at least moderately calcified. AV max prssure gradient= 24.3mmHg. AV mean pressure gradient = 13.3mmHg. Tricuspid Valve Structurally normal tricuspid valve. Mild to moderate TR. Pulmonic Valve Pulmonic valve not well visualized. No pulmonic regurgitation. Pericardium Normal pericardium. Aorta Normal size aortic root and proximal ascending aorta. CONCLUSIONS Moderate to severe increased left ventricular wall thickness (Ventricular ejection fraction 45-50% RVSP 47 Mildly dilated left atrium Mitral annular calcification Mild mitral regurgitation Mild aortic stenosis Mild to moderate tricuspid regurgitation Previewed by: Dr. Ayo Leung DO (Electronically Signed) Final Date: 02 August 2023 11:24
[2023-08-02 11:38] LABS: Glucose,Whole Blood 258 mg/dL (70-110)
--- NOTE | 2023-08-02 11:55 | PN ---
PROGRESS NOTE SUBJECTIVE: Gela is an 88-year-old lady, who is in the ICU with atrial fibrillation with rapid ventricular rate and also wide-complex tachycardia and respiratory insufficiency. She has been extubated, doing well and is free of symptoms. Awake, alert, and answering questions. OBJECTIVE: VITAL SIGNS: Heart rate is 65 beats per minute and irregular, blood pressure is 140/54, respiratory rate is 18. CHEST: Reveals diminished air entry at the bases. HEART: Reveals first and second heart sounds, a grade 3/6 ejection systolic murmur in the aortic area. ABDOMEN: Soft. EXTREMITIES: Did not reveal any edema. Peripheral pulses are felt. ASSESSMENT: Persistent atrial fibrillation with controlled ventricular rate. PLAN: She will continue the Eliquis 2.5 b.i.d., amiodarone 200 b.i.d., insulin, and Lopressor. MMBILL / MAXIMILIANO: [id number] /
--- NOTE | 2023-08-02 12:08 | P.PN ---
Subjective Progress Note Date: 08/02/23 Principal diagnosis: Acute hypoxic respiratory failure, multifactorial secondary to underlying COPD with acute COPD exacerbation and left sided pneumonia with complete collapse of the left lung. Requiring bronchoscopy which was complicated by wide-complex arrhythmia, possible atrial fibrillation with left bundle branch block, or possible ventricular tachycardia.required keeping the patient intubated and mechanically ventilated after her bronchoscopy On 07/29/2023, the patient remains on IV Zosyn. The patient remains on IV Solu- Medrol 40 mg every 8 hours. No new complaints. Oxygenation is being monitored very closely and the patient was brought back to up to 6 L of O2 nasal cannula. The chest x-ray from yesterday was showing improvement left upper lobe consolidation. The white blood count remains elevated at 29, hemoglobin 11.1, BUN is at 64 with a creatinine of 1.49 and his sodium levels of 134 and the potassium levels at 3.4. The patient is seen today 07/30/2023 in follow-up on the selective care unit. She is currently sitting up in bed. Awake and alert in no acute distress. She is still requiring 6 L high flow nasal cannula. Chest x-ray shows near complete opacification of the left lung. She's been Covid positive since 07/22/2023. Sputum culture revealed no growth. Blood cultures reveal no growth. She remains on Symbicort, Ventolin HFA, IV Solu-Medrol. Antibiotics in the form of Zosyn. The patient has been slow to progress. No significant improvement in her chest x-ray. We'll plan for bronchoscopy with BAL tomorrow. The patient is seen today 07/31/2023 in follow-up on the selective care unit. She is resting comfortably in bed. He is requiring 8 L high flow nasal cannula to maintain O2 saturation low 90s. She's been afebrile. Slightly hypertensive. Sputum culture revealed no growth. Blood cultures revealed no growth. White count 25.0. Hemoglobin 10.7. Sodium 135. Potassium 3.4. Bicarb 31. BUN 64. Creatinine 1.22. Glucose 171. AST 40. ALT 38. C-reactive protein 6.4. She remains on Symbicort, Ventolin HFA, IV Solu-Medrol. Antibiotics in the form of Zosyn. Plan is for bronchoscopy with BAL today. Patient was reevaluated today on 08/01/2023, patient remains in the ICU today, mostly because the patient remains intubated and mechanically ventilated, during the early part of the bronchoscopy yesterday, patient developed wide-complex tachycardia, and felt to be either ventricular tachycardia or atrial f ibrillation with RVR and left bundle branch block pattern. Patient received amiodarone, converted to a sinus rhythm eventually, and the bronchoscopy was not completed fully. Patient was transferred to the ICU intubated and mechanically ventilated, and her condition was discussed with her family, and the plan was to keep her intubated and mechanically ventilated overnight and decide on possibly extubating the patient today. Indeed the patient is on mechanical ventilation today, she is on assist control rate of 14 tidal volume 350 FiO2 50% and PEEP of 5. Patient is still receiving propofol at 30 mcg/kg/m she is also on amiodarone 0.5 mg/m her IV fluid to KVO. Patient was awakened, she seems to be drowsy but she follows simple instructions in spite of being on propofol, her chest x-ray i s showing significant improvement in her left sided opacification, apparently her aeration of the left lung significantly improved after her bronchoscopy yesterday and after 1 day of mechanical ventilation. Hence I plan to consider weaning and extubating this patient today. I plan to discontinue propofol, and I plan to check weaning parameters and if tolerated may proceed to extubating the patient. And considering the improvement noted on the chest x-ray, I have no plans to repeat bronchoscopy anytime soon. Considering her episode yesterday WBC count today is 21.5 hemoglobin is 9.6. Basic metabolic profile is normal BUN is 70 creatinine 1.35. Patient was already seen by cardiology on co nsultation, and the plan is to continue amiodarone. Reevaluated today on , patient is doing great today, she is on 2 L nasal cannula, does not seem to be in any distress, chest x-ray continues to show significant improvement of the aeration of the left lung. Patient is in atrial fibrillation but fairly controlled rhythm, she is on oral medication/amiodarone, and she is off IV amiodarone. Plan is to transfer the patient out of the ICU or even consider discharging the patient home/senior living. WBC count is 18.6 hemoglobin is 8.3 left lites are normal BUN is 66 creatinine 1.4 Objective - Vital Signs Vital signs: Vital Signs Temp 97.9 F 08/02/23 04:00 Pulse 65 08/02/23 10:00 Resp 29 H 08/02/23 10:00 BP 143/54 08/02/23 10:00 Pulse Ox 93 L 08/02/23 10:00 FiO2 40 08/01/23 12:00 Intake & Output 08/01/23 08/02/23 08/02/23 18:59 06:59 18:59 Intake Total 727.619 240 20 Output Total 525 395 30 Balance 202.619 -155 -10 Weight 59 kg Intake: IV 310 240 20 0.8% @20mL/hr 210 240 20 Piperacillin-Tazobactam 3 100 .375 gm In Sodium Chloride 0.9% 100 ml @ 25 mls/hr IVPB Q8HR DENIA Rx# :[id number] Intake, IV Titration 47.619 Amount propofoL 1,000 mg In 47.619 Empty Bag 1 bag @ 15 MCG/ KG/MIN 4.275 mls/hr IV . [id number] DENIA Rx#:[id number] Oral 370 Output: Urine 525 395 30 Other: Voiding Method Indwelling Catheter Indwelling Catheter - Exam Physical Exam: Revealed an 88-year-old female on 2 L nasal cannula, not in distress. Head: Atraumatic normocephalic HEENT:[Neck is supple.] [No neck masses.] [No thyromegaly.] [No JVD.] Chest: [Diminished breath sounds at the bases, no rhonchi and no wheezes. Cardiac Exam: Irregular irregular rhythm. [Normal S1 and S2, no S3 gallop, 2/6 systolic murmur thought the precordium. Abdomen: [Soft, nontender, no megaly, no rebound, no guarding, normal bowel sounds.] Extremities: [No clubbing, no edema, no cyanosis.] Neurological Exam: Alert and oriented 3 and no gross focal neurologic deficit Psychiatric: Normal mood, affect and normal mental status examination. Skin: No rashes however the patient has multiple areas of bruises on both upper and lower extremities - Labs CBC & Chem 7: 08/02/23 06:13 08/02/23 06:13 Labs: Abnormal Lab Results - Last 24 Hours (Table) 09/08/01/23 08/02/23 Range/Units 13:00 18:15 00:04 WBC (3.8-10.6) k/uL RBC (3.80-5.40) m/uL Hgb (11.4-16.0) gm/dL Hct (34.0-46.0) % RDW (11.5-15.5) % Sodium (137-145) mmol/L Potassium (3.5-5.1) mmol/L BUN (7-17) mg/dL Creatinine (0.52-1.04) mg/dL Glucose (74-99) mg/dL POC Glucose (mg/dL) 176 H 238 H 256 H (70-110) mg/dL 08/02/23 08/02/23 08/02/23 Range/Units 05:08 06:13 06:13 WBC 18.6 H (3.8-10.6) k/uL RBC 3.06 L (3.80-5.40) m/uL Hgb 8.3 L (11.4-16.0) gm/dL Hct 26.2 L (34.0-46.0) % RDW 16.0 H (11.5-15.5) % Sodium 132 L (137-145) mmol/L Potassium 3.1 L (3.5-5.1) mmol/L BUN 66 H (7-17) mg/dL Creatinine 1.40 H (0.52-1.04) mg/dL Glucose 171 H (74-99) mg/dL POC Glucose (mg/dL) 202 H (70-110) mg/dL 08/02/23 Range/Units 11:36 WBC (3.8-10.6) k/uL RBC (3.80-5.40) m/uL Hgb (11.4-16.0) gm/dL Hct (34.0-46.0) % RDW (11.5-15.5) % Sodium (137-145) mmol/L Potassium (3.5-5.1) mmol/L BUN (7-17) mg/dL Creatinine (0.52-1.04) mg/dL Glucose (74-99) mg/dL POC Glucose (mg/dL) 258 H (70-110) mg/dL Assessment and Plan Assessment: Impression: Acute hypoxemic respiratory failure, likely multifactorial, in part related to COPD exacerbation, left lower lobe pneumonia/atelectasis, complete opacification left lung, requiring bronchoscopy while the patient was intubated, however the patient went on to develop wide-complex tachycardia requiring amiodarone IV push, and required keeping the patient intubated and mechanically ventilated overnight.. Follow-up chest x-ray showed no need for repeat bronchoscopy has we'll proceed with weaning and extubating the patient today. Acute COVID-19 infection/pneumonia and suspect superimposed bacterial pneumonia Extensive left sided pneumonia, patient remains on Zosyn, could be superimposed bacterial gram-negative pneumonia or aspiration pneumonia. 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 fib Recommendation: Transfer patient to a monitor bed/medical floor or cardiac floor Continue to encourage incentive spirometry and deep coughing and deep breathing Consider placement in ECF. Continue Zosyn could be transitioned to Augmentin when the patient is to be discharged to a senior living Continue COVID-19 cocktail. We will clear the patient for discharge if cleared by other consultants in the next 24 hours Critical care time is over 30 minutes. Time with Patient: Less than 30
--- NOTE | 2023-08-02 15:04 | P.PN ---
Subjective Progress Note Date: 08/02/23 (medical center clinic charting seen at 1015) Patient is an 88-year-old female with dementia, hypertension, dyslipidemia, and COPD who presented with recurrent syncopal episodes and shortness of breath. In the emergency department he underwent an extensive evaluation. On initial presentation vitals were remarkable for saturating at 96% on [address] showed no acute process, cervical spine CT shows some diffuse lytic areas within cervical spine, possible metastatic disease. Initial EKG showed sinus rhythm with left bundle branch block at 75 bpm. Patient subsequently did go into atrial fibrillation with RVR. Initial labs showed were remarkable for platelet 134, bicarb 19, creatinine 1.36, troponin 0.048, proBNP 3700, pO2 47. Chest x- ray showed interstitial prominence with left midlung opacity. Patient subsequently became more hypoxic and required BiPAP. She was admitted under our services for hypoxic respiratory failure, new onset atrial fibrillation with RVR, COPD with acute exacerbation, and concerns for fluid volume overload. Consults were placed to pulmonology and cardiology. Patient found to be COVID- 19 positive. CTA chest negative for PE, does have left perihilar and left midlung nodularity concerning for neoplastic or atypical infection, extensive endobronchial opacification throughout the left lower lung, possible neoplasm versus extensive aspiration, patchy groundglass opacities in left upper lobe, possible moderate to severe stenosis at the arch vessel origin. Echocardiogram completed showing a reduced EF of 35-40% with hypokinetic inferioseptal and inferior wall with moderate right ventricular dilation and aneurysmal interatrial septum with suspicion of PFO and moderate mitral and tricuspid regurgitation.Cardiology evaluated and cleared patient from cardiac perspective on 07/25/23, recommending outpatient follow-up in their office in 2 weeks post arash escobedo. Lasix was discontinued secondary to worsening renal functionRepeat chest x-ray 07/30/23 showing worsening with new near complete opacification of the left hemithorax with the aeration of the lung apex concerning for large pleural effusion along with emphysematous changes. Patient continues to have high oxygen needs and is now on 8 L O2 via high flow nasal cannula with SpO2 of 93%.. Pulmonology following and the patient for bronchitis on 07/31 which was complicated by ventricular tachycardia requiring IV amio. She was intubated and admitted ot the ICU. She did not have any additional bouts of v-tach Patient seen and examined at bedside. She has no complaints at this time. She denies and chest pain or shortness of breath. Per nursing she ate 50% of her meal and has been cleared by pulmonary for discharge but cardio would like her to be observed for another 24 hours. Vital signs reviewed General: Ill appearing, mild distress, appears at stated age Cardiovascular: S1S2 reg, no murmur, positive posterior tibial pulse bilateral, Lungs: Coarse breath sounds bilateral bilateral, no rhonchi, no rales , no accessory muscle use Abdominal: soft, nontender to palpation, no guarding, no appreciable organomegaly Ext: no gross muscle atrophy, no edema b/l lower extremities, no contractures Neuro: CN II-XI grossly intact, no focal neuro deficits Psych: Awake and following commands, does not appear anxious Assessment/Plan: Acute COVID-19 pneumonia, possible endobronchial lesions per CT, lytic lesion in spine on CT cervical spine Acute hypoxic respiratory failure COPD exacerbation Suspected superimposed bacterial pneumonia Acute kidney injury, Cr stable suspect CKD Mild normocytic anemia, likely secondary to acute illness Mild thrombocytopenia, resolved Hyperglycemia, steroid-induced - Pulm reviewed: cleared for discharged -Zosyn 3.375 g every 12 hours D 7 -Solu-Medrol 40 mg decreased to daily -Symbicort 2 puffs twice daily, and scheduled Ventolin inhaler 4 times daily and every 2 hours as needed for wheezing/shortness of breath. -sputum and blood cultures negative -Continue glycemic protocol with NovoLog Sliding scale insulin, check A1C -Repeat CBC and BMP tomorrow Recurrent syncopal episodes, possibly sick sinus syndrome versus valvular disease Paroxysmal Atrial fibrillation with RVR, rate controlled Type 2 NSTEMI Chronic systolic heart failure with reduced EF of45-50% Pulmonary HTN Ventricular tachycardia vs A fib with aberrancy Hypertension - Cardio note reviewed: continue eliquis, amio, and lopressor - repeat echo EF 45-50%, RVSP 47 - Eliquis 2.5 mg twice daily - Metoprolol 50 mg twice daily, hold for hr <70 Chronic: Dementia: Aricept 10 mg twice daily, and Namenda 5 mg twice daily Dyslipidemia: Atorvastatin 80 mg nightly High anion Gap metabolic acidosis, improving, resolved Thrombocytopenia, resolved Imaging: CXR reviewed and increased aeration of left hemithorax repeat echo: EF 45-50%, RVSP 47 Data Review: Vitals reviewed and afebril for 24 hours. Labs reviewed are CBC, BMP which are markable for WBC 18.6, Hgb 8.3, sodium 132, potassium 3.1, Cr 1.4, Bun 66 DVT prophylaxis: Eliquis Anticipated discharge date: in AM Anticipated discharge place: [facility] This dictation was prepared using [employer] voice recognition software. Though every attempt is made to correct errors during dictation some may still exist. Objective - Vital Signs Vital signs: Vital Signs Temp 97.6 F 08/02/23 12:00 Pulse 57 L 08/02/23 14:00 Resp 19 08/02/23 14:00 BP 154/52 08/02/23 14:00 Pulse Ox 92 L 08/02/23 14:00 FiO2 40 08/01/23 12:00 Intake & Output 08/01/23 08/02/23 08/02/23 18:59 06:59 18:59 Intake Total 727.619 240 140 Output Total 525 395 210 Balance 202.619 -155 -70 Weight 59 kg Intake: IV 310 240 140 0.8% @20mL/hr 210 240 40 Piperacillin-Tazobactam 3 100 100 .375 gm In Sodium Chloride 0.9% 100 ml @ 25 mls/hr IVPB Q8HR [facility] Rx# :[id number] Intake, IV Titration 47.619 Amount propofoL 1,000 mg In 47.619 Empty Bag 1 bag @ 15 MCG/ KG/MIN 4.275 mls/hr IV . [id number] DENIA Rx#:[id number] Oral 370 Output: Urine 525 395 210 Other: Voiding Method Indwelling Catheter Indwelling Catheter - Labs CBC & Chem 7: 08/02/23 06:13 08/02/23 06:13 Labs: Abnormal Lab Results - Last 24 Hours (Table) 08/01/23 08/02/23 08/02/23 Range/Units 18:15 00:04 05:08 WBC (3.8-10.6) k/uL RBC (3.80-5.40) m/uL Hgb (11.4-16.0) gm/dL Hct (34.0-46.0) % RDW (11.5-15.5) % Sodium (137-145) mmol/L Potassium (3.5-5.1) mmol/L BUN (7-17) mg/dL Creatinine (0.52-1.04) mg/dL Glucose (74-99) mg/dL POC Glucose (mg/dL) 238 H 256 H 202 H (70-110) mg/dL 08/02/23 08/02/23 08/02/23 Range/Units 06:13 06:13 11:36 WBC 18.6 H (3.8-10.6) k/uL RBC 3.06 L (3.80-5.40) m/uL Hgb 8.3 L (11.4-16.0) gm/dL Hct 26.2 L (34.0-46.0) % RDW 16.0 H (11.5-15.5) % Sodium 132 L (137-145) mmol/L Potassium 3.1 L (3.5-5.1) mmol/L BUN 66 H (7-17) mg/dL Creatinine 1.40 H (0.52-1.04) mg/dL Glucose 171 H (74-99) mg/dL POC Glucose (mg/dL) 258 H (70-110) mg/dL
[2023-08-02 18:07] LABS: Glucose,Whole Blood 165 mg/dL (70-110)
[2023-08-02 20:13] LABS: Glucose,Whole Blood 199 mg/dL (70-110)
[2023-08-02] MEDS: ATORVASTATIN 80 MG TAB PO SCH (20:40)
[2023-08-02 23:52] LABS: Glucose,Whole Blood 142 mg/dL (70-110)
[2023-08-03] MEDS: INSULIN ASPART (NovoLOG) 100 UNIT/ML VIAL SQ SCH ×3 (06:54→18:25)
[2023-08-03 06:55] LABS: Glucose,Whole Blood 151 mg/dL (70-110)
[2023-08-03] MEDS: PIPERACILLIN-TAZOBACTAM 3.375 GM in SODIUM CHLORIDE 0.9% 100 ML IVPB SCH (08:22)
[2023-08-03] MEDS: METOPROLOL TARTRATE 50 MG TAB PO SCH ×2 (08:22→18:41)
[2023-08-03] MEDS: MEMANTINE 5 MG TAB PO SCH ×2 (08:22→20:07)
[2023-08-03] MEDS: DONEPEZIL 10 MG TAB PO SCH ×2 (08:22→20:07)
[2023-08-03] MEDS: methylPREDNISolone SOD SUCCI 40 MG/ML 1 ML VIAL IV SCH (08:22)
[2023-08-03] MEDS: APIXABAN 2.5 MG TABLET PO SCH ×2 (08:22→20:06)
[2023-08-03] MEDS: AMIODARONE 200 MG TAB PO SCH ×2 (08:22→18:41)
[2023-08-03] MEDS: SYMBICORT 160-4.5 MCG INHALER INHALATION SCH ×2 (08:40→19:53)
[2023-08-03] MEDS: ALBUTEROL HFA INHALER INHALATION SCH ×4 (08:40→19:53)
[2023-08-03 08:47] LABS: Anisocytosis Slight; HCT 28.8 % (34.0-46.0); HGB 9.2 gm/dL (11.4-16.0); Hypochromasia Slight; MCH 27.6 pg (25.0-35.0); MCV 86.5 fL (80.0-100.0); Mean Platelet Volume 9.5; Platelet Count 194 k/uL (150-450); RBC 3.33 m/uL (3.80-5.40); RDW 16.2 % (11.5-15.5); WBC 21.5 k/uL (3.8-10.6)
[2023-08-03 09:02] LABS: African American GFR (CKD) 42 (>60 ml/min/1.73 sqM); Anion Gap 9 mmol/L; Blood Urea Nitrogen 56 mg/dL (7-17); Calcium 8.9 mg/dL (8.4-10.2); Carbon Dioxide 25 mmol/L (22-30); Chloride 104 mmol/L (98-107); Glucose 133 mg/dL (74-99); Non-African American GFR(CKD) 36 (>60 ml/min/1.73 sqM); Sodium 138 mmol/L (137-145)
[2023-08-03 12:00] LABS: Glucose,Whole Blood 203 mg/dL (70-110)
--- NOTE | 2023-08-03 12:18 | P.PN ---
Subjective HISTORY OF PRESENT ILLNESS: This is an 88-year-old female who was admitted to the hospital secondary to A. fib with RVR and respiratory failure. Patient has been transferred out of the intensive care unit to the cardiac stepdown unit. Patient examined this morning at the bedside. She denies chest pain or pressure. She reports mild shortness of breath. Telemetry reveals sinus bradycardia cardio with a heart rate in the 50s. Patient did have a run of A. fib with RVR overnight with spontaneous conversion to sinus mechanism. Echocardiogram completed revealing ejection fraction 45-50% with mild aortic stenosis. PHYSICAL EXAM: VITAL SIGNS: Reviewed. GENERAL: Well-developed in no acute distress. NECK: Supple. No JVD or thyromegaly LUNGS: Respirations even and unlabored. Lungs with rhonchi and wheezing noted HEART: Regular rate and rhythm. S1 and S2 heard. Systolic murmur noted. EXTREMITIES: Normal range of motion. No clubbing or cyanosis. Peripheral pulses intact. 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 Signing provider agrees with the documented findings, assessment, and plan of care. Objective - Vital Signs Vital signs: Vital Signs Temp 97.7 F 08/03/23 08:09 Pulse 63 08/03/23 09:24 Resp 24 08/03/23 08:09 BP 156/69 08/03/23 08:09 Pulse Ox 97 08/03/23 08:09 FiO2 40 08/01/23 12:00 Intake & Output 08/02/23 08/03/23 08/03/23 18:59 06:59 18:59 Intake Total 485 118 Output Total 410 625 Balance 75 -625 118 Intake: IV 245 0.8% @20mL/hr 120 Piperacillin-Tazobactam 3 125 .375 gm In Sodium Chloride 0.9% 100 ml @ 25 mls/hr IVPB Q8HR DENIA Rx# :[id number] Oral 240 118 Output: Urine 410 625 Other: Voiding Method Indwelling Catheter Indwelling Catheter Indwelling Catheter # Bowel Movements 1 1 - Labs CBC & Chem 7: 08/03/23 07:32 08/03/23 07:32 Labs: Abnormal Lab Results - Last 24 Hours (Table) 08/02/23 08/02/23 08/02/23 Range/Units 06:04 18:06 20:08 WBC (3.8-10.6) k/uL RBC (3.80-5.40) m/uL Hgb (11.4-16.0) gm/dL Hct (34.0-46.0) % RDW (11.5-15.5) % BUN (7-17) mg/dL Creatinine (0.52-1.04) mg/dL Glucose (74-99) mg/dL POC Glucose (mg/dL) 165 H 199 H (70-110) mg/dL Hemoglobin A1c 6.5 H (<=6.0) % 08/02/23 08/03/23 08/03/23 Range/Units 23:49 06:53 07:32 WBC 21.5 H (3.8-10.6) k/uL RBC 3.33 L (3.80-5.40) m/uL Hgb 9.2 L (11.4-16.0) gm/dL Hct 28.8 L (34.0-46.0) % RDW 16.2 H (11.5-15.5) % BUN (7-17) mg/dL Creatinine (0.52-1.04) mg/dL Glucose (74-99) mg/dL POC Glucose (mg/dL) 142 H 151 H (70-110) mg/dL Hemoglobin A1c (<=6.0) % 08/03/23 08/03/23 Range/Units 07:32 11:58 WBC (3.8-10.6) k/uL RBC (3.80-5.40) m/uL Hgb (11.4-16.0) gm/dL Hct (34.0-46.0) % RDW (11.5-15.5) % BUN 56 H (7-17) mg/dL Creatinine 1.31 H (0.52-1.04) mg/dL Glucose 133 H (74-99) mg/dL POC Glucose (mg/dL) 203 H (70-110) mg/dL Hemoglobin A1c (<=6.0) %
[2023-08-03 12:31] VITALS: BMI 23.0
--- NOTE | 2023-08-03 14:12 | P.PN ---
Subjective Progress Note Date: 08/03/23 77-year-old female who was initially seen in the emergency department. We saw her, and room 369, July 20. She was seen in the ER, on July 19. She apparently came into the ER, having had some syncopal episodes, in the shower, where she hit her head. Apparently, there is no family members, with her, and she was a poor historian. When she was brought in by EMS, her saturations were 88% on room air. They gave her nasal O2, at 3 L, and breathing treatments. Currently, the patient is on BiPAP, with settings of 10/5, and 100%. Her saturations are 99%. She's receiving IV heparin, and a Cardizem drip at 5 mg an hour. She's also getting saline at 15 mL an hour. Based on her home medicatio ns, she has a history of hyperlipidemia, vitamin D deficiency, dementia, and hypertension. White count is 6.6, hemoglobin 12.8, hematocrit 40.5, and platelet count 134,000. She had blood gases in the emergency department, showing a pO2 of 47, pCO2 of 37, and pH is 7.36. A repeat blood gas was sim ilar, with a pO2 of 54, pCO2 37, and pH is 7.36. Sodium was 144, potassium 4.2, chlorides 112, CO2 19, BUN 45, and creatinine 1.36. AST was 67. ALT was 44, and troponin was 0.048. N-terminal proBNP was elevated at 3760. Chest x-ray shows moderate cardiomegaly, and mild pulmonary vascular congestion, consistent with the elevated BNP. In addition, there is a focal area of scar and/or nodule, in the left midlung. Progress note dated 07/21/2023. The patient is seen in room 369. She continues on BiPAP, with settings of 10/5 and 80%. I've asked the respiratory therapist, to convert her to nasal cannula, even if it's high flow. She is receiving Cardizem drip at 2.5 mg an hour, and IV heparin via protocol. Clinically, the patient feels like she is better. She gives a thumbs up when asked. White count 9.2, hemoglobin 11.2, hematocrit 36, and platelet count 153,000. Sodium 135, potassium 4.2, chlorides 104, CO2 21, anion gap 10, BUN 40, creatinine 1.13. Blood cultures are negative. A CT angiogram was ordered by the hospitalist service, and showed no evidence of pulmonary changes of COPD and pulmonary arterial hypertension, and possible pneumonitis, in the left lower lobe, and left upper lobe. The patient is on azithromycin, and Rocephin at the current time. And also receiving Solu-Medrol 40 mg every 8 hours. Progress note dated July 2023. 87-year-old female seen today in room 369. The patient is currently on 10 L high flow oxygen, and alternating, with BiPAP, with settings of 10/5, and 80%. The patient's is also getting saline at 15 mL an hour. Unfortunately, the patient did test positive for coronavirus. No new labs today as yet, other than the positive test for coronavirus. The patient is currently in albuterol inhaler, and also on Symbicort, 160/4.5, 2 puffs twice a day. Also, the patient's on Solu-Medrol, 40 mg every 8 hours, and Rocephin. On today's evaluation of 07/23/2023, the patient is being seen for a follow-up. The patient was taken off the BiPAP and the patient is currently on high flow oxygen 10 L/m nasal cannula with a pulse ox of 93%. The patient is a 77-year-old female who was hospitalized for shortness of breath and hypoxic respiratory failure. During the course of this hospitalization, the patient was diagnosed having Covid 19 infection on 07/22/2023. The patient however has significant abnormalities and the CAT scan of the chest which is showing left hilar lymphadenopathy, obstruction of the left lower lobe bronchus and the patient possibly has either a mass or a mucous plug occluding the left lower lobe bronchus. I do favor malignancy. There is also mild to moderate back on emphysema in addition to left lower lobe atelectasis. As mentioned, there is left perihilar and left midlung nodularity measuring up to 2.8 cm in size which could be potentially malignancy. She does have also some myocardial megaly. Meanwhile, the patient remains on Ventolin HFA [id number], IV Rocephin, and IV Solu-Medrol 40 mg every 6 hours. The blood culture has been negative. The rest of the blood work from today shows an obese count of 17.9, hemoglobin is at 11.6 and a platelet count is at 284. BUN is at 31 with a creatinine of 1.1 and his sodium level is at 137. She did have a component of acute kidney injury which is improved at this point in time. On 07/24/2023 the patient is awake and alert and she is communicating. She is currently on 6 L of oxygen by nasal cannula and there has been ongoing slow improvement in the patient's oxygenation. She has some limited congestive cough. No significant sputum production. No fever. No chills. As discussed earlier, the CAT scan of the chest that was done during this current hospitalization showed left hilar lymphadenopathy, obstruction of the left lower lobe bronchus and possibility of malignancy is obviously entertained. There is another opacity in the left perihilar area in addition. White cell count of 15.4, hemoglobin 11.4, platelet count is 248, BUN is at 39 with a creatinine of 1.09 and a sodium level is at 138. Blood sugars at 172. The patient is on anticoagulations with Eliquis 2.5 mg twice a day. The patient IV Rocephin. The patient is on Lasix 40 mg by mouth twice a day. The patient remains on IV Solu- Medrol 40 mg every 8 hours. On 07/25/2023, the patient remains on 6 L with a pulse ox of 96%. No new complaints. As mentioned earlier, the patient has positive Covid 19 infection. At the same time, the patient has left lower lobe atelectasis and possibility of a malignancy in the left hilar area an obstructive lesion in the left lower lobe bronchus. Based on age and comorbidities, bronchoscopy was not done. She remains on IV Rocephin. She is resting comfortably in bed. She remains on IV Solu-Medrol. Labs from today showing a white cell count 19.7, hemoglobin is 12.2, BUN is 48 with a creatinine of 1.08 and a sodium level is at 134. On 07/26/2023, the patient has been weaned down to 5 L of oxygen by nasal cannula pH is resting comfortably in bed. No new complaints. No shortness of breath or chest pain at rest. She remains on IV Rocephin. She remains on Symbicort as maintenance and albuterol HFA [id number]. She remains on IV Solu-Medrol. She remains on oral Lasix 40 mg twice a day and anticoagulation with Eliquis 2.5 mg twice a day. No significant interval change in her overall condition. On today's evaluation of 07/27/2023, the patient is cough and copious amounts of thick purulent sputum. Despite this, and oxygen is improved and she is currently down to 4 L of oxygen by nasal cannula. A repeat chest x-ray was done and shows an area of consolidation of the left upper lobe which is a new finding compared to the earlier chest x-ray and CAT scan of the chest. As such, it seems that the patient's pneumonias progress. Based on all this, I started the patient on IV Zosyn. The patient remains on IV Solu-Medrol and bronchodilators. He is awake and alert and communicating at this point in time. The white cell count today's of 20 with a hemoglobin 11.1 and a BUN 64 with a creatinine of 1.47 and a sodium level is at 133. She continues to have persistent leukocytosi s. She is afebrile for now. We'll attempt to collect another sputum sample for Gram stain and culture. On 07/28/2023, the patient is sitting up on a chair and she is calm and comfortable. No significant complaints. Cough is present and the patient is bringing significant amount of sputum. She remains on 4 L. A repeat chest x- ray was done and shows improvement in the left upper lobe consolidation. Her breathing is nonlabored. Her renal function is being monitored. Creatinine 1.5 with a BUN of 63. The white suppositive elevated at 19.4, hemoglobin is 11.8. No other significant complaints. She is profoundly aggressive pulmonary toileting. On 07/29/2023, the patient remains on IV Zosyn. The patient remains on IV Solu- Medrol 40 mg every 8 hours. No new complaints. Oxygenation is being monitored very closely and the patient was brought back to up to 6 L of O2 nasal cannula. The chest x-ray from yesterday was showing improvement left upper lobe consolidation. The white blood count remains elevated at 29, hemoglobin 11.1, BUN is at 64 with a creatinine of 1.49 and his sodium levels of 134 and the potassium levels at 3.4. The patient is seen today 07/30/2023 in follow-up on the selective care unit. She is currently sitting up in bed. Awake and alert in no acute distress. She is still requiring 6 L high flow nasal cannula. Chest x-ray shows near complete opacification of the left lung. She's been Covid positive since 07/22/2023. Sputum culture revealed no growth. Blood cultures reveal no growth. She remains on Symbicort, Ventolin HFA, IV Solu-Medrol. Antibiotics in the form of Zosyn. The patient has been slow to progress. No significant improvement in her chest x-ray. We'll plan for bronchoscopy with BAL tomorrow. The patient is seen today 04/30/2023 in follow-up on the selective care unit. She is resting comfortably in bed. He is requiring 8 L high flow nasal cannula to maintain O2 saturation low 90s. She's been afebrile. Slightly hypertensive. Sputum culture revealed no growth. Blood cultures revealed no growth. White count 25.0. Hemoglobin 10.7. Sodium 135. Potassium 3.4. Bicarb 31. BUN 64. Creatinine 1.22. Glucose 171. AST 40. ALT 38. C-reactive protein 6.4. She remains on Symbicort, Ventolin HFA, IV Solu-Medrol. Antibiotics in the form of Zosyn. Plan is for bronchoscopy with BAL today. Patient was reevaluated today on 08/01/2023, patient remains in the ICU today, mostly because the patient remains intubated and mechanically ventilated, during the early part of the bronchoscopy yesterday, patient developed wide-complex tachycardia, and felt to be either ventricular tachycardia or atrial fibrillation with RVR and left bundle branch block pattern. Patient received amiodarone, converted to a sinus rhythm eventually, and the bronchoscopy was not completed fully. Patient was transferred to the ICU intubated and mechanically ventilated, and her condition was discussed with her family, and the plan was to keep her intubated and mechanically ventilated overnight and decide on possibly extubating the patient today. Indeed the patient is on mechanical ventilation today, she is on assist control rate of 14 tidal volume 350 FiO2 50% and PEEP of 5. Patient is still receiving propofol at 30 mcg/kg/m she is also on amiodarone 0.5 mg/m her IV fluid to KVO. Patient was awakened, she seems to be drowsy but she follows simple instructions in spite of being on propofol, her chest x-ray is showing significant improvement in her left sided opacification, apparently her aeration of the left lung significantly improved after her bronchoscopy yesterday and after 1 day of mechanical ventilation. Hence I plan to consider weaning and extubating this patient today. I plan to discontinue propofol, and I plan to check weaning parameters and if tolerated may proceed to extubating the patient. And considering the improvement noted on the chest x-ray, I have no plans to repeat bronchoscopy anytime soon. Considering her episode yesterday WBC count today is 21.5 hemoglobin is 9.6. Basic metabolic profile is normal BUN is 70 creatinine 1.35. Patient was already seen by cardiology on consultation, and the plan is to continue amiodarone. Reevaluated today on , patient is doing great today, she is on 2 L nasal cannula, does not seem to be in any distress, chest x-ray continues to show significant improvement of the aeration of the left lung. Patient is in atrial fibrillation but fairly controlled rhythm, she is on oral medication/amiodarone, and she is off IV amiodarone. Plan is to transfer the patient out of the ICU or even consider discharging the patient home/half-way. WBC count is 18.6 hemoglobin is 8.3 left lites are normal BUN is 66 creatinine 1.4 The patient is seen today 08/03/2023 in follow-up on the selective care unit. He is currently sitting up in bed. Awake and alert in no acute distress. She is maintaining O2 saturations in the 90s on 3 L/m per nasal cannula. She remains on Symbicort, albuterol, Solu-Medrol. She remains on Zosyn. She is anticoagulated with Eliquis. Sputum culture revealed no growth. Blood culture revealed no growth. White count 21.5. Hemoglobin 9.2. Platelets 194. Sodium 138. Potassium 4.0. Bicarb 25. BUN 56. Creatinine 1.30. Glucose 133. Objective - Vital Signs Vital signs: Vital Signs Temp 97.7 F 08/03/23 08:09 Pulse 53 L 08/03/23 13:17 Resp 20 08/03/23 12:12 BP 164/69 08/03/23 12:12 Pulse Ox 96 08/03/23 12:12 FiO2 40 08/01/23 12:00 Intake & Output 08/02/23 08/03/23 08/03/23 18:59 06:59 18:59 Intake Total 485 118 Output Total 410 625 625 Balance 28 -882 -412 Weight 59 kg Intake: IV 245 0.8% @20mL/hr 120 Piperacillin-Tazobactam 3 125 .375 gm In Sodium Chloride 0.9% 100 ml @ 25 mls/hr IVPB Q8HR [facility] Rx# :[id number] Oral 240 118 Output: Urine 410 625 625 Other: Voiding Method Indwelling Catheter Indwelling Catheter Indwelling Catheter # Bowel Movements 1 1 - Exam GENERAL EXAM: Alert, frail 88-year-old female, sitting up in bed, on 3 L nasal cannula, comfortable in no apparent distress. HEAD: Normocephalic. EYES: Normal reaction of pupils, equal size. NOSE: Clear with pink turbinates. THROAT: No erythema or exudates. NECK: No masses, no JVD. CHEST: No chest wall deformity. LUNGS: Equal air entry with crackles, diminished throughout the left lung. CVS: S1 and S2 normal with no audible murmur, regular rhythm. ABDOMEN: No hepatosplenomegaly, normal bowel sounds, no guarding or rigidity. SPINE: No scoliosis or deformity SKIN: No rashes CENTRAL NERVOUS SYSTEM: No focal deficits, tone is normal in all 4 extremities. EXTREMITIES: There is no peripheral edema. No clubbing, no cyanosis. Peripheral pulses are intact. - Labs CBC & Chem 7: 08/03/23 07:32 08/03/23 07:32 Labs: Abnormal Lab Results - Last 24 Hours (Table) 08/02/23 08/02/23 08/02/23 Range/Units 06:04 18:06 20:08 WBC (3.8-10.6) k/uL RBC (3.80-5.40) m/uL Hgb (11.4-16.0) gm/dL Hct (34.0-46.0) % RDW (11.5-15.5) % BUN (7-17) mg/dL Creatinine (0.52-1.04) mg/dL Glucose (74-99) mg/dL POC Glucose (mg/dL) 165 H 199 H (70-110) mg/dL Hemoglobin A1c 6.5 H (<=6.0) % 08/02/23 08/03/23 08/03/23 Range/Units 23:49 06:53 07:32 WBC 21.5 H (3.8-10.6) k/uL RBC 3.33 L (3.80-5.40) m/uL Hgb 9.2 L (11.4-16.0) gm/dL Hct 28.8 L (34.0-46.0) % RDW 16.2 H (11.5-15.5) % BUN (7-17) mg/dL Creatinine (0.52-1.04) mg/dL Glucose (74-99) mg/dL POC Glucose (mg/dL) 142 H 151 H (70-110) mg/dL Hemoglobin A1c (<=6.0) % 08/03/23 08/03/23 Range/Units 07:32 11:58 WBC (3.8-10.6) k/uL RBC (3.80-5.40) m/uL Hgb (11.4-16.0) gm/dL Hct (34.0-46.0) % RDW (11.5-15.5) % BUN 56 H (7-17) mg/dL Creatinine 1.31 H (0.52-1.04) mg/dL Glucose 133 H (74-99) mg/dL POC Glucose (mg/dL) 203 H (70-110) mg/dL Hemoglobin A1c (<=6.0) % Assessment and Plan Assessment: Acute hypoxemic respiratory failure, likely multifactorial, in part related to COPD exacerbation, left lower lobe pneumonia/atelectasis, complete opac ification left lower lobe bronchus, and Covid 19 infection with areas of groundglass changes bilaterally. Repeat chest x-ray shows worsening consolidation of the left upper lobe suggestive of pneumonia progression. The patient remains on Zosyn. The patient is currently on 3 L nasal cannula Bilateral pulmonary infiltrates with areas of groundglass changes, could be related to Covid 19 infection. In addition, there is a left perihilar nodularity measuring up to 2.8 cm which obviously raises the concern for malignancy. Left lower lobe atelectasis, with a suspicious opacity in left lower lobe bronchus and lymphadenopathy. We reviewed the CAT scan of the chest and there is extensive and the bronchial opacification of the left lower lobe bronchus which could be either a neoplasm or aspiration. There is however volume loss in the left lung base along with left basilar atelectasis. Left upper lobe consolidation/pneumonia, currently on Zosyn Persistent leukocytosis, white cell count remains elevated at 29 Patient tested positive for coronavirus infection, 07/22/2023. COPD History of smoking History of hyperlipidemia History of hypertension History of dementia History of vitamin D deficiency CHF with LV systolic dysfunction with an ejection fraction of 35-40% and moderate mitral regurgitation Atrial fibrillation with RVR, current rhythm is sinus and the patient is an a nticoagulation. Questionable tachybradycardia syndrome/sick sinus syndrome along with paroxysmal A. fib Plan: The patient was seen and evaluated Labs and medications reviewed Currently on 3 L nasal cannula Discontinue Zosyn, add Augmentin Continue Solu-Medrol Cleared for discharge to the ECF I have personally seen and examined the patient, performed the documentation and the assessment and plan as written. Number of minutes spent on the visit: 10.
--- NOTE | 2023-08-03 15:05 | FL ---
COMPARISON: NONE DATE OF EXAM: 08/03/2023 HISTORY: Dysphasia A number of thin and thick substances (BARIUM thin, nectar and pudding) were ingested under the care of the department of speech pathology. There is no evidence of aspiration. There is transient penetr ation with thin liquid. There is no evidence of obstruction. 1 min 17 sec FL 61.76 DAP dose IMPRESSION: 1. No evidence of aspiration. Transient penetration with thin liquid.
--- NOTE | 2023-08-03 15:57 | P.DS ---
Providers Date of admission: 07/19/23 19:15 Expected date of discharge: 08/03/23 Attending physician: Hardeep Pastor MD Consults: 07/19/23 19:14 Consult Physician Urgent Consulting Provider: [facility] Consult Reason/Comments: A. fib with rapid ventricular response Do you want consulting provider notified?: Yes 07/20/23 09:34 Consult Physician Urgent Consulting Provider: Bhanu Jimenez Consult Reason/Comments: hypoxic respiratory failure on bipapa Do you want consulting provider notified?: Yes 07/31/23 13:51 Consult Physician Stat Consulting Provider: Ayo Leung Consult Reason/Comments: VENTRICULAR TACHYCARDIA Do you want consulting provider notified?: Yes Primary care physician: Corey [facility]lornezo [facility] Course: Discharge Diagnosis: Acute COVID-19 pneumonia, possible endobronchial lesions per CT, lytic lesion in spine on CT cervical spine Acute hypoxic respiratory failure COPD exacerbation Suspected superimposed bacterial pneumonia Acute kidney injury, Cr stable suspect CKD Mild normocytic anemia, likely secondary to acute illness Mild thrombocytopenia, resolved Hyperglycemia, steroid-induced Recurrent syncopal episodes, possibly sick sinus syndrome versus valvular disease Paroxysmal Atrial fibrillation with RVR, rate controlled Type 2 NSTEMI Chronic systolic heart failure with reduced EF of 45-50% Pulmonary HTN Ventricular tachycardia vs A fib with aberrancy Hypertension Dementia Dyslipidemia High anion Gap metabolic acidosis Thrombocytopenia Prediabetes A1C 6.5 Hospital Course: Patient is an 88-year-old female with dementia, hypertension, dyslipidemia, and COPD who presented with recurrent syncopal episodes and shortness of breath. In the emergency department he underwent an extensive evaluation. On initial presentation vitals were remarkable for saturating at 96% on [address] showed no acute process, cervical spine CT shows some diffuse lytic areas within cervical spine, possible metastatic disease. Initial EKG showed sinus rhythm with left bundle branch block at 75 bpm. Patient subsequently did go into atrial fibrillation with RVR. Initial labs showed were remarkable for platelet 134, bicarb 19, creatinine 1.36, troponin 0.048, proBNP 3700, pO2 47. Chest x- ray showed interstitial prominence with left midlung opacity. Patient s ubsequently became more hypoxic and required BiPAP. She was admitted under our services for hypoxic respiratory failure, new onset atrial fibrillation with RVR, COPD with acute exacerbation, and concerns for fluid volume overload. Consults were placed to pulmonology and cardiology. Patient found to be COVID- 19 positive. CTA chest negative for PE, does have left perihilar and left midlung nodularity concerning for neoplastic or atypical infection, extensive endobronchial opacification throughout the left lower lung, possible neoplasm versus extensive aspiration, patchy groundglass opacities in left upper lobe, possible moderate to severe stenosis at the arch vessel origin. Echocardiogram completed showing a reduced EF of 35-40% with hypokinetic inferioseptal and inferior wall with moderate right ventricular dilation and aneurysmal interatrial septum with suspicion of PFO and moderate mitral and tricuspid regurgitation.Cardiology evaluated and cleared patient from cardiac perspective on 07/25/23, recommending outpatient follow-up in their office in 2 weeks post discharge. Lasix was discontinued secondary to worsening renal functionRepeat chest x-ray 07/30/23 showing worsening with new near complete opacification of the left hemithorax with the aeration of the lung apex concerning for large pleural effusion along with emphysematous changes. Patient continues to have high oxygen needs and is now on 8 L O2 via high flow nasal cannula with SpO2 of 93%.. Pulmonology following and the patient for bronchitis on 07/31 which was complicated by ventricular tachycardia requiring IV amio. She was intubated and admitted ot the ICU. She did not have any additional bouts of v-tach. She was extubated on and was doing well on 2 L nasal cannula. Chest x-ray shows significant improvement. She did not develop any more arrhythmia. She was eating and drinking well and O2 requirements were stable. She underwent a video swallow study which was negative. She was determined appropriate for discharge to correction facility. Follow-up: The patient had Borges catheter discontinued prior to discharge and will need to be followed closely for possible urinary retention. She completed 7 days of Zosyn in the hospital SHe will complete another 3 days of Augmentin. She does require prednisone taper. CBC and BMP in 3 days DX: CONRADO, anemia Patient seen and examined at bedside. Doing well. Denies any significant shortness of breath. No nausea or vomiting. Vital signs reviewed and stable. General: nontoxic, no distress, appears at stated age Cardiovascular: S1S2 reg, no murmur, positive posterior tibial pulse bilateral, Lungs: COure bs b/l, no rhonchi, no rales , no accessory muscle use Abdominal: soft, nontender to palpation, no guarding, no appreciable organomegaly Ext: no gross muscle atrophy, no edema b/l lower extremities, no contractures Neuro: CN II-XI grossly intact, no focal neuro deficits Psych: Alert, oriented, appropriate affect A total of 35 minutes of time were spent preparing this complex discharge summary. Patient was discharged on 08/03/23. This dictation was prepared using [employer] voice recognition software. Though every attempt is made to correct errors during dictation some may still exist. Patient Condition at Discharge: Stable Plan - Discharge Summary Discharge Rx Participant: No New Discharge Prescriptions: New Amiodarone [Cordarone] 200 mg PO BID tab predniSONE [Deltasone] 0 mg PO DIRECTED #20 tab Apixaban [Eliquis] 2.5 mg PO BID tab Metoprolol Tartrate [Lopressor] 50 mg PO BID tab Budesonide-Formot 160-4.5 Mcg [Symbicort 160-4.5 Mcg Inhaler] 2 puff INHALATION RT-BID each Albuterol Inhaler [Ventolin Hfa Inhaler] 2 puff INHALATION RT-QID each Amoxic-Pot Clav 875-125Mg [Augmentin 875-125] 1 each PO Q12HR #7 tab guaiFENesin [Mucinex] 200 mg PO Q12HR PRN tab PRN Reason: Congestion Albuterol Inhaler [Ventolin Hfa Inhaler] 2 puff INHALATION RT-Q2H PRN each PRN Reason: Shortness Of Breath Or Wheezing Continue Cholecalciferol [Vitamin D3 (125 Mcg = 5000 Iu)] 125 mcg PO HS Atorvastatin Calcium [Lipitor] 80 mg PO HS Memantine [Namenda] 10 mg PO BID Donepezil HCl [Aricept] 10 mg PO BID Multivitamins, Thera [Multivitamin (formulary)] 1 tab PO DAILY Discontinued amLODIPine [Norvasc] 5 mg PO HS Metoprolol Succinate (ER) [Toprol Xl] 25 mg PO DAILY Aspirin EC [Ecotrin Low Dose] 81 mg PO DAILY Turmeric Root Extract [Turmeric] 500 mg PO HS lisinopriL [Zestril] 10 mg PO DAILY Discharge Medication List Atorvastatin Calcium [Lipitor] 80 mg PO HS 07/19/23 [History] Cholecalciferol [Vitamin D3 (125 Mcg = 5000 Iu)] 125 mcg PO HS 07/19/23 [History] Donepezil HCl [Aricept] 10 mg PO BID 07/19/23 [History] Memantine [Namenda] 10 mg PO BID 07/19/23 [History] Multivitamins, Thera [Multivitamin (formulary)] 1 tab PO DAILY 07/19/23 [History] Albuterol Inhaler [Ventolin Hfa Inhaler] 2 puff INHALATION RT-Q2H PRN each 08/03/23 [Rx] Albuterol Inhaler [Ventolin Hfa Inhaler] 2 puff INHALATION RT-QID each 08/03/23 [Rx] Amiodarone [Cordarone] 200 mg PO BID tab 08/03/23 [Rx] Amoxic-Pot Clav 875-125Mg [Augmentin 875-125] 1 each PO Q12HR #7 tab 08/03/23 [Rx] Apixaban [Eliquis] 2.5 mg PO BID tab 08/03/23 [Rx] Budesonide-Formot 160-4.5 Mcg [Symbicort 160-4.5 Mcg Inhaler] 2 puff INHALATION RT-BID each 08/03/23 [Rx] Metoprolol Tartrate [Lopressor] 50 mg PO BID tab 08/03/23 [Rx] guaiFENesin [Mucinex] 200 mg PO Q12HR PRN tab 08/03/23 [Rx] predniSONE [Deltasone] 0 mg PO DIRECTED #20 tab 08/03/23 [Rx] Follow up Appointment(s)/Referral(s): Carloz Staples MD [Primary Care Provider] - 1-2 days Ayo Leung DO [STAFF PHYSICIAN] - 2 Weeks Silverio Mukherjee MD [STAFF PHYSICIAN] - 1 Week Activity/Diet/Wound Care/Special Instructions: Activity: As tolerated, fall precautions Diet: Heart Health Special Instructions: Borges removed, monitor for urinary retention [facility] and BMP in 2-3 days DX: anemia, CONRADO Discharge Disposition: TRANSFER TO SNF/ECF
[2023-08-03] MEDS ORDERED: DILTIAZEM DRIP BOLUS FROM BAG 1 MG SOLN IV ONE (17:50)
[2023-08-03] MEDS ORDERED: DILTIAZEM 125 MG in SODIUM CHLORIDE 0.9% 100 ML IV SCH (18:00)
[2023-08-03 18:05] LABS: Glucose,Whole Blood 326 mg/dL (70-110)
[2023-08-03] MEDS: AMOXIC-POT CLAV 875-125MG 1 EACH TAB PO SCH (20:06)
[2023-08-03] MEDS: ATORVASTATIN 80 MG TAB PO SCH (20:06)
[2023-08-04] LABS: Glucose,Whole Blood 115 mg/dL (70-110)
[2023-08-04] MEDS: INSULIN ASPART (NovoLOG) 100 UNIT/ML VIAL SQ SCH ×4 (00:16→17:40)
[2023-08-04] MEDS: ALBUTEROL HFA INHALER INHALATION PRN (03:40)
[2023-08-04 06:17] LABS: Glucose,Whole Blood 166 mg/dL (70-110)
[2023-08-04] MEDS: METOPROLOL TARTRATE 50 MG TAB PO SCH ×2 (06:34→20:03)
[2023-08-04 08:21] LABS: Anisocytosis Slight; HCT 27.3 % (34.0-46.0); HGB 8.6 gm/dL (11.4-16.0); Hypochromasia Slight; MCH 26.9 pg (25.0-35.0); MCHC 31.5 g/dL (31.0-37.0); MCV 85.5 fL (80.0-100.0); Platelet Count 207 k/uL (150-450); RDW 16.6 % (11.5-15.5); WBC 19.9 k/uL (3.8-10.6)
[2023-08-04 08:29] LABS: African American GFR (CKD) 47 (>60 ml/min/1.73 sqM); Anion Gap 7 mmol/L; Blood Urea Nitrogen 53 mg/dL (7-17); Calcium 8.8 mg/dL (8.4-10.2); Carbon Dioxide 25 mmol/L (22-30); Chloride 104 mmol/L (98-107); Glucose 138 mg/dL (74-99); Non-African American GFR(CKD) 41 (>60 ml/min/1.73 sqM); Potassium 3.9 mmol/L (3.5-5.1); Sodium 136 mmol/L (137-145)
[2023-08-04] MEDS: ALBUTEROL HFA INHALER INHALATION SCH ×4 (09:15→19:06)
[2023-08-04] MEDS: SYMBICORT 160-4.5 MCG INHALER INHALATION SCH ×2 (09:16→19:07)
[2023-08-04] MEDS: AMIODARONE 200 MG TAB PO SCH ×3 (09:19→20:03)
[2023-08-04] MEDS: MEMANTINE 5 MG TAB PO SCH ×2 (09:37→20:03)
[2023-08-04] MEDS: DONEPEZIL 10 MG TAB PO SCH ×2 (09:37→20:03)
[2023-08-04] MEDS: methylPREDNISolone SOD SUCCI 40 MG/ML 1 ML VIAL IV SCH (09:37)
[2023-08-04] MEDS: AMOXIC-POT CLAV 875-125MG 1 EACH TAB PO SCH ×2 (09:37→20:03)
[2023-08-04] MEDS: APIXABAN 2.5 MG TABLET PO SCH ×2 (09:37→20:03)
[2023-08-04] MEDS ORDERED: predniSONE 20 MG TAB PO SCH (10:00)
--- NOTE | 2023-08-04 11:03 | P.PN ---
Subjective HISTORY OF PRESENT ILLNESS: This is an 88-year-old female who was admitted to the hospital secondary to A. fib with RVR and respiratory failure. Patient has been transferred out of the intensive care unit to the cardiac stepdown unit. Patient examined this morning at the bedside. She denies chest pain or pressure. She reports mild shortness of breath. Telemetry reveals sinus bradycardia cardio with a heart rate in the 50s. Patient did have a run of A. fib with RVR overnight with spontaneous conversion to sinus mechanism. Echocardiogram completed revealing ejection fraction 45-50% with mild aortic stenosis. 08/04/2023 Patient was scheduled for discharge yesterday when she went into A. fib with RVR. Patient was started on IV Cardizem. Patient examined this morning at the bedside. Patient denies chest pain or pressure. She currently denies shortness of breath. She denies feeling any palpitations. Telemetry from overnight reviewed. Patient frequently going in and out of atrial fibrillation. When in atrial fibrillation her heart rate are elevated up into the 140s. When she is in sinus mechanism, she is bradycardic with a heart rate into the 40s at times. PHYSICAL EXAM: VITAL SIGNS: Reviewed. GENERAL: Well-developed in no acute distress. NECK: Supple. No JVD or thyromegaly LUNGS: Respirations even and unlabored. Lungs with rhonchi and wheezing noted HEART: Irregular rate and rhythm. S1 and S2 heard. Systolic murmur noted. EXTREMITIES: Normal range of motion. No clubbing or cyanosis. Peripheral pulses intact. No lower extremity edema ASSESSMENT: Covid 19 Acute hypoxic respiratory failure Acute COPD exacerbation Acute onset paroxysmal atrial fibrillation Tachybradycardia syndrome Aortic stenosis Questionable history of coronary artery disease Dementia PLAN: Continue current cardiac medications Continue telemetry monitoring Patient with tachybradycardia syndrome. She is frequently going in and out of afib with RVR and sinus mechanism with heart rates in the 40-50s. Further recommendation once evaluated by Dr. Saucedo today. Patient may require PPM implantation. Nurse practitioner note has been reviewed by physician. Signing provider agrees with the documented findings, assessment, and plan of care. Objective - Vital Signs Vital signs: Vital Signs Temp 97.7 F 08/04/23 08:00 Pulse 50 L 08/04/23 08:00 Resp 22 08/04/23 08:00 BP 130/97 09/23/23 08:00 Pulse Ox 95 08/04/23 09:19 FiO2 40 08/01/23 12:00 Intake & Output 08/03/23 08/04/23 08/04/23 18:59 06:59 18:59 Intake Total 118 4.25 Output Total 625 600 Balance -507 -595.75 Weight 59 kg Intake: Intake, IV Titration 4.25 Amount Diltiazem 125 mg In 4.25 Sodium Chloride 0.9% 100 ml @ 5 MG/HR 5 mls/hr IV .Q24H [facility] Rx#:[id number] Oral 118 Output: Urine 625 600 Other: Voiding Method Indwelling Catheter External Catheter External Catheter # Bowel Movements 1 - Labs CBC & Chem 7: 08/04/23 07:38 08/04/23 07:38 Labs: Abnormal Lab Results - Last 24 Hours (Table) 08/03/23 08/03/23 08/03/23 Range/Units 11:58 18:04 23:59 WBC (3.8-10.6) k/uL RBC (3.80-5.40) m/uL Hgb (11.4-16.0) gm/dL Hct (34.0-46.0) % RDW (11.5-15.5) % Sodium (137-145) mmol/L BUN (7-17) mg/dL Creatinine (0.52-1.04) mg/dL Glucose (74-99) mg/dL POC Glucose (mg/dL) 203 H 326 H 115 H (70-110) mg/dL 08/04/23 08/04/23 08/04/23 Range/Units 06:16 07:38 07:38 WBC 19.9 H (3.8-10.6) k/uL RBC 3.20 L (3.80-5.40) m/uL Hgb 8.6 L (11.4-16.0) gm/dL Hct 27.3 L (34.0-46.0) % RDW 16.6 H (11.5-15.5) % Sodium 136 L (137-145) mmol/L BUN 53 H (7-17) mg/dL Creatinine 1.20 H (0.52-1.04) mg/dL Glucose 138 H (74-99) mg/dL POC Glucose (mg/dL) 166 H (70-110) mg/dL
[2023-08-04 11:57] LABS: Glucose,Whole Blood 155 mg/dL (70-110)
[2023-08-04] MEDS: guaiFENesin 600 MG TABLET.ER PO PRN (12:05)
--- NOTE | 2023-08-04 13:09 | P.PN ---
Subjective Progress Note Date: 08/04/23 77-year-old female who was initially seen in the emergency department. We saw her, and room 369, July 20. She was seen in the ER, on July 19. She apparently came into the ER, having had some syncopal episodes, in the shower, where she hit her head. Apparently, there is no family members, with her, and she was a poor historian. When she was brought in by EMS, her saturations were 88% on room air. They gave her nasal O2, at 3 L, and breathing treatments. Currently, the patient is on BiPAP, with settings of 10/5, and 100%. Her saturations are 99%. She's receiving IV heparin, and a Cardizem drip at 5 mg an hour. She's also getting saline at 15 mL an hour. Based on her home medicatio ns, she has a history of hyperlipidemia, vitamin D deficiency, dementia, and hypertension. White count is 6.6, hemoglobin 12.8, hematocrit 40.5, and platelet count 134,000. She had blood gases in the emergency department, showing a pO2 of 47, pCO2 of 37, and pH is 7.36. A repeat blood gas was sim ilar, with a pO2 of 54, pCO2 37, and pH is 7.36. Sodium was 144, potassium 4.2, chlorides 112, CO2 19, BUN 45, and creatinine 1.36. AST was 67. ALT was 44, and troponin was 0.048. N-terminal proBNP was elevated at 3760. Chest x-ray shows moderate cardiomegaly, and mild pulmonary vascular congestion, consistent with the elevated BNP. In addition, there is a focal area of scar and/or nodule, in the left midlung. Progress note dated 07/21/2023. The patient is seen in room 369. She continues on BiPAP, with settings of 10/5 and 80%. I've asked the respiratory therapist, to convert her to nasal cannula, even if it's high flow. She is receiving Cardizem drip at 2.5 mg an hour, and IV heparin via protocol. Clinically, the patient feels like she is better. She gives a thumbs up when asked. White count 9.2, hemoglobin 11.2, hematocrit 36, and platelet count 153,000. Sodium 135, potassium 4.2, chlorides 104, CO2 21, anion gap 10, BUN 40, creatinine 1.13. Blood cultures are negative. A CT angiogram was ordered by the hospitalist service, and showed no evidence of pulmonary changes of COPD and pulmonary arterial hypertension, and possible pneumonitis, in the left lower lobe, and left upper lobe. The patient is on azithromycin, and Rocephin at the current time. And also receiving Solu-Medrol 40 mg every 8 hours. Progress note dated July 2023. 87-year-old female seen today in room 369. The patient is currently on 10 L high flow oxygen, and alternating, with BiPAP, with settings of 10/5, and 80%. The patient's is also getting saline at 15 mL an hour. Unfortunately, the patient did test positive for coronavirus. No new labs today as yet, other than the positive test for coronavirus. The patient is currently in albuterol inhaler, and also on Symbicort, 160/4.5, 2 puffs twice a day. Also, the patient's on Solu-Medrol, 40 mg every 8 hours, and Rocephin. On today's evaluation of 07/23/2023, the patient is being seen for a follow-up. The patient was taken off the BiPAP and the patient is currently on high flow oxygen 10 L/m nasal cannula with a pulse ox of 93%. The patient is a 77-year-old female who was hospitalized for shortness of breath and hypoxic respiratory failure. During the course of this hospitalization, the patient was diagnosed having Covid 19 infection on 07/22/2023. The patient however has significant abnormalities and the CAT scan of the chest which is showing left hilar lymphadenopathy, obstruction of the left lower lobe bronchus and the patient possibly has either a mass or a mucous plug occluding the left lower lobe bronchus. I do favor malignancy. There is also mild to moderate back on emphysema in addition to left lower lobe atelectasis. As mentioned, there is left perihilar and left midlung nodularity measuring up to 2.8 cm in size which could be potentially malignancy. She does have also some myocardial megaly. Meanwhile, the patient remains on Ventolin HFA [id number], IV Rocephin, and IV Solu-Medrol 40 mg every 6 hours. The blood culture has been negative. The rest of the blood work from today shows an obese count of 17.9, hemoglobin is at 11.6 and a platelet count is at 284. BUN is at 31 with a creatinine of 1.1 and his sodium level is at 137. She did have a component of acute kidney injury which is improved at this point in time. On 07/24/2023 the patient is awake and alert and she is communicating. She is currently on 6 L of oxygen by nasal cannula and there has been ongoing slow improvement in the patient's oxygenation. She has some limited congestive cough. No significant sputum production. No fever. No chills. As discussed earlier, the CAT scan of the chest that was done during this current hospitalization showed left hilar lymphadenopathy, obstruction of the left lower lobe bronchus and possibility of malignancy is obviously entertained. There is another opacity in the left perihilar area in addition. White cell count of 15.4, hemoglobin 11.4, platelet count is 248, BUN is at 39 with a creatinine of 1.09 and a sodium level is at 138. Blood sugars at 172. The patient is on anticoagulations with Eliquis 2.5 mg twice a day. The patient IV Rocephin. The patient is on Lasix 40 mg by mouth twice a day. The patient remains on IV Solu- Medrol 40 mg every 8 hours. On 07/25/2023, the patient remains on 6 L with a pulse ox of 96%. No new complaints. As mentioned earlier, the patient has positive Covid 19 infection. At the same time, the patient has left lower lobe atelectasis and possibility of a malignancy in the left hilar area an obstructive lesion in the left lower lobe bronchus. Based on age and comorbidities, bronchoscopy was not done. She remains on IV Rocephin. She is resting comfortably in bed. She remains on IV Solu-Medrol. Labs from today showing a white cell count 19.7, hemoglobin is 12.2, BUN is 48 with a creatinine of 1.08 and a sodium level is at 134. On 07/26/2023, the patient has been weaned down to 5 L of oxygen by nasal cannula pH is resting comfortably in bed. No new complaints. No shortness of breath or chest pain at rest. She remains on IV Rocephin. She remains on Symbicort as maintenance and albuterol HFA [id number]. She remains on IV Solu-Medrol. She remains on oral Lasix 40 mg twice a day and anticoagulation with Eliquis 2.5 mg twice a day. No significant interval change in her overall condition. On today's evaluation of 07/27/2023, the patient is cough and copious amounts of thick purulent sputum. Despite this, and oxygen is improved and she is currently down to 4 L of oxygen by nasal cannula. A repeat chest x-ray was done and shows an area of consolidation of the left upper lobe which is a new finding compared to the earlier chest x-ray and CAT scan of the chest. As such, it seems that the patient's pneumonias progress. Based on all this, I started the patient on IV Zosyn. The patient remains on IV Solu-Medrol and bronchodilators. He is awake and alert and communicating at this point in time. The white cell count today's of 20 with a hemoglobin 11.1 and a BUN 64 with a creatinine of 1.47 and a sodium level is at 133. She continues to have persistent leukocytosi s. She is afebrile for now. We'll attempt to collect another sputum sample for Gram stain and culture. On 07/28/2023, the patient is sitting up on a chair and she is calm and comfortable. No significant complaints. Cough is present and the patient is bringing significant amount of sputum. She remains on 4 L. A repeat chest x- ray was done and shows improvement in the left upper lobe consolidation. Her breathing is nonlabored. Her renal function is being monitored. Creatinine 1.5 with a BUN of 63. The white suppositive elevated at 19.4, hemoglobin is 11.8. No other significant complaints. She is profoundly aggressive pulmonary toileting. On 07/29/2023, the patient remains on IV Zosyn. The patient remains on IV Solu- Medrol 40 mg every 8 hours. No new complaints. Oxygenation is being monitored very closely and the patient was brought back to up to 6 L of O2 nasal cannula. The chest x-ray from yesterday was showing improvement left upper lobe consolidation. The white blood count remains elevated at 29, hemoglobin 11.1, BUN is at 64 with a creatinine of 1.49 and his sodium levels of 134 and the potassium levels at 3.4. The patient is seen today 07/30/2023 in follow-up on the selective care unit. She is currently sitting up in bed. Awake and alert in no acute distress. She is still requiring 6 L high flow nasal cannula. Chest x-ray shows near complete opacification of the left lung. She's been Covid positive since 07/22/2023. Sputum culture revealed no growth. Blood cultures reveal no growth. She remains on Symbicort, Ventolin HFA, IV Solu-Medrol. Antibiotics in the form of Zosyn. The patient has been slow to progress. No significant improvement in her chest x-ray. We'll plan for bronchoscopy with BAL tomorrow. The patient is seen today 04/30/2023 in follow-up on the selective care unit. She is resting comfortably in bed. He is requiring 8 L high flow nasal cannula to maintain O2 saturation low 90s. She's been afebrile. Slightly hypertensive. Sputum culture revealed no growth. Blood cultures revealed no growth. White count 25.0. Hemoglobin 10.7. Sodium 135. Potassium 3.4. Bicarb 31. BUN 64. Creatinine 1.22. Glucose 171. AST 40. ALT 38. C-reactive protein 6.4. She remains on Symbicort, Ventolin HFA, IV Solu-Medrol. Antibiotics in the form of Zosyn. Plan is for bronchoscopy with BAL today. Patient was reevaluated today on 08/01/2023, patient remains in the ICU today, mostly because the patient remains intubated and mechanically ventilated, during the early part of the bronchoscopy yesterday, patient developed wide-complex tachycardia, and felt to be either ventricular tachycardia or atrial fibrillation with RVR and left bundle branch block pattern. Patient received amiodarone, converted to a sinus rhythm eventually, and the bronchoscopy was not completed fully. Patient was transferred to the ICU intubated and mechanically ventilated, and her condition was discussed with her family, and the plan was to keep her intubated and mechanically ventilated overnight and decide on possibly extubating the patient today. Indeed the patient is on mechanical ventilation today, she is on assist control rate of 14 tidal volume 350 FiO2 50% and PEEP of 5. Patient is still receiving propofol at 30 mcg/kg/m she is also on amiodarone 0.5 mg/m her IV fluid to KVO. Patient was awakened, she seems to be drowsy but she follows simple instructions in spite of being on propofol, her chest x-ray is showing significant improvement in her left sided opacification, apparently her aeration of the left lung significantly improved after her bronchoscopy yesterday and after 1 day of mechanical ventilation. Hence I plan to consider weaning and extubating this patient today. I plan to discontinue propofol, and I plan to check weaning parameters and if tolerated may proceed to extubating the patient. And considering the improvement noted on the chest x-ray, I have no plans to repeat bronchoscopy anytime soon. Considering her episode yesterday WBC count today is 21.5 hemoglobin is 9.6. Basic metabolic profile is normal BUN is 70 creatinine 1.35. Patient was already seen by cardiology on consultation, and the plan is to continue amiodarone. Reevaluated today on , patient is doing great today, she is on 2 L nasal cannula, does not seem to be in any distress, chest x-ray continues to show significant improvement of the aeration of the left lung. Patient is in atrial fibrillation but fairly controlled rhythm, she is on oral medication/amiodarone, and she is off IV amiodarone. Plan is to transfer the patient out of the ICU or even consider discharging the patient home/[facility]. WBC count is 18.6 hemoglobin is 8.3 left lites are normal BUN is 66 creatinine 1.4 The patient is seen today 08/03/2023 in follow-up on the selective care unit. He is currently sitting up in bed. Awake and alert in no acute distress. She is maintaining O2 saturations in the 90s on 3 L/m per nasal cannula. She remains on Symbicort, albuterol, Solu-Medrol. She remains on Zosyn. She is anticoagulated with Eliquis. Sputum culture revealed no growth. Blood culture revealed no growth. White count 21.5. Hemoglobin 9.2. Platelets 194. Sodium 138. Potassium 4.0. Bicarb 25. BUN 56. Creatinine 1.30. Glucose 133. The patient is seen today 08/04/2023 in follow-up on the selective care unit. She is sitting up in bed. Awake and alert in no acute distress. She denies any worsening shortness of breath, cough or congestion. Maintaining good O2 saturations in the mid 90s on 3 L/m per nasal cannula. She's been afebrile. Hemodynamically stable. Blood cultures reveal no growth. Sputum culture revealed no growth. White count 19.9. Hemoglobin 8.6. Platelets 207. Glucose 138. Sodium 136. Potassium 3.9. Bicarb 25. BUN 53. Creatinine 1.20. She remains on Augmentin, Symbicort, albuterol, prednisone taper. Anticoagulated with Eliquis. Objective - Vital Signs Vital signs: Vital Signs Temp 97.3 F L 08/04/23 12:00 Pulse 50 L 08/04/23 12:00 Resp 20 08/04/23 12:00 BP 156/70 08/04/23 12:00 Pulse Ox 95 08/04/23 12:00 FiO2 40 08/01/23 12:00 Intake & Output 08/03/23 08/04/23 08/04/23 18:59 06:59 18:59 Intake Total 118 4.25 Output Total 625 600 Balance -507 -595.75 Weight 59 kg Intake: Intake, IV Titration 4.25 Amount Diltiazem 125 mg In 4.25 Sodium Chloride 0.9% 100 ml @ 5 MG/HR 5 mls/hr IV .Q24H [facility] Rx#:[id number] Oral 118 Output: Urine 625 600 Other: Voiding Method Indwelling Catheter External Catheter External Catheter # Bowel Movements 1 1 - Exam GENERAL EXAM: Alert, frail 88-year-old female, on 3 L nasal cannula, comfortable in no apparent distress. HEAD: Normocephalic. EYES: Normal reaction of pupils, equal size. NOSE: Clear with pink turbinates. THROAT: No erythema or exudates. NECK: No masses, no JVD. CHEST: No chest wall deformity. LUNGS: Equal air entry with crackles, diminished throughout the left lung. CVS: S1 and S2 normal with no audible murmur, regular rhythm. ABDOMEN: No hepatosplenomegaly, normal bowel sounds, no guarding or rigidity. SPINE: No scoliosis or deformity SKIN: No rashes CENTRAL NERVOUS SYSTEM: No focal deficits, tone is normal in all 4 extremities. EXTREMITIES: There is no peripheral edema. No clubbing, no cyanosis. Peripheral pulses are intact. - Labs CBC & Chem 7: 08/04/23 07:38 08/04/23 07:38 Labs: Abnormal Lab Results - Last 24 Hours (Table) 08/03/23 08/03/23 08/04/23 Range/Units 18:04 23:59 06:16 WBC (3.8-10.6) k/uL RBC (3.80-5.40) m/uL Hgb (11.4-16.0) gm/dL Hct (34.0-46.0) % RDW (11.5-15.5) % Sodium (137-145) mmol/L BUN (7-17) mg/dL Creatinine (0.52-1.04) mg/dL Glucose (74-99) mg/dL POC Glucose (mg/dL) 326 H 115 H 166 H (70-110) mg/dL 08/04/23 08/04/23 08/04/23 Range/Units 07:38 07:38 11:55 WBC 19.9 H (3.8-10.6) k/uL RBC 3.20 L (3.80-5.40) m/uL Hgb 8.6 L (11.4-16.0) gm/dL Hct 27.3 L (34.0-46.0) % RDW 16.6 H (11.5-15.5) % Sodium 136 L (137-145) mmol/L BUN 53 H (7-17) mg/dL Creatinine 1.20 H (0.52-1.04) mg/dL Glucose 138 H (74-99) mg/dL POC Glucose (mg/dL) 155 H (70-110) mg/dL Assessment and Plan Assessment: Acute hypoxemic respiratory failure, likely multifactorial, in part related to COPD exacerbation, left lower lobe pneumonia/atelectasis, complete opacification left lower lobe bronchus, and Covid 19 infection with areas of groundglass changes bilaterally. Repeat chest x-ray shows worsening consolidat ion of the left upper lobe suggestive of pneumonia progression. The patient remains on Augmentin. The patient is currently on 3 L nasal cannula Bilateral pulmonary infiltrates with areas of groundglass changes, could be related to Covid 19 infection. In addition, there is a left perihilar nodulari ty measuring up to 2.8 cm which obviously raises the concern for malignancy. Left lower lobe atelectasis, with a suspicious opacity in left lower lobe bronchus and lymphadenopathy. We reviewed the CAT scan of the chest and there is extensive and the bronchial opacification of the left lower lobe bronchus which could be either a neoplasm or aspiration. There is however volume loss in the left lung base along with left basilar atelectasis. Left upper lobe consolidation/pneumonia, currently on Zosyn Persistent leukocytosis, white cell count remains elevated at 29 Patient tested positive for coronavirus infection, 07/22/2023. COPD History of smoking History of hyperlipidemia History of hypertension History of dementia History of vitamin D deficiency CHF with LV systolic dysfunction with an ejection fraction of 35-40% and moderate mitral regurgitation Atrial fibrillation with RVR, current rhythm is sinus and the patient is an anticoagulation. Questionable tachybradycardia syndrome/sick sinus syndrome along with paroxysmal A. fib Plan: The patient was seen and evaluated Labs and medications reviewed Currently on 3 L nasal cannula Remains on Augmentin Continue Symbicort, albuterol, prednisone taper Anticoagulated with Eliquis Plan is for [facility] at discharge I have personally seen and examined the patient, performed the documentation and the assessment and plan as written. Number of minutes spent on the visit: 10.
--- NOTE | 2023-08-04 15:14 | P.PN ---
Subjective Progress Note Date: 08/04/23 Patient is an 88-year-old female with dementia, hypertension, dyslipidemia, and COPD who presented with recurrent syncopal episodes and shortness of breath. In the emergency department he underwent an extensive evaluation. On initial presentation vitals were remarkable for saturating at 96% on [address] showed no acute process, cervical spine CT shows some diffuse lytic areas within cervical spine, possible metastatic disease. Initial EKG showed sinus rhythm with left bundle branch block at 75 bpm. Patient subsequently did go into atrial fibrillation with RVR. Initial labs showed were remarkable for platelet 134, bicarb 19, creatinine 1.36, troponin 0.048, proBNP 3700, pO2 47. Chest x- ray showed interstitial prominence with left midlung opacity. Patient subsequently became more hypoxic and required BiPAP. She was admitted under our services for hypoxic respiratory failure, new onset atrial fibrillation with RVR, COPD with acute exacerbation, and concerns for fluid volume overload. Consults were placed to pulmonology and cardiology. Patient found to be COVID-1 9 positive. CTA chest negative for PE, does have left perihilar and left midlung nodularity concerning for neoplastic or atypical infection, extensive endobronchial opacification throughout the left lower lung, possible neoplasm versus extensive aspiration, patchy groundglass opacities in left upper lobe, possible moderate to severe stenosis at the arch vessel origin. Echocardiogram completed showing a reduced EF of 35-40% with hypokinetic inferioseptal and inferior wall with moderate right ventricular dilation and aneurysmal interatrial septum with suspicion of PFO and moderate mitral and tricuspid regurgitation.Cardiology evaluated and cleared patient from cardiac perspective on 07/25/23, recommending outpatient follow-up in their office in 2 weeks post discharge. Lasix was discontinued secondary to worsening renal functionRepeat chest x-ray 07/30/23 showing worsening with new near complete opacification of the left hemithorax with the aeration of the lung apex concerning for large ple ural effusion along with emphysematous changes. Patient continues to have high oxygen needs and is now on 8 L O2 via high flow nasal cannula with SpO2 of 93%.. Pulmonology following and the patient for bronchitis on 07/31 which was complicated by ventricular tachycardia requiring IV amio. She was intubated and admitted ot the ICU. She did not have any additional bouts of v-tach. She was extubated on 08/01 and was doing well on 2 L nasal cannula. Chest x-ray shows significant improvement. She did not develop any more arrhythmia. She was eating and drinking well and O2 requirements were stable. She underwent a video swallow study which was negative. Patient was to be discharged on 08/03/23 when she developed A. fib with RVR. She did not require a Cardizem drip and she spontaneously converted to normal sinus rhythm. Overnight from 08/03 through 08/04 patient had tachybradycardia episodes and had heart rates up into the 150s and as low as 42. Patient seen and examined at bedside. She denies any pain, nausea, or shortness of breath. Vital signs reviewed General: Ill appearing, mild distress, appears at stated age Cardiovascular: S1S2 reg, no murmur, positive posterior tibial pulse bilateral, Lungs: Coarse breath sounds bilateral bilateral, no rhonchi, no rales , no accessory muscle use Abdominal: soft, nontender to palpation, no guarding, no appreciable organomegaly Ext: no gross muscle atrophy, no edema b/l lower extremities, no contractures Neuro: CN II-XI grossly intact, no focal neuro deficits Psych: Awake and following commands, does not appear anxious Assessment/Plan: Acute COVID-19 pneumonia, possible endobronchial lesions per CT, lytic lesion in spine on CT cervical spine Acute hypoxic respiratory failure COPD exacerbation Suspected superimposed bacterial pneumonia Acute kidney injury, Cr stable suspect CKD Mild normocytic anemia, likely secondary to acute illness Mild thrombocytopenia, resolved Pre-diabetes with steroid-induced hyperglycemia - Pulm reviewed: cleared for discharged - COmpleted 7 days of zosyn, on Augmentin D #2 -Solu-Medrol discontinued and started on prednisone -Symbicort 2 puffs twice daily, and scheduled Ventolin inhaler 4 times daily and every 2 hours as needed for wheezing/shortness of breath. -sputum and blood cultures negative -Continue glycemic protocol with NovoLog Sliding scale insulin -Repeat CBC and BMP tomorrow Recurrent syncopal episodes, possibly sick sinus syndrome versus valvular disease Recurrent short runs of Paroxysmal Atrial fibrillation with RVR Type 2 NSTEMI Chronic systolic heart failure with reduced EF of45-50% Pulmonary HTN Ventricular tachycardia vs A fib with aberrancy Hypertension -Case discussed with cardiology nurse practitioner. Plan will be to monitor for overnight, will not increase the beta oumou dosing at this time, and will consider possible permanent pacemaker implantation. - repeat echo EF 45-50%, RVSP 47 - Eliquis 2.5 mg twice daily - Metoprolol 50 mg twice daily, hold for hr <70 Chronic: Dementia: Aricept 10 mg twice daily, and Namenda 5 mg twice daily Dyslipidemia: Atorvastatin 80 mg nightly High anion Gap metabolic acidosis, improving, resolved Thrombocytopenia, resolved Imaging: None new Data Review: Vitals reviewed and patient afebrile overnight. Labs reviewed include CBC and basic metabolic profile remarkable for white blood cell count 19.9, hemoglobin 8.6, sodium 136, BUN 53, creatinine 1.2. DVT prophylaxis: Eliquis Anticipated discharge date: in AM Anticipated discharge place: [facility] This dictation was prepared using [employer] voice recognition software. Though every attempt is made to correct errors during dictation some may still exist. Objective - Vital Signs Vital signs: Vital Signs Temp 97.3 F L 08/04/23 12:00 Pulse 50 L 08/04/23 14:00 Resp 20 08/04/23 14:00 BP 156/70 08/04/23 12:00 Pulse Ox 95 08/04/23 12:00 FiO2 40 08/01/23 12:00 Intake & Output 08/03/23 08/04/23 08/04/23 18:59 06:59 18:59 Intake Total 118 4.25 Output Total 625 600 Balance -507 -595.75 Weight 59 kg Intake: Intake, IV Titration 4.25 Amount Diltiazem 125 mg In 4.25 Sodium Chloride 0.9% 100 ml @ 5 MG/HR 5 mls/hr IV .Q24H [facility] Rx#:[id number] Oral 118 Output: Urine 625 600 Other: Voiding Method Indwelling Catheter External Catheter External Catheter # Bowel Movements 1 1 - Labs CBC & Chem 7: 08/04/23 07:38 08/04/23 07:38 Labs: Abnormal Lab Results - Last 24 Hours (Table) 08/03/23 08/03/23 08/04/23 Range/Units 18:04 23:59 06:16 WBC (3.8-10.6) k/uL RBC (3.80-5.40) m/uL Hgb (11.4-16.0) gm/dL Hct (34.0-46.0) % RDW (11.5-15.5) % Sodium (137-145) mmol/L BUN (7-17) mg/dL Creatinine (0.52-1.04) mg/dL Glucose (74-99) mg/dL POC Glucose (mg/dL) 326 H 115 H 166 H (70-110) mg/dL 08/04/23 08/04/23 08/04/23 Range/Units 07:38 07:38 11:55 WBC 19.9 H (3.8-10.6) k/uL RBC 3.20 L (3.80-5.40) m/uL Hgb 8.6 L (11.4-16.0) gm/dL Hct 27.3 L (34.0-46.0) % RDW 16.6 H (11.5-15.5) % Sodium 136 L (137-145) mmol/L BUN 53 H (7-17) mg/dL Creatinine 1.20 H (0.52-1.04) mg/dL Glucose 138 H (74-99) mg/dL POC Glucose (mg/dL) 155 H (70-110) mg/dL
[2023-08-04 16:38] LABS: Glucose,Whole Blood 159 mg/dL (70-110)
[2023-08-04] MEDS ORDERED: LOSARTAN 50 MG TAB PO SCH (16:45)
[2023-08-04] MEDS: ATORVASTATIN 80 MG TAB PO SCH (20:04)
--- NOTE | 2023-08-04 20:12 | XR ---
EXAMINATION TYPE: XR chest 1V portable DATE OF EXAM: 08/04/2023 7:56 PM CLINICAL INDICATION:Female, 88 years old with history of SOB, hypoxia; PHH COMPARISON: Chest radiographs from 08/02/2023 TECHNIQUE: XR chest 1V portable Frontal view of the chest. FINDINGS: Lungs/Pleura: Left lung airspace opacities. No evidence of pneumothorax. Blunting of the costophrenic angles is present. Pulmonary vascularity: Pulmonary vascular congestion. Heart/mediastinum: Cardiomediastinal silhouette is enlarged and stable. Musculoskeletal: No acute osseous pathology. Other findings: None IMPRESSION: Multifocal left-sided airspace opacities: For pneumonia. COPD changes. Cardiomegaly with bilateral pleural effusions and pulmonary vascular congestion correlate with serum BNP.
[2023-08-04] MEDS ORDERED: FUROSEMIDE 10 MG/ML 10 ML VIAL IV STA (20:17)
[2023-08-04 22:54] VITALS: BP 142/65; PULSE 46; RESP 24; TEMP 97.4
--- NOTE | 2023-08-05 04:20 | P.EN ---
Initially informed regarding the patient's worsening hypoxia at 7:40 pm. The patient was seen at the bedside shortly. The patient was on a nonrebreather mask with her SpO2 98%. She would quickly desaturate into the 70s with a nasal cannula. She reported feeling short of breath but was confused and slow to respond. The physical examination at that time was as follows: General: Ill-appearing female, in mild respiratory distress, appears stated age, normal weight HEENT: NC/AT, anicteric sclerae, moist conjunctiva, no lid-lag, PERRLA Cardiovascular: S1/S2 wnl, no murmurs, rubs, or gallops Lungs: Diffuse rhonchi and rales bilaterally, no accessory muscle use Abdominal: Soft, non-tender, non-distended, no guarding, rebound, or rigidity Skin: Warm, dry Extremities: No edema or contractures Psychiatric: Slow to respond, oriented to self Neuro: Speech intact, moving all extremities equally with no gross focal deficit s noted A chest x-ray was ordered and was reviewed showing likely fluid overload with multifocal opacities. The patient had also been receiving IV fluids normal saline 50 mL/hr. She had a history of CHF with EF 45-50%. IV fluids were discontinued and the patient was given Lasix 80 mg IV push once. Cardiac monitoring was continued. Subsequently responded to an A-team for the above patient. Upon arrival at the scene, notified that the DNR patient was in asystole. The family was notified that the patient had passed.
--- NOTE | 2023-08-05 15:51 | P.DS ---
Providers Date of admission: 07/19/23 19:15 Expected date of discharge: 08/05/23 Attending physician: Hardeep Pastor MD Consults: 07/19/23 19:14 Consult Physician Urgent Consulting Provider: [facility] Consult Reason/Comments: A. fib with rapid ventricular response Do you want consulting provider notified?: Yes 07/20/23 09:34 Consult Physician Urgent Consulting Provider: Bhanu Jimenez Consult Reason/Comments: hypoxic respiratory failure on bipapa Do you want consulting provider notified?: Yes 07/31/23 13:51 Consult Physician Stat Consulting Provider: Ayo Leung Consult Reason/Comments: VENTRICULAR TACHYCARDIA Do you want consulting provider notified?: Yes [facility] Course: Discharge Diagnosis: Acute COVID-19 pneumonia, possible endobronchial lesions per CT, lytic lesion in spine on CT cervical spine Acute hypoxic respiratory failure COPD exacerbation Tachybrady syndrome, Recurrent short runs of Paroxysmal Atrial fibrillation with RVR Suspected superimposed bacterial pneumonia Acute kidney injury, Cr stable suspect CKD Mild normocytic anemia, likely secondary to acute illness Mild thrombocytopenia, resolved Pre-diabetes with steroid-induced hyperglycemia Recurrent syncopal episodes, possibly sick sinus syndrome versus valvular disease Type 2 NSTEMI Chronic systolic heart failure with reduced EF of45-50% Pulmonary HTN Ventricular tachycardia vs A fib with aberrancy Hypertension Dementia Dyslipidemia High anion Gap metabolic acidosis, improving, resolved Thrombocytopenia, resolved Hospital Course: Patient is an 88-year-old female with dementia, hypertension, dyslipidemia, and COPD who presented with recurrent syncopal episodes and shortness of breath. In the emergency department he underwent an extensive evaluation. On initial presentation vitals were remarkable for saturating at 96% on [address] s howed no acute process, cervical spine CT shows some diffuse lytic areas within cervical spine, possible metastatic disease. Initial EKG showed sinus rhythm with left bundle branch block at 75 bpm. Patient subsequently did go into atrial fibrillation with RVR. Initial labs showed were remarkable for platelet 134, bicarb 19, creatinine 1.36, troponin 0.048, proBNP 3700, pO2 47. Chest x- ray showed interstitial prominence with left midlung opacity. Patient subsequently became more hypoxic and required BiPAP. She was admitted under our services for hypoxic respiratory failure, new onset atrial fibrillation with RVR, COPD with acute exacerbation, and concerns for fluid volume overload. Consults were placed to pulmonology and cardiology. Patient found to be COVID- 19 positive. CTA chest negative for PE, does have left perihilar and left midlung nodularity concerning for neoplastic or atypical infection, extensive endobronchial opacification throughout the left lower lung, possible neoplasm versus extensive aspiration, patchy groundglass opacities in left upper lobe, possible moderate to severe stenosis at the arch vessel origin. Echocardiogram completed showing a reduced EF of 35-40% with hypokinetic inferioseptal and inferior wall with moderate right ventricular dilation and aneurysmal interatrial septum with suspicion of PFO and moderate mitral and tricuspid regurgitation.Cardiology evaluated and cleared patient from cardiac perspective on 07/25/23, recommending outpatient follow-up in their office in 2 weeks post discharge. Lasix was discontinued secondary to worsening renal functionRepeat chest x-ray 07/30/23 showing worsening with new near complete opacification of the left hemithorax with the aeration of the lung apex concerning for large pleural effusion along with emphysematous changes. Patient continues to have high oxygen needs and is now on 8 L O2 via high flow nasal cannula with SpO2 of 93%. Pulmonology following and took the patient [facility] 07/31 which was complicated by ventricular tachycardia requiring IV amio. She was intubated and admitted ot the ICU. SHe was reevaluated by cardiology. She did not have any additional bouts of v-tach. She was extubated on 08/01 and was doing well on 2 L nasal cannula. Chest x-ray shows significant improvement. She did not develop any more arrhythmia. Repeat echo showed an improvement in EF of 45-50%. She was eating and drinking well and O2 requirements were stable. She underwent a video swallow study which was negative. Patient was to be discharged on 08/03/23 when she developed A. fib with RVR. She did not require a Cardizem drip as she spontaneously converted to normal sinus rhythm. Overnight from 08/03 through 08/04 patient had tachybradycardia episodes and had heart rates up into the 150s and as low as 42. Cardiology was concerned for tachybrady syndrome and was planning for pacemaker on 08/06. On the evening of 08/04 she developed increasing O2 requirements and repeat chest xray showed worsening infiltrate in the right base. Her IV fluids wer stopped and she was given 1 dose of IV lasix. Unfortunately later that night she was noted to have asystole on the research assistant member. She was a DNR so no resuscitative efforts were started. She passed on 08/04/23 at 22:24. This dictation was prepared using [employer] voice recognition software. Though every attempt is made to correct errors during dictation some may still exist. Patient Condition at Discharge: Stable Plan - Discharge Summary Discharge Rx Participant: No New Discharge Prescriptions: New Amiodarone [Cordarone] 200 mg PO BID tab predniSONE [Deltasone] 0 mg PO DIRECTED #20 tab Apixaban [Eliquis] 2.5 mg PO BID tab Metoprolol Tartrate [Lopressor] 50 mg PO BID tab Budesonide-Formot 160-4.5 Mcg [Symbicort 160-4.5 Mcg Inhaler] 2 puff INHALATION RT-BID each Albuterol Inhaler [Ventolin Hfa Inhaler] 2 puff INHALATION RT-QID each Amoxic-Pot Clav 875-125Mg [Augmentin 875-125] 1 each PO Q12HR #7 tab guaiFENesin [Mucinex] 200 mg PO Q12HR PRN tab PRN Reason: Congestion Albuterol Inhaler [Ventolin Hfa Inhaler] 2 puff INHALATION RT-Q2H PRN each PRN Reason: Shortness Of Breath Or Wheezing Continue Cholecalciferol [Vitamin D3 (125 Mcg = 5000 Iu)] 125 mcg PO HS Atorvastatin Calcium [Lipitor] 80 mg PO HS Memantine [Namenda] 10 mg PO BID Donepezil HCl [Aricept] 10 mg PO BID Multivitamins, Thera [Multivitamin (formulary)] 1 tab PO DAILY Discontinued amLODIPine [Norvasc] 5 mg PO HS Metoprolol Succinate (ER) [Toprol Xl] 25 mg PO DAILY Aspirin EC [Ecotrin Low Dose] 81 mg PO DAILY Turmeric Root Extract [Turmeric] 500 mg PO HS lisinopriL [Zestril] 10 mg PO DAILY Discharge Medication List Atorvastatin Calcium [Lipitor] 80 mg PO HS 07/19/23 [History] Cholecalciferol [Vitamin D3 (125 Mcg = 5000 Iu)] 125 mcg PO HS 07/19/23 [History] Donepezil HCl [Aricept] 10 mg PO BID 07/19/23 [History] Memantine [Namenda] 10 mg PO BID 07/19/23 [History] Multivitamins, Thera [Multivitamin (formulary)] 1 tab PO DAILY 07/19/23 [History] Albuterol Inhaler [Ventolin Hfa Inhaler] 2 puff INHALATION RT-Q2H PRN each 08/03/23 [Rx] Albuterol Inhaler [Ventolin Hfa Inhaler] 2 puff INHALATION RT-QID each 08/03/23 [Rx] Amiodarone [Cordarone] 200 mg PO BID tab 08/03/23 [Rx] Amoxic-Pot Clav 875-125Mg [Augmentin 875-125] 1 each PO Q12HR #7 tab 08/03/23 [Rx] Apixaban [Eliquis] 2.5 mg PO BID tab 08/03/23 [Rx] Budesonide-Formot 160-4.5 Mcg [Symbicort 160-4.5 Mcg Inhaler] 2 puff INHALATION RT-BID each 08/03/23 [Rx] Metoprolol Tartrate [Lopressor] 50 mg PO BID tab 08/03/23 [Rx] guaiFENesin [Mucinex] 200 mg PO Q12HR PRN tab 08/03/23 [Rx] predniSONE [Deltasone] 0 mg PO DIRECTED #20 tab 08/03/23 [Rx] Follow up Appointment(s)/Referral(s): Silverio Mukherjee MD [STAFF PHYSICIAN] - 1 Week Carloz Staples MD [Primary Care Provider] - 1-2 days Ayo Leung DO [STAFF PHYSICIAN] - 2 Weeks Activity/Diet/Wound Care/Special Instructions: Activity: As tolerated, fall precautions Diet: Heart Health Special Instructions: Borges removed, monitor for urinary retention [facility] and BMP in 2-3 days DX: anemia, CONRADO Discharge Disposition: - Preliminary Cause of Preliminary Cause of : COVID-19
--- NOTE | 2023-08-07 09:40 | CDI ---
Documentation Clarification Form Date: 08/07/2023 09:29:55 AM From: [place] [place] Admit Date: 07/19/2023 07:15:00 PM Patient Name: Gela Roach Visit Number: [id number] Discharge Date: 08/05/2023 12:25:00 AM ATTENTION: The Clinical Documentation Specialists (CDI) and [facility] Coding Staff appreciate your assistance in clarifying documentation. Please respond to the clarification below the line at the bottom and electronically sign. The CDI & [facility] Coding staff will review the response and follow-up if needed. Please note: Queries are made part of the Legal Health Record. If you have any questions, please contact the author of this message via ITS. Dr. Hardeep Pastor Pneumonia is documented upon presentation to ER in ER notes on 07/19/23. Patient tested positive for Covid 19 on 07/22/2023. For each diagnosis, documentation must be clear to determine if the condition was present at the time of the patients inpatient admission or developed during the hospital stay. Additional clarification regarding Covid 19. History/Risk Factors: dementia, hypertension, atrial fib, syncope, recurrent falls Clinical Indicators: pneumonia, mucus plug Treatment: Steroids, Zithromax, Rocephin Definition of Present on Admission (POA): A diagnosis present at the time the order for admission to inpatient status was written. Please clarify if Covid 19 was POA [ X ] Y = Yes, the condition was present at the time of the order for inpatient admission. [ ] N = No, the condition was not present at the time of the order for inpatient admission. [ ] W = Clinically undetermined if the condition was present at the time of the order for inpatient admission. Y = Yes, the condition was present at the time of the order for inpatient admission. MTDD
== END 2023-08-04 22:24 | disposition expired | DRG 208 ==
LOC: EC 12:22 → 3SCARD 19:15 → 2SICU 07-31 14:45 → 3SCARD 08-02 17:29
PROVIDERS: ADMIT Internal Medicine; ATTEND Internal Medicine
PROC: 8E0ZXY6 Isolation (ICD-10-PCS; 2023-07-22)
PROC: 0BC78ZZ Extirpation of Matter from Left Main Bronchus, Via Natural or Artificial Opening Endoscopic (ICD-10-PCS; 2023-07-31)
PROC: 0BH17EZ Insertion of Endotracheal Airway into Trachea, Via Natural or Artificial Opening (ICD-10-PCS; principal; 2023-07-31 07:30)
PROC: 5A1935Z Respiratory Ventilation, Less than 24 Consecutive Hours (ICD-10-PCS; principal; 2023-07-31 07:30)
PROC: 5A09357 Assistance with Respiratory Ventilation, Less than 24 Consecutive Hours, Continuous Positive Airway Pressure (ICD-10-PCS; 2023-08-01)
DX: U07.1 COVID-19 (principal); J12.82 Pneumonia due to coronavirus disease 2019; I21.A1 Myocardial infarction type 2; J15.9 Unspecified bacterial pneumonia; J96.21 Acute and chronic respiratory failure with hypoxia; I50.43 Acute on chronic combined systolic (congestive) and diastolic (congestive) heart failure; E87.1 Hypo-osmolality and hyponatremia; I13.0 Hypertensive heart and chronic kidney disease with heart failure and stage 1 through stage 4 chronic kidney disease, or unspecified chronic kidney disease; I47.20 Ventricular tachycardia, unspecified; I48.19 Other persistent atrial fibrillation; J98.11 Atelectasis; C79.51 Secondary malignant neoplasm of bone; N17.9 Acute kidney failure, unspecified; T17.890A Other foreign object in other parts of respiratory tract causing asphyxiation, initial encounter; Q21.12 Patent foramen ovale; D63.1 Anemia in chronic kidney disease; R73.03 Prediabetes; R73.9 Hyperglycemia, unspecified; Z66 Do not resuscitate; R56.9 Unspecified convulsions; I49.5 Sick sinus syndrome; J43.9 Emphysema, unspecified; D69.6 Thrombocytopenia, unspecified; C80.1 Malignant (primary) neoplasm, unspecified; I27.20 Pulmonary hypertension, unspecified; E87.8 Other disorders of electrolyte and fluid balance, not elsewhere classified; F03.90 Unspecified dementia, unspecified severity, without behavioral disturbance, psychotic disturbance, mood disturbance, and anxiety; I08.3 Combined rheumatic disorders of mitral, aortic and tricuspid valves; I25.10 Atherosclerotic heart disease of native coronary artery without angina pectoris; S00.83XA Contusion of other part of head, initial encounter; I25.2 Old myocardial infarction; I44.7 Left bundle-branch block, unspecified; W19.XXXA Unspecified fall, initial encounter; N18.9 Chronic kidney disease, unspecified; E78.5 Hyperlipidemia, unspecified; T38.0X5A Adverse effect of glucocorticoids and synthetic analogues, initial encounter; R59.0 Localized enlarged lymph nodes; R74.01 Elevation of levels of liver transaminase levels; E87.6 Hypokalemia; E55.9 Vitamin D deficiency, unspecified; R29.6 Repeated falls; Z91.81 History of falling; Z78.9 Other specified health status; Z79.01 Long term (current) use of anticoagulants; Z79.51 Long term (current) use of inhaled steroids; Z79.82 Long term (current) use of aspirin; Z79.899 Other long term (current) drug therapy; Z28.21 Immunization not carried out because of patient refusal
CPT/HCPCS: 31645; 36415; 36600; 70450; 71045; 71046; 71275; 72125; 74230; 76770; 80048; 80053; 82272; 82805; 83036; 83605; 83615; 83735; 83880; 84100; 84132; 84145; 84484; 85025; 85027; 85379; 85610; 85652; 85730; 86140; 87040; 87070; 87205; 87449; 87636; 93005; 93306; 94002; 94003; 94640; 94660; 94667; 94668; 94760; 96361; 96365; 96367; 96368; 96375; 99291